=== PATIENT | male | born 1940 | race Caucasian/White ===

== ENCOUNTER 2024-07-27 12:52 | Outpatient (CLI) | payer OTHER, SELFPAY ==
[2024-07-27 13:46] LABS: Anion Gap 9 mmol/L (4-12); Blood Urea Nitrogen 25 mg/dL (9-20); Calcium 9.6 mg/dL (8.4-10.2); Carbon Dioxide 31 mmol/L (22-30); Chloride 99 mmol/L (98-107); Estimated Glomerular Filt Rate > 60; Glucose 120 mg/dL (65-110); Potassium 4.3 mmol/L (3.4-5.0); Sodium 139 mmol/L (137-145)
[2024-07-27 14:50] LABS: Folic Acid 18.5 ng/mL (2.76->20); Vitamin B12 > 1000.0 pg/mL (239-931)
== END 2024-07-27 12:53 | disposition home or self-care (01) ==
LOC: ANHLAB 12:54
PROVIDERS: PCP Internal Medicine; Visit Provider Internal Medicine
DX: E53.8 Deficiency of other specified B group vitamins (principal); R79.9 Abnormal finding of blood chemistry, unspecified; R79.89 Other specified abnormal findings of blood chemistry
CPT/HCPCS: 36415; 80048; 82607; 82746

== ENCOUNTER 2024-12-16 15:22 | Outpatient (CLI) | payer OTHER, SELFPAY ==
[2024-12-16 16:19] LABS: Alanine Aminotransferase 16 U/L (6-50); Albumin Level 4.4 g/dL (3.5-5.1); Alkaline Phosphatase 61 U/L (38-126); Anion Gap 8 mmol/L (4-12); Aspartate Amino Transferase 21 U/L (17-59); Bilirubin,Total 0.6 mg/dL (0.2-1.3); Blood Urea Nitrogen 27 mg/dL (9-20); Calcium 9.4 mg/dL (8.4-10.2); Carbon Dioxide 28 mmol/L (22-30); Chloride 102 mmol/L (98-107); Cholesterol 120 mg/dL (0-200); Estimated Glomerular Filt Rate > 60; Glucose 92 mg/dL (65-110); HDL Direct 42 mg/dL; Potassium 4.5 mmol/L (3.4-5.0); Sodium 138 mmol/L (137-145); Triglycerides 91 mg/dL (<150)
[2024-12-16 16:32] LABS: LDL Cholesterol Direct 54 mg/dL
--- OUTSIDE RECORDS SUMMARY | 2024-12-16 16:55 | XMS_ITS | Encounter Summary ---
Author Organization [facility] Address [address] [place] [address] Care Team Providers Care Used Car Lot Porter Name Role Phone Herman Muñoz MD Primary Care Provider Encounter Details Date Type Department Care Team (Late st Contact Info) Description 02/07/2016 Abstract [facility] [address] [place] [address] Chris Morejon MD Social History Tobacco Use Types Packs/Day Years Used Date Smoking Tobacco: Unknown Alcohol Use Standard Drinks/Week Comments Yes 23.3 (1 standard drink = 0.6 oz pure alcohol) Wine, 2 glasses per day. 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
--- OUTSIDE RECORDS SUMMARY | 2024-12-16 16:55 | XMS_ITS | Clinical Summary ---
Author Organization [facility] Address [address] [place] [address] Care Team Providers Care Entrepreneur Name Role Phone Herman Muñoz MD Primary Care Provider [phone] Allergies Active Allergy Reactions Criticality Noted Date Comments Iodine Unknown 03/09/2016 Lisinopril Unknown 03/09/2016 Medications SIMVASTATIN 5 MG tablet TAKE 1 TABLET BY MOUTH EVERY EVENING 30 tablet 5 08/13/2016 Active aspirin 325 MG tablet Take 1 tablet by mouth daily. 07/21/2015 Active [place] 3 1000 MG Cap Take 1 tablet by mouth daily. 02/07/2016 Active Vit-Fe Sulfate-FA ( VITAMIN OR) Take 1 tablet by mouth daily. 02/07/2016 Active probiotic capsule Take 1 tablet by mouth daily. 07/21/2015 Active spironolactone 25 MG tablet Take 1 tablet by mouth daily. 07/21/2015 Active CYANOCOBALAMIN IJ Inject 1 mL into the muscle weekly. 02/07/2016 Active donepezil 10 MG Tab TAKE 1/2 TABLET DAILY FOR 4 WEEKS, THEN INCREASE TO 1 TABLET DAILY. 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 on file Not on file Not on fi le Last Filed Vital Signs Vital Sign Reading Time Taken Comments Blood Pressure 158/68 01/29/2017 9:46 AM CDT Pulse 87 01/29/2017 9:46 AM CDT Temperature - - Respiratory Rate 14 02/07/2016 12:03 PM CDT Regular Oxygen Saturation 97% 01/29/2017 9:46 AM CDT on room air Inhaled Oxygen Concentration - - Weight 72.6 kg (160 lb) 01/29/2017 9:46 AM CDT Height 167.6 cm (5' 6 ) 01/29/2017 9:46 AM CDT Body Mass Index 25.82 01/29/2017 9:46 AM CDT Plan of Treatment Health Maintenance Due Date Last Done Comments ASCVD Statin 1940 Pneumococcal Vaccine: 65+ Years (1 of 2 - PCV) 1946 DTaP, Tdap and Td Vaccines ( 1 - Tdap) 1959 Zoster Vaccines (1 of 2) 1990 RSV Immunization or 60+ Years (1 - 1-dose 75+ series) 2015 ASCVD LDL 02/06/2018 02/06/2017, 01/12/2015 COVID-19 Vaccine (2023-2 5 season) 2024 Influenza Adult (#1) 2024 Meningococcal B Vaccine Aged Out No l onger eligible based on patient's age to complete this topic Meningococcal Vaccine Aged Out No floresita sincere eligible based on patient's age to complete this topic RSV Immunizations Under 20 Months Aged Out No longer eligible b ased on patient's age to complete this topic Procedures Procedure Name Priority Date/Time Associated Diagnosis Comments LIPID PANEL Routine 02/06/2017 from Last 3 Months or Most Recently Relevant to Health Maintenance Results * LIPID PANEL (02/06/2017) CHOLESTEROL 149 HDL 61 TRIGLYCERIDES 88 LDL (CALCULATED) 70 VLDL CALCULATION 18 02/06/2017 us Doc [facility] Final Result from Last 3 Months or Most Recently Relevant to Health Maintenance Insurance [employer] [facility] Care Teams Entrepreneur Relationship Specialty Start Date End Date Herman Muñoz MD [address] [place] [address] PCP - General INTERNAL MEDICINE 01/29/17
[2024-12-16 19:40] LABS: Hemoglobin A1C 6.4 % (<5.7)
[2024-12-18 16:58] LABS: PSA, Free 3.1 ng/mL; PSA, Total 10.1 ng/mL (< OR = 4.0); Percent Free Prostate Spec Ag NOT CALCULATED % (calc) (>25)
== END 2024-12-16 15:23 | disposition home or self-care (01) ==
PROVIDERS: PCP Internal Medicine; Visit Provider Internal Medicine
DX: Z00.01 Encounter for general adult medical examination with abnormal findings (principal); Z68.22 Body mass index [BMI] 22.0-22.9, adult; I10 Essential (primary) hypertension; I25.10 Atherosclerotic heart disease of native coronary artery without angina pectoris; R97.20 Elevated prostate specific antigen [PSA]; E78.5 Hyperlipidemia, unspecified; Z79.899 Other long term (current) drug therapy
CPT/HCPCS: 36415; 80053; 80061; 83036; 84153; 84154

== ENCOUNTER 2025-01-22 18:28 | Emergency (ER) | payer OTHER, SELFPAY ==
--- NOTE | ~2025-01-22 | XR_ITS ---
XR chest 2V Ordering provider: Nikhil Cantor MD History: 84 years Male with . weakness . Comparison: None. FINDINGS: MEDIASTINUM: The cardiac silhouette is not enlarged. LUNGS: No infiltrates, effusions or pneumothorax. OTHER: No free air under the diaphragm. Degenerative spine. Bilateral shoulder osteoarthritic changes. IMPRESSION: No acute cardiopulmonary pathology. Reviewed, dictated and finalized at location A.
--- NOTE | ~2025-01-22 | CT_ITS ---
CT brain wo con Ordering provider: Nikhil Cantor MD History: 84 years Male with . weakness , dementia . Comparison: None. Technique: CT of the head without contrast. Radiation reduction technique utilized.The dose-length pr oduct was 681 mGy-cm. FINDINGS: BRAIN PARENCHYMA AND CSF SPACES: Mild leukoaraiosis and diffuse cortical atrophy. Mild atheromatous d isease. 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 Old lacunar infarct in the left internal cap moshe. No midline shift, mass effect or hemorrhage. The brain parenchyma and CSF spaces are otherwise normal. VISUALIZED PARANASAL SINUSES: Left maxillary and bilateral ethmoid sinus disease. Otherwise, Well aer ated. MASTOIDS: Well aerated. BONES: The bones appear intact. SOFT TISSUES: Visualized nasopharynx is normal. Superficial soft tissues are normal. IMPRESSION: No definite acute intracranial findings. Reviewed, dictated and finalized at location A.
[2025-01-22 18:30] VITALS: BP 109/71; PULSE 100; RESP 18; TEMP 37.1; O2SAT 100
--- OUTSIDE RECORDS SUMMARY | 2025-01-22 18:31 | XMS_ITS | Encounter Summary ---
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 Not on file Not on file Not on fi le documented as of this encounter Plan of Treatment Not on file documented as of this encounter Visit Diagnoses Not on filedocumented in this encounter Care Teams Provider Relations Rep Relationship Specialty Start Date End Date Herman Muñoz MD [address] [place] [address] PCP - General INTERNAL MEDICINE 01/29/17 documented as of this encounter
--- OUTSIDE RECORDS SUMMARY | 2025-01-22 18:31 | XMS_ITS | Clinical Summary ---
Author Organization [facility] Address [address] [place] [address] Care Team Providers Care Physician Assistant Psychiatry Name Role Phone Herman Muñoz MD Primary Care Provider [phone] Allergies Active Allergy Reactions Criticality Noted Date Comments Iodine Unknown 03/09/2016 Lisinopril Unknown 03/09/2016 Medications SIMVASTATIN 5 MG tablet TAKE 1 TABLET BY MOUTH EVERY EVENING 30 tablet 5 08/13/2016 Active aspirin 325 MG tablet Take 1 tablet by mouth daily. 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 Not on file [...] Date Last Done Comments ASCVD Statin 1940 DTaP, Tdap and Td Vaccines ( 1 - Tdap) 1959 Pneumococcal Vaccine: 50+ Years (1 of 2 - PCV) 1959 Zoster Vaccines (1 of 2) 1990 RSV Immunization or 60+ Years (1 - 1-dose 75+ series) 2015 ASCVD LDL 02/06/2018 02/06/2017, 01/12/2015 COVID-19 Vaccine ( - 2023-2 5 season) 2024 Meningococcal B Vaccine Aged Out No [...] Most Recently Relevant to Health Maintenance Insurance [employer] [facility] Care Teams Physician Assistant Psychiatry Relationship Specialty Start Date End Date Herman Muñoz MD [address] [place] [address] PCP - General INTERNAL MEDICINE 01/29/17
--- NOTE | 2025-01-22 18:49 | ECG_ITS ---
Test Date: 2025-01-22 19:30:14 Measurements Intervals [place] Rate: 94 P: 58 IN: 173 QRS: 4 QRSD: 104 T: 22 QT: 328 QTc: 412 Interpretive Statements SINUS RHYTHM POSSIBLE LEFT ATRIAL ENLARGEMENT DELAYED PRECORDIAL R/S TRANSITION INFERIOR INFARCT, AGE INDETERMINATE BASELINE ARTIFACT- I, II, III, AVR, AVL, AVF, V1-V3 ABNORMAL ECG No previous ECG available for comparison Electronically Signed On 01-23-2025 07:12:08 CDT by Perez Canela D.O.
[2025-01-22 18:54] LABS: Glucose Point of Care 171 mg/dl (65-105)
--- NOTE | 2025-01-22 19:04 | PC.NURSE ---
Pt to CT at this 1900
[2025-01-22 19:06] LABS: Basophils Percent Auto 0.3 % (0.2-1.2); Eosinophils Absolute Auto 0.1 K/mm3 (0-0.3); Eosinophils Percent Auto 1.1 % (0-4.4); Hematocrit 37.7 % (42.0-52.0); Hemoglobin 12.3 g/dL (14.0-18.0); Immature Granulocyte Absolute 0.04 K/mm3 (0.00-0.031); Immature Granulocyte Percent A 0.4 % (0-0.5); Lymphocytes Absolute Auto 0.92 K/mm3 (0.9-3.2); Lymphocytes Percent Auto 8.8 % (18.3-44.2); Mean Corpuscular HGB Conc 32.6 g/dl (32-36); Mean Corpuscular Hemoglobin 30.4 pg (26-34); Mean Corpuscular Volume 93.1 fl (80-100); Mean Platelet Volume 9.3 fl (7.4-10.4); Monocytes Absolute Auto 0.7 K/mm3 (0.1-0.6); Monocytes Percent Auto 6.8 % (2.6-8.5); Neutrophils Absolute Auto 8.7 K/mm3 (1.3-6.7); Neutrophils Percent Auto 82.6 % (45.5-73.1); Platelet Count Result 196 k/mm3 (150-375); Red Blood Count 4.05 M/mm3 (4.6-6.20); White Blood Count 10.5 K/mm3 (4.5-10.0)
--- OUTSIDE RECORDS SUMMARY | 2025-01-22 19:15 | XMS_ITS | Encounter Summary ---
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
--- OUTSIDE RECORDS SUMMARY | 2025-01-22 19:15 | XMS_ITS | Clinical Summary ---
Author Organization [facility] Address [address] [place] [address] Care Team Providers Care Coil Strapper Name Role Phone Herman Muñoz MD Primary Care Provider [phone] Allergies Active Allergy Reactions Criticality Noted Date Comments Iodine Unknown 03/09/2016 Lisinopril Unknown 03/09/2016 Medications SIMVASTATIN 5 MG tablet TAKE 1 TABLET BY MOUTH EVERY EVENING 30 tablet 5 08/13/2016 Active aspirin 325 MG tablet Take 1 tablet by mouth daily. 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
[2025-01-22 19:18] LABS: Alanine Aminotransferase 19 U/L (6-50); Albumin Level 4.2 g/dL (3.5-5.1); Alkaline Phosphatase 77 U/L (38-126); Anion Gap 12 mmol/L (4-12); Aspartate Amino Transferase 19 U/L (17-59); Bilirubin,Total 0.5 mg/dL (0.2-1.3); Blood Urea Nitrogen 28 mg/dL (9-20); Calcium 8.9 mg/dL (8.4-10.2); Carbon Dioxide 25 mmol/L (22-30); Chloride 100 mmol/L (98-107); Estimated Glomerular Filt Rate 59; Glucose 183 mg/dL (65-110); Potassium 4.3 mmol/L (3.4-5.0); Sodium 137 mmol/L (137-145)
[2025-01-22 19:42] LABS: Influenza A QL RT-PCR Negative (Negative); Influenza B QL RT-PCR Negative (Negative); RSV RNA, RT-PCR Negative (Negative); SARS-CoV-2 RNA PCR Positive (Negative)
--- NOTE | 2025-01-22 19:42 | ED_ITS ---
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 He also has a history of peritoneal carcinomatosis that was treated surgically over 20 years ago. He is currently in remission. Patient presents to the emergency department with a chief complaint of shakiness. He is as baseline mentation x2. Not any acute distress, answering all my questions appropriately. Family states that they witnessed him having some shaking of his bilateral extremities without any loss of consciousness. This was while he was trying knee dinner. Patient is still having some shaking his bilateral upper extremities presently with raising his arms in the air but no asterixis. No weakness in the arms or legs. He lives at an assisted living facility with his . Patient denies any headache, nausea, vomiting, abdominal pain, back pain, fever, chills. Apparently he was otherwise in his normal state of health. The family contacted the PCP who referred him to the emergency department for further evaluation. No falls or injuries. Patient does not take any blood thinner medications. Related Data Home Medications ?Medication ?Instructions ?Recorded ?Confirmed ?Last Taken ?Type cholecalciferol (vitamin D3) 50 50 mcg PO DAILY 06/29/24 12/16/24 Unknown History mcg (2,000 unit) capsule mecobalamin (vitamin B12) 1,000 1,000 mcg sublingual DAILY 06/29/24 12/16/24 Unknown History mcg disintegrating tablet,sublingual vitamin BYMOUTH 06/29/24 12/16/24 Unknown History Adamson Fiber Gummies BYWIUTH 12/16/24 12/16/24 Unknown History Allergies Allergy/AdvReac Type Severity Reaction Status Date / Time nkda AdvReac Mild Unknown Uncoded 01/08/25 13:51 Review of Systems 2 Review of Systems: As reviewed above in HPI [facility] Past Medical History Medical History Hearing difficulty Bilateral impacted cerumen Diarrhea Encounter for routine adult health examination with abnormal findings BMI 22.0-22.9, adult Follow up CINTIA (obstructive sleep apnea) Thickened nails ASHD (arteriosclerotic heart disease) [place] (hard of hearing) Hyperlipidemia Pre-diabetes Elevated PSA Encounter to establish care with new doctor On buttermaker drug therapy BMI 24.0-24.9, adult Benign essential hypertension Dementia Surgical History Surgical History Hx of cholecystectomy Social History Social History Smoking status: Former smoker Tobacco type: cigarettes Second hand tobacco smoke exposure: Yes Do You Feel Safe in your Home?: Yes Lack of Transportation: No Lack of Food: Never True Current Housing: I Have Housing Concerned About Future Housing: No Difficulty Paying Gas/Electric Bills: No Difficulty Paying for Meds: No Difficulty w/ Childcare or Family Care: No Living arrangements: [facility] Occupation/Education: retired Gender identity (if verbalized by the patient): Male Exam 2 Narrative: GENERAL: [Well-appearing, well-nourished, and in no acute distress.] HEAD: [Normocephalic, atraumatic.] EYES: [PERRLA and EOMI.] ENT: Nares clear, no rhinorrhea or epistaxis. Mucous membranes dry. NECK: Supple. CHEST: [Clear to auscultation. No respiratory distress.] HEART: [Regular rate and rhythm]. No murmur heard. [Normal peripheral pulses.] ABDOMEN: [Soft, nondistended], [nontender], [No rigidity or guarding] EXTREMITIES: Normal range of motion. [No edema.] SKIN: Warm, dry, no rash. NEURO: [No focal deficits]. Alert and oriented x2, at baseline mentation. Seems to be an intention tremor in bilateral upper extremities, no ataxia in the arms or legs. PSYCH: [Normal mood and affect.] Course Vital Signs Vital signs: Vital Signs Temperature 37.1 C 01/22/25 18:30 Pulse Rate 100 01/22/25 18:30 Respiratory Rate 18 01/22/25 18:30 Blood Pressure 109/71 01/22/25 18:30 Pulse Oximetry 100 01/22/25 18:30 Oxygen Delivery Room Air 01/22/25 18:30 Temperature 37.1 C 01/22/25 18:30 Pulse Rate 99 01/22/25 20:54 Respiratory Rate 18 01/22/25 20:54 Blood Pressure 140/71 04/25/25 20:54 Pulse Oximetry 98 01/22/25 20:54 Oxygen Delivery Room Air 01/22/25 18:30 MDM - Weakness MDM Narrative Medical decision making narrative: 84-year-old male with a past medical history including central pontine myelinolysis leaving him with cognitive decline and dementia, history of peritoneal carcinomatosis status post surgery and remission. Presents the emergency department today with shaking in his extremities. No loss consciousness or trauma. Patient does have some intention tremor examination which family states is new. He is not in any distress, does appear slightly dehydrated. Normal vital signs otherwise. Broad workup was ordered including CBC, CMP, urinalysis, CT of the head, chest x-ray, EKG, VBG. Patient is at his baseline mentation and has an unremarkable neurological examination otherwise. Primary care provider sent the patient in after discussing with the family over the phone. Laboratory studies showed no significant derangements. No significant anemia, leukocytosis or platelet concerns. Blood gas largely unremarkable. Normal pCO2 and bicarb. Electrolyte panel normal limits, normal creatinine, mildly elevated glucose. Normal LFTs. Urinalysis without signs of infection. No bacteria or white blood cells. Patient did test positive for COVID which likely explains his symptomatology. Chest x-ray was normal. CT of the head was unremarkable. EKG shows sinus rhythm. Patient was re-evaluated had no acute complaints. He is safe and stable for discharge home given his unremarkable vitals and will be diagnosed with COVID. Medical Records Attestation: I reviewed the patient's medical records. Lab Data Attestation: I reviewed the patient's lab results. 01/22/25 18:59 01/22/25 18:59 Labs: Lab Results 01/22/25 01/22/25 01/22/25 Range/Units 18:52 18:59 19:42 WBC 10.5 H (4.5-10.0) K/mm3 RBC 4.05 L (4.6-6.20) M/mm3 Hgb 12.3 L (14.0-18.0) g/dL Hct 37.7 L (42.0-52.0) % MCV 93.1 (80-100) fl MCH 30.4 (26-34) pg MCHC 32.6 (32-36) g/dl RDW 13.0 (11.5-14.5) % Plt Count 196 (150-375) k/mm3 MPV 9.3 (7.4-10.4) fl Immature Gran % (Auto) 0.4 (0-0.5) % Neut % (Auto) 82.6 H (45.5-73.1) % Lymph % (Auto) 8.8 L (18.3-44.2) % [place] % (Auto) 6.8 (2.6-8.5) % Eos % (Auto) 1.1 (0-4.4) % Baso % (Auto) 0.3 (0.2-1.2) % Lymph # (Auto) 0.92 (0.9-3.2) K/mm3 [place] # (Auto) 0.7 H (0.1-0.6) K/mm3 Eos # (Auto) 0.1 (0-0.3) K/mm3 Baso # (Auto) 0.0 (0.0-0.1) K/mm3 Abs Immat Gran (auto) 0.04 H (0.00-0.031) K/mm3 Absolute Neuts (auto) 8.7 H (1.3-6.7) K/mm3 Absolute Nucleated RBC 0.000 (0.0-0.012) K/mm3 Nucleated RBC % 0.0 (0.0-0.2) % Sodium 137 (137-145) mmol/L Potassium 4.3 (3.4-5.0) mmol/L Chloride 100 (98-107) mmol/L Carbon Dioxide 25 (22-30) mmol/L Anion Gap 12 (4-12) mmol/L BUN 28 H (9-20) mg/dL Creatinine 1.18 (0.7-1.3) mg/dL Estim Creat Clear Calc Not Reportable Estimated GFR 59 (59 - ) Glucose 183 H (65-110) mg/dL POC Capillary Glucose 171 H (65-105) mg/dl Calcium 8.9 (8.4-10.2) mg/dL Total Bilirubin 0.5 (0.2-1.3) mg/dL AST 19 (17-59) U/L ALT 19 (6-50) U/L Alkaline Phosphatase 77 (38-126) U/L Total Protein 7.0 (6.3-8.2) g/dL Albumin 4.2 (3.5-5.1) g/dL Urine Color Yellow (Yellow) Urine Appearance Clear (Clear) Urine pH 7.5 (5.0-9.0) Ur Specific [place] 1.018 (1.001-1.035) Urine Protein 1+ H (Negative) mg/dL Urine Glucose (UA) Negative (Negative) mg/dL Urine Ketones Trace H (Negative) mg/dL Ur Blood (Man) 2+ H (Negative) Urine Nitrate Negative (Negative) Urine Bilirubin Negative (Negative) Urine Urobilinogen 1.0 (<2.0) mg/dL Leukocyte Esterase Rfl Negative (Negative) BJ/UL Urine RBC 51-100 H (0-2) /hpf Urine WBC 0-5 (0-3) /hpf Ur Squamous Epith Cells None seen (Few) /hpf Urine Bacteria None seen /hpf Urine Casts 0-2 Influenza A (RT-PCR) Negative (Negative) Influenza B (RT-PCR) Negative (Negative) RSV (RT-PCR) Negative (Negative) SARS-CoV-2 RNA (RT-PCR) Positive A (Negative) ABG Data ABG results: 01/22/25 19:50 VBG pH 7.433 H* VBG pCO2 39.5 L VBG pO2 < 27.0 L VBG HCO3 25.8 FiO2 21 Attestation: I personally reviewed and interpreted this ABG as follows: Interpretation: Unremarkable pCO2 and bicarb Imaging Data Attestation: I personally reviewed and interpreted this imaging study as follows: My impression: Impressions Chest X-Ray 01/22/25 19:06 IMPRESSION: No acute cardiopulmonary pathology. Head CT 01/22/25 19:20 IMPRESSION: No definite acute intracranial findings. ECG Data EKG #1: Attestation: I personally reviewed and interpreted this ECG as follows: ECG completion date: 01/22/25 ECG completion time: 19:30 Prior ECG tracings: not available for review Interpretation: No ST segment elevations, depressions or acute inversions. QTC 414, QRS 104, NH 173. Normal sinus rhythm without any previous EKG for comparison. Discharge Plan Discharge Clinical Impression: COVID, Episode of generalized weakness Dementia Qualifiers: Dementia type: unspecified type Dementia severity: unspecified severity D ementia behavioral or psychological symptom: unspecified whether behavioral, psychotic, or mood disturbance or anxiety Qualified Code(s): F03.90 - Unspecified dementia, unspecified severity, without behavioral disturbance, psychotic disturbance, mood disturbance, and anxiety Patient Disposition: Home Condition: Stable Instructions: Antibiotic Form, Droplet Precautions (ED), COVID-19 (Coronavirus Disease 2019) (ED) Additional Instructions: Patient tested positive for COVID here today. No other concerns on laboratory studies or imaging at this time. Symptoms of COVID could last up to 7-10 days. If you are symptomatic, febrile, and coughing you should wear a mask to prevent spread otherwise no guidelines for isolation. Take Tylenol and ibuprofen for any aches or pains. Remain well hydrated. Return if you have any emergent concerns. Follow-up with your regular primary care provider. Patient Language: Mosotho Prescriptions: No Action cholecalciferol (vitamin D3) 50 mcg (2,000 unit) capsule 50 mcg PO DAILY vitamin BYMOUTH mecobalamin (vitamin B12) 1,000 mcg tablet,disintegrating 1,000 mcg sublingual DAILY Rx Instructions: place tablet under tongue and allow to dissolve for at least30 secs before swallowing Adamson Fiber Gummies BYMOUTH amlodipine [Norvasc] 5 mg tablet 5 mg PO DAILY Qty: 90 0RF memantine 10 mg tablet 10 mg PO BID Qty: 180 0RF metformin 500 mg tablet 500 mg PO BID Qty: 180 0RF pravastatin 40 mg tablet 40 mg PO DAILY Qty: 90 1RF Follow-up/Referrals: Clark Rodriguez MD [Primary Care Provider] - Time of Disposition: 20:53
[2025-01-22] MEDS: LACTATED RINGERS 1,000 ML 999 ML IV CONT (19:51)
[2025-01-22 19:52] VITALS: BP 145/62; PULSE 95; RESP 18; O2SAT 100
[2025-01-22 19:54] VITALS: PULSE 95
[2025-01-22 19:54] LABS: Add Urine Microscopic? YES; Appearance Urine Clear (Clear); Bacteria Urine None Seen /hpf; Bilirubin Urine Negative (Negative); Blood Urine 2+ (Negative); Color Urine Yellow (Yellow); Glucose Urine UA Negative (Negative); Ketones Urine Trace mg/dL (Negative); Leukocyte Esterase Ur Negative LEU/UL (Negative); Nitrate Urine Negative (Negative); Non Pathogenic Casts 0-2; Protein Urine 1+ mg/dL (Negative); RBC Urine 51-100 /hpf (0-2); Specific Grav Ur 1.018 (1.001-1.035); Squamous Epithelial Cell Urine None Seen /hpf (Few); WBC Urine 0-5 /hpf (0-3); pH Urine 7.5 (5.0-9.0)
[2025-01-22 20:08] LABS: Fractional Inspired Oxygen 21 %; HCO3 VBG 25.8 mEq/l (24.0-30.0); PCO2 VBG 39.5 mmHg (42.0-48.0)
[2025-01-22 20:10] LABS: PO2 VBG < 27.0 mmHg (35.0-45.0); pH VBG 7.433 (7.300-7.400)
[2025-01-22 20:54] VITALS: BP 140/71; PULSE 99; RESP 18; O2SAT 98
[2025-01-25 08:39] LABS: Device ROOM AIR
== END 2025-01-22 21:05 | disposition home or self-care (01) ==
PROVIDERS: Emergency Provider Student in an Organized Health Care Education/Training Program; PCP Internal Medicine
DX: U07.1 COVID-19 (principal); R53.1 Weakness; F03.90 Unspecified dementia, unspecified severity, without behavioral disturbance, psychotic disturbance, mood disturbance, and anxiety; G37.2 Central pontine myelinolysis; Z85.89 Personal history of malignant neoplasm of other organs and systems; G47.33 Obstructive sleep apnea (adult) (pediatric); E78.5 Hyperlipidemia, unspecified; I10 Essential (primary) hypertension; Z87.891 Personal history of nicotine dependence
CPT/HCPCS: 36415; 70450; 71046; 80053; 81001; 82803; 82948; 85025; 87637; 93005; 96360; 99284; J7120

== ENCOUNTER 2025-01-25 09:42 | Inpatient (IN) | payer OTHER, SELFPAY ==
[2025-01-25] VITALS (15 sets, daily range): BP systolic 88–126; BP diastolic 56–77; PULSE 91–139; RESP 20–32; TEMP 36.9–38.3; O2SAT 87–96; BMI 21.7
--- NOTE | ~2025-01-25 | XR_ITS ---
EXAMINATION: XR fl Dobhoff insert/rad w img DATE: 02/05/2025 16:56 INDICATION: Dobbhoff tube placement TECHNIQUE: A Dobbhoff type feeding tube was advanced to the gastric pylorus utilizing intermittent fluoroscopy. Final image demonstrates the feeding tube in position with the weighted tip at the gastric pylorus wi th sufficient redundancy in the stomach to allow for further passive advancement with peristalsis int o the duodenum. The tube was flushed with 10 mL sterile saline and fixed to the nares with adhesive t ape. 2 fluoroscopic images were recorded. The amount of fluoroscopy time used during this procedure w as 5.7 minutes. Total DAP was 14.506 Gycm^2. There were no immediate complications. FINDINGS/IMPRESSION: Successful fluoroscopy-guided Dobbhoff feeding tube placement with distal tip at the gastric pylorus. Reviewed, dictated and finalized at location A.
--- NOTE | ~2025-01-25 | XR_ITS ---
EXAMINATION: XR chest 1V portable DATE: 01/30/2025 05:35 INDICATION: Pneumonia. ARDS. TECHNIQUE: frontal view of the chest was obtained. COMPARISON: Chest radiograph dated 01/29/2025 FINDINGS: Endotracheal tube tip 6.2 cm above the zarina. Nasogastric tube extends below the left hemidiaphragm with distal tip collimated off the study. Right upper extremity peripherally inserted central venous catheter (PICC) tip at the caudal superior vena cava. No significant interval change in patchy airspace opacities in the right mid to lower lung zones and more dense retrocardiac consolidation in the left lower lung zone. Small left pleural effusion. No pn eumothorax. Small calcified pleural plaque along the left hemidiaphragm. The cardiomediastinal silhou ette is normal. Possible coronary artery stenting. IMPRESSION: 1. Small left pleural effusion with bilateral lung disease which could represent pneumonia, atelectas is, ARDS or some combination thereof. Reviewed, dictated and finalized at location A. IMPRESSION: 1. Small left pleural effusion with bilateral lung disease which could represen t pneumonia, atelectasis, ARDS or some combination thereof.
--- NOTE | ~2025-01-25 | XR_ITS ---
EXAMINATION: XR chest ET placement Exam Date/Time: 01/26/2025 20:33 CDT HISTORY: intubation Comparison: Same date at 5:29 AM. RESULT: Lines, tubes, and devices: New endotracheal tube terminating 3.8 cm above the zarina. New right uppe r extremity PICC terminating at the cavoatrial junction. Subdiaphragmatic NG tube. Lungs and pleura: Worsening diffuse asymmetric airspace disease. Stable mild left costophrenic angle . Right apical fluid and new right costophrenic angle blunting. Cardiomediastinal silhouette: Stable. Other: No acute osseous or upper abdominal finding. IMPRESSION: Endotracheal tube and right upper extremity PICC, both in good position. Worsening edema. Infection not excluded. Small bilateral pleural effusions. Reviewed, dictated and finalized at location K.
--- NOTE | ~2025-01-25 | XR_ITS ---
Portable chest x-ray Comparison: 02/01/2025 Clinical History: ARDS, pneumonia Findings: Endotracheal tube, NG tube, and right-sided PICC line are in place. There is mild haziness at the right lung base and right upper lobe. Possible minimal haziness in the retrocardiac region. Cardiomediastinal silhouette is stable. Bones and soft tissues are unremarkable. Impression: Hazy bibasilar airspace disease, right worse than left, is overall improved from prior exam. Findings are compatible with improving pulmonary edema versus pneumonia. Support tubes, as above. Reviewed, dictated and finalized at location M. Impression: Hazy bibasilar airspace disease, right worse than left, is overall improved fro m prior exam. Findings are compatible with improving pulmonary edema versus pne umonia. Support tubes, as above.
--- NOTE | ~2025-01-25 | XR_ITS ---
Portable chest x-ray Comparison: 02/02/2025 Clinical History: Respiratory failure Findings: Endotracheal tube, NG tube, and right-sided PICC line are in place. There is small left pl eural effusion with probable left basilar atelectasis. Right lung clear. Cardiomediastinal silhouett e is stable. Bones and soft tissues are unremarkable. Impression: Small left pleural effusion with probable left basilar atelectasis. Correlate clinically for pneumoni a. Support tubes, as above. Reviewed, dictated and finalized at location . Impression: Small left pleural effusion with probable left basilar atelectasis. Correlate c linically for pneumonia. Support tubes, as above.
--- NOTE | ~2025-01-25 | XR_ITS ---
Portable chest x-ray Comparison: 01/26/2025 Clinical History: Pneumonia Findings: Endotracheal tube, NG tube, and right-sided PICC line are in place. Extensive bilateral pu lmonary consolidation and present, right worse than left. Suspected left lower lobe atelectasis. Smal l bilateral pleural effusions are present. Cardiomediastinal silhouette is stable. Bones and soft ti ssues are unremarkable. Impression: Extensive bilateral pulmonary consolidation is similar to prior exam, right lung worse than left. Cor relate for pulmonary edema versus pneumonia. Suspected element of left lower lobe atelectasis. Small bilateral pleural effusions. Support tubes, as above. Reviewed, dictated and finalized at location M. Impression: Extensive bilateral pulmonary consolidation is similar to prior exam, right maverick g worse than left. Correlate for pulmonary edema versus pneumonia. Suspected element of left lower lobe atelectasis. Small bilateral pleural effusions. Support tubes, as above.
--- NOTE | ~2025-01-25 | XR_ITS ---
Portable chest x-ray Comparison: 01/25/2025 Clinical History: Increased oxygen demand Findings: There is no extensive consolidation at the right lung, including upper and lower lobes. Po ssible focal retrocardiac airspace disease. Possible minimal left pleural effusion. Cardiomediastina l silhouette is stable. Bones and soft tissues are unremarkable. Impression: New/worsened airspace disease, especially right lung. Correlate for asymmetric edema versus multifoca l pneumonia. Possible minimal left pleural effusion. Reviewed, dictated and finalized at location . Impression: New/worsened airspace disease, especially right lung. Correlate for asymmetric edema versus multifocal pneumonia. Possible minimal left pleural effusion.
--- NOTE | ~2025-01-25 | XR_ITS ---
EXAM: XR abdomen gastric tube insert DATE: 01/26/2025 20:44 HISTORY: NG placement . COMPARISON: None available. FINDINGS: Bibasilar airspace disease. Small bilateral pleural effusions, likely subpulmonic on the r ight. NG tube, tip over the gastric body, side port over the gastric fundus. Normal-appearing partial ly visualized bowel gas pattern. Cholecystomy clips. IMPRESSION: Bibasilar airspace disease. Small bilateral pleural effusions, likely with a subpulmonic component on the right. NG tube in good position. Reviewed, dictated and finalized at location K. IMPRESSION: Bibasilar airspace disease. Small bilateral pleural effusions, like ly with a subpulmonic component on the right. NG tube in good position.
--- NOTE | ~2025-01-25 | XR_ITS ---
XR chest 1V portable Ordering provider: Eloy Emmanuel History: 84 years Male with . ARDS, pneumonia . Comparison: February 04, 2025 FINDINGS: MEDIASTINUM: The cardiac silhouette is slightly enlarged. Congestive quentin. LUNGS: No pneumothorax. Increased opacification in the right lung is seen suggestive of pneumonia angelica russell edema. Left perihilar opacification is also increased. Bilateral interstitial thickening is seen. Minimal left effusion is not excluded. OTHER: No free air under the diaphragm. IMPRESSION: Bilateral pneumonia which is increased more on the right side. Underlying pulmonary edema is not excl uded. Reviewed, dictated and finalized at location A. IMPRESSION: Bilateral pneumonia which is increased more on the right side. Underlying pulmo nary edema is not excluded.
--- NOTE | ~2025-01-25 | XR_ITS ---
MODIFIED ESOPHAGRAM HISTORY: Recent intubation TECHNIQUE: Modified barium esophagram was performed on 02/05/2025. I administered fluoroscopy and perfo rmed the exam with speech pathologist. Patient was seated for lateral fluoroscopic imaging for inges tion of thin liquids, pudding, solids and quantified amounts, followed by thin liquids in uncontrolle d amounts. This was recorded on tape. A single fluoroscopic spot image was also recorded. The DAP for this procedure was 1.902 Gycm2. The amount of fluoroscopy time used during this procedure was 3.4 mi nutes. FINDINGS: Oral stage: Adequate function. Pharyngeal stage: Reduced laryngeal elevation and adduction. Reduced tongue base retraction and phary ngeal squeeze. There is vallecular, piriform sinus and pharyngeal wall residue. Laryngeal penetration and aspiration. Cervical/esophageal stage: Adequate function. IMPRESSION: Pharyngeal dysphagia with laryngeal penetration and aspiration. Please correlate with sp eech pathologist findings and specific feeding recommendations. Reviewed, dictated and finalized at location A. IMPRESSION: Pharyngeal dysphagia with laryngeal penetration and aspiration. Pl ease correlate with speech pathologist findings and specific feeding recommenda tions.
--- NOTE | ~2025-01-25 | US_ITS ---
Renal-Bladder ultrasound Clinical History: Acute kidney injury Technique: Real-time sonographic imaging of the kidneys and urinary bladder was performed. Findings: The right kidney measures 8.8 cm in length and the left kidney measures 10.0 cm. There is n o hydronephrosis or renal calculus identified. Renal cortical echogenicity is within normal limits. N o renal mass lesion is identified. Trace right perinephric fluid noted. The urinary bladder is collapsed around a Scales catheter. Impression: No hydronephrosis. Trace right perinephric fluid. Reviewed, dictated and finalized at location M. Impression: No hydronephrosis. Trace right perinephric fluid.
--- NOTE | ~2025-01-25 | XR_ITS ---
Portable chest x-ray Comparison: 02/04/2025 Clinical History: Respiratory failure Findings: Right-sided PICC line in place. There is extensive bilateral pulmonary consolidation, spar ing the lung apices. There is probable left lower lobe atelectasis. There are small pleural effusions . Cardiomediastinal silhouette is stable. Bones and soft tissues are unremarkable. Impression: Advanced pulmonary edema pattern with small pleural effusions and left lower lobe atelectasis. Correl ate clinically for pneumonia. Right-sided PICC line in place. Reviewed, dictated and finalized at location . Impression: Advanced pulmonary edema pattern with small pleural effusions and left lower lo be atelectasis. Correlate clinically for pneumonia. Right-sided PICC line in place.
--- NOTE | ~2025-01-25 | XR_ITS ---
Portable chest x-ray Comparison: 01/27/2025 Clinical History: Intubated Findings: Endotracheal tube, NG tube, and right PICC line are in place. Extensive bilateral airspace disease present, right worse than left. Probable small pleural effusions. Cardiomediastinal silhoue tte is stable. Bones and soft tissues are unremarkable. Impression: Extensive bilateral airspace consolidation, right worse than left. Correlate for asymmetric pulmonary edema versus multifocal pneumonia. Small pleural effusions. Support tubes, as above. Reviewed, dictated and finalized at location . Impression: Extensive bilateral airspace consolidation, right worse than left. Correlate fo r asymmetric pulmonary edema versus multifocal pneumonia. Small pleural effusions. Support tubes, as above.
--- NOTE | ~2025-01-25 | XR_ITS ---
Portable chest x-ray Comparison: 02/03/2025 Clinical History: Respiratory failure Findings: Right-sided PICC line in place. Extensive hazy right lung airspace disease with left lower lobe consolidation is present. Possible minimal pleural effusions. Cardiomediastinal silhouette is stable. Bones and soft tissues are unremarkable. Impression: Moderate pulmonary edema pattern with minimal pleural effusions. Correlate for pneumonia. Probable associated left lower lobe atelectasis. Right-sided PICC line. Reviewed, dictated and finalized at location . Impression: Moderate pulmonary edema pattern with minimal pleural effusions. Correlate for pneumonia. Probable associated left lower lobe atelectasis. Right-sided PICC line.
--- NOTE | ~2025-01-25 | XR_ITS ---
XR chest 2V Ordering provider: Darion Coyne MD History: 84 years Male with . covid + . Comparison: January 22, 2025 FINDINGS: MEDIASTINUM: The cardiac silhouette is not enlarged. Congestive quentin. LUNGS: No effusions or pneumothorax. Bibasilar opacification suggestive of atelectasis versus pneumon ia. Prominent bronchovascular markings in the upper lobes. OTHER: No free air under the diaphragm. Degenerative changes of the spine. IMPRESSION: Bilateral basal and upper lobes pneumonia. Reviewed, dictated and finalized at location A.
--- NOTE | ~2025-01-25 | XR_ITS ---
Portable chest x-ray Comparison: 01/28/2025 Clinical History: ARDS, pneumonia Findings: Endotracheal tube, NG tube, and right-sided PICC line are in place. Extensive right lung c onsolidation present. Focal left lower lobe consolidation present. Cardiomediastinal silhouette is s table. Bones and soft tissues are unremarkable. Impression: Extensive right lung consolidation with additional left basilar consolidation. Correlate for asymmetr ic pulmonary edema, bilateral pneumonia, or ARDS. Support tubes, as above. Reviewed, dictated and finalized at location . Impression: Extensive right lung consolidation with additional left basilar consolidation. Correlate for asymmetric pulmonary edema, bilateral pneumonia, or ARDS. Support tubes, as above.
--- NOTE | ~2025-01-25 | XR_ITS ---
EXAMINATION: XR chest 1V portable DATE: 02/06/2025 05:47 INDICATION: Respiratory failure TECHNIQUE: frontal view of the chest was obtained. COMPARISON: Chest radiograph dated 02/05/2025 FINDINGS: There is been some interval decrease in density of airspace opacities in the right bilateral mid and lower lung zones, right greater than left. Small left pleural effusion with blunting at the left cost ophrenic angle. No pneumothorax. Dobbhoff type nasoenteric feeding tube with distal tip in the region of the gastric pylorus. Cholecystectomy clips in right upper quadrant. Old left-sided rib fractures. IMPRESSION: 1. Decreasing opacities in the bilateral mid and lower lung zones which could represent pulmonary charles ma or pneumonia. 2. Small left pleural effusion. Reviewed, dictated and finalized at location A. IMPRESSION: 1. Decreasing opacities in the bilateral mid and lower lung zones which could r epresent pulmonary edema or pneumonia. 2. Small left pleural effusion.
--- NOTE | ~2025-01-25 | XR_ITS ---
Portable chest x-ray Comparison: 01/31/2025 Clinical History: ARDS, pneumonia Findings: Endotracheal tube, NG tube, and right-sided PICC line are in place. Small bilateral pleura l effusions are present. There is extensive hazy pulmonary disease, right worse than left, with relat uche sparing of the apices. Cardiomediastinal silhouette is stable. Bones and soft tissues are unrema rkable. Impression: Moderate pulmonary edema pattern with small pleural effusions. Correlate for pneumonia or ARDS. Support tubes, as above. Reviewed, dictated and finalized at location . Impression: Moderate pulmonary edema pattern with small pleural effusions. Correlate for pn eumonia or ARDS. Support tubes, as above.
--- NOTE | 2025-01-25 09:54 | ECG_ITS ---
Test Date: 2025-01-25 09:58:51 Measurements Intervals [place] Rate: 133 P: 67 MO: 149 QRS: 1 QRSD: 104 T: 70 QT: 307 QTc: 458 Interpretive Statements SINUS TACHYCARDIA ANTEROSEPTAL INFARCT, AGE INDETERMINATE CONSIDER INFERIOR INFARCT, AGE INDETERMINATE ST-T WAVE ABNORMALITY IN ANTEROLAT/HIGH LAT LEADS- CONSIDER ISCHEMIA ABNORMAL ECG Compared to ECG 01/22/2025 19:30:14 HEART RATE HAS INCREASED ST (T wave) deviation now present POSSIBLE ISCHEMIA NOW PRESENT Electronically Signed On 01-25-2025 11:02:04 CDT by Perez Canela D.O.
[2025-01-25 10:20] LABS: Basophils Percent Auto 0.2 % (0.2-1.2); Hematocrit 38.8 % (42.0-52.0); Hemoglobin 12.4 g/dL (14.0-18.0); Immature Granulocyte Absolute 0.05 K/mm3 (0.00-0.031); Immature Granulocyte Percent A 0.5 % (0-0.5); Lymphocytes Absolute Auto 0.48 K/mm3 (0.9-3.2); Lymphocytes Percent Auto 4.4 % (18.3-44.2); Mean Corpuscular Hemoglobin 30.2 pg (26-34); Mean Corpuscular Volume 94.6 fl (80-100); Mean Platelet Volume 10.2 fl (7.4-10.4); Monocytes Absolute Auto 0.8 K/mm3 (0.1-0.6); Monocytes Percent Auto 7.6 % (2.6-8.5); Neutrophils Absolute Auto 9.5 K/mm3 (1.3-6.7); Neutrophils Percent Auto 87.3 % (45.5-73.1); Platelet Count Result 207 k/mm3 (150-375); Red Cell Distribution Width 13.4 % (11.5-14.5); White Blood Count 10.9 K/mm3 (4.5-10.0)
[2025-01-25 10:47] LABS: Alanine Aminotransferase 95 U/L (6-50); Albumin Level 4.1 g/dL (3.5-5.1); Alkaline Phosphatase 56 U/L (38-126); Anion Gap 19 mmol/L (4-12); Aspartate Amino Transferase 231 U/L (17-59); Bilirubin,Total 1.1 mg/dL (0.2-1.3); Blood Urea Nitrogen 58 mg/dL (9-20); Calcium 9.1 mg/dL (8.4-10.2); Carbon Dioxide 19 mmol/L (22-30); Chloride 100 mmol/L (98-107); Estimated CRCL calculation 21 ml/min; Estimated Glomerular Filt Rate 32; Glucose 238 mg/dL (65-110); Potassium 4.7 mmol/L (3.4-5.0); Sodium 138 mmol/L (137-145)
--- NOTE | 2025-01-25 11:09 | ED.SOB ---
HPI - SOB/Dyspnea General Chief Complaint: Shortness of Breath/Dyspnea Stated Complaint: COVID +, SOB Time Seen by Provider: 01/25/25 10:56 History of Present Illness HPI Narrative: Patient is an 84-year-old male who presents ER with shortness of breath. Patient was diagnosed with COVID 2 days ago. He was discharged home. He has had increased weakness. Hypoxic on arrival here with elevated heart rate. Patient has dementia. He poor oral intake. Cannot provide any history so history is provided by and daughter. Related Data Home Medications ?Medication ?Instructions ?Recorded ?Confirmed ?Last Taken ?Type cholecalciferol (vitamin D3) 50 50 mcg PO DAILY 06/29/24 01/25/25 01/24/25 History mcg (2,000 unit) capsule mecobalamin (vitamin B12) 1,000 1,000 mcg sublingual DAILY 06/29/24 01/25/25 01/24/25 History mcg disintegrating tablet,sublingual vitamin 200 mg BYMOUTH DAILY 06/29/24 01/25/25 Unknown History [place] Fiber Gummies 1 gummy BYMOUTH BID 12/16/24 01/25/25 01/24/25 History Allergies Allergy/AdvReac Type Severity Reaction Status Date / Time shellfish derived Allergy Anaphylaxis Verified 01/25/25 15:36 iohexol (From contrast - CT, AdvReac Intermediate Rash Verified 01/25/25 15:36 X-RAY) Review of Systems Review of Systems: ROS unobtainable: Yes unobtainable due to mental status PMFSH Past Medical History Medical History (Updated 01/25/25 @ 17:52 by Darion Coyne MD) Pre-diabetes Hearing difficulty Bilateral impacted cerumen Diarrhea Encounter for routine adult health examination with abnormal findings BMI 22.0-22.9, adult Follow up CINTIA (obstructive sleep apnea) Thickened nails ASHD (arteriosclerotic heart disease) [place] (hard of hearing) Hyperlipidemia Elevated PSA Encounter to establish care with new doctor 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 BMI 24.0-24.9, adult Benign essential hypertension Dementia Surgical History Surgical History Hx of cholecystectomy Family History Family History Sibling Cerebrovascular accident Father Acute myocardial infarction Mother Breast cancer Ovarian cancer Social History Social History Smoking status: Former smoker Tobacco type: cigarettes Alcohol intake: never Substance use: never Do You Feel Safe in your Home?: Yes Lack of Transportation: No Lack of Food: Never True Current Housing: I Have Housing Concerned About Future Housing: No Difficulty Paying Gas/Electric Bills: No Difficulty Paying for Meds: No Currently Unemployed: No Education: Master's Degree or Higher Difficulty w/ Childcare or Family Care: No Living arrangements: [facility] Occupation/Education: retired Gender identity (if verbalized by the patient): Male Spiritual care concerns: No Exam Narrative: GENERAL: Ill-appearing, well-nourished, and in no acute distress. HEAD: Normocephalic, atraumatic. EYES: PERRL and EOMI. ENT: Mucous membranes moist. NECK: Supple. CHEST: Clear to auscultation. No respiratory distress. HEART: Tachycardic and regular. Normal peripheral pulses. ABDOMEN: Soft, nontender, nondistended. EXTREMITIES: Normal range of motion. No edema. SKIN: Warm, dry, no rash. NEURO: Alert and oriented x1. Course Course Emergency Course: Patient given 30 milliliter/kilogram bolus. Blood cultured and broad spectrum antibiotic started. Patient with pneumonia in setting COVID, likely COVID pneumonia but will cover for bacterial source. Patient with MICHAEL and elevated lactate. Accepted by hospitalist service. Vital Signs Vital signs: Vital Signs Temperature 99.1 F 01/25/25 09:44 Pulse Rate 139 H 01/25/25 09:44 Respiratory Rate 32 H 01/25/25 09:44 Blood Pressure 126/66 01/25/25 09:44 Pulse Oximetry 88 L 01/25/25 09:44 Oxygen Delivery Room Air 01/25/25 09:44 Temperature 98.4 F 01/25/25 14:00 Pulse Rate 111 H 01/25/25 16:00 Respiratory Rate 20 01/25/25 14:00 Blood Pressure 88/57 L 01/25/25 14:00 Pulse Oximetry 95 01/25/25 16:00 Oxygen Delivery Non-Rebreather Mask 01/25/25 16:00 Oxygen Flow Rate 10 01/25/25 16:00 MDM - SOB/Dyspnea Lab Data 01/25/25 10:02 01/25/25 10:02 Labs: Lab Results 01/25/25 01/25/25 01/25/25 Range/Units 10:02 11:35 14:10 WBC 10.9 H (4.5-10.0) K/mm3 RBC 4.10 L (4.6-6.20) M/mm3 Hgb 12.4 L (14.0-18.0) g/dL Hct 38.8 L (42.0-52.0) % MCV 94.6 (80-100) fl MCH 30.2 (26-34) pg MCHC 32.0 (32-36) g/dl RDW 13.4 (11.5-14.5) % Plt Count 207 (150-375) k/mm3 MPV 10.2 (7.4-10.4) fl Immature Gran % (Auto) 0.5 (0-0.5) % Neut % (Auto) 87.3 H (45.5-73.1) % Lymph % (Auto) 4.4 L (18.3-44.2) % [place] % (Auto) 7.6 (2.6-8.5) % Eos % (Auto) 0.0 (0-4.4) % Baso % (Auto) 0.2 (0.2-1.2) % Lymph # (Auto) 0.48 L (0.9-3.2) K/mm3 [place] # (Auto) 0.8 H (0.1-0.6) K/mm3 Eos # (Auto) 0.0 (0-0.3) K/mm3 Baso # (Auto) 0.0 (0.0-0.1) K/mm3 Abs Immat Gran (auto) 0.05 H (0.00-0.031) K/mm3 Absolute Neuts (auto) 9.5 H (1.3-6.7) K/mm3 Absolute Nucleated RBC 0.000 (0.0-0.012) K/mm3 Nucleated RBC % 0.0 (0.0-0.2) % Sodium 138 (137-145) mmol/L Potassium 4.7 (3.4-5.0) mmol/L Chloride 100 (98-107) mmol/L Carbon Dioxide 19 L (22-30) mmol/L Anion Gap 19 H (4-12) mmol/L BUN 58 H D (9-20) mg/dL Creatinine 2.01 H (0.7-1.3) mg/dL Estim Creat Clear Calc 21 ml/min Estimated GFR 32 L (59 - ) Glucose 238 H (65-110) mg/dL Lactic Acid 4.3 H* 4.7 H* (0.7-2.0) mmol/L Calcium 9.1 (8.4-10.2) mg/dL Total Bilirubin 1.1 (0.2-1.3) mg/dL AST 231 H (17-59) U/L ALT 95 H (6-50) U/L Alkaline Phosphatase 56 (38-126) U/L NT-Pro-B Natriuret Pep 72163 H (19.9-100) pg/mL Total Protein 7.0 (6.3-8.2) g/dL Albumin 4.1 (3.5-5.1) g/dL Procalcitonin 0.5 ng/mL ABG Data ABG results: 01/25/25 16:06 Puncture Site Left radial ABG pH 7.449 ABG pCO2 24.1 L ABG pO2 83.7 ABG PO2/FiO2 Ratio 0.84 ABG HCO3 16.3 L ABG O2 Saturation 96.9 ABG O2 Content 15.6 L ABG Base Excess -6.1 A-a Gradient 605.2 Oxyhemoglobin 95.1 Total Hemoglobin 11.6 L O2 Delivery Device Non-rebreather mask O2 Liters/Min 15.0 FiO2 100 Critical Care Time Critical Care Time Critical Care Time: Yes Total Critical Care Time: 35 Discharge Plan Discharge Clinical Impression: COVID, Pneumonia, Acute kidney injury Patient Disposition: Still a Patient Condition: Stable
[2025-01-25] MEDS: SODIUM CHLORIDE 0.9% IV 1,000 ML 999 ML IV CONT (11:35)
[2025-01-25 11:57] LABS: Lactic Acid Reflex 4.3 mmol/L (0.7-2.0)
--- NOTE | 2025-01-25 12:21 | ADMGEN ---
This patient, Estrada Stewart, was admitted to Medical Room 342-01. Patient/family oriented to hospital policies and general routines including ID bracelet, bed and alarms, visiting hours, pain management, procedures, bathroom and other care routines, personal items, smoking policy, room service/diet, and visiting hours. Information on how to activate the Rapid Response Team has been discussed. Patient/Family are encouraged to report perceived risks to care and to ask questions if they do not understand what they are told or what they should do.
[2025-01-25] MEDS: AZITHROMYCIN 500 MG/NS 250 ML 500 MG/250 ML BAG 250 MG IVPB (12:34)
[2025-01-25] MEDS: SODIUM CHLORIDE 0.9% IV 900 ML 999 ML IV CONT (12:37)
[2025-01-25] MEDS: SODIUM CHLORIDE 0.9% IV 1,000 ML 125 ML IV CONT (12:38)
--- OUTSIDE RECORDS SUMMARY | 2025-01-25 13:06 | XMS_ITS | Clinical Summary ---
Author Organization [facility] Address [address] [place] [address] Care Team Providers Care Machine Sweeper Brush Maker Name Role Phone Herman Muñoz MD Primary Care Provider [phone] Allergies Active Allergy Reactions Criticality Noted Date Comments Iodine Unknown 03/09/2016 Lisinopril Unknown 03/09/2016 Medications SIMVASTATIN 5 MG tablet TAKE 1 TABLET BY MOUTH EVERY EVENING 30 tablet 5 08/13/2016 Active aspirin 325 MG tablet Take 1 tablet by mouth daily. 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 Not on file Not on file Not [...] Most Recently Relevant to Health Maintenance Insurance [employer] [facility] Care Teams Machine Sweeper Brush Maker Relationship Specialty Start Date End Date Herman Muñoz MD [address] [place] [address] PCP - General INTERNAL MEDICINE 01/29/17
--- OUTSIDE RECORDS SUMMARY | 2025-01-25 13:06 | XMS_ITS | Encounter Summary ---
Author Organization 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 Not on file Not on file Not on fi le documented as of this encounter Plan of Treatment Not on file documented as of this encounter Visit Diagnoses Not on filedocumented in this encounter Care Teams Kennel Manager Dog Track Relationship Specialty Start Date End Date Herman Muñoz MD [address] [place] [address] PCP - General INTERNAL MEDICINE 01/29/17 documented as of this encounter
[2025-01-25 13:41] LABS: Reflex Lactic Acid Yes or No Add Lactic
[2025-01-25 14:34] LABS: Lactic Acid 4.7 mmol/L (0.7-2.0)
--- NOTE | 2025-01-25 15:28 | PM.IMHP ---
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 Patient presents to the emergency department from home for evaluation shortness of breath and lethargy/generalized weakness. He is accompanied daughter who provided much of the past medical history and HPI information. Patient was recently seen in the emergency department on 01/22/2025 for shaking in his extremities and was diagnosed with COVID and discharged home. Over the weekend he became progressively lethargic and not eating as much as mealtimes. No shortness of breath but a non-productive cough. This worsened until Saturday night when he developed a fever and had a restless night of sleep and on the a.m. of 01/25, called an ambulance due to further increase in the lethargy. Continues to endorse generalized weakness. He denies any chest pain or shortness breath, however upon arrival to the Emergency Department, respiratory rate of 32/min. Patient has an altered baseline mentation status of A&Ox2 due to dementia. No abdominal pain, vomiting, LOC, urinary/bowel changes, sputum production, Denies any known sick contacts, recent travel. Coming from assisted living facility. Allergy to contrast dye. Transferred to ICU due to increased O2 demand, increased lethargy and tachypnea. In ED Vitals at Presentation: 99.1F, 139 HR, 32 RR, 88% RA, 126/66 ED Workup showed: WBC 10.9, RBC 4.1, Hgb 12.4,Na 138, K 4.7, CO2 19, Anion Gap 19, BUN 58, Cr 2.01, eGFR 32, Glucose 238, Lactic Acid 4.3, Ca 9.1, BNP 25,700, COVID + Chest x-ray in ED showed bilateral basal and upper lobes pneumonia. Blood cultures were obtained. Blood cultures pending. 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 BMI 24.0-24.9, adult Benign essential hypertension Dementia Surgical History Surgical History Hx of cholecystectomy Family History Family History Sibling Cerebrovascular accident Father Acute myocardial infarction Mother Breast cancer Ovarian cancer Social History Social History Smoking status: Former smoker Tobacco type: cigarettes Alcohol intake: never Substance use: never Do You Feel Safe in your Home?: Yes Lack of Transportation: No Lack of Food: Never True Current Housing: I Have Housing Concerned About Future Housing: No Difficulty Paying Gas/Electric Bills: No Difficulty Paying for Meds: No Currently Unemployed: No Education: Master's Degree or Higher Difficulty w/ Childcare or Family Care: No [facility] Occupation/Education: retired Gender identity (if verbalized by the patient): Male Spiritual care concerns: No Meds Home Medications and Allergies Home Medications ?Medication ?Instructions ?Recorded ?Confirmed ?Type cholecalciferol (vitamin D3) 50 50 mcg PO DAILY 06/29/24 01/25/25 History mcg (2,000 unit) capsule mecobalamin (vitamin B12) 1,000 1,000 mcg sublingual DAILY 06/29/24 01/25/25 History mcg disintegrating tablet,sublingual vitamin 200 mg BYMOUTH DAILY 06/29/24 01/25/25 History amlodipine 5 mg tablet (Norvasc) 5 mg PO DAILY #90 tabs 12/09/24 01/25/25 Rx memantine 10 mg tablet 10 mg PO BID #180 tabs 12/09/24 01/25/25 Rx metformin 500 mg tablet 500 mg PO BID #180 tabs 12/09/24 01/25/25 Rx pravastatin 40 mg tablet 40 mg PO DAILY #90 tabs 12/09/24 01/25/25 Rx [place] Fiber Gummies 1 gummy BYMOUTH BID 12/16/24 01/25/25 History Allergies Allergy/AdvReac Type Severity Reaction Status Date / Time shellfish derived Allergy Anaphylaxis Verified 01/25/25 15:36 iohexol (From contrast - CT, AdvReac Intermediate Rash Verified 01/25/25 15:36 X-RAY) Vital Signs Vital Signs - 24 hr 01/25/25 09:44 01/25/25 09:51 01/25/25 09:51 Temperature 99.1 F Pulse Rate 139 H 134 H Respiratory Rate 32 H Blood Pressure 126/66 Pulse Oximetry 88 L 96 Oxygen Delivery Room Air Nasal Cannula Oxygen Flow Rate 2 01/25/25 10:52 01/25/25 11:37 01/25/25 14:00 Temperature 98.4 F Pulse Rate 131 H 117 H 114 H Respiratory Rate 32 H 32 H 20 Blood Pressure 117/64 100/60 88/57 L Pulse Oximetry 96 93 90 Oxygen Delivery Oxygen Flow Rate Exam Narrative: Gen - ill appearing male appearing in acute respiratory distress who is toxic-appearing lying semi recumbent in bed HEENT - normocephalic. Atraumatic. Pupils equal round and reactive. Extraocular motions intact. Sclera clear and anicteric. Nares patent. Oropharynx was clear. Dry mucous membranes. Tongue was midline. No facial asymmetry. Neck - neck was supple. No dominant adenopathy, thyromegaly or masses. Chest - Crackles at base of bilateral lung [place] CV - Tachycardic. S1-S2. No murmurs gallops or rubs. Abd - abdomen was soft. Nontender. Nondistended. Positive bowel sounds. No organomegaly or masses. Ext - no clubbing, cyanosis or edema. 2+ DP pulses bilaterally. Neuro - patient is alert and oriented x2. Speech is clear. Psych -Lethargic Patient is pleasant and cooperative. Skin - warm and dry. No rashes noted. H&P: Results Labs Labs: Short CBC 01/25/25 Range/Units 10:02 WBC 10.9 H (4.5-10.0) K/mm3 Hgb 12.4 L (14.0-18.0) g/dL Hct 38.8 L (42.0-52.0) % Plt Count 207 (150-375) k/mm3 [facility] 01/25/25 10:02 Sodium 138 Potassium 4.7 Chloride 100 Carbon Dioxide 19 L BUN 58 H D Creatinine 2.01 H Glucose 238 H Calcium 9.1 Liver Function 01/25/25 Range/Units 10:02 Total Bilirubin 1.1 (0.2-1.3) mg/dL AST 231 H (17-59) U/L ALT 95 H (6-50) U/L Alkaline Phosphatase 56 (38-126) U/L Albumin 4.1 (3.5-5.1) g/dL Assessment and Plan Assessment and plan (1) Sepsis: Code(s): A41.9 - Sepsis, unspecified organism Status: Acute Assessment and Plan: Meets SIRS criteria: HR 117, RR 32, WBC 10.9 - lactic acid: 4.3 ->4.7 - suspected source: Pneumonia - blood cultures drawn on 01/25 - UA: pending - CXR: Bilateral basal and upper lobes pneumonia. - Ceftriaxone 1gm q24hr, Azithromycin 500mg q24hr - Transferred to ICU d/t increased O2 demand, lethargy and tachypnea - Spoke with [facility] regarding transfer to ICU - Echo pending - Lactated Ringers 100ml/hr (2) Pneumonia: Code(s): J18.9 - Pneumonia, unspecified organism Status: Acute Assessment and Plan: CXR: Bilateral basal and upper lobes pneumonia. - started on CAP tx: azithromycin ceftriaxone on 01/25 - COVID + - Consider ordering legionella, mycoplasma and pneumococcal - Non-rebreather 15L - supportive treatment Monitor vital signs, I&Os, neuro status and patient is a fall risk Follow WBC, serum electrolytes, temperature curves and cultures Send sputum cultures Oxygen via NC; wean as tolerated. Keep SpO2 greater than 88% Gentle IV fluid resuscitation Ceftriaxone 2 gram IV q24H and Azithromycin 500mg IV q24H (3) MICHAEL (acute kidney injury): Code(s): N17.9 - Acute kidney failure, unspecified Status: Acute Assessment and Plan: -Creatinine: 2.01, GFR:32 , BUN: 58 -IV Fluids: LR 100ml/hr -Trend renal function -trend electrolytes, correct as needed (4) Hypoxia: Code(s): R09.02 - Hypoxemia Status: Acute Assessment and Plan: - Symptoms: Shortness of breath, tachycardia - SpO2: 98% - Oxygen supplementation: Initially placed on 5L NC, increased to non-rebreather - Suspected cause: Pneumonia/COVID - ABG: pH 7.449, pCO2 24.1, pO2 83.7, PO2/FiO2 ratio 0.84, HCO3 16.3 - EKG: Sinus Tach, MT 149, - Chest XR: Bilateral basal and upper lobes pneumonia. (5) COVID: Code(s): U07.1 - COVID-19 Status: Acute Assessment and Plan: Place in [facility]19 isolation precautions, cardiac monitoring, and continuous pulse ox Monitor serum electrolytes, CRP, Lactic acid, troponin, CBC, WBC, temperature curve and follow cultures Oxygen via NC; wean as tolerated. Keep spO2 greater than 91% Consider Consulting Pulmonary if the patient has an increased oxygen demand. Patient does not wear oxygen at baseline. When appropriate start CPAP or Vapotherm to maintain oxygen saturation (6) Generalized weakness: Code(s): R53.1 - Weakness Status: Acute Assessment and Plan: Likely secondary to underlying Pneumonia/COVID infections and MICHAEL (7) Hyperlipidemia: Qualifiers: Hyperlipidemia type: unspecified Qualified Code(s): E78.5 - Hyperlipidemia, unspecified Code(s): E78.5 - Hyperlipidemia, unspecified Status: Acute Assessment and Plan: Continue Pravastatin 40mg (8) Pre-diabetes: Code(s): R73.03 - Prediabetes Status: Acute Assessment and Plan: - POC blood glucose ACHS - home medication - Metformin, hold d/t eGFR < 45 - A1C on 12/16 (9) Benign essential hypertension: Code(s): I10 - Essential (primary) hypertension Status: Acute Assessment and Plan: BP 117/64 on admission Repeat 88/57, will hold Amlodipine Plan Diet: NPO except ice chips GI Prophylaxis: Not currently indicated DVT Prophylaxis: Lovenox Lines: Peripheral Code Status: Modified code, Yes Intubation/Ventilation, but no CPR Quality VTE Prophylaxis VTE prophylaxis: pharmacologic ordered
[2025-01-25 15:58] LABS: NT Pro B Type Natriuretic Pept 25700 pg/mL (19.9-100)
[2025-01-25 16:06] LABS: Procalcitonin 0.5 ng/mL
[2025-01-25 16:13] LABS: Alveolar/Arterial O2 Gradient 605.2 mmHg; Base Excess ABG -6.1 mEq/l (+/-2.0); Fractional Inspired Oxygen 100 %; HCO3 ABG 16.3 mEq/l (22.0-26.0); Oxygen Content ABG 15.6 %vol (16.0-22.0); Oxygen Saturation ABG 96.9 % (95.0-100.0); Oxyhemoglobin 95.1 % THb (90.0-100.0); PCO2 ABG 24.1 mmHg (35.0-45.0); PO2 ABG 83.7 mmHg (80.0-100.0); PO2 FiO2 Ratio Arterial Blood 0.84 %; Total Hemoglobin 11.6 g/dL (12.0-18.0); pH ABG 7.449 (7.350-7.450)
[2025-01-25 16:14] LABS: Device NON-REBREATHER MASK; Modified Allen's Test Pass; Site Drawn LEFT RADIAL
[2025-01-25] MEDS: LACTATED RINGERS 1,000 ML 125 ML IV CONT (17:28)
[2025-01-25] MEDS: ALBUMIN HUMAN 5% 25 GM/500 ML BTL IV CONT (17:28)
[2025-01-25 18:06] LABS: Add Urine Microscopic? YES; Appearance Urine Cloudy (Clear); Bacteria Urine None Seen /hpf; Bilirubin Urine 1+ (Negative); Blood Urine 2+ (Negative); Color Urine Dark Yellow (Yellow); Glucose Urine UA Negative (Negative); Hyaline Casts Urine Present /lpf; Ketones Urine Trace mg/dL (Negative); Leukocyte Esterase Ur Negative LEU/UL (Negative); Nitrate Urine Negative (Negative); Non Pathogenic Casts >20; Protein Urine 3+ mg/dL (Negative); Specific Grav Ur 1.022 (1.001-1.035); Squamous Epithelial Cell Urine Few /hpf (Few); Urobilinogen Urine 0.2 mg/dL (<2.0); WBC Urine 0-5 /hpf (0-3)
[2025-01-25] MEDS: dexAMETHasone 2 MG TABLET 6 MG PO (18:52)
[2025-01-25] MEDS: ACETAMINOPHEN 325 MG TABLET 650 MG PO (18:58)
[2025-01-25 19:27] LABS: MRSA (PCR) NOT DETECTED (NOT DETECTE)
[2025-01-25] MEDS: REMDESIVIR 200 MG/NS 250 ML 200 MG/250 ML BAG 250 MG IVPB (21:18)
[2025-01-25 22:34] LABS: Basophils Percent Auto 0.1 % (0.2-1.2); Hematocrit 34.9 % (42.0-52.0); Immature Granulocyte Absolute 0.05 K/mm3 (0.00-0.031); Immature Granulocyte Percent A 0.5 % (0-0.5); Lymphocytes Absolute Auto 0.91 K/mm3 (0.9-3.2); Lymphocytes Percent Auto 9.4 % (18.3-44.2); Mean Corpuscular HGB Conc 31.5 g/dl (32-36); Mean Corpuscular Hemoglobin 30.5 pg (26-34); Mean Corpuscular Volume 96.7 fl (80-100); Monocytes Absolute Auto 0.6 K/mm3 (0.1-0.6); Monocytes Percent Auto 5.7 % (2.6-8.5); Neutrophils Absolute Auto 8.2 K/mm3 (1.3-6.7); Neutrophils Percent Auto 84.3 % (45.5-73.1); Platelet Count Result 148 k/mm3 (150-375); Red Blood Count 3.61 M/mm3 (4.6-6.20); Red Cell Distribution Width 13.7 % (11.5-14.5); White Blood Count 9.7 K/mm3 (4.5-10.0)
[2025-01-25 22:45] LABS: Alanine Aminotransferase 91 U/L (6-50); Albumin Level 3.9 g/dL (3.5-5.1); Alkaline Phosphatase 46 U/L (38-126); Anion Gap 13 mmol/L (4-12); Aspartate Amino Transferase 161 U/L (17-59); Bilirubin,Total 0.8 mg/dL (0.2-1.3); Blood Urea Nitrogen 62 mg/dL (9-20); Calcium 8.1 mg/dL (8.4-10.2); Carbon Dioxide 20 mmol/L (22-30); Chloride 106 mmol/L (98-107); Estimated CRCL calculation 24 ml/min; Estimated Glomerular Filt Rate 35; Glucose 176 mg/dL (65-110); Potassium 4.6 mmol/L (3.4-5.0); Sodium 139 mmol/L (137-145)
[2025-01-25 22:48] LABS: INR 1.4; Prothrombin Time 17.3 Seconds (11.1-14.7)
[2025-01-25 23:01] LABS: CRP 14.1 mg/dL (<1.0)
[2025-01-26] VITALS (29 sets, daily range): BP systolic 94–127; BP diastolic 63–77; PULSE 85–128; RESP 15–36; TEMP 36.4–37.3; O2SAT 81–100; BMI 22.8
--- NOTE | 2025-01-26 | ECHO_ITS ---
Patient Info Name: Estrada Stewart Age: 84 years : 1940 Gender: Male Ht: 66 in Wt: 134 lbs BSA: 1.68 m2 HR: 111 bpm BP: 118 / 77 mmHg Technical Quality: Good Exam Date: 01/26/2025 1:54 PM Exam Location: Echo Lab Patient Status: Inpatient Admit Date: 01/25/2025 Staff Ordering Physician: Chase Vences MD [employer] Supervisor: Sabina Eason RDCS Attending Provider: Amita Sanford MD Exam Type: CA echo dop color flow w con Study Info Indications - Respiratory failure Complete two-dimensional, color flow and Doppler transthoracic echocardiogram is performed with contrast to opacify the left ventricle and to improve the deliniation of the left ventricle endocardial borders. Contrast/Agitated Saline Contrast/Ag. Saline: Definity Amount: 2.00 ml Existing IV Access: Yes IV Access Condition: patent with no signs of infiltration Summary 1. Definity contrast administered improved wall motion interpretation. 2. Left ventricular chamber dimension is moderately enlarged. 3. Left ventricular systolic function is moderately globally reduced, estimated at 35-40%. 4. The left ventricular diastolic function is abnormal. 5. E/e' 13 is mildly elevated. 6. Left atrial chamber dimension is moderately enlarged. 7. Right atrial chamber dimension is mildly enlarged. 8. There is mild aortic valve sclerosis. 9. There is mild aortic valve regurgitation. 10. There is moderate to severe mitral valve regurgitation. 11. There is moderate tricuspid valve regurgitation. 12. Mild pulmonary hypertension, estimated pulmonary arterial systolic pressure is 40 mmHg. Left Ventricle E/e' 13 is mildly elevated. Left ventricular systolic function is moderately globally reduced, estimated at 35-40%. Definity contrast administered improved wall motion interpretation. Left ventricular chamber dimension is moderately enlarged. The left ventricular diastolic function is abnormal. Right Ventricle Right ventricular chamber dimension is normal. Right ventricular systolic function is normal. Left Atria Left atrial chamber dimension is moderately enlarged. Right Atria Right atrial chamber dimension is mildly enlarged. Aortic Valve The aortic valve is trileaflet. There is mild aortic valve sclerosis. There is no aortic valve stenosis. There is mild aortic valve regurgitation. Pulmonic Valve There is no pulmonic regurgitation. Mitral Valve There is no mitral valve stenosis. There is moderate to severe mitral valve regurgitation. Tricuspid Valve There is moderate tricuspid valve regurgitation. Mild pulmonary hypertension, estimated pulmonary arterial systolic pressure is 40 mmHg. Pericardium/Pleural There is no pericardial effusion. Inferior Vena Cava Normal inferior vena cava with >50% collapse upon inspiration consistent with normal right atrial pressure, 5 mmHg. Aorta The aortic root size at the sinus of Valsalva is normal. Left Ventricular Outflow Tract Name Value Normal LVOT 2D LVOT Diameter 1.77 cm LVOT Doppler LVOT Peak Gradient 2 mmHg LVOT Mean Gradient 1 mmHg LVOT VTI 10.81 cm LVOT VTI/AV VTI Ratio 0.75 LVOT Stroke Volume 26.58 ml LVOT CO 7.16 l/min LVOT CI 4.26 L/min/m2 Pulmonic Valve Name Value Normal PV Doppler PV Peak Gradient 2 mmHg Mitral Valve Name Value Normal MV Doppler MV Decel [place] 584.54 cm/s2 MV PHT 0 s MV Area (PHT) 4.49 cm2 4.00-5.00 MV Diastolic Function MV E Peak Velocity 98.86 cm/s MV A Peak Velocity 28.25 cm/s MV E/A 3.50 MV Decel Time 0 s MV Annular TDI MV E/e' (Septal) 14.06 <=8.00 MV E/e' (Lateral) 12.77 <=8.00 MV E/e' (Average) 13.41 Tricuspid Valve Name Value Normal TV Regurgitation Doppler TR Peak Velocity 295.20 cm/s TR Peak Gradient 28 mmHg Estimated PAP/RSVP RA Pressure 5 mmHg <=5 PA Systolic Pressure 40 mmHg <36 RV Systolic Pressure 40 mmHg <36 Aorta Name Value Normal Ascending Aorta Ao Root Diameter (MM) 3.25 cm Ao Root Diam Index (MM) 1.93 cm/m2 Aortic Valve Name Value Normal AV Doppler AV Peak Velocity 92.54 cm/s AV Peak Gradient 3 mmHg AV Mean Gradient 2 mmHg AV VTI 14.48 cm AV Area (Cont Eq VTI) 1.84 cm2 >=3.00 AV Area (Cont Eq James) 1.73 cm2 AV Regurgitation 2D LVOT Area 2.46 cm2 AV Regurgitation Doppler AR Decel Time 1 s AR Decel [place] 235.17 cm/s2 AR PHT 0 s Ventricles Name Value Normal LV Dimensions 2D/MM IVS Diastolic Thickness (2D) 1.15 cm 0.60-1.00 LVID Diastole (2D) 3.98 cm 4.20-5.80 LVIW Diastolic Thickness (2D) 1.02 cm 0.60-1.00 LVID Systole (2D) 3.47 cm 2.50-4.00 LVOT Diameter 1.77 cm LV Mass (2D Cubed) 141.32 g 88.00-224.00 LV Mass Index (2D Cubed) 0.01 g/cm2 0.00-0.01 Relative Wall Thickness (2D) 0.51 LV Fractional Shortening/Ejection Fraction 2D/MM LV Fractional Shortening (2D) 13 % 25-43 LV EF (2D Teicholz) 28 % 52-72 LV Diastolic Volume (4C MOD) 102.10 ml LV EF (4C MOD) 42 % LV Diastolic Volume (2C MOD) 104.13 ml LV EF (2C MOD) 37 % LV Diastolic Volume (BP MOD) 102.97 ml 62.00-150.00 LV Diastolic Volume Index (BP MOD) 0.06 l/m2 0.03-0.07 LV Systolic Volume (BP MOD) 63.71 ml 21.00-61.00 LV Systolic Volume Index (BP MOD) 0.04 l/m2 0.01-0.03 LV EF (BP MOD) 38 % 52-72 LV Diastolic Length (4C) 8.31 cm LV Systolic Length (4C) 7.78 cm LV Stroke Volume (4C MOD) 43.29 ml RV Dimensions 2D/MM RVID Diastole (2D) 4.03 cm 2.50-3.50 Atria Name Value Normal LA Dimensions LA Dimension (MM) 3.00 cm 3.00-4.10 LA Volume (4C A-L) 49.24 ml LA Volume (BP A-L) 38.81 ml RA Dimensions RA Area (4C) 11.83 cm2 <=18.00 Report Signatures
[2025-01-26 00:20] LABS: Glucose Point of Care 202 mg/dl (65-105)
[2025-01-26] MEDS: IPRATROPIUM 0.5 MG/ALBUTEROL SULFATE 2.5 MG AMPUL.NEB 3 ML INHALATION ×3 (01:31→13:34)
[2025-01-26 04:33] LABS: Basophils Percent Auto 0.1 % (0.2-1.2); Hematocrit 36.8 % (42.0-52.0); Hemoglobin 11.4 g/dL (14.0-18.0); Immature Granulocyte Absolute 0.06 K/mm3 (0.00-0.031); Immature Granulocyte Percent A 0.7 % (0-0.5); Lymphocytes Absolute Auto 0.76 K/mm3 (0.9-3.2); Lymphocytes Percent Auto 8.5 % (18.3-44.2); Mean Corpuscular Hemoglobin 30.3 pg (26-34); Mean Corpuscular Volume 97.9 fl (80-100); Mean Platelet Volume 10.3 fl (7.4-10.4); Monocytes Absolute Auto 0.4 K/mm3 (0.1-0.6); Monocytes Percent Auto 4.8 % (2.6-8.5); Neutrophils Absolute Auto 7.7 K/mm3 (1.3-6.7); Neutrophils Percent Auto 85.9 % (45.5-73.1); Platelet Count Result 154 k/mm3 (150-375); Red Blood Count 3.76 M/mm3 (4.6-6.20); Red Cell Distribution Width 13.8 % (11.5-14.5); White Blood Count 8.9 K/mm3 (4.5-10.0)
[2025-01-26 04:50] LABS: Lactic Acid Reflex 2.1 mmol/L (0.7-2.0)
[2025-01-26 04:51] LABS: Alanine Aminotransferase 88 U/L (6-50); Albumin Level 3.8 g/dL (3.5-5.1); Alkaline Phosphatase 36 U/L (38-126); Anion Gap 14 mmol/L (4-12); Aspartate Amino Transferase 129 U/L (17-59); Bilirubin,Total 0.6 mg/dL (0.2-1.3); Blood Urea Nitrogen 62 mg/dL (9-20); Carbon Dioxide 18 mmol/L (22-30); Chloride 108 mmol/L (98-107); Estimated CRCL calculation 27 ml/min; Estimated Glomerular Filt Rate 41; Glucose 188 mg/dL (65-110); Magnesium 2.2 mg/dL (1.6-2.3); Phosphorus 4.2 mg/dL (2.5-4.5); Potassium 4.8 mmol/L (3.4-5.0); Sodium 140 mmol/L (137-145)
[2025-01-26 04:53] LABS: Alveolar/Arterial O2 Gradient 558.5 mmHg; Base Excess ABG -5.3 mEq/l (+/-2.0); Fractional Inspired Oxygen 90 %; HCO3 ABG 17.6 mEq/l (22.0-26.0); Oxygen Content ABG 15.1 %vol (16.0-22.0); Oxygen Saturation ABG 90.3 % (95.0-100.0); PCO2 ABG 27.1 mmHg (35.0-45.0); PO2 ABG 55.4 mmHg (80.0-100.0); PO2 FiO2 Ratio Arterial Blood 0.62 %; Total Hemoglobin 12.3 g/dL (12.0-18.0)
[2025-01-26 05:02] LABS: Device BIPAP; Modified Allen's Test Pass; Site Drawn RIGHT RADIAL
[2025-01-26 05:17] LABS: Expiratory Pressure 7 cmH2O; Inspiratory Pressure 17 cmH2O
[2025-01-26 06:29] LABS: Reflex Lactic Acid Yes or No Add Lactic
[2025-01-26 07:41] LABS: Lactic Acid 2.3 mmol/L (0.7-2.0)
[2025-01-26] MEDS: ALBUMIN HUMAN 25% 25 GM/100 ML 100 ML IVPB ×4 (08:45→23:41)
[2025-01-26] MEDS: ENOXAPARIN 30 MG/0.3 ML SYRINGE SUB-Q (08:45)
[2025-01-26 08:52] LABS: Oxyhemoglobin 87.4 % THb (90.0-100.0)
--- NOTE | 2025-01-26 08:52 | P.CONIN_ITS ---
Assessment and Plan Assessment and plan (1) Acute respiratory failure: Code(s): J96.00 - Acute respiratory failure, unspecified whether with hypoxia or hypercapnia Status: Acute Assessment and Plan: Acute respiratory failure likely related to pneumonia, COVID-19 -chest x-ray this morning shows worsening right-sided infiltrate -chief ABGs reviewed -currently on BiPAP 14/8, 90% FiO2 with adequate O2 sats, maintain O2 sats > 92% -repeat ABGs later this morning -continue bronchodilators -patient is okay for intubation but no CPR -continue ceftriaxone, azithromycin (01/25). Given worsening of chest x-ray and pneumonia, will add vancomycin (01/26) (2) Pneumonia: Code(s): J18.9 - Pneumonia, unspecified organism Status: Acute Assessment and Plan: Continue as above (3) COVID: Code(s): U07.1 - COVID-19 Status: Acute Assessment and Plan: Patient has been positive for COVID 19. Chest x-ray shows worsening infiltrates -patient started on remdesivir, dexamethasone (01/25) -according to guidelines will add baricitinib -continue droplet and contact isolation/precautions (4) Sepsis: Code(s): A41.9 - Sepsis, unspecified organism Status: Acute Assessment and Plan: Patient presented with tachycardia, tachypnea, hypoxia, acute kidney injury, -elevated lactic acid -adequately fluid-resuscitated, will continue albumin for intravascular volume expansion -urine output has been adequate, will continue to follow (5) MICHAEL (acute kidney injury): Code(s): N17.9 - Acute kidney failure, unspecified Status: Acute Assessment and Plan: Acute kidney injury likely related to sepsis, -patient does have a history of hypertension and prediabetes, obstructive sleep apnea -adequately fluid-resuscitated -urine output has been adequate -creatinine trending down -continue to monitor urine output, renal function electrolytes (6) Dementia: Qualifiers: Dementia type: unspecified type Dementia severity: unspecified severity Dementia behavioral or psychological symptom: unspecified whether behavioral, psychotic, or mood disturbance or anxiety Qualified Code(s): F03.90 - Unspecified dementia, unspecified severity, without behavioral disturbance, psychotic disturbance, mood disturbance, and anxiety Code(s): F03.90 - Unspecified dementia, unspecified severity, without behavioral disturbance, psychotic disturbance, mood disturbance, and anxiety Status: Acute Assessment and Plan: Baseline cognitive impairment, on Namenda at home, will continue to hold for now (7) Generalized weakness: Code(s): R53.1 - Weakness Status: Acute Assessment and Plan: Generalized weakness could be related to hypoxia, tachypnea, COVID-19, pneumonia -continue to manage underlying issues (8) Hyperlipidemia: Qualifiers: Hyperlipidemia type: unspecified Qualified Code(s): E78.5 - Hyperlipidemia, unspecified Code(s): E78.5 - Hyperlipidemia, unspecified Status: Acute Assessment and Plan: Continue pravastatin (9) Pre-diabetes: Code(s): R73.03 - Prediabetes Status: Acute Assessment and Plan: Accu-Cheks and sliding scale insulin Plan DVT prophylaxis: Enoxaparin Stress ulcer prophylaxis: Proton Nutrition: NPO Code Status: Okay to intubation but no CPR Critical Care Time Spent: 51 minutes Due to a high probability of clinically significant, life threatening deterioration, the patient required my highest level of preparedness to intervene emergently and I personally spent this critical care time directly and personally managing the patient. This critical care time included obtaining a history; examining the patient; pulse oximetry; ordering and review of studies; arranging urgent treatment with development of a management plan; evaluation of patient's response to treatment; frequent reassessment; and discussions with other providers. It was exclusive of separately billable procedures and treating other patients and teaching time. Please see Assessment and Plan section and the rest of the note for further information on patient assessment and treatment This dictation may have been done utilizing a voice recognition system. Attempts have been made to correct errors. However, there may be uncorrected grammatical, spelling, and recognitions errors present. Manager Administration Consult Note Consult date: 01/26/25 Reason for consult: Acute respiratory failure, COVID-19 positive, pneumonia, requiring NIPPV HPI: Estrada Stewart is a 84 year old male with past medical history of prediabetes, 6 obstructive sleep apnea, of her sclerotic heart disease, hyperlipidemia, essential hypertension, dementia, presents to the ED on 01/25 on 01/25/2025 with complains of shortness of breath, COVID positive, generalized weakness. Off note he was seen in the ER on 01/22/2025 with complains of generalized weakness, was found to be positive for COVID-19, a lab studies on that day not show any significant derangements, ABGs with normal pCO2 and bicarb, electrolyte panel was within normal limits. Kidney function was within normal limits. LFTs were normal. Urinalysis without any infection. Patient did test positive for COVID- 19. Chest x-ray was normal, CT scan of the brain was unremarkable, EKG showed sinus rhythm. Patient was discharged home only to return on 01/25/2025 with complaint of increasing shortness of breath. Patient was also tachycardic, tachypneic, hypoxic. WBC count of 10.9, creatinine of 2.01, lactic acid 4.3. BNP was [address]77. COVID was positive, chest x-ray in the ED showed bilateral basal and upper lobe pneumonia. Blood cultures were obtained, patient was started on azithromycin, ceftriaxone. Patient was admitted to the medical floor, overnight O2 requirements increased, patient was placed from high-flow nasal cannula to high-flow therapy with Airvo, thereafter he was placed on BiPAP and transferred to the ICU for further management. Patient seen and examined this morning in the ICU, is awake, alert, able to answer questions appropriately, currently on BiPAP 12/04 with 90% FiO2 with adequate O2 sats. Patient moves all extremities to commands. States he feels better this morning. Hemodynamically stable, adequate urine output. This morning the chest x-ray shows worsening right-sided infiltrates. Patient on 90% FiO2. Lactic acid trending up 2.3 this morning. LFTs trending down, creatinine is improved. Review of Systems 2 Review of Systems: All systems reviewed & are unremarkable except as noted in HPI and below PMFSH Past Medical History Medical History (Updated 01/26/25 @ 09:07 by Eloy Emmanuel MD) Pre-diabetes Hearing difficulty Bilateral impacted cerumen Diarrhea Encounter for routine adult health examination with abnormal findings BMI 22.0-22.9, adult Follow up [facility] (obstructive sleep apnea) Thickened nails ASHD (arteriosclerotic heart disease) [place] (hard of hearing) Hyperlipidemia Elevated PSA Encounter to establish care with new doctor [facility] BMI 24.0-24.9, adult Benign essential hypertension Dementia Surgical History Surgical History Hx of cholecystectomy Family History Family History Sibling Cerebrovascular accident Father Acute myocardial infarction Mother Breast cancer Ovarian cancer Social History Social History Smoking status: Former smoker Tobacco type: cigarettes Alcohol intake: never Substance use: never Do You Feel Safe in your Home?: Yes Lack of Transportation: No Lack of Food: Never True Current Housing: I Have Housing Concerned About Future Housing: No Difficulty Paying Gas/Electric Bills: No Difficulty Paying for Meds: No Currently Unemployed: No Education: Master's Degree or Higher Difficulty w/ Childcare or Family Care: No Living arrangements: [place]term [place] Occupation/Education: retired Gender identity (if verbalized by the patient): Male Spiritual care concerns: No Meds Home Medications and Allergies Home Medications ?Medication ?Instructions ?Recorded ?Confirmed ?Type cholecalciferol (vitamin D3) 50 50 mcg PO DAILY 06/29/24 01/25/25 History mcg (2,000 unit) capsule mecobalamin (vitamin B12) 1,000 1,000 mcg sublingual DAILY 06/29/24 01/25/25 History mcg disintegrating tablet,sublingual vitamin 200 mg BYMOUTH DAILY 06/29/24 01/25/25 History amlodipine 5 mg tablet (Norvasc) 5 mg PO DAILY #90 tabs 12/09/24 01/25/25 Rx memantine 10 mg tablet 10 mg PO BID #180 tabs 12/09/24 01/25/25 Rx metformin 500 mg tablet 500 mg PO BID #180 tabs 12/09/24 01/25/25 Rx pravastatin 40 mg tablet 40 mg PO DAILY #90 tabs 12/09/24 01/25/25 Rx [place] Fiber Gummies 1 gummy BYMOUTH BID 12/16/24 01/25/25 History Allergies Allergy/AdvReac Type Severity Reaction Status Date / Time shellfish derived Allergy Anaphylaxis Verified 01/25/25 15:36 iohexol (From contrast - CT, AdvReac Intermediate Rash Verified 01/25/25 15:36 X-RAY) Vital Signs Vital Signs - 24 hr 01/25/25 09:44 01/25/25 09:51 01/25/25 09:51 Temperature 99.1 F Pulse Rate 139 H 134 H Respiratory Rate 32 H Blood Pressure 126/66 Pulse Oximetry 88 L 96 Oxygen Delivery Room Air Nasal Cannula Oxygen Flow Rate 2 Fraction of Inspired Oxygen 01/25/25 10:52 01/25/25 11:37 01/25/25 14:00 Temperature 98.4 F Pulse Rate 131 H 117 H 114 H Respiratory Rate 32 H 32 H 20 Blood Pressure 117/64 100/60 88/57 L Pulse Oximetry 96 93 90 Oxygen Delivery Oxygen Flow Rate Fraction of Inspired Oxygen 01/25/25 16:00 01/25/25 16:00 01/25/25 18:00 Temperature Pulse Rate 111 H 103 H Respiratory Rate Blood Pressure Pulse Oximetry 95 Oxygen Delivery Non-Rebreather Mask Oxygen Flow Rate 10 Fraction of Inspired Oxygen 01/25/25 18:00 01/25/25 18:58 01/25/25 19:56 Temperature 100.9 F H 100.7 F H Pulse Rate 103 H Respiratory Rate 26 H Blood Pressure 121/77 Pulse Oximetry 94 Oxygen Delivery Oxygen Flow Rate Fraction of Inspired Oxygen 01/25/25 20:00 01/25/25 20:00 01/25/25 20:00 Temperature 100.6 F H Pulse Rate 101 H 101 H Respiratory Rate 21 H Blood Pressure 99/56 L Pulse Oximetry 91 91 Oxygen Delivery High Flow Nasal Cannula Oxygen Flow Rate 13 Fraction of Inspired Oxygen 01/25/25 20:30 01/25/25 20:43 01/25/25 21:03 Temperature Pulse Rate 96 Respiratory Rate 20 Blood Pressure Pulse Oximetry 87 L 93 92 Oxygen Delivery High Flow Nasal Cannula High Flow Nasal Cannula High Flow Nasal Cannula Oxygen Flow Rate 13 15 15 Fraction of Inspired Oxygen 01/25/25 22:00 01/25/25 22:00 01/25/25 22:50 Temperature 99.8 F H Pulse Rate 92 92 91 Respiratory Rate 23 H 20 Blood Pressure 108/57 L Pulse Oximetry 91 92 Oxygen Delivery High Flow Therapy with Na Oxygen Flow Rate 60 Fraction of Inspired Oxygen 90 01/26/25 00:00 01/26/25 00:00 01/26/25 00:00 Temperature 99.1 F Pulse Rate 89 89 Respiratory Rate 22 H Blood Pressure 115/73 Pulse Oximetry 93 93 Oxygen Delivery High Flow Therapy with Na Oxygen Flow Rate 60 Fraction of Inspired Oxygen 95 01/26/25 00:36 01/26/25 01:30 01/26/25 01:32 Temperature Pulse Rate 96 93 Respiratory Rate 20 20 Blood Pressure Pulse Oximetry 92 87 L Oxygen Delivery High Flow Therapy with Na High Flow Therapy with Na Oxygen Flow Rate 60 60 Fraction of Inspired Oxygen 90 95 01/26/25 02:00 01/26/25 02:00 01/26/25 02:11 Temperature 98.8 F Pulse Rate 88 88 91 Respiratory Rate 20 15 Blood Pressure 118/76 Pulse Oximetry 92 92 Oxygen Delivery BiPAP Oxygen Flow Rate Fraction of Inspired Oxygen 01/26/25 04:00 01/26/25 04:00 01/26/25 04:00 Temperature 98.2 F Pulse Rate 87 87 Respiratory Rate 19 Blood Pressure 122/74 Pulse Oximetry 95 94 Oxygen Delivery BiPAP Oxygen Flow Rate Fraction of Inspired Oxygen 100 01/26/25 05:30 01/26/25 06:00 01/26/25 06:00 Temperature 98.0 F Pulse Rate 86 89 89 Respiratory Rate 22 H 16 Blood Pressure 118/77 Pulse Oximetry 90 97 Oxygen Delivery BiPAP Oxygen Flow Rate Fraction of Inspired Oxygen 01/26/25 07:54 01/26/25 07:58 Temperature Pulse Rate 95 85 Respiratory Rate 23 H Blood Pressure Pulse Oximetry 97 Oxygen Delivery BiPAP Oxygen Flow Rate Fraction of Inspired Oxygen Exam 2 Narrative: General: Elderly gentleman in no acute distress HEENT:? Pupils equal and reactive, sclera is clear, BiPAP in place Neck:? Supple Respiratory:? Coarse breath sounds bilaterally, right greater than left, adequate air entry, no wheezing Cardiac:? S1-S2 normal, regular rate and rhythm Abdomen:? Soft, nontender, nondistended, hypoactive bowel sound Extremities:? No edema, palpable pedal pulses Neuro:? Patient is awake, alert, able to answer questions appropriately and follows simple commands Skin:? No skin lesions noted Psych:? Normal mentation and affect Results Labs 01/26/25 03:55 01/26/25 03:55 Labs: Short CBC 01/25/25 01/25/25 01/26/25 Range/Units 10:02 22:29 03:55 WBC 10.9 H 9.7 8.9 (4.5-10.0) K/mm3 Hgb 12.4 L 11.0 L 11.4 L (14.0-18.0) g/dL Hct 38.8 L 34.9 L 36.8 L (42.0-52.0) % Plt Count 207 148 L 154 (150-375) k/mm3 BMP 01/25/25 01/25/25 01/26/25 10:02 22:29 03:55 Sodium 138 139 140 Potassium 4.7 4.6 4.8 Chloride 100 106 108 H Carbon Dioxide 19 L 20 L 18 L BUN 58 H D 62 H 62 H Creatinine 2.01 H 1.83 H 1.61 H Glucose 238 H 176 H 188 H Calcium 9.1 8.1 L 8.0 L Liver Function 01/25/25 01/25/25 01/26/25 Range/Units 10:02 22:29 03:55 Total Bilirubin 1.1 0.8 0.6 (0.2-1.3) mg/dL AST 231 H 161 H 129 H (17-59) U/L ALT 95 H 91 H 88 H (6-50) U/L Alkaline Phosphatase 56 46 36 L (38-126) U/L Albumin 4.1 3.9 3.8 (3.5-5.1) g/dL Urine 01/25/25 Range/Units 17:43 Urine Color Dark yellow (Yellow) Urine Appearance Cloudy H (Clear) Urine pH 5.0 (5.0-9.0) Ur Specific [place] 1.022 (1.001-1.035) Urine Protein 3+ H (Negative) mg/dL Urine Glucose (UA) Negative (Negative) mg/dL Quality VTE Prophylaxis VTE prophylaxis: pharmacologic ordered Hospitalist MIPS Advance Care Plan I have confirmed that the patient's Advanced Care Plan is present, code status is documented, or surrogate decision maker is listed in patient medical record.: Yes Medication Reconciliation I have utilized all available resources to obtain, update and review the patients current medications (includes all prescriptions, OTC, herbals, cannabis, and nutritional supplements).: Yes
[2025-01-26] MEDS: PANTOPRAZOLE SODIUM IV 40 MG VIAL IV PUSH (10:24)
[2025-01-26] MEDS: PRAVASTATIN SODIUM 20 MG TABLET 40 MG PO (10:25)
[2025-01-26] MEDS: dexAMETHasone SOD PHOS INJ 10 MG/ML 1 ML VIAL 6 MG IV PUSH (10:25)
[2025-01-26] MEDS: BARICITINIB 2 MG TABLET PO (10:26)
[2025-01-26] MEDS: VANCOMYCIN 1,500 MG/NS 500 ML 1,500 MG/500 ML BAG 250 MG IVPB (10:26)
[2025-01-26] MEDS: LIDOCAINE 1% PF INJ 5 ML VIAL INFILTRATE (12:00)
[2025-01-26] MEDS: AZITHROMYCIN 500 MG/NS 250 ML 500 MG/250 ML BAG 250 MG IVPB (13:06)
[2025-01-26 13:07] LABS: Base Excess ABG -6.9 mEq/l (+/-2.0); Fractional Inspired Oxygen 90 %; HCO3 ABG 16.4 mEq/l (22.0-26.0); Oxygen Content ABG 15.1 %vol (16.0-22.0); Oxygen Saturation ABG 93.8 % (95.0-100.0); Oxyhemoglobin 91.4 % THb (90.0-100.0); PCO2 ABG 26.4 mmHg (35.0-45.0); PO2 ABG 66.6 mmHg (80.0-100.0); PO2 FiO2 Ratio Arterial Blood 0.74 %; Total Hemoglobin 11.7 g/dL (12.0-18.0)
[2025-01-26 13:09] LABS: Device BIPAP; Modified Allen's Test Pass; Site Drawn LEFT RADIAL
[2025-01-26 13:11] LABS: Expiratory Pressure 8 cmH2O; Inspiratory Pressure 14 cmH2O
[2025-01-26] MEDS: PERFLUTREN LIPID MICROSPHERES 1.5 ML VIAL DILUTED TO 10 ML TOTAL VOLUME IV PUSH (14:00)
[2025-01-26 14:05] LABS: Glucose Point of Care 186 mg/dl (65-105)
--- NOTE | 2025-01-26 14:25 | IVDEFINITY ---
Prior to administration of IV Definity the patient was educated on the risks and benefits of the imaging enhancing agent including potential adverse side effects. The patient verbalized understanding. Allergies were verified. No exclusion criteria were identified and at least one of the following inclusion criteria were met: 1) physician request, 2) patient technically difficult to image (per the [place] [employer] guidelines of two or more segments not discernable within the apical view), or 3) questionable left ventricular function. ?
--- NOTE | 2025-01-26 15:23 | PC.NURSE ---
Notified Dr Emmanuel of patient HR of 120-[address]. [address] orders.
[2025-01-26] MEDS: METOPROLOL TARTRATE INJ 5 MG/5 ML VIAL IV PUSH ×2 (15:30→21:15)
[2025-01-26 16:40] LABS: Glucose Point of Care 218 mg/dl (65-105)
--- NOTE | 2025-01-26 16:48 | PC.NURSE ---
Notified Dr Emmanuel of increasing bipap to 100% RR 27. If ok with family Dr Emmanuel gave order for intubation. Confirmed with /poa Randi who wants patient intubated. Will place orders and notify ER.
[2025-01-26] MEDS: INSULIN ASPART (*BKC) 100 UNITS/ML SUB-Q ×2 (16:58→23:39)
--- NOTE | 2025-01-26 17:45 | PC.NURSE ---
Notified MD that the patient O2 sat has been above 90% since speaking to the family. RR 22. Asked Divya ARGUELLO to come and assess the patient, who doesn't believe the patient needs to be intubated right at this moment. PT on continuous monitoring.
--- NOTE | 2025-01-26 18:19 | P.PNIM_ITS ---
Progress Note: A&P Assessment and Plan (1) Acute respiratory failure: Code(s): J96.00 - Acute respiratory failure, unspecified whether with hypoxia or hypercapnia Status: Acute Assessment and Plan: Acute respiratory failure likely related to pneumonia, COVID-19 -chest x-ray this morning shows worsening right-sided infiltrate -chief ABGs reviewed Continue Rocephin, Azithromycin and Vancomycin Continue Dexamethasone monitor cultures (2) Pneumonia: Code(s): J18.9 - Pneumonia, unspecified organism Status: Acute Assessment and Plan: Continue as above (3) COVID: Code(s): U07.1 - COVID-19 Status: Acute Assessment and Plan: Patient has been positive for COVID 19. Chest x-ray shows worsening infiltrates -patient started on remdesivir, dexamethasone (01/25) -according to guidelines will add baricitinib -continue droplet and contact isolation/precautions (4) Sepsis: Code(s): A41.9 - Sepsis, unspecified organism Status: Acute Assessment and Plan: Patient presented with tachycardia, tachypnea, hypoxia, acute kidney injury, -elevated lactic acid -adequately fluid-resuscitated, will continue albumin for intravascular volume expansion -urine output has been adequate, will continue to follow (5) MICHAEL (acute kidney injury): Code(s): N17.9 - Acute kidney failure, unspecified Status: Acute Assessment and Plan: Acute kidney injury likely related to sepsis, Cr 1.61 from 2.01, kushal is .14 continue above care and monitor (6) Dementia: Qualifiers: Dementia type: unspecified type Dementia severity: unspecified severity Dementia behavioral or psychological symptom: unspecified whether behavioral, psychotic, or mood disturbance or anxiety Qualified Code(s): F03.90 - Unspecified dementia, unspecified severity, without behavioral disturbance, psychotic disturbance, mood disturbance, and anxiety Code(s): F03.90 - Unspecified dementia, unspecified severity, without behavioral disturbance, psychotic disturbance, mood disturbance, and anxiety Status: Acute Assessment and Plan: Baseline cognitive impairment, on Namenda at home, will continue to hold for now (7) Generalized weakness: Code(s): R53.1 - Weakness Status: Acute Assessment and Plan: Generalized weakness could be related to hypoxia, tachypnea, COVID-19, pneumonia -continue to manage underlying issues (8) Hyperlipidemia: Qualifiers: Hyperlipidemia type: unspecified Qualified Code(s): E78.5 - Hyperlipidemia, unspecified Code(s): E78.5 - Hyperlipidemia, unspecified Status: Acute Assessment and Plan: Continue pravastatin (9) Pre-diabetes: Code(s): R73.03 - Prediabetes Status: Acute Assessment and Plan: Accu-Cheks and sliding scale insulin Plan DVT prophylaxis: Enoxaparin Stress ulcer prophylaxis: Proton Nutrition: NPO Code Status: Okay to intubation but no CPR Subjective Date/time seen: 01/26/25 18:19 Interval history: Comfortable at bedside on BiPAP Review of Systems Review of Systems: All systems reviewed & are unremarkable except as noted in HPI and below Exam Narrative: General: On BiPAP HEENT:? Pupils equal and reactive, sclera is clear, BiPAP in place Neck:? Supple Respiratory:? Coarse breath sounds bilaterally, right greater than left, adequate air entry, no wheezing Cardiac:? S1-S2 normal, regular rate and rhythm Abdomen:? Soft, nontender, nondistended, hypoactive bowel sound Extremities:? No edema, palpable pedal pulses Neuro:? Patient is awake, alert, able to answer questions appropriately and follows simple commands Skin:? No skin lesions noted Psych:? Normal mentation and affect Objective Data Vital Signs Vital Signs: Vital Signs - 24 hr 01/25/25 18:58 01/25/25 19:56 01/25/25 20:00 Temperature 100.9 F H 100.7 F H 100.6 F H Pulse Rate 101 H Respiratory Rate 21 H Blood Pressure 99/56 L Pulse Oximetry 91 Oxygen Delivery Oxygen Flow Rate Fraction of Inspired Oxygen 01/25/25 20:00 01/25/25 20:00 01/25/25 20:30 Temperature Pulse Rate 101 H Respiratory Rate Blood Pressure Pulse Oximetry 91 87 L Oxygen Delivery High Flow Nasal Cannula High Flow Nasal Cannula Oxygen Flow Rate 13 13 Fraction of Inspired Oxygen 01/25/25 20:43 01/25/25 21:03 01/25/25 22:00 Temperature Pulse Rate 96 92 Respiratory Rate 20 Blood Pressure Pulse Oximetry 93 92 Oxygen Delivery High Flow Nasal Cannula High Flow Nasal Cannula Oxygen Flow Rate 15 15 Fraction of Inspired Oxygen 01/25/25 22:00 01/25/25 22:50 01/26/25 00:00 Temperature 99.8 F H Pulse Rate 92 91 Respiratory Rate 23 H 20 Blood Pressure 108/57 L Pulse Oximetry 91 92 93 Oxygen Delivery High Flow Therapy with Na High Flow Therapy with Na Oxygen Flow Rate 60 60 Fraction of Inspired Oxygen 90 95 01/26/25 00:00 01/26/25 00:00 01/26/25 00:36 Temperature 99.1 F Pulse Rate 89 89 96 Respiratory Rate 22 H 20 Blood Pressure 115/73 Pulse Oximetry 93 92 Oxygen Delivery High Flow Therapy with Na Oxygen Flow Rate 60 Fraction of Inspired Oxygen 90 01/26/25 01:30 01/26/25 01:32 01/26/25 02:00 Temperature Pulse Rate 93 88 Respiratory Rate 20 Blood Pressure Pulse Oximetry 87 L Oxygen Delivery High Flow Therapy with Na Oxygen Flow Rate 60 Fraction of Inspired Oxygen 95 01/26/25 02:00 01/26/25 02:11 01/26/25 04:00 Temperature 98.8 F Pulse Rate 88 91 Respiratory Rate 20 15 Blood Pressure 118/76 Pulse Oximetry 92 92 95 Oxygen Delivery BiPAP BiPAP Oxygen Flow Rate Fraction of Inspired Oxygen 100 01/26/25 04:00 01/26/25 04:00 01/26/25 05:30 Temperature 98.2 F Pulse Rate 87 87 86 Respiratory Rate 19 22 H Blood Pressure 122/74 Pulse Oximetry 94 90 Oxygen Delivery BiPAP Oxygen Flow Rate Fraction of Inspired Oxygen 01/26/25 06:00 01/26/25 06:00 01/26/25 07:54 Temperature 98.0 F Pulse Rate 89 89 95 Respiratory Rate 16 Blood Pressure 118/77 Pulse Oximetry 97 Oxygen Delivery Oxygen Flow Rate Fraction of Inspired Oxygen 01/26/25 07:58 01/26/25 08:00 01/26/25 08:00 Temperature 98.4 F Pulse Rate 85 92 90 Respiratory Rate 23 H 16 Blood Pressure 127/77 Pulse Oximetry 97 95 Oxygen Delivery BiPAP Oxygen Flow Rate Fraction of Inspired Oxygen 01/26/25 08:00 01/26/25 08:45 01/26/25 10:00 Temperature Pulse Rate 93 96 Respiratory Rate 24 H Blood Pressure Pulse Oximetry 98 97 Oxygen Delivery BiPAP BiPAP Oxygen Flow Rate Fraction of Inspired Oxygen 90 01/26/25 10:00 01/26/25 10:20 01/26/25 12:00 Temperature 98.7 F Pulse Rate 97 94 Respiratory Rate 21 H 28 H Blood Pressure 125/77 Pulse Oximetry 95 95 97 Oxygen Delivery BiPAP BiPAP Oxygen Flow Rate Fraction of Inspired Oxygen 01/26/25 12:00 01/26/25 12:00 01/26/25 13:35 Temperature Pulse Rate 100 97 102 H Respiratory Rate 24 H Blood Pressure Pulse Oximetry Oxygen Delivery Oxygen Flow Rate Fraction of Inspired Oxygen 01/26/25 13:37 01/26/25 14:00 01/26/25 14:00 Temperature 98.4 F Pulse Rate 107 H 122 H 114 H Respiratory Rate 26 H 18 Blood Pressure 111/73 Pulse Oximetry 95 92 Oxygen Delivery BiPAP Oxygen Flow Rate Fraction of Inspired Oxygen 01/26/25 15:30 01/26/25 16:00 01/26/25 16:00 Temperature 98.4 F Pulse Rate 122 H 93 Respiratory Rate 27 H Blood Pressure 94/63 L Pulse Oximetry 100 90 Oxygen Delivery BiPAP Oxygen Flow Rate Fraction of Inspired Oxygen 01/26/25 16:00 01/26/25 17:26 Temperature Pulse Rate 92 96 Respiratory Rate 26 H Blood Pressure Pulse Oximetry 97 Oxygen Delivery BiPAP Oxygen Flow Rate Fraction of Inspired Oxygen Intake/Output Intake/Output: Intake & Output 01/23/25 01/24/25 01/25/25 01/26/25 23:59 23:59 23:59 23:59 Intake Total 2285.4 650 Output Total 100 250 Balance 2185.4 400 Meds/Results Medications: Active Medications Generic Name Dose Route Start Last Admin Trade Name Freq PRN Reason Stop Dose Admin Acetaminophen 650 mg 01/25/25 11:14 01/25/25 18:58 Acetaminophen 325 Mg Tablet PO 650 mg Q4H PRN Administration Mild Pain (1-3) or Fever Baricitinib 2 mg 01/26/25 11:00 01/26/25 10:26 Baricitinib 2 Mg Tablet PO 02/08/25 11:01 2 mg DAILY@1100 NELLIE Administration Dexamethasone Sodium Phosphate 6 mg 01/26/25 09:00 01/26/25 10:25 Dexamethasone Sod Phos Inj 10 Mg/Ml 1 Ml Vial IV PUSH 02/04/25 09:01 6 mg DAILY NELLIE Administration Dextrose 12.5 gm 01/26/25 07:40 Dextrose 50% 25 Gm/50 Ml Syringe IV PUSH PRN PRN Hypoglycemia Protocol Enoxaparin Sodium 30 mg 01/26/25 09:00 01/26/25 08:45 Enoxaparin 30 Mg/0.3 Ml Syringe SUB-Q 30 mg DAILY NELLIE Administration Glucagon 1 mg 01/26/25 07:40 Glucagon For Inj 1 Mg Vial IM PRN PRN Hypoglycemia Protocol Glucose 15 gm 01/26/25 07:40 Glucose Oral Gel 15 Gm Of Glucse In 37.5 Gm Tube PO PRN PRN Hypoglycemia Protocol Ceftriaxone Sodium 1 gm in 50 mls @ 100 mls/hr 01/26/25 11:00 01/26/25 13:50 Rocephin 1 Gm/Ns 50 Ml IVPB Infused Q24H NELLIE Infusion Azithromycin 500 mg in 250 mls @ 250 mls/hr 01/26/25 12:00 01/26/25 13:06 Zithromax IVPB 250 mls/hr Q24H NELLIE Administration Remdesivir 100 mg in 250 mls @ 250 mls/hr 01/26/25 22:00 IVPB 01/29/25 22:59 Q24H NELLIE Dextrose 1,000 mls @ 100 mls/hr 01/26/25 07:40 Dextrose 5% 1,000 Ml IVPB PRN PRN Hypoglycemia Protocol Albumin Human 100 mls @ 60 mls/hr 01/26/25 07:41 01/26/25 16:58 Albutein IVPB 01/27/25 01:39 60 mls/hr Q6HR NELLIE Administration Vancomycin HCl 1,000 mg in 250 mls @ 250 mls/hr 01/27/25 22:00 Vancomycin 1,000 Mg/Ns 250 Ml IVPB Q36H NELLIE Insulin Aspart 3 - 6 units 01/26/25 12:00 01/26/25 16:58 Insulin Aspart (*Bkc) 100 Units/Ml SUB-Q 3 units Q6HR NELLIE Administration Protocol Ipratropium [place] 0.5 mg 01/26/25 20:00 Ipratropium Br 0.02% Inh Soln 0.5 Mg/2.5 Ml Vial INHALATION Q6HRT NELLIE Levalbuterol HCl 1.25 mg 01/26/25 20:00 Levalbuterol Neb 1.25 Mg/3 Ml INHALATION Q6HRT NELLIE Memantine 10 mg 01/25/25 17:00 01/25/25 17:29 Memantine 10 Mg Tablet PO Not Given BID [facility] Metoprolol Tartrate 5 mg 01/26/25 15:20 01/26/25 15:30 Metoprolol Tartrate Inj 5 Mg/5 Ml Vial IV PUSH 5 mg Q6H PRN Administration Tachycardia Pantoprazole Sodium 40 mg 01/27/25 09:00 Pantoprazole Sodium Iv 40 Mg Vial IV PUSH QAM NELLIE Pravastatin Sodium 40 mg 01/26/25 09:00 01/26/25 10:25 Pravastatin Sodium 20 Mg Tablet PO 40 mg DAILY NELLIE Administration Radiology Results: ITS Impressions Chest X-Ray 01/26/25 06:31 Impression: New/worsened airspace disease, especially right lung. Correlate for asymmetric edema versus multifocal pneumonia. Possible minimal left pleural effusion. Labs Labs: Laboratory Results - last 24 hr 01/25/25 01/25/25 01/25/25 18:11 22:28 22:29 WBC 9.7 RBC 3.61 L Hgb 11.0 L Hct 34.9 L MCV 96.7 MCH 30.5 MCHC 31.5 L RDW 13.7 Plt Count 148 L MPV 10.0 Immature Gran % (Auto) 0.5 Neut % (Auto) 84.3 H Lymph % (Auto) 9.4 L [place] % (Auto) 5.7 Eos % (Auto) 0.0 Baso % (Auto) 0.1 L Lymph # (Auto) 0.91 [place] # (Auto) 0.6 Eos # (Auto) 0.0 Baso # (Auto) 0.0 Abs Immat Gran (auto) 0.05 H Absolute Neuts (auto) 8.2 H Absolute Nucleated RBC 0.000 Nucleated RBC % 0.0 PT 17.3 H INR 1.4 Puncture Site ABG pH ABG pCO2 ABG pO2 ABG PO2/FiO2 Ratio ABG HCO3 ABG O2 Saturation ABG O2 Content ABG Base Excess A-a Gradient Oxyhemoglobin Total Hemoglobin O2 Delivery Device O2 Liters/Min FiO2 Expiratory Pressure Inspiratory Pressure Sodium 139 Potassium 4.6 Chloride 106 Carbon Dioxide 20 L Anion Gap 13 H BUN 62 H Creatinine 1.83 H Estim Creat Clear Calc 24 Estimated GFR 35 L Glucose 176 H POC Capillary Glucose Lactic Acid Calcium 8.1 L Phosphorus Magnesium Ferritin 1110.00 H Total Bilirubin 0.8 AST 161 H ALT 91 H Alkaline Phosphatase 46 C-Reactive Protein 14.1 H Total Protein 7.0 Albumin 3.9 Nasal MRSA (PCR) Not detected 01/25/25 01/26/25 01/26/25 23:57 00:13 03:55 WBC 8.9 RBC 3.76 L Hgb 11.4 L Hct 36.8 L MCV 97.9 MCH 30.3 MCHC 31.0 L RDW 13.8 Plt Count 154 MPV 10.3 Immature Gran % (Auto) 0.7 H Neut % (Auto) 85.9 H Lymph % (Auto) 8.5 L [place] % (Auto) 4.8 Eos % (Auto) 0.0 Baso % (Auto) 0.1 L Lymph # (Auto) 0.76 L [place] # (Auto) 0.4 Eos # (Auto) 0.0 Baso # (Auto) 0.0 Abs Immat Gran (auto) 0.06 H Absolute Neuts (auto) 7.7 H Absolute Nucleated RBC 0.000 Nucleated RBC % 0.0 PT INR Puncture Site ABG pH ABG pCO2 ABG pO2 ABG PO2/FiO2 Ratio ABG HCO3 ABG O2 Saturation ABG O2 Content ABG Base Excess A-a Gradient Oxyhemoglobin Total Hemoglobin O2 Delivery Device O2 Liters/Min FiO2 Expiratory Pressure Inspiratory Pressure Sodium 140 Potassium 4.8 Chloride 108 H Carbon Dioxide 18 L Anion Gap 14 H BUN 62 H Creatinine 1.61 H Estim Creat Clear Calc 27 Estimated GFR 41 L Glucose 188 H POC Capillary Glucose 202 H Lactic Acid 2.0 2.1 H Calcium 8.0 L Phosphorus 4.2 Magnesium 2.2 Ferritin Total Bilirubin 0.6 AST 129 H ALT 88 H Alkaline Phosphatase 36 L C-Reactive Protein Total Protein 7.0 Albumin 3.8 Nasal MRSA (PCR) 01/26/25 01/26/25 01/26/25 04:38 07:19 13:04 WBC RBC Hgb Hct MCV MCH MCHC RDW Plt Count MPV Immature Gran % (Auto) Neut % (Auto) Lymph % (Auto) [place] % (Auto) Eos % (Auto) Baso % (Auto) Lymph # (Auto) [place] # (Auto) Eos # (Auto) Baso # (Auto) Abs Immat Gran (auto) Absolute Neuts (auto) Absolute Nucleated RBC Nucleated RBC % PT INR Puncture Site Right radial Left radial ABG pH 7.430 7.410 ABG pCO2 27.1 L 26.4 L ABG pO2 55.4 L 66.6 L ABG PO2/FiO2 Ratio 0.62 0.74 ABG HCO3 17.6 L 16.4 L ABG O2 Saturation 90.3 L 93.8 L ABG O2 Content 15.1 L 15.1 L ABG Base Excess -5.3 -6.9 A-a Gradient 558.5 548.0 Oxyhemoglobin 87.4 L* 91.4 Total Hemoglobin 12.3 11.7 L O2 Delivery Device Bipap Bipap O2 Liters/Min Not Reportable Not Reportable FiO2 90 90 Expiratory Pressure 7 8 Inspiratory Pressure 17 14 Sodium Potassium Chloride Carbon Dioxide Anion Gap BUN Creatinine Estim Creat Clear Calc Estimated GFR Glucose POC Capillary Glucose 186 H Lactic Acid 2.3 H Calcium Phosphorus Magnesium Ferritin Total Bilirubin AST ALT Alkaline Phosphatase C-Reactive Protein Total Protein Albumin Nasal MRSA (PCR) 01/26/25 16:37 WBC RBC Hgb Hct MCV MCH MCHC RDW Plt Count MPV Immature Gran % (Auto) Neut % (Auto) Lymph % (Auto) [place] % (Auto) Eos % (Auto) Baso % (Auto) Lymph # (Auto) [place] # (Auto) Eos # (Auto) Baso # (Auto) Abs Immat Gran (auto) Absolute Neuts (auto) Absolute Nucleated RBC Nucleated RBC % PT INR Puncture Site ABG pH ABG pCO2 ABG pO2 ABG PO2/FiO2 Ratio ABG HCO3 ABG O2 Saturation ABG O2 Content ABG Base Excess A-a Gradient Oxyhemoglobin Total Hemoglobin O2 Delivery Device O2 Liters/Min FiO2 Expiratory Pressure Inspiratory Pressure Sodium Potassium Chloride Carbon Dioxide Anion Gap BUN Creatinine Estim Creat Clear Calc Estimated GFR Glucose POC Capillary Glucose 218 H Lactic Acid Calcium Phosphorus Magnesium Ferritin Total Bilirubin AST ALT Alkaline Phosphatase C-Reactive Protein Total Protein Albumin Nasal MRSA (PCR) Quality VTE Prophylaxis VTE prophylaxis: pharmacologic ordered
[2025-01-26 19:50] LABS: Alveolar/Arterial O2 Gradient 635.9 mmHg; Base Excess ABG -9.5 mEq/l (+/-2.0); Fractional Inspired Oxygen 100 %; HCO3 ABG 14.8 mEq/l (22.0-26.0); Oxygen Content ABG 13.2 %vol (16.0-22.0); PCO2 ABG 27.8 mmHg (35.0-45.0); PO2 FiO2 Ratio Arterial Blood 0.49 %; Total Hemoglobin 11.8 g/dL (12.0-18.0); pH ABG 7.343 (7.350-7.450)
[2025-01-26 19:55] LABS: PO2 ABG 49.3 mmHg (80.0-100.0)
[2025-01-26 19:56] LABS: Oxygen Saturation ABG 83.5 % (95.0-100.0)
[2025-01-26 19:57] LABS: Device BIPAP; Modified Allen's Test Pass; Oxyhemoglobin 79.4 % THb (90.0-100.0); Site Drawn RIGHT RADIAL
[2025-01-26 19:58] LABS: Expiratory Pressure 8 cmH2O; Inspiratory Pressure 14 cmH2O
[2025-01-26] MEDS: ETOMIDATE 20 MG/10 ML AMPUL IV PUSH (20:12)
[2025-01-26] MEDS: ROCURONIUM BROMIDE 50 MG/5 ML VIAL IV PUSH (20:13)
[2025-01-26] MEDS: FENTANYL 2,500MCG/NS250ML(*CRX 2,500 MCG/250 ML BAG IV CONT (20:15)
[2025-01-26] MEDS: MIDAZOLAM 100MG/NS 100ML(*CRX) 100 MG/100 ML BAG IV CONT (20:15)
--- NOTE | 2025-01-26 20:44 | WPDPROCEDUR ---
Procedures Intubation Intubation Date: 01/26/25 Intubation Time: 20:25 Consent: Consent obtained over the phone with RAQUEL, bedside nurse and Dr. Avery. Patient is also agreeable to intubation. Sedative: etomidate Mg given: 20 Paralytic: rocuronium Mg given: 50 Laryngoscope: fiber optic video scope Assist device used: fiber optic device ET tube size: 8 Tube secured depth (cm): 25 Tube secured location: teeth Tube placement confirmation: visualized tube passing through cords, equal breath sounds bilaterally, no breath sounds over epigastrium and confirmation by capnometry Patient tolerated procedure: well Intubation complications: none Additional comments: A time-out was performed. Patient was already on cardiac nurse practitioner and continuous pulse ox here in the intensive care unit. Patient was taken off BiPAP and then oxygenated with bag-mask ventilation with added peep valve prior to RSI. Suction was set up at bedside however oral airway was clear of debris. I was able to visualize the vocal cords with use of GlideScope assist and patient was intubated successfully without difficulty. Chest x-ray was reviewed by me personally and shown tip of the ETT approximately 3.5 cm above zarina.
[2025-01-26] MEDS: LEVALBUTEROL NEB 1.25 MG/3 ML INHALATION (21:15)
[2025-01-26] MEDS: IPRATROPIUM BR 0.02% INH SOLN 0.5 MG/2.5 ML VIAL INHALATION (21:15)
[2025-01-26] MEDS: REMDESIVIR 100 MG/NS 250 ML 100 MG/250 ML BAG 250 MG IVPB (21:16)
[2025-01-26] MEDS: MINERAL OIL/WHITE PETROLATUM OINTMENT 1 APPLIC EACH EYE (21:28)
[2025-01-26 21:40] LABS: Alveolar/Arterial O2 Gradient 571.6 mmHg; Base Excess ABG -16.1 mEq/l (+/-2.0); Fractional Inspired Oxygen 100 %; HCO3 ABG 14.7 mEq/l (22.0-26.0); Oxygen Saturation ABG 91.7 % (95.0-100.0); PCO2 ABG 54.5 mmHg (35.0-45.0); PO2 ABG 86.9 mmHg (80.0-100.0); PO2 FiO2 Ratio Arterial Blood 0.87 %
[2025-01-26 21:45] LABS: pH ABG 7.048 (7.350-7.450)
[2025-01-26 21:46] LABS: Arterial Blood Gas Vent Mode CMV; Arterial Blood Gas Ventilator rate 20 /MIN; Device VENTILATOR; Modified Allen's Test Pass; Site Drawn RIGHT RADIAL
[2025-01-26 21:47] LABS: Arterial Blood Gas PEEP 8 cmH2O; Arterial Blood Gas Tidal Volume 360 ml
--- NOTE | 2025-01-26 21:59 | PM.CCN ---
Critical Care Event Note Summary Code activated: No Narrative: I was called to supervising in intubating the patient. Patient was on BiPAP of 14/8. He was markedly tachypneic and pulling tidal volumes of 850. Accessory muscle use is was quite labored. Being treated for COVID and has moderately reduced systolic function and diastolic dysfunction as well as mild pulmonary hypertension and moderate mitral and tricuspid regurgitation. Patient is on antibiotic therapy with Rocephin and azithromycin and vancomycin. The patient was desatting despite BiPAP changes in satting between 75 and 83% at the time of my arrival at bedside. I made BiPAP changes increasing the patient's PEEP up to 12 and inspiratory pressure up to 16 to pre oxygen a prior to intubation. With improvement in patient's oxygen saturations up to 92%. We then proceeded with RSI as discussed in procedure note. Patient did desat down to the 79%. Patient did recover with improved oxygen saturations with a PEEP valve increased from 15 up to 20. After 10 minutes of ventilation with the [id number] oxygen saturations were up to the mid 90s. Subsequently the patient was transitioned to the ventilator. Initially a place the patient on AC/CMV tidal volume 360 peep of 8 rate of 20 with 100% FiO2. Repeat ABG 1 hour after intubation demonstrated pH of 7.04 pCO2 of 50 poor PO2 86. Patient's rate was changed to 26. Patient's blood pressures remained stable after intubation. Oxygenation on the ventilator was initially ranging between 92 and 95%. Shortly after that the 2nd ABG was obtained the patient that in saturations did drop to between 88 and 92%. But this is acceptable given the patient's COVID. Will aim for goal low tidal volume strategy to reduce lung injury. I suspect the patient is also developing component of ARDS. Patient has been started on sedation with fentanyl and Versed. Repeat chest x-ray was reviewed and demonstrated worsening infiltrate bilaterally right greater than left. I contacted the hazardous substances engineer and updated him as to the patient's change in condition. I have ordered a repeat ABG for midnight. 40 minute spent in critical care activities. Due to a high probability of clinically significant, life threatening deterioration, the patient required my highest level of preparedness to intervene emergently and I personally spent this critical care time directly and personally managing the patient. This critical care time included obtaining a history; examining the patient; pulse oximetry; ordering and review of studies; arranging urgent treatment with development of a management plan; evaluation of patient's response to treatment; frequent reassessment; and discussions with other providers. It was exclusive of separately billable procedures and treating other patients and teaching time. Please see Assessment and Plan section and the rest of the note for further information on patient assessment and treatment. Critical care time: 30 - 74 mins
[2025-01-27] VITALS (53 sets, daily range): BP systolic 85–115; BP diastolic 56–74; PULSE 86–104; RESP 16–52; TEMP 35.9–37; O2SAT 91–100
[2025-01-27 00:05] LABS: Glucose Point of Care 220 mg/dl (65-105)
[2025-01-27 00:10] LABS: Alveolar/Arterial O2 Gradient 589.2 mmHg; Base Excess ABG -14.3 mEq/l (+/-2.0); Fractional Inspired Oxygen 100 %; HCO3 ABG 15.1 mEq/l (22.0-26.0); Oxygen Content ABG 15.2 %vol (16.0-22.0); Oxygen Saturation ABG 89.1 % (95.0-100.0); PCO2 ABG 49.5 mmHg (35.0-45.0); PO2 ABG 74.3 mmHg (80.0-100.0); PO2 FiO2 Ratio Arterial Blood 0.74 %; Total Hemoglobin 12.3 g/dL (12.0-18.0)
[2025-01-27 00:15] LABS: Device VENTILATOR; Modified Allen's Test Pass; Oxyhemoglobin 87.5 % THb (90.0-100.0); Site Drawn RIGHT RADIAL; pH ABG 7.101 (7.350-7.450)
[2025-01-27 00:16] LABS: Arterial Blood Gas PEEP 8 cmH2O; Arterial Blood Gas Tidal Volume 360 ml; Arterial Blood Gas Vent Mode CMV; Arterial Blood Gas Ventilator rate 26 /MIN
[2025-01-27] MEDS: SODIUM BICARBONATE 8.4% 50 MEQ/50 ML SYRINGE 100 MEQ IV PUSH (00:45)
[2025-01-27] MEDS: IPRATROPIUM BR 0.02% INH SOLN 0.5 MG/2.5 ML VIAL INHALATION ×4 (01:37→20:57)
[2025-01-27] MEDS: LEVALBUTEROL NEB 1.25 MG/3 ML INHALATION ×4 (01:37→20:57)
[2025-01-27] MEDS: NOREPINEPHRINE 8 MG/D5W 250 ML 8 MG/250 ML BAG 9.38 MG IV CONT (02:37)
[2025-01-27 05:11] LABS: Basophils Percent Auto 0.1 % (0.2-1.2); Immature Granulocyte Absolute 0.06 K/mm3 (0.00-0.031); Immature Granulocyte Percent A 0.5 % (0-0.5); Lymphocytes Percent Auto 7.1 % (18.3-44.2); Mean Corpuscular HGB Conc 32.3 g/dl (32-36); Mean Corpuscular Hemoglobin 30.8 pg (26-34); Mean Corpuscular Volume 95.4 fl (80-100); Mean Platelet Volume 10.1 fl (7.4-10.4); Monocytes Absolute Auto 0.7 K/mm3 (0.1-0.6); Monocytes Percent Auto 5.4 % (2.6-8.5); Neutrophils Percent Auto 86.9 % (45.5-73.1); Platelet Count Result 145 k/mm3 (150-375); Red Blood Count 3.25 M/mm3 (4.6-6.20); White Blood Count 12.7 K/mm3 (4.5-10.0)
[2025-01-27 05:21] LABS: Lactic Acid Reflex 2.8 mmol/L (0.7-2.0)
[2025-01-27 05:27] LABS: Alanine Aminotransferase 365 U/L (6-50); Albumin Level 4.2 g/dL (3.5-5.1); Alkaline Phosphatase 33 U/L (38-126); Anion Gap 15 mmol/L (4-12); Aspartate Amino Transferase 393 U/L (17-59); Bilirubin,Total 0.6 mg/dL (0.2-1.3); Blood Urea Nitrogen 81 mg/dL (9-20); Calcium 7.8 mg/dL (8.4-10.2); Carbon Dioxide 24 mmol/L (22-30); Chloride 107 mmol/L (98-107); Estimated CRCL calculation 21 ml/min; Estimated Glomerular Filt Rate 30; Glucose 199 mg/dL (65-110); Magnesium 2.4 mg/dL (1.6-2.3); Phosphorus 6.6 mg/dL (2.5-4.5); Potassium 4.3 mmol/L (3.4-5.0); Sodium 146 mmol/L (137-145)
[2025-01-27 05:34] LABS: INR 1.9; Prothrombin Time 21.8 Seconds (11.1-14.7)
[2025-01-27 05:37] LABS: CRP 12.9 mg/dL (<1.0)
[2025-01-27 05:51] LABS: Alveolar/Arterial O2 Gradient 527.5 mmHg; Base Excess ABG -4.3 mEq/l (+/-2.0); Carboxyhemoglobin 0.3 % THb (0-2.0); Fractional Inspired Oxygen 90 %; HCO3 ABG 20.9 mEq/l (22.0-26.0); Methemoglobin ABG 0.3 %THb (0-1.5); Oxygen Content ABG 14.5 %vol (16.0-22.0); Oxygen Saturation ABG 94.4 % (95.0-100.0); Oxyhemoglobin 92.5 % THb (90.0-100.0); PCO2 ABG 38.6 mmHg (35.0-45.0); PO2 ABG 74.6 mmHg (80.0-100.0); PO2 FiO2 Ratio Arterial Blood 0.83 %; Reduced Hemoglobin 6.9 %THb (0-5.0); Total Hemoglobin 11.1 g/dL (12.0-18.0); pH ABG 7.351 (7.350-7.450)
[2025-01-27 06:13] LABS: Device VENTILATOR; Modified Allen's Test Pass; Site Drawn RIGHT RADIAL
[2025-01-27 06:14] LABS: Arterial Blood Gas PEEP 8 cmH2O; Arterial Blood Gas Tidal Volume 360 ml; Arterial Blood Gas Vent Mode CMV; Arterial Blood Gas Ventilator rate 26 /MIN
[2025-01-27 07:09] LABS: Reflex Lactic Acid Yes or No Add Lactic
[2025-01-27] MEDS: MINERAL OIL/WHITE PETROLATUM OINTMENT 1 APPLIC EACH EYE ×2 (08:14→20:19)
[2025-01-27] MEDS: LACTATED RINGERS 1,000 ML 100 ML IV CONT (08:14)
[2025-01-27] MEDS: PRAVASTATIN SODIUM 20 MG TABLET 40 MG PO (08:14)
[2025-01-27] MEDS: dexAMETHasone SOD PHOS INJ 10 MG/ML 1 ML VIAL 6 MG IV PUSH (08:14)
[2025-01-27] MEDS: ENOXAPARIN 30 MG/0.3 ML SYRINGE SUB-Q (08:14)
[2025-01-27] MEDS: PANTOPRAZOLE SODIUM IV 40 MG VIAL IV PUSH (08:14)
--- NOTE | 2025-01-27 08:18 | P.PNINT_ITS ---
Progress Note: A&P Assessment and Plan (1) Acute respiratory failure: Code(s): J96.00 - Acute respiratory failure, unspecified whether with hypoxia or hypercapnia <Lisa Ahumada Student - Last Filed: 01/27/25 09:05> Status: Acute <Lisa Ahumada Student - Last Filed: 01/27/25 09:05> Assessment and Plan: Acute respiratory failure likely related to pneumonia, COVID-19 -chest x-ray this morning is similar to prior -chief ABGs reviewed Continue Rocephin, Azithromycin and Vancomycin Continue Dexamethasone monitor cultures, 01/27-preliminary cultures shows no growth x2 <Lisa Ahumada, Student - Last Filed: 01/27/25 09:05> Acute respiratory failure likely related to pneumonia, COVID-19 -chest x-ray this morning is similar to prior -chief ABGs reviewed Continue Azithromycin and Vancomycin -DC ceftriaxone, will start cefepime (01/27) Continue Dexamethasone monitor cultures, 01/27-preliminary cultures shows no growth x2 <Eloy Emmanuel MD - Last Filed: 01/27/25 10:59> (2) Pneumonia: Code(s): J18.9 - Pneumonia, unspecified organism <Lisa Ahumada, Student - Last Filed: 01/27/25 09:05> Status: Acute <Lisa Ahumada, Student - Last Filed: 01/27/25 09:05> Assessment and Plan: Continue as above <Lisa Ahumada Student - Last Filed: 01/27/25 09:05> (3) COVID: Code(s): U07.1 - COVID-19 <Lisa Ahumada, Student - Last Filed: 01/27/25 09:05> Status: Acute <Lisa Ahumada Student - Last Filed: 01/27/25 09:05> Assessment and Plan: Patient has been positive for COVID 19. Chest x-ray shows worsening infiltrates -patient started on remdesivir, dexamethasone (01/25) -according to guidelines will add baricitinib -continue droplet and contact isolation/precautions 01/27- rising LFT's likely transient related to rapid response, will continue to monitor. No change to Remdesivir at this time. <Lisa Ahumada Student - Last Filed: 01/27/25 09:05> Patient has been positive for COVID 19. Chest x-ray shows worsening infiltrates -continue remdesivir, dexamethasone (01/25) -continue baricitinib (01/26) -continue droplet and contact isolation/precautions 01/27- rising LFT's likely transient related to rapid response, will continue to monitor. No change to Remdesivir or baricitinib at this time. Discussed with pharmacist <Eloy Emmanuel MD - Last Filed: 01/27/25 10:59> (4) Sepsis: Code(s): A41.9 - Sepsis, unspecified organism <Simi Wolfe - Last Filed: 01/27/25 09:05> Status: Acute <Lisa Ahumada Student - Last Filed: 01/27/25 09:05> Assessment and Plan: Patient presented with tachycardia, tachypnea, hypoxia, acute kidney injury, -elevated lactic acid -adequately fluid-resuscitated, will continue albumin for intravascular volume expansion -urine output has been adequate, will continue to follow <Simi Wolfe - Last Filed: 01/27/25 09:05> Patient presented with tachycardia, tachypnea, hypoxia, acute kidney injur y, -elevated lactic acid -adequately fluid-resuscitated, s/p albumin for intravascular volume expansion -patient was briefly on Levophed which is currently time now. Will continue to maintain MAP > 65 mmHg at all times for adequate end organ perfusion -01/27will start LR at 100 mL/hour for 1000 mL <Eloy Emmanuel MD - Last Filed: 01/27/25 10:59> (5) MICHAEL (acute kidney injury): Code(s): N17.9 - Acute kidney failure, unspecified <Simi Wolfe - Last Filed: 01/27/25 09:05> Status: Acute <Simi Wolfe - Last Filed: 01/27/25 09:05> Assessment and Plan: Acute kidney injury likely related to sepsis, Cr 1.61 from 2.01, basleine is .14 continue above care and monitor <Simi Wolfe - Last Filed: 01/27/25 09:05> Acute kidney injury likely related to sepsis, -urine output low, Creatinine increased to 2.01 this morning, baseline is 1.10 -could be related to hypoxia, hypotension -will give additional IV fluids as above -continue to monitor urine output, renal function and electrolytes <Eloy Emmanuel MD - Last Filed: 01/27/25 10:59> (6) Dementia: Qualifiers: Dementia behavioral or psychological symptom: unspecified whether behavioral, psychotic, or mood disturbance or anxiety Dementia severity: unspecified severity Dementia type: unspecified type Qualified Code(s): F03.90 - Unspecified dementia, unspecified severity, without behavioral disturbance, psychotic disturbance, mood disturbance, and anxiety <Lisa Blevins Zita, Student - Last Filed: 01/27/25 09:05> Code(s): F03.90 - Unspecified dementia, unspecified severity, without behavioral disturbance, psychotic disturbance, mood disturbance, and anxiety <Lisa McdonaldJesus Ahumada, Student - Last Filed: 01/27/25 09:05> Status: Acute <Lisa McdonaldJesus Ahumada, - Last Filed: 01/27/25 09:05> Assessment and Plan: Baseline cognitive impairment, on Namenda at home, will continue to hold for now <Lisaraphael Ahumada, Student - Last Filed: 01/27/25 09:05> (7) Generalized weakness: Code(s): R53.1 - Weakness <Lisa McdonaldJesus Ahumada, Student - Last Filed: 01/27/25 09:05> Status: Acute <Lisa TamaraJesus Ahumada Student - Last Filed: 01/27/25 09:05> Assessment and Plan: Generalized weakness could be related to hypoxia, tachypnea, COVID-19, pneumonia -continue to manage underlying issues <Lisaraphael Ahumada Student - Last Filed: 01/27/25 09:05> (8) Hyperlipidemia: Qualifiers: Hyperlipidemia type: unspecified Qualified Code(s): E78.5 - Hyperlipidemia, unspecified <Lisa TamaraJesus Ahumada Student - Last Filed: 01/27/25 09:05> Code(s): E78.5 - Hyperlipidemia, unspecified <Lisa TamaraJesus Ahumada Student - Last Filed: 01/27/25 09:05> Status: Acute <Lisa Ahumada, Student - Last Filed: 01/27/25 09:05> Assessment and Plan: Continue pravastatin <Lisa Ahumada, Student - Last Filed: 01/27/25 09:05> (9) Pre-diabetes: Code(s): R73.03 - Prediabetes <Lisa Ahumada, Student - Last Filed: 01/27/25 09:05> Status: Acute <Lisa Ahumada, Student - Last Filed: 01/27/25 09:05> Assessment and Plan: Accu-Cheks and sliding scale insulin <Lisa Ahumada, Student - Last Filed: 01/27/25 09:05> (10) Elevated LFTs: Code(s): R79.89 - Other specified abnormal findings of blood chemistry <Lisa Ahumada, Student - Last Filed: 01/27/25 09:05> Status: Acute <Lisa Ahumada, - Last Filed: 01/27/25 09:05> Assessment and Plan: And elevated LFTs likely related to hypoxia and/or hypotension/septic shock -continue to monitor -will hold statin for now due to elevated LFT <Eloy Emmanuel MD - Last Filed: 01/27/25 10:59> Assessment and Plan: DVT prophylaxis: Enoxaparin Stress ulcer prophylaxis: Proton Nutrition: NPO Code Status: Okay to intubation but no CPR Critical Care Time Spent: 45 minutes Due to a high probability of clinically significant, life threatening deterioration, the patient required my highest level of preparedness to intervene emergently and I personally spent this critical care time directly and personally managing the patient. This critical care time included obtaining a history; examining the patient; pulse oximetry; ordering and review of studies; arranging urgent treatment with development of a management plan; evaluation of patient's response to treatment; frequent reassessment; and discussions with other providers. It was exclusive of separately billable procedures and treating other patients and teaching time. Please see Assessment and Plan section and the rest of the note for further information on patient assessment and treatment This dictation may have been done utilizing a voice recognition system. Attempts have been made to correct errors. However, there may be uncorrected grammatical, spelling, and recognitions errors present. <Lisa Ahumada Student - Last Filed: 01/27/25 09:05> DVT prophylaxis: Enoxaparin Stress ulcer prophylaxis: Protonix Nutrition: Will start trickle tube feeds Code Status: Okay to intubation but no CPR Critical Care Time Spent: 36 minutes Discuss with patient's daughters in rounds, updated them with patient's condition and plan of care. I answered all questions Due to a high probability of clinically significant, life threatening deterioration, the patient required my highest level of preparedness to intervene emergently and I personally spent this critical care time directly and personally managing the patient. This critical care time included obtaining a history; examining the patient; pulse oximetry; ordering and review of studies; arranging urgent treatment with development of a management plan; evaluation of patient's response to treatment; frequent reassessment; and discussions with other providers. It was exclusive of separately billable procedures and treating other patients and teaching time. Please see Assessment and Plan section and the rest of the note for further information on patient assessment and treatment This dictation may have been done utilizing a voice recognition system. Attempts have been made to correct errors. However, there may be uncorrected grammatical, spelling, and recognitions errors present. <Eloy Emmanuel MD - Last Filed: 01/27/25 10:59> Subjective Date/time seen: 01/27/25 08:18 <Lisa Ahumada Student - Last Filed: 01/27/25 09:05> Interval history: 01/27- Pt was seen and evaluated this morning in the ICU. Pt is currently intubated and sedated on Fentanyl. FiO2 is 90%. Patient does not open his eyes or follow simple commands. Does not withdraw to pain. Chest X-ray this morning shows extensive bilateral pulmonary consolidation, similar to prior, right > left. LFT's are increasing with AST of 393 and ALT of 365. <Simi Wolfe - Last Filed: 01/27/25 09:05> Reason for consult: Acute respiratory failure, COVID-19 positive, pneumonia, 01/26/2025: Intubated 01/27/2025- Pt was seen and evaluated this morning in the ICU. Pt is currently intubated and sedated on Fentanyl. FiO2 is 90%. Patient does not open his eyes or follow simple commands. Does not withdraw to pain. Chest X-ray this morning shows extensive bilateral pulmonary consolidation, similar to prior, right > left. LFT's are increasing with AST of 393 and ALT of 365. Low urine output, creatinine increased this morning <Eloy Emmanuel MD - Last Filed: 01/27/25 10:59> Review of Systems Review of Systems: All systems reviewed & are unremarkable except as noted in HPI and below <Lisa Ahumada Student - Last Filed: 01/27/25 09:05> ROS unobtainable: Yes unobtainable due to endotracheal tube, unobtainable due to medical condition and unobtainable due to mental status <Eloy Emmanuel MD - Last Filed: 01/27/25 10:59> Exam Narrative: General: Elderly gentleman in no acute distress HEENT:? Pupils equal and reactive, pin point pupils bilaterally, sclera is clear, ETT in place Neck:? Supple Respiratory:? Coarse breath sounds bilaterally, right greater than left, decreased on the left, no wheezing, adequate air entry Cardiac:? S1-S2 normal, regular rate and rhythm Abdomen:? Soft, nontender, hypoactive bowel sounds Extremities:? No edema, palpable pedal pulses Neuro:? Patient remains intubated and sedated, does not open his eyes or follow simple commands Skin:? No skin lesions noted Psych:? Unable to assess at this time <Lisa Ahumada Student - Last Filed: 01/27/25 09:05> General: Intubated and sedated, in no acute distress HEENT:? Pupils equal and reactive, pin point pupils bilaterally, sclera is clear, ETT in place Neck:? Supple Respiratory:? Coarse breath sounds bilaterally, right greater than left, decreased on the left, no wheezing, adequate air entry Cardiac:? S1-S2 normal, regular rate and rhythm Abdomen:? Soft, nontender, hypoactive bowel sounds Extremities:? No edema, palpable pedal pulses Neuro:? Patient remains intubated and sedated, does not open his eyes or follow simple commands Skin:? No skin lesions noted Psych:? Unable to assess at this time <Eloy Emmanuel MD - Last Filed: 01/27/25 10:59> Objective Data Vital Signs Vital Signs: Vital Signs - 24 hr 01/26/25 08:45 01/26/25 10:00 01/26/25 10:00 Temperature 98.7 F Pulse Rate 93 96 97 Respiratory Rate 24 H 21 H Blood Pressure 125/77 Pulse Oximetry 97 95 Oxygen Delivery BiPAP Fraction of Inspired Oxygen 01/26/25 10:20 01/26/25 12:00 01/26/25 12:00 Temperature Pulse Rate 94 100 Respiratory Rate 28 H Blood Pressure Pulse Oximetry 95 97 Oxygen Delivery BiPAP BiPAP Fraction of Inspired Oxygen 01/26/25 12:00 01/26/25 13:35 01/26/25 13:37 Temperature Pulse Rate 97 102 H 107 H Respiratory Rate 24 H 26 H Blood Pressure Pulse Oximetry 95 Oxygen Delivery BiPAP Fraction of Inspired Oxygen 01/26/25 14:00 01/26/25 14:00 01/26/25 15:30 Temperature 98.4 F Pulse Rate 122 H 114 H 122 H Respiratory Rate 18 Blood Pressure 111/73 Pulse Oximetry 92 Oxygen Delivery Fraction of Inspired Oxygen 01/26/25 16:00 01/26/25 16:00 01/26/25 16:00 Temperature 98.4 F Pulse Rate 93 92 Respiratory Rate 27 H Blood Pressure 94/63 L Pulse Oximetry 100 90 Oxygen Delivery BiPAP Fraction of Inspired Oxygen 01/26/25 17:26 01/26/25 18:00 01/26/25 18:00 Temperature Pulse Rate 96 104 H 103 H Respiratory Rate 26 H 25 H Blood Pressure 99/71 L Pulse Oximetry 97 93 Oxygen Delivery BiPAP Fraction of Inspired Oxygen 01/26/25 19:40 01/26/25 20:00 01/26/25 20:00 Temperature 98.2 F Pulse Rate 114 H 113 H 113 H Respiratory Rate 33 H 36 H Blood Pressure 123/77 Pulse Oximetry 82 L 81 L Oxygen Delivery BiPAP Fraction of Inspired Oxygen 01/26/25 20:15 01/26/25 20:15 01/26/25 20:15 Temperature Pulse Rate 115 H 115 H Respiratory Rate 29 H 29 H Blood Pressure Pulse Oximetry Oxygen Delivery Fraction of Inspired Oxygen 100 01/26/25 20:15 01/26/25 20:20 01/26/25 21:15 Temperature Pulse Rate 117 H 128 H Respiratory Rate Blood Pressure Pulse Oximetry 97 Oxygen Delivery Mechanical Ventilation Mechanical Ventilation Fraction of Inspired Oxygen 100 100 01/26/25 21:15 01/26/25 21:45 01/26/25 21:46 Temperature Pulse Rate 117 H Respiratory Rate 20 Blood Pressure Pulse Oximetry Oxygen Delivery Mechanical Ventilation Fraction of Inspired Oxygen 100 100 01/26/25 22:00 01/26/25 22:00 01/26/25 22:00 Temperature 97.5 F L Pulse Rate 102 H 102 H 102 H Respiratory Rate 26 H 26 H 26 H Blood Pressure 109/71 Pulse Oximetry 90 Oxygen Delivery Fraction of Inspired Oxygen 01/26/25 22:00 01/26/25 23:40 01/27/25 00:00 Temperature Pulse Rate 102 H 92 104 H Respiratory Rate 26 H Blood Pressure Pulse Oximetry 90 Oxygen Delivery Mechanical Ventilation Fraction of Inspired Oxygen 100 01/27/25 00:00 01/27/25 00:00 01/27/25 00:00 Temperature 96.7 F L Pulse Rate 104 H 104 H Respiratory Rate 26 H 26 H Blood Pressure 108/69 Pulse Oximetry 91 Oxygen Delivery Fraction of Inspired Oxygen 100 01/27/25 00:00 01/27/25 00:00 01/27/25 01:30 Temperature Pulse Rate 102 H 91 Respiratory Rate 26 H Blood Pressure Pulse Oximetry 91 Oxygen Delivery Mechanical Ventilation Fraction of Inspired Oxygen 100 01/27/25 01:30 01/27/25 01:37 01/27/25 01:37 Temperature Pulse Rate 91 90 91 Respiratory Rate 26 H 31 H Blood Pressure Pulse Oximetry 93 Oxygen Delivery Mechanical Ventilation Fraction of Inspired Oxygen 100 01/27/25 02:00 01/27/25 02:00 01/27/25 02:00 Temperature 97.2 F L Pulse Rate 90 90 90 Respiratory Rate 26 H 26 H Blood Pressure 85/60 L Pulse Oximetry 94 Oxygen Delivery Fraction of Inspired Oxygen 01/27/25 02:00 01/27/25 02:37 01/27/25 02:45 Temperature Pulse Rate 90 92 92 Respiratory Rate 26 H Blood Pressure 86/58 L 86/60 L Pulse Oximetry Oxygen Delivery Fraction of Inspired Oxygen 01/27/25 02:54 01/27/25 03:01 01/27/25 04:00 Temperature Pulse Rate 94 92 92 Respiratory Rate Blood Pressure 93/68 L 94/64 L 97/66 L Pulse Oximetry Oxygen Delivery Fraction of Inspired Oxygen 01/27/25 04:00 01/27/25 04:00 01/27/25 04:00 Temperature Pulse Rate 92 92 Respiratory Rate 26 H 26 H Blood Pressure Pulse Oximetry Oxygen Delivery Fraction of Inspired Oxygen 95 01/27/25 04:00 01/27/25 04:00 01/27/25 04:00 Temperature 97.7 F Pulse Rate 92 93 Respiratory Rate 26 H Blood Pressure 97/66 L Pulse Oximetry 95 95 Oxygen Delivery Mechanical Ventilation Fraction of Inspired Oxygen 95 01/27/25 04:22 01/27/25 05:00 01/27/25 05:30 Temperature Pulse Rate 91 91 Respiratory Rate Blood Pressure 99/67 L Pulse Oximetry 94 Oxygen Delivery Mechanical Ventilation Fraction of Inspired Oxygen 90 90 01/27/25 06:00 01/27/25 06:00 01/27/25 06:00 Temperature 98.1 F Pulse Rate 93 93 93 Respiratory Rate 26 H Blood Pressure 104/69 104/69 Pulse Oximetry 96 Oxygen Delivery Fraction of Inspired Oxygen 01/27/25 06:00 01/27/25 06:00 01/27/25 07:29 Temperature Pulse Rate 93 93 92 Respiratory Rate 26 H 26 H Blood Pressure Pulse Oximetry 96 Oxygen Delivery Mechanical Ventilation Fraction of Inspired Oxygen 90 01/27/25 07:43 01/27/25 07:56 01/27/25 08:00 Temperature 98.5 F Pulse Rate 93 93 93 Respiratory Rate 33 H 24 H Blood Pressure 104/69 Pulse Oximetry 99 99 Oxygen Delivery Mechanical Ventilation Fraction of Inspired Oxygen 90 <Lisa Ahumada, Student - Last Filed: 01/27/25 09:05> Intake/Output Intake/Output: Intake & Output 01/24/25 01/25/25 01/26/25 01/27/25 23:59 23:59 23:59 23:59 Intake Total 2285.4 1006.2 53.4 Output Total 100 475 100 Balance 2185.4 531.2 -46.6 <Lisa Ahumada, Student - Last Filed: 01/27/25 09:05> Meds/Results Medications: Active Medications Generic Name Dose Route Start Last Admin Trade Name Freq PRN Reason Stop Dose Admin Acetaminophen 650 mg 01/25/25 11:14 01/25/25 18:58 Acetaminophen 325 Mg Tablet PO 650 mg Q4H PRN Administration Mild Pain (1-3) or Fever Baricitinib 2 mg 01/26/25 11:00 01/26/25 10:26 Baricitinib 2 Mg Tablet PO 02/08/25 11:01 2 mg DAILY@1100 NELLIE Administration Dexamethasone Sodium Phosphate 6 mg 01/26/25 09:00 01/27/25 08:14 Dexamethasone Sod Phos Inj 10 Mg/Ml 1 Ml Vial IV PUSH 02/04/25 09:01 6 mg DAILY ENLLIE Administration Dextrose 12.5 gm 01/26/25 07:40 Dextrose 50% 25 Gm/50 Ml Syringe IV PUSH PRN PRN Hypoglycemia Protocol Enoxaparin Sodium 30 mg 01/26/25 09:00 01/27/25 08:14 Enoxaparin 30 Mg/0.3 Ml Syringe SUB-Q 30 mg DAILY NELLIE Administration Glucagon 1 mg 01/26/25 07:40 Glucagon For Inj 1 Mg Vial IM PRN PRN Hypoglycemia Protocol Glucose 15 gm 01/26/25 07:40 Glucose Oral Gel 15 Gm Of Glucse In 37.5 Gm Tube PO PRN PRN Hypoglycemia Protocol Ceftriaxone Sodium 1 gm in 50 mls @ 100 mls/hr 01/26/25 11:00 01/26/25 13:50 Rocephin 1 Gm/Ns 50 Ml IVPB Infused Q24H NELLIE Infusion Azithromycin 500 mg in 250 mls @ 250 mls/hr 01/26/25 12:00 01/26/25 13:06 Zithromax IVPB 250 mls/hr Q24H NELLIE Administration Remdesivir 100 mg in 250 mls @ 250 mls/hr 01/26/25 22:00 01/26/25 22:16 IVPB 01/29/25 22:59 Infused Q24H NELLIE Infusion Dextrose 1,000 mls @ 100 mls/hr 01/26/25 07:40 Dextrose 5% 1,000 Ml IVPB PRN PRN Hypoglycemia Protocol Vancomycin HCl 1,000 mg in 250 mls @ 250 mls/hr 01/27/25 22:00 Vancomycin 1,000 Mg/Ns 250 Ml IVPB Q36H NELLIE Fentanyl Citrate 2,500 mcg in 250 mls @ 2.5 mls/hr 01/26/25 20:50 01/27/25 06:00 Fentanyl 2,500 Mcg/Ns 250 Ml IV CONT 25 mcg/hr .Q72H NELLIE 2.5 mls/hr Titration Protocol 25 MCG/HR Midazolam HCl 100 mg in 100 mls @ 1 mls/hr 01/26/25 20:50 01/27/25 06:00 Versed 100 Mg/Ns 100 Ml IV CONT 1 mg/hr .Q72H NELLIE 1 mls/hr Titration Protocol 1 MG/HR Norepinephrine Bitartrate 8 mg in 250 mls @ 5.625 mls/hr 01/27/25 02:35 01/27/25 06:00 Levophed 8 Mg/D5w 250 Ml IV CONT 3 mcg/min .Q24H NELLIE 5.63 mls/hr Titration Protocol 3 MCG/MIN Lactated Ringer's 1,000 mls @ 100 mls/hr 01/27/25 07:15 01/27/25 08:14 Lr - Lactated Ringers Iv IV CONT 01/27/25 17:14 100 mls/hr .Q10H NELLIE Administration Insulin Aspart 3 - 6 units 01/26/25 12:00 01/27/25 06:06 Insulin Aspart (*Bkc) 100 Units/Ml SUB-Q Not Given Q6HR [facility] Protocol Ipratropium [place] 0.5 mg 01/26/25 20:00 01/27/25 07:29 Ipratropium Br 0.02% Inh Soln 0.5 Mg/2.5 Ml Vial INHALATION 0.5 mg Q6HRT NELLIE Administration Levalbuterol HCl 1.25 mg 01/26/25 20:00 01/27/25 07:29 Levalbuterol Neb 1.25 Mg/3 Ml INHALATION 1.25 mg Q6HRT NELLIE Administration Memantine 10 mg 01/25/25 17:00 01/25/25 17:29 Memantine 10 Mg Tablet PO Not Given BID [facility] Metoprolol Tartrate 5 mg 01/26/25 15:20 01/26/25 21:15 Metoprolol Tartrate Inj 5 Mg/5 Ml Vial IV PUSH 5 mg Q6H PRN Administration Tachycardia Multi-Ingred Cream/Lotion/Oil/Oint 1 applic 01/26/25 21:00 01/27/25 08:14 Mineral Oil/White Petrolatum Ointment EACH EYE 1 applic Q12HR NELLIE Administration Pantoprazole Sodium 40 mg 01/27/25 09:00 01/27/25 08:14 Pantoprazole Sodium Iv 40 Mg Vial IV PUSH 40 mg QAM NELLIE Administration Pravastatin Sodium 40 mg 01/26/25 09:00 01/27/25 08:14 Pravastatin Sodium 20 Mg Tablet PO 40 mg DAILY NELLIE Administration <Lisa Ahumada, Student - Last Filed: 01/27/25 09:05> Radiology Results: ITS Impressions Abdomen X-Ray 01/26/25 20:53 IMPRESSION: Bibasilar airspace disease. Small bilateral pleural effusions, likely with a subpulmonic component on the right. NG tube in good position. Chest X-Ray 01/27/25 06:13 Impression: Extensive bilateral pulmonary consolidation is similar to prior exam, right lung worse than left. Correlate for pulmonary edema versus pneumonia. Suspected element of left lower lobe atelectasis. Small bilateral pleural effusions. Support tubes, as above. <Lisa Ahumada, Student - Last Filed: 01/27/25 09:05> Labs Labs: Laboratory Results - last 24 hr 01/26/25 01/26/25 01/26/25 04:38 13:04 16:37 WBC RBC Hgb Hct MCV MCH MCHC RDW Plt Count MPV Immature Gran % (Auto) Neut % (Auto) Lymph % (Auto) [place] % (Auto) Eos % (Auto) Baso % (Auto) Lymph # (Auto) [place] # (Auto) Eos # (Auto) Baso # (Auto) Abs Immat Gran (auto) Absolute Neuts (auto) Absolute Nucleated RBC Nucleated RBC % PT INR Puncture Site Left radial ABG pH 7.410 ABG pCO2 26.4 L ABG pO2 66.6 L ABG PO2/FiO2 Ratio 0.74 ABG HCO3 16.4 L ABG O2 Saturation 93.8 L ABG O2 Content 15.1 L ABG Base Excess -6.9 A-a Gradient 548.0 Oxyhemoglobin 87.4 L* 91.4 Carboxyhemoglobin Methemoglobin Reduced Hemoglobin Total Hemoglobin 11.7 L O2 Delivery Device Bipap O2 Liters/Min Not Reportable Minute Volume Vent Rate Vent Mode FiO2 90 Expiratory Pressure 8 Tidal Volume PEEP Inspiratory Pressure 14 Peak Inspir Pressure Pressure Support Sodium Potassium Chloride Carbon Dioxide Anion Gap BUN Creatinine Estim Creat Clear Calc Estimated GFR Glucose POC Capillary Glucose 186 H 218 H Lactic Acid Calcium Phosphorus Magnesium Total Bilirubin AST ALT Alkaline Phosphatase C-Reactive Protein Total Protein Albumin 01/26/25 01/26/25 01/26/25 19:41 21:30 23:38 WBC RBC Hgb Hct MCV MCH MCHC RDW Plt Count MPV Immature Gran % (Auto) Neut % (Auto) Lymph % (Auto) [place] % (Auto) Eos % (Auto) Baso % (Auto) Lymph # (Auto) [place] # (Auto) Eos # (Auto) Baso # (Auto) Abs Immat Gran (auto) Absolute Neuts (auto) Absolute Nucleated RBC Nucleated RBC % PT INR Puncture Site Right radial Right radial ABG pH 7.343 L 7.048 L* ABG pCO2 27.8 L 54.5 H ABG pO2 49.3 L* 86.9 ABG PO2/FiO2 Ratio 0.49 0.87 ABG HCO3 14.8 L 14.7 L ABG O2 Saturation 83.5 L* 91.7 L ABG O2 Content 13.2 L ABG Base Excess -9.5 -16.1 A-a Gradient 635.9 571.6 Oxyhemoglobin 79.4 L* Carboxyhemoglobin Methemoglobin Reduced Hemoglobin Total Hemoglobin 11.8 L O2 Delivery Device Bipap Ventilator O2 Liters/Min Minute Volume Not Reportable Vent Rate 20 Vent Mode Cmv FiO2 100 100 Expiratory Pressure Tidal Volume 360 PEEP 8 Inspiratory Pressure Peak Inspir Pressure Pressure Support Not Reportable Sodium Potassium Chloride Carbon Dioxide Anion Gap BUN Creatinine Estim Creat Clear Calc Estimated GFR Glucose POC Capillary Glucose 220 H Lactic Acid Calcium Phosphorus Magnesium Total Bilirubin AST ALT Alkaline Phosphatase C-Reactive Protein Total Protein Albumin 01/27/25 01/27/25 01/27/25 00:00 05:04 05:45 WBC 12.7 H RBC 3.25 L Hgb 10.0 L Hct 31.0 L MCV 95.4 MCH 30.8 MCHC 32.3 RDW 14.0 Plt Count 145 L MPV 10.1 Immature Gran % (Auto) 0.5 Neut % (Auto) 86.9 H Lymph % (Auto) 7.1 L [place] % (Auto) 5.4 Eos % (Auto) 0.0 Baso % (Auto) 0.1 L Lymph # (Auto) 0.90 [place] # (Auto) 0.7 H Eos # (Auto) 0.0 Baso # (Auto) 0.0 Abs Immat Gran (auto) 0.06 H Absolute Neuts (auto) 11.0 H Absolute Nucleated RBC 0.000 Nucleated RBC % 0.0 PT 21.8 H D INR 1.9 Puncture Site Right radial Right radial ABG pH 7.101 L* 7.351 ABG pCO2 49.5 H 38.6 ABG pO2 74.3 L 74.6 L ABG PO2/FiO2 Ratio 0.74 0.83 ABG HCO3 15.1 L 20.9 L ABG O2 Saturation 89.1 L 94.4 L ABG O2 Content 15.2 L 14.5 L ABG Base Excess -14.3 -4.3 A-a Gradient 589.2 527.5 Oxyhemoglobin 87.5 L* 92.5 Carboxyhemoglobin 0.3 Methemoglobin 0.3 Reduced Hemoglobin 6.9 H Total Hemoglobin 12.3 11.1 L O2 Delivery Device Ventilator Ventilator O2 Liters/Min Not Reportable Not Reportable Minute Volume Not Reportable Not Reportable Vent Rate 26 26 Vent Mode Cmv Cmv FiO2 100 90 Expiratory Pressure Tidal Volume 360 360 PEEP 8 8 Inspiratory Pressure Peak Inspir Pressure Not Reportable Not Reportable Pressure Support Not Reportable Not Reportable Sodium 146 H Potassium 4.3 Chloride 107 Carbon Dioxide 24 Anion Gap 15 H BUN 81 H D Creatinine 2.09 H Estim Creat Clear Calc 21 Estimated GFR 30 L Glucose 199 H POC Capillary Glucose Lactic Acid 2.8 H Calcium 7.8 L Phosphorus 6.6 H Magnesium 2.4 H Total Bilirubin 0.6 AST 393 H ALT 365 H Alkaline Phosphatase 33 L C-Reactive Protein 12.9 H Total Protein 6.0 L Albumin 4.2 <Lisa Ahumada, Student - Last Filed: 01/27/25 09:05> Quality VTE Prophylaxis VTE prophylaxis: pharmacologic ordered <Lisa Ahumada Student - Last Filed: 01/27/25 09:05> Attestation Student Attestation H&P performed by Lisa Ahumada OMS-IV <Lisa Ahumada Student - Last Filed: 01/27/25 09:05>
[2025-01-27 08:39] LABS: Lactic Acid 2.1 mmol/L (0.7-2.0)
[2025-01-27] MEDS: BARICITINIB 2 MG TABLET PO (11:04)
[2025-01-27] MEDS: AZITHROMYCIN 500 MG/NS 250 ML 500 MG/250 ML BAG 250 MG IVPB (11:05)
[2025-01-27] MEDS: CEFEPIME 1 GM/NS 50 ML 1 GM/50 ML BAG IVPB ×2 (11:05→20:18)
--- NOTE | 2025-01-27 11:11 | PCFNICU ---
ICU Rounding Note: Pt current nutrition is Nepro at 20 ml/hr. Last recorded weight is 62.1 kg. up from 61 kg on admit. Bowel Motility: no BM Labs Reviewed:PO4 6.6, BUN 81, Cr 2.09, Glu 199, Na 146 Meds Noted:Fentanyl, Versed, Protonix, Lovenox, Vancomycin Skin: WNL Additional Notes: Patient intubated. Wool Sorter would like to start trickle feedings today. Recommending Nepro at 20 ml/hr 2/2 to elevated renal labs. Following daily in ICU rounds. Will monitor weight, labs, skin, diet orders, meds every Saturday and Saturday.
[2025-01-27 11:32] LABS: Alveolar/Arterial O2 Gradient 261.7 mmHg; HCO3 ABG 22.4 mEq/l (22.0-26.0); Oxygen Content ABG 14.7 %vol (16.0-22.0); Oxygen Saturation ABG 97.8 % (95.0-100.0); PCO2 ABG 46.5 mmHg (35.0-45.0); PO2 FiO2 Ratio Arterial Blood 1.92 %; Total Hemoglobin 10.6 g/dL (12.0-18.0); pH ABG 7.301 (7.350-7.450)
[2025-01-27] MEDS: INSULIN ASPART (*BKC) 100 UNITS/ML SUB-Q ×2 (11:44→17:49)
[2025-01-27 11:48] LABS: Device VENTILATOR; Fractional Inspired Oxygen 90 %; Modified Allen's Test Pass; Site Drawn LEFT RADIAL
[2025-01-27 11:49] LABS: Glucose Point of Care 208 mg/dl (65-105)
[2025-01-27 11:49] LABS: Arterial Blood Gas PEEP 12 cmH2O; Arterial Blood Gas Tidal Volume 360 ml; Arterial Blood Gas Vent Mode CMV; Arterial Blood Gas Ventilator rate 26 /MIN
[2025-01-27] MEDS: CENTRAL LINE FLUSH 10 ML IV PUSH ×2 (13:59→20:19)
--- NOTE | 2025-01-27 16:25 | PC.NURSE ---
Spoke with Dr. Emmanuel for clarification on FiO2 titration. New order to decrease FiO2 to 60%. If pt remains stable at 60%, may decrease FiO2 to 50%. Don't go lower than 50% tonight.
[2025-01-27 17:33] LABS: Glucose Point of Care 207 mg/dl (65-105)
[2025-01-27] MEDS: VANCOMYCIN 1,000 MG/NS 250 ML 1,000 MG/250 ML BAG 250 MG IVPB (20:53)
[2025-01-27] MEDS: REMDESIVIR 100 MG/NS 250 ML 100 MG/250 ML BAG 250 MG IVPB (22:24)
--- NOTE | 2025-01-27 22:42 | PC.NURSE ---
Bath given, linens changed. Mepelex removed, upon removal possible DTI to sacrum, redenned but blanchable, Picture taken for wound care, new mepelex dressing applied. Patient turn to Left side. Heels floated on pillows and elevated off bed.
[2025-01-27 23:30] LABS: Glucose Point of Care 193 mg/dl (65-105)
[2025-01-28] VITALS (50 sets, daily range): BP systolic 87–127; BP diastolic 60–78; PULSE 75–140; RESP 17–28; TEMP 35.7–36.9; O2SAT 99–100
[2025-01-28] MEDS: IPRATROPIUM BR 0.02% INH SOLN 0.5 MG/2.5 ML VIAL INHALATION ×4 (02:06→19:41)
[2025-01-28] MEDS: LEVALBUTEROL NEB 1.25 MG/3 ML INHALATION ×4 (02:06→19:41)
[2025-01-28 05:25] LABS: Basophils Percent Auto 0.1 % (0.2-1.2); Hematocrit 31.2 % (42.0-52.0); Hemoglobin 9.8 g/dL (14.0-18.0); Immature Granulocyte Absolute 0.06 K/mm3 (0.00-0.031); Immature Granulocyte Percent A 0.5 % (0-0.5); Lymphocytes Absolute Auto 0.69 K/mm3 (0.9-3.2); Lymphocytes Percent Auto 5.4 % (18.3-44.2); Mean Corpuscular HGB Conc 31.4 g/dl (32-36); Mean Corpuscular Hemoglobin 30.7 pg (26-34); Mean Corpuscular Volume 97.8 fl (80-100); Mean Platelet Volume 10.6 fl (7.4-10.4); Monocytes Absolute Auto 0.5 K/mm3 (0.1-0.6); Monocytes Percent Auto 3.5 % (2.6-8.5); Neutrophils Absolute Auto 11.6 K/mm3 (1.3-6.7); Neutrophils Percent Auto 90.5 % (45.5-73.1); Platelet Count Result 161 k/mm3 (150-375); Red Blood Count 3.19 M/mm3 (4.6-6.20); White Blood Count 12.8 K/mm3 (4.5-10.0)
--- NOTE | 2025-01-28 05:27 | ECG_ITS ---
Test Date: 2025-01-28 05:22:45 Measurements Intervals [place] Rate: 129 P: 0 ID: 0 QRS: 55 QRSD: 106 T: 0 QT: 269 QTc: 394 Interpretive Statements ATRIAL FIBRILLATION WITH RAPID VENTRICULAR RESPONSE SEPTAL MYOCARDIAL INFARCTION [40+ ms Q WAVE IN V1/V2], OF INDETERMINATE AGE MARKED ST DEPRESSION, CONSIDER SUBENDOCARDIAL INJURY [0.2+ mV ST DEPRESSION] WARNING: DATA QUALITY MAY AFFECT INTERPRETATION Compared to ECG 01/25/2025 09:58:51 ST (T wave) deviation now present Sinus tachycardia no longer present T-wave abnormality no longer present Possible ischemia no longer present Myocardial infarct finding still present Electronically Signed On 01-29-2025 18:56:05 CDT by Gilbert Sharp
[2025-01-28 05:41] LABS: Alanine Aminotransferase 313 U/L (6-50); Albumin Level 3.7 g/dL (3.5-5.1); Alkaline Phosphatase 49 U/L (38-126); Anion Gap 12 mmol/L (4-12); Aspartate Amino Transferase 211 U/L (17-59); Bilirubin,Total 0.5 mg/dL (0.2-1.3); Blood Urea Nitrogen 101 mg/dL (9-20); Calcium 7.8 mg/dL (8.4-10.2); Carbon Dioxide 23 mmol/L (22-30); Chloride 108 mmol/L (98-107); Estimated CRCL calculation 19 ml/min; Estimated Glomerular Filt Rate 26; Glucose 272 mg/dL (65-110); Magnesium 2.6 mg/dL (1.6-2.3); Potassium 4.3 mmol/L (3.4-5.0); Sodium 143 mmol/L (137-145)
[2025-01-28 06:36] LABS: Alveolar/Arterial O2 Gradient 137.3 mmHg; Base Excess ABG -6.1 mEq/l (+/-2.0); Carboxyhemoglobin 0.3 % THb (0-2.0); Fractional Inspired Oxygen 50 %; HCO3 ABG 21.1 mEq/l (22.0-26.0); Oxygen Content ABG 15.6 %vol (16.0-22.0); Oxygen Saturation ABG 98.8 % (95.0-100.0); Oxyhemoglobin 98.7 % THb (90.0-100.0); PCO2 ABG 48.8 mmHg (35.0-45.0); PO2 ABG 164.3 mmHg (80.0-100.0); PO2 FiO2 Ratio Arterial Blood 3.29 %
[2025-01-28] MEDS: AMIODARONE 150 MG/D5W 100 ML 150 MG/100 ML BAG 600 MG IV CONT (06:36)
[2025-01-28] MEDS: INSULIN ASPART (*BKC) 100 UNITS/ML SUB-Q ×3 (06:36→17:18)
[2025-01-28] MEDS: CENTRAL LINE FLUSH 10 ML IV PUSH ×3 (06:36→22:44)
[2025-01-28] MEDS: AMIODARONE 360 MG/D5W 200 ML 360 MG/200 ML BAG 33.33 MG IV CONT (06:37)
[2025-01-28 06:41] LABS: Device VENTILATOR; Modified Allen's Test Pass; Site Drawn RIGHT RADIAL; pH ABG 7.253 (7.350-7.450)
[2025-01-28 06:43] LABS: Arterial Blood Gas PEEP 12 cmH2O; Arterial Blood Gas Vent Mode CMV; Arterial Blood Gas Ventilator rate 26 /MIN
[2025-01-28 06:44] LABS: Arterial Blood Gas Tidal Volume 360 ml
[2025-01-28] MEDS: dexAMETHasone SOD PHOS INJ 10 MG/ML 1 ML VIAL 6 MG IV PUSH (09:00)
[2025-01-28] MEDS: PANTOPRAZOLE SODIUM IV 40 MG VIAL IV PUSH (09:01)
[2025-01-28] MEDS: MINERAL OIL/WHITE PETROLATUM OINTMENT 1 APPLIC EACH EYE ×2 (09:01→21:01)
[2025-01-28] MEDS: ENOXAPARIN 30 MG/0.3 ML SYRINGE SUB-Q (09:01)
[2025-01-28] MEDS: AZITHROMYCIN 500 MG/NS 250 ML 500 MG/250 ML BAG 250 MG IVPB (09:02)
[2025-01-28] MEDS: CEFEPIME 1 GM/NS 50 ML 1 GM/50 ML BAG IVPB ×2 (09:02→21:01)
--- NOTE | 2025-01-28 09:05 | P.CONNP_ITS ---
Assessment and Plan Assessment and plan (1) Acute kidney injury: Code(s): N17.9 - Acute kidney failure, unspecified Status: Acute Assessment and Plan: * as noted on admission * transient improvement to 1.61mg/d on 01/26 * worsening creatinine since 01/27 * baseline creatinine runs around 1.1 - 1.3mg/dl * suspect ATN with multifactorial etiology: * hemodynamic instability/shock * infection/sepsis (pneumonia + COVID) * hypoxia * possible prerenal factors * other(?) * follow-up on urine studies, CPK, and renal ultrasound * continue supportive therapy * remains at risk for GROOMING ASSISTANT/dialysis * follow trend of repeat labs and UOP (2) Septic shock: Code(s): A41.9 - Sepsis, unspecified organism; R65.21 - Severe sepsis with septic shock Status: Acute Assessment and Plan: * as noted by presentation of tachycardia, tachypnea, hypoxia, lactic acidosis, MICHAEL, and hypotension * s/p volume resuscitation along with IV albumin for intravascular volume expansion * lactic acidosis resolved * started on vasopressor therapy (levophed) to maintain MAP/blood pressure * follow culture data * on antibiotics * follow trend of hemodynamics (3) Acute respiratory failure: Code(s): J96.00 - Acute respiratory failure, unspecified whether with hypoxia or hypercapnia Status: Acute Assessment and Plan: * felt to be secondary to pneumonia and COVID-19 * on ventilator support * weaning as tolerated (4) Pneumonia: Code(s): J18.9 - Pneumonia, unspecified organism Status: Acute Assessment and Plan: * as suggested by admission imaging * follow culture data * on antibiotic therapy * continue supportive therapy (5) COVID: Code(s): U07.1 - COVID-19 Status: Acute Assessment and Plan: * positive testing noted on 01/22 * imaging with worsening infiltrates as well * initated on remdesivir and dexamethasone (on 01/25) * started on baricitinib as well (on 01/26) * remains on droplet and contact isolation/precautions (6) Anemia: Code(s): D64.9 - Anemia, unspecified Status: Acute Assessment and Plan: * presumably due to MICHAEL and acute illness * follow trend of H/H (7) Elevated LFTs: Code(s): R79.89 - Other specified abnormal findings of blood chemistry Status: Acute Assessment and Plan: * presumably due to septic shock and hypoxia * statin on hold * appear to be improving * follow trend (8) Pre-diabetes: Code(s): R73.03 - Prediabetes Status: Acute Assessment and Plan: * follow accu-cheks * possibly exacerbated by steroid use and acute illness * glycemic control per professional caster/hospitalist Case discussed with Dr. Emmanuel. I will continue to follow the patient with you while he remains hospitalized and make further recommendations as deemed necessary. Thank you for allowing me to participate in the care of this patient. L History of Present Illness Reason for Consult Consult date: 01/28/25 Reason for consult: acute renal failure Chief Complaint Chief complaint: covid, hypoxia, pneumonia, michael History of Present Illness Narrative: All the information that I have obtained is from review of the electronic medical record as well as discussion with the physicians and nurses involved in the patient's care as the patient is currently unable to provide any history as he is intubated and on mechanical ventilation. The patient is an 84-year-old male with a past medical history as outlined below who presented to [facility] Emergency Room on 01/25/25 with complaints of shortness of breath and generalized weakness. The patient was actually seen a few days prior to this visit with complaints of generalized weakness and at that time he was discovered to be COVID 19 positive. Blood work done that time demonstrated no significant abnormalities and subsequent imaging studies included chest x-ray and CT scan of brain as well as EKG were all within normal limits. He was subsequently discharged with instructions for ongoing supportive therapy. However, he returned back to the emergency room 01/25 with complaints of shortness of breath in association with his previous weakness. Workup and evaluation emergency room demonstrated the patient to be hemodynamically stable but was noted be tachycardic, tachypneic, and hypoxic. Routine blood test demonstrated white blood cell count 10.9, creatinine of 2.01, lactic acid of 4.3, [place] [id number] with repeat positivity of his COVID testing and a chest x-ray with bilateral basal and upper lobe pneumonia. While in the emergency room, his blood pressure did decline and he was initiated on IV fluid boluses to compensate. It was felt his presentation was possible early sepsis secondary to COVID pneumonia and after appropriate cultures were obtained, he was initiated on antibiotic therapy. He was subsequently admitted to the hospital for further evaluation therapy. Since his admission, his overall clinical status has deteriorated. While on the medical floor following admission, his oxygen saturations decline requiring increasing supplemental oxygen from high-flow nasal cannula to high flow therapy with Airvo. Nevertheless, his oxygen saturations continued decline in till ventral he was initiated on BiPAP therapy and transferred to the ICU for closer monitoring given his overall declining respiratory status. With ongoing BiPAP therapy, his respiratory status seemed to improve but repeat imaging demonstrated worsening right-sided infiltrates and fluctuating lactic acid as well as a rise in LFTs. His kidney function/creatinine did transiently improved. Unfortunately, his respiratory status declined even further on the evening of 01/26 and he subsequently required intubation and placement on mechanical ventilation for impending respiratory failure. Since that time, his creatinine has started to worsen as well in conjunction with a decline in urine output. Renal consultation was requested due to his acute kidney injury/acute renal failure. From review of his records here at [facility], his baseline creatinine runs around 1.1-1.3 mg/dL. As already mentioned above, on presentation to the hospital, his creatinine was up to 2.01 mg/dL which then transiently improved to 1.61 mg/dL before it deteriorated again on 01/27 with his most recent creatinine being 2.37 mg per dose better. This is further complicated by the fact that his urine output has declined as well. He remains intubated and on mechanical ventilation and has required initiation on vasopressor therapy as well. He has no critical electrolyte abnormalities at this time but his BUN is quite elevated presumably due to his catabolic state as well as the use of steroids and was recently initiated on amiodarone infusion due to development of atrial fibrillation with RVR overnight. Currently, at the time my evaluation, he does not appear to be in any acute distress but remains on vasopressor and ventilator support. Review of Systems 2 Review of Systems: As per HPI. [facility] Past Medical History Medical History (Updated 01/28/25 @ 16:18 by Arthur Bernard MD) Hearing difficulty Bilateral impacted cerumen Diarrhea Encounter for routine adult health examination with abnormal findings BMI 22.0-22.9, adult Follow up CINTIA (obstructive sleep apnea) Thickened nails ASHD (arteriosclerotic heart disease) [place] (hard of hearing) Hyperlipidemia Pre-diabetes Elevated PSA Encounter to establish care with new doctor On alf drug therapy BMI 24.0-24.9, adult Benign essential hypertension Dementia Surgical History Surgical History Hx of cholecystectomy Family History Family History Sibling Cerebrovascular accident Father Acute myocardial infarction Mother Breast cancer Ovarian cancer Social History Social History Smoking status: Former smoker Tobacco type: cigarettes Alcohol intake: never Substance use: never Do You Feel Safe in your Home?: Yes Lack of Transportation: No Lack of Food: Never True Current Housing: I Have Housing Concerned About Future Housing: No Difficulty Paying Gas/Electric Bills: No Difficulty Paying for Meds: No Currently Unemployed: No Education: Master's Degree or Higher Difficulty w/ Childcare or Family Care: No [place] arrangements[place] Occupation/Education: retired Gender identity (if verbalized by the patient): Male Spiritual care concerns: No Meds Home Medications and Allergies Home Medications ?Medication ?Instructions ?Recorded ?Confirmed ?Type cholecalciferol (vitamin D3) 50 50 mcg PO DAILY 06/29/24 01/25/25 History mcg (2,000 unit) capsule mecobalamin (vitamin B12) 1,000 1,000 mcg sublingual DAILY 06/29/24 01/25/25 History mcg disintegrating tablet,sublingual vitamin 200 mg BYMOUTH DAILY 06/29/24 01/25/25 History amlodipine 5 mg tablet (Norvasc) 5 mg PO DAILY #90 tabs 12/09/24 01/25/25 Rx memantine 10 mg tablet 10 mg PO BID #180 tabs 12/09/24 01/25/25 Rx metformin 500 mg tablet 500 mg PO BID #180 tabs 12/09/24 01/25/25 Rx pravastatin 40 mg tablet 40 mg PO DAILY #90 tabs 12/09/24 01/25/25 Rx [place] Fiber Gummies 1 gummy BYMOUTH BID 12/16/24 01/25/25 History Allergies Allergy/AdvReac Type Severity Reaction Status Date / Time shellfish derived Allergy Anaphylaxis Verified 01/25/25 15:36 iohexol (From contrast - CT, AdvReac Intermediate Rash Verified 01/25/25 15:36 X-RAY) Vital Signs Vital Signs Temp Pulse Resp BP Pulse Ox O2 Del Method FiO2 01/28/25 06:37 140 H 115/78 01/28/25 06:36 140 H 115/78 01/28/25 06:00 96.6 F L 140 H 26 H 107/72 100 01/28/25 06:00 140 H 01/28/25 06:00 140 H 26 H 01/28/25 06:00 140 H 26 H 01/28/25 06:00 140 H 107/72 01/28/25 04:00 91 26 H 01/28/25 04:00 91 26 H 01/28/25 04:00 92 105/62 01/28/25 04:00 92 100 Mechanical Ventilation 50 01/28/25 04:00 90 01/28/25 04:00 96.5 F L 89 26 H 105/62 100 01/28/25 03:10 50 01/28/25 03:07 94 26 H 100 Mechanical Ventilation 50 01/28/25 02:11 86 100 Mechanical Ventilation 50 01/28/25 02:07 94 26 H 01/28/25 02:00 91 26 H 01/28/25 02:00 91 26 H 01/28/25 02:00 91 108/64 01/28/25 02:00 96.6 F L 91 26 H 108/64 100 01/28/25 02:00 91 01/28/25 01:00 96 28 H 01/28/25 00:01 91 26 H 01/28/25 00:01 91 26 H 01/28/25 00:01 91 102/60 01/28/25 00:00 91 01/28/25 00:00 96.3 F L 91 26 H 102/60 100 01/27/25 23:30 86 100 Mechanical Ventilation 50 01/27/25 23:30 86 93/56 L 01/27/25 23:11 50 01/27/25 23:02 86 26 H 99 Mechanical Ventilation 50 01/27/25 23:00 86 92/56 L 01/27/25 22:00 88 26 H 01/27/25 22:00 88 26 H 01/27/25 22:00 88 94/64 L 01/27/25 22:00 97.0 F L 89 26 H 94/64 L 99 01/27/25 22:00 86 01/27/25 21:03 95 98 Mechanical Ventilation 70 01/27/25 20:58 98 52 H 01/27/25 20:00 99 01/27/25 20:00 98.2 F 99 26 H 105/65 97 01/27/25 20:00 99 26 H 98 Mechanical Ventilation 50 01/27/25 20:00 50 01/27/25 20:00 99 26 H 01/27/25 20:00 99 26 H 01/27/25 20:00 99 105/65 01/27/25 18:02 96 27 H 01/27/25 18:01 96 27 H 01/27/25 18:01 96 104/64 01/27/25 18:00 98.1 F 96 25 H 104/64 98 01/27/25 18:00 96 01/27/25 17:45 96 108/71 01/27/25 17:30 96 110/69 01/27/25 17:15 96 109/67 01/27/25 17:00 96 109/67 01/27/25 16:45 96 110/70 01/27/25 16:35 60 01/27/25 16:31 96 115/74 01/27/25 16:30 99 60 01/27/25 16:15 97 113/69 01/27/25 16:08 96 99 Mechanical Ventilation 01/27/25 16:00 96 01/27/25 16:00 96 29 H 99 Mechanical Ventilation 01/27/25 16:00 70 01/27/25 16:00 96 29 H 01/27/25 16:00 96 29 H 01/27/25 16:00 96 113/71 01/27/25 16:00 98.0 F 96 21 H 113/71 99 01/27/25 14:02 95 29 H 01/27/25 14:02 95 29 H 01/27/25 14:02 95 108/71 01/27/25 14:00 98.3 F 95 20 108/71 99 01/27/25 14:00 95 01/27/25 13:40 94 29 H 01/27/25 13:30 95 27 H 01/27/25 13:30 95 100 Mechanical Ventilation 70 01/27/25 13:01 95 108/70 01/27/25 12:45 96 106/69 01/27/25 12:33 95 93/67 L 01/27/25 12:15 96 90/64 L 01/27/25 12:03 97 24 H 01/27/25 12:03 97 24 H 01/27/25 12:03 97 90/64 L 01/27/25 12:00 98.6 F 94 28 H 90/64 L 94 01/27/25 12:00 96 01/27/25 12:00 97 24 H 96 Mechanical Ventilation 70 01/27/25 11:59 70 01/27/25 11:50 98 96 Mechanical Ventilation 70 01/27/25 11:45 70 01/27/25 10:00 95 01/27/25 10:00 95 26 H 01/27/25 10:00 95 26 H 01/27/25 10:00 95 101/69 01/27/25 10:00 98.6 F 95 16 101/69 98 Exam 2 Narrative: GENERAL APPEARANCE: elderly male intubated/sedated and on mechanical ventilation but in no acute distress HEENT: normocephalic, atraumatic, normal conjunctiva and sclera, nares patient NECK: no lymphadenopathy, thyromegaly, or JVD MOUTH: normal lips, teeth, and gums; ETT in placed CARDIOVASCULAR: RRR, normal S1 and S2, no rub detected RESPIRATORY: clear to auscultation bilaterally ABDOMEN: soft, nontender, nondistended, hypoactive bowel sounds present EXTREMITIES: no evidence of cyanosis, clubbing, or edema NEUROLOGICAL: unable to assess Results Lab Results 01/28/25 05:12 01/28/25 05:12 Lab results: Most recent lab results ABG pH 7.253 (7.350-7.450) L* 01/28/25 06:28 ABG pCO2 48.8 mmHg (35.0-45.0) H 01/28/25 06:28 ABG pO2 164.3 mmHg (80.0-100.0) H 01/28/25 06:28 ABG HCO3 21.1 mEq/l (22.0-26.0) L 01/28/25 06:28 ABG O2 Saturation 98.8 % (95.0-100.0) 01/28/25 06:28 Calcium 7.8 mg/dL (8.4-10.2) L 01/28/25 05:12 Phosphorus 6.6 mg/dL (2.5-4.5) H 01/27/25 05:04 Magnesium 2.6 mg/dL (1.6-2.3) H 01/28/25 05:12
[2025-01-28 09:21] LABS: Creatine Kinase 317 U/L (55-170); Lactic Acid Reflex 1.4 mmol/L (0.7-2.0)
[2025-01-28 10:38] LABS: Eosinophil Urine None Seen % (None Seen); Urine Eos QC 2nd Tech Confirmed
--- NOTE | 2025-01-28 11:05 | PCFNICU ---
ICU Rounding Note: Pt current nutrition is Nepro at 20 ml/hr. Nutrition recommendation:40 ml/hr. Last recorded weight is 68.6 kg, up from 61 kg on admit. Bowel Motility: No BM reported. Labs Reviewed:PO4 6.6, Glu 272, Cr 2.37, BUN 101, Hct 31.2, Hgb 9.8 Meds Noted: Protonix, Lovenox, Lantus, Remdesivir, Vancomycin, Fentanyl, Versed. Skin: Friction Additional Notes: Patient remains on mechanical vent. Tube feedings are being tolerated of Nepro at 20 ml/hr. Hospitality Associate would like us to increase the rate today. Plans to increase to 40 ml/hr today, providing 1584 kcal/72 gm protein/640 ml water. Flush 30 ml q 4 hours. Agree with diet orders. Following daily in ICU rounds. Will monitor weight, labs, skin, diet orders, meds every Saturday and Saturday.
[2025-01-28 11:23] LABS: Creatinine Urine 105.5 mg/dL; Total Protein Urine Random 90 mg/dL; Ur Ttl Prot Creatinine Ratio 0.85 mg/mg (0-0.20)
[2025-01-28] MEDS: NOREPINEPHRINE 8 MG/D5W 250 ML 8 MG/250 ML BAG 11.25 MG IV CONT (12:00)
[2025-01-28 12:06] LABS: Creatinine Urine 105.2 mg/dL
[2025-01-28 12:07] LABS: Total Protein Urine Random 91 mg/dL; Urea Random Urine 1118 MG/DL
[2025-01-28] MEDS: BARICITINIB 1 MG TABLET PO (12:07)
[2025-01-28] MEDS: AMIODARONE 360 MG/D5W 200 ML 360 MG/200 ML BAG 16.67 MG IV CONT (12:07)
[2025-01-28 12:10] LABS: Sodium Urine Random 26 meq/L
[2025-01-28 12:22] LABS: Glucose Point of Care 330 mg/dl (65-105)
--- NOTE | 2025-01-28 12:42 | P.PNINT_ITS ---
Progress Note: A&P Assessment and Plan (1) Acute respiratory failure: Code(s): J96.00 - Acute respiratory failure, unspecified whether with hypoxia or hypercapnia Status: Acute Assessment and Plan: Acute respiratory failure likely related to pneumonia, COVID-19 -reviewed chest x-ray this more -ABGs reviewed, ventilator adjusted, peep dropped to 10, increase tidal volume -Continue Azithromycin and Vancomycin -continue cefepime (01/27) -Continue Dexamethasone -monitor cultures, -01/28: added sputum culture 01/27-preliminary cultures shows no growth x2 (2) Pneumonia: Code(s): J18.9 - Pneumonia, unspecified organism Status: Acute Assessment and Plan: Continue as above (3) COVID: Code(s): U07.1 - COVID-19 Status: Acute Assessment and Plan: Patient has been positive for COVID 19. Chest x-ray shows worsening infiltrates -continue remdesivir, dexamethasone (01/25) -continue baricitinib (01/26) -continue droplet and contact isolation/precautions 01/27- rising LFT's likely transient related to rapid response, will continue to monitor. No change to Remdesivir or baricitinib at this time. Discussed with pharmacist (4) Sepsis: Code(s): A41.9 - Sepsis, unspecified organism Status: Acute Assessment and Plan: Patient presented with tachycardia, tachypnea, hypoxia, acute kidney injury, -adequately fluid-resuscitated, s/p albumin for intravascular volume expansion -had to be restarted on Levophed. Will continue to maintain MAP > 65 mmHg at all times for adequate end organ perfusion -01/27: status post LR at 100 mL/hour for 1000 mL -01/28: Lactic acid has resolved (5) MICHAEL (acute kidney injury): Code(s): N17.9 - Acute kidney failure, unspecified Status: Acute Assessment and Plan: Acute kidney injury likely related to sepsis, -urine output low, Creatinine increased to 2.01 this morning, baseline is 1.10 -could be related to hypoxia, hypotension -adequately fluid-resuscitated -continue to monitor urine output, renal function and electrolytes -nephrology has been consulted -urine lytes do not reflect pre renal, CK level 317, negative urine eosinophils -01/28: Renal ultrasound has been ordered (6) Dementia: Qualifiers: Dementia type: unspecified type Dementia severity: unspecified severity Dementia behavioral or psychological symptom: unspecified whether behavioral, psychotic, or mood disturbance or anxiety Qualified Code(s): F03.90 - Unspecified dementia, unspecified severity, without behavioral disturbance, psychotic disturbance, mood disturbance, and anxiety Code(s): F03.90 - Unspecified dementia, unspecified severity, without behavioral disturb ance, psychotic disturbance, mood disturbance, and anxiety Status: Acute Assessment and Plan: Baseline cognitive impairment, on Namenda at home, will continue to hold for now (7) Generalized weakness: Code(s): R53.1 - Weakness Status: Acute Assessment and Plan: Generalized weakness could be related to hypoxia, tachypnea, COVID-19, pneumonia -continue to manage underlying issues (8) Hyperlipidemia: Qualifiers: Hyperlipidemia type: unspecified Qualified Code(s): E78.5 - Hyperlipidemia, unspecified Code(s): E78.5 - Hyperlipidemia, unspecified Status: Acute Assessment and Plan: Continue pravastatin (9) Pre-diabetes: Code(s): R73.03 - Prediabetes Status: Acute Assessment and Plan: Accu-Cheks and sliding scale insulin -hyperglycemia likely related to steroids and pre diabetes Will add Lantus (10) Elevated LFTs: Code(s): R79.89 - Other specified abnormal findings of blood chemistry Status: Acute Assessment and Plan: And elevated LFTs likely related to hypoxia and/or hypotension/septic shock -continue to monitor -will hold statin for now due to elevated LFT -LFTs trending down Plan DVT prophylaxis: Enoxaparin Stress ulcer prophylaxis: Protonix Nutrition: Increased tube feed to goal Code Status: Okay to intubation but no CPR Critical Care Time Spent: 34 minutes Discuss with patient's daughter in rounds, updated them with patient's condition and plan of care. I answered all questions Due to a high probability of clinically significant, life threatening deterioration, the patient required my highest level of preparedness to intervene emergently and I personally spent this critical care time directly and personally managing the patient. This critical care time included obtaining a history; examining the patient; pulse oximetry; ordering and review of studies; arranging urgent treatment with development of a management plan; evaluation of patient's response to treatment; frequent reassessment; and discussions with other providers. It was exclusive of separately billable procedures and treating other patients and teaching time. Please see Assessment and Plan section and the rest of the note for further information on patient assessment and treatment This dictation may have been done utilizing a voice recognition system. Attempts have been made to correct errors. However, there may be uncorrected grammatical, spelling, and recognitions errors present. Subjective Date/time seen: 01/28/25 12:42 Interval history: Reason for consult: Acute respiratory failure, COVID-19 positive, pneumonia, 01/26/2025: Intubated 01/28/2025: Patient seen and examined the ICU, remains intubated on CMV mode of ventilation, peep of 12, 50% FiO2. Sedated on fentanyl and Versed infusion. Low urine output, creatinine trending up. LFTs trending down. Afebrile. Remains on norepinephrine. Patient went into AFib RVR overnight requiring amiodarone bolus and infusion Review of Systems Review of Systems: ROS unobtainable: Yes unobtainable due to endotracheal tube, unobtainable due to medical condition and unobtainable due to mental status Exam Narrative: General: Intubated and sedated, in no acute distress HEENT:? Pupils equal and reactive, pin point pupils bilaterally, sclera is matthew r, ETT in place Neck:? Supple Respiratory:? Coarse breath sounds bilaterally, right greater than left, decreased on the left, no wheezing, adequate air entry Cardiac:? S1-S2 normal, regular rate and rhythm Abdomen:? Soft, nontender, hypoactive bowel sounds Extremities:? No edema, palpable pedal pulses Neuro:? Patient remains intubated and sedated, does not open his eyes or follow simple commands Skin:? No skin lesions noted Psych:? Unable to assess at this time Objective Data Vital Signs Vital Signs: Vital Signs - 24 hr 01/27/25 12:45 01/27/25 13:01 01/27/25 13:30 Temperature Pulse Rate 96 95 95 Respiratory Rate Blood Pressure 106/69 108/70 Pulse Oximetry 100 Oxygen Delivery Mechanical Ventilation Fraction of Inspired Oxygen 70 01/27/25 13:30 01/27/25 13:40 01/27/25 14:00 Temperature Pulse Rate 95 94 95 Respiratory Rate 27 H 29 H Blood Pressure Pulse Oximetry Oxygen Delivery Fraction of Inspired Oxygen 01/27/25 14:00 01/27/25 14:02 01/27/25 14:02 Temperature 98.3 F Pulse Rate 95 95 95 Respiratory Rate 20 29 H Blood Pressure 108/71 108/71 Pulse Oximetry 99 Oxygen Delivery Fraction of Inspired Oxygen 01/27/25 14:02 01/27/25 16:00 01/27/25 16:00 Temperature 98.0 F Pulse Rate 95 96 96 Respiratory Rate 29 H 21 H Blood Pressure 113/71 113/71 Pulse Oximetry 99 Oxygen Delivery Fraction of Inspired Oxygen 01/27/25 16:00 01/27/25 16:00 01/27/25 16:00 Temperature Pulse Rate 96 96 Respiratory Rate 29 H 29 H Blood Pressure Pulse Oximetry Oxygen Delivery Fraction of Inspired Oxygen 70 01/27/25 16:00 01/27/25 16:00 01/27/25 16:08 Temperature Pulse Rate 96 96 96 Respiratory Rate 29 H Blood Pressure Pulse Oximetry 99 99 Oxygen Delivery Mechanical Ventilation Mechanical Ventilation Fraction of Inspired Oxygen 70 70 01/27/25 16:15 01/27/25 16:30 01/27/25 16:31 Temperature Pulse Rate 97 96 Respiratory Rate Blood Pressure 113/69 115/74 Pulse Oximetry 99 Oxygen Delivery Fraction of Inspired Oxygen 60 01/27/25 16:35 01/27/25 16:45 01/27/25 17:00 Temperature Pulse Rate 96 96 Respiratory Rate Blood Pressure 110/70 109/67 Pulse Oximetry Oxygen Delivery Fraction of Inspired Oxygen 60 01/27/25 17:15 01/27/25 17:30 01/27/25 17:45 Temperature Pulse Rate 96 96 96 Respiratory Rate Blood Pressure 109/67 110/69 108/71 Pulse Oximetry Oxygen Delivery Fraction of Inspired Oxygen 01/27/25 18:00 01/27/25 18:00 01/27/25 18:01 Temperature 98.1 F Pulse Rate 96 96 96 Respiratory Rate 25 H Blood Pressure 104/64 104/64 Pulse Oximetry 98 Oxygen Delivery Fraction of Inspired Oxygen 01/27/25 18:01 01/27/25 18:02 01/27/25 20:00 Temperature Pulse Rate 96 96 99 Respiratory Rate 27 H 27 H Blood Pressure 105/65 Pulse Oximetry Oxygen Delivery Fraction of Inspired Oxygen 01/27/25 20:00 01/27/25 20:00 01/27/25 20:00 Temperature Pulse Rate 99 99 Respiratory Rate 26 H 26 H Blood Pressure Pulse Oximetry Oxygen Delivery Fraction of Inspired Oxygen 50 01/27/25 20:00 01/27/25 20:00 01/27/25 20:00 Temperature 98.2 F Pulse Rate 99 99 99 Respiratory Rate 26 H 26 H Blood Pressure 105/65 Pulse Oximetry 98 97 Oxygen Delivery Mechanical Ventilation Fraction of Inspired Oxygen 50 01/27/25 20:58 01/27/25 21:03 01/27/25 22:00 Temperature Pulse Rate 98 95 86 Respiratory Rate 52 H Blood Pressure Pulse Oximetry 98 Oxygen Delivery Mechanical Ventilation Fraction of Inspired Oxygen 70 01/27/25 22:00 01/27/25 22:00 01/27/25 22:00 Temperature 97.0 F L Pulse Rate 89 88 88 Respiratory Rate 26 H 26 H Blood Pressure 94/64 L 94/64 L Pulse Oximetry 99 Oxygen Delivery Fraction of Inspired Oxygen 01/27/25 22:00 01/27/25 23:00 01/27/25 23:02 Temperature Pulse Rate 88 86 86 Respiratory Rate 26 H 26 H Blood Pressure 92/56 L Pulse Oximetry 99 Oxygen Delivery Mechanical Ventilation Fraction of Inspired Oxygen 50 01/27/25 23:11 01/27/25 23:30 01/27/25 23:30 Temperature Pulse Rate 86 86 Respiratory Rate Blood Pressure 93/56 L Pulse Oximetry 100 Oxygen Delivery Mechanical Ventilation Fraction of Inspired Oxygen 50 50 01/28/25 00:00 01/28/25 00:00 01/28/25 00:01 Temperature 96.3 F L Pulse Rate 91 91 91 Respiratory Rate 26 H Blood Pressure 102/60 102/60 Pulse Oximetry 100 Oxygen Delivery Fraction of Inspired Oxygen 01/28/25 00:01 01/28/25 00:01 01/28/25 01:00 Temperature Pulse Rate 91 91 96 Respiratory Rate 26 H 26 H 28 H Blood Pressure Pulse Oximetry Oxygen Delivery Fraction of Inspired Oxygen 01/28/25 02:00 01/28/25 02:00 01/28/25 02:00 Temperature 96.6 F L Pulse Rate 91 91 91 Respiratory Rate 26 H Blood Pressure 108/64 108/64 Pulse Oximetry 100 Oxygen Delivery Fraction of Inspired Oxygen 01/28/25 02:00 01/28/25 02:00 01/28/25 02:07 Temperature Pulse Rate 91 91 94 Respiratory Rate 26 H 26 H 26 H Blood Pressure Pulse Oximetry Oxygen Delivery Fraction of Inspired Oxygen 01/28/25 02:11 01/28/25 03:07 01/28/25 03:10 Temperature Pulse Rate 86 94 Respiratory Rate 26 H Blood Pressure Pulse Oximetry 100 100 Oxygen Delivery Mechanical Ventilation Mechanical Ventilation Fraction of Inspired Oxygen 50 50 50 01/28/25 04:00 01/28/25 04:00 01/28/25 04:00 Temperature 96.5 F L Pulse Rate 89 90 92 Respiratory Rate 26 H Blood Pressure 105/62 Pulse Oximetry 100 100 Oxygen Delivery Mechanical Ventilation Fraction of Inspired Oxygen 50 01/28/25 04:00 01/28/25 04:00 01/28/25 04:00 Temperature Pulse Rate 92 91 91 Respiratory Rate 26 H 26 H Blood Pressure 105/62 Pulse Oximetry Oxygen Delivery Fraction of Inspired Oxygen 01/28/25 06:00 01/28/25 06:00 01/28/25 06:00 Temperature Pulse Rate 140 H 140 H 140 H Respiratory Rate 26 H 26 H Blood Pressure 107/72 Pulse Oximetry Oxygen Delivery Fraction of Inspired Oxygen 01/28/25 06:00 01/28/25 06:00 01/28/25 06:36 Temperature 96.6 F L Pulse Rate 140 H 140 H 140 H Respiratory Rate 26 H Blood Pressure 107/72 115/78 Pulse Oximetry 100 Oxygen Delivery Fraction of Inspired Oxygen 01/28/25 06:37 01/28/25 08:00 01/28/25 08:00 Temperature Pulse Rate 140 H 96 96 Respiratory Rate 26 H Blood Pressure 115/78 104/68 Pulse Oximetry Oxygen Delivery Fraction of Inspired Oxygen 01/28/25 08:00 01/28/25 08:00 01/28/25 08:00 Temperature 97.5 F L Pulse Rate 96 96 96 Respiratory Rate 26 H 26 H 26 H Blood Pressure 104/68 Pulse Oximetry 100 100 Oxygen Delivery Mechanical Ventilation Fraction of Inspired Oxygen 50 01/28/25 08:00 01/28/25 08:00 01/28/25 09:20 Temperature Pulse Rate 95 90 Respiratory Rate 26 H Blood Pressure Pulse Oximetry Oxygen Delivery Fraction of Inspired Oxygen 50 01/28/25 09:25 01/28/25 09:27 01/28/25 09:30 Temperature Pulse Rate 91 89 89 Respiratory Rate 26 H Blood Pressure 91/61 L Pulse Oximetry 100 Oxygen Delivery Mechanical Ventilation Fraction of Inspired Oxygen 50 01/28/25 09:45 01/28/25 10:00 01/28/25 10:00 Temperature 97.7 F Pulse Rate 89 88 88 Respiratory Rate 26 H Blood Pressure 87/60 L 93/63 L 93/63 L Pulse Oximetry 100 Oxygen Delivery Fraction of Inspired Oxygen 01/28/25 10:00 01/28/25 10:00 01/28/25 10:00 Temperature Pulse Rate 88 88 88 Respiratory Rate 26 H 26 H Blood Pressure Pulse Oximetry Oxygen Delivery Fraction of Inspired Oxygen 01/28/25 10:16 01/28/25 10:31 01/28/25 10:45 Temperature Pulse Rate 85 85 82 Respiratory Rate Blood Pressure 109/70 116/71 116/70 Pulse Oximetry Oxygen Delivery Fraction of Inspired Oxygen 01/28/25 11:00 01/28/25 11:15 01/28/25 11:31 Temperature Pulse Rate 81 81 81 Respiratory Rate Blood Pressure 122/74 126/73 125/72 Pulse Oximetry Oxygen Delivery Fraction of Inspired Oxygen 01/28/25 12:00 01/28/25 12:00 01/28/25 12:00 Temperature Pulse Rate 78 78 76 Respiratory Rate 26 H Blood Pressure 127/74 127/74 Pulse Oximetry Oxygen Delivery Fraction of Inspired Oxygen 01/28/25 12:00 01/28/25 12:00 01/28/25 12:00 Temperature 97.0 F L Pulse Rate 76 80 80 Respiratory Rate 26 H 26 H 26 H Blood Pressure 127/74 Pulse Oximetry 100 100 Oxygen Delivery Mechanical Ventilation Fraction of Inspired Oxygen 45 01/28/25 12:00 01/28/25 12:07 01/28/25 12:08 Temperature Pulse Rate 78 78 Respiratory Rate Blood Pressure 127/74 127/74 Pulse Oximetry Oxygen Delivery Fraction of Inspired Oxygen 45 01/28/25 12:12 Temperature Pulse Rate 80 Respiratory Rate Blood Pressure Pulse Oximetry 100 Oxygen Delivery Mechanical Ventilation Fraction of Inspired Oxygen 45 Intake/Output Intake/Output: Intake & Output 01/25/25 01/26/25 01/27/25 01/28/25 23:59 23:59 23:59 23:59 Intake Total 2285.4 1006.2 1259.0 962.3 Output Total 100 475 165 250 Balance 2185.4 531.2 1094.0 712.3 Meds/Results Medications: Active Medications Generic Name Dose Route Start Last Admin Trade Name Freq PRN Reason Stop Dose Admin Acetaminophen 650 mg 01/25/25 11:14 01/25/25 18:58 Acetaminophen 325 Mg Tablet PO 650 mg Q4H PRN Administration Mild Pain (1-3) or Fever Baricitinib 1 mg 01/28/25 11:00 01/28/25 12:07 Baricitinib 1 Mg Tablet PO 02/08/25 11:01 1 mg DAILY@1100 NELLIE Administration Dexamethasone Sodium Phosphate 6 mg 01/26/25 09:00 01/28/25 09:00 Dexamethasone Sod Phos Inj 10 Mg/Ml 1 Ml Vial IV PUSH 02/04/25 09:01 6 mg DAILY NELLIE Administration Dextrose 12.5 gm 01/26/25 07:40 Dextrose 50% 25 Gm/50 Ml Syringe IV PUSH PRN PRN Hypoglycemia Protocol Enoxaparin Sodium 30 mg 01/26/25 09:00 01/28/25 09:01 Enoxaparin 30 Mg/0.3 Ml Syringe SUB-Q 30 mg DAILY NELLIE Administration Glucagon 1 mg 01/26/25 07:40 Glucagon For Inj 1 Mg Vial IM PRN PRN Hypoglycemia Protocol Glucose 15 gm 01/26/25 07:40 Glucose Oral Gel 15 Gm Of Glucse In 37.5 Gm Tube PO PRN PRN Hypoglycemia Protocol Remdesivir 100 mg in 250 mls @ 250 mls/hr 01/26/25 22:00 01/27/25 23:24 IVPB 01/29/25 22:59 Infused Q24H NELLIE Infusion Dextrose 1,000 mls @ 100 mls/hr 01/26/25 07:40 Dextrose 5% 1,000 Ml IVPB PRN PRN Hypoglycemia Protocol Vancomycin HCl 1,000 mg in 250 mls @ 250 mls/hr 01/27/25 22:00 01/27/25 21:53 Vancomycin 1,000 Mg/Ns 250 Ml IVPB Infused Q36H NELLIE Infusion Fentanyl Citrate 2,500 mcg in 250 mls @ 2.5 mls/hr 01/26/25 20:50 01/28/25 12:00 Fentanyl 2,500 Mcg/Ns 250 Ml IV CONT 25 mcg/hr .Q72H NELLIE 2.5 mls/hr Titration Protocol 25 MCG/HR Midazolam HCl 100 mg in 100 mls @ 1 mls/hr 01/26/25 20:50 01/28/25 12:00 Versed 100 Mg/Ns 100 Ml IV CONT 1 mg/hr .Q72H NELLIE 1 mls/hr Titration Protocol 1 MG/HR Norepinephrine Bitartrate 8 mg in 250 mls @ 11.25 mls/hr 01/27/25 02:35 01/28/25 12:00 Levophed 8 Mg/D5w 250 Ml IV CONT 6 mcg/min .[id number] NELLIE 11.25 mls/hr Administration Protocol 6 MCG/MIN Cefepime HCl 1 gm in 50 mls @ 100 mls/hr 01/27/25 10:15 01/28/25 10:16 Maxipime 1 Gm/Ns 50 Ml IVPB Infused Q12HR NELLIE Infusion Azithromycin 500 mg in 250 mls @ 250 mls/hr 01/27/25 12:00 01/28/25 10:17 Zithromax IVPB 02/03/25 11:59 Infused DAILY NELLIE Infusion Amiodarone HCl/Dextrose 360 mg in 200 mls @ 16.667 mls/hr 01/28/25 12:30 01/28/25 12:07 Nexterone 360 Mg/D5w 200 Ml IV CONT 01/29/25 12:29 0.5 mg/min .Q12H NELLIE 16.67 mls/hr Administration Protocol 0.5 MG/MIN Insulin Aspart 3 - 6 units 01/26/25 12:00 01/28/25 12:06 Insulin Aspart (*Bkc) 100 Units/Ml SUB-Q 5 units Q6HR NELLIE Administration Protocol Ipratropium [place] 0.5 mg 01/26/25 20:00 01/28/25 09:19 Ipratropium Br 0.02% Inh Soln 0.5 Mg/2.5 Ml Vial INHALATION 0.5 mg Q6HRT NELLIE Administration Levalbuterol HCl 1.25 mg 01/26/25 20:00 01/28/25 09:18 Levalbuterol Neb 1.25 Mg/3 Ml INHALATION 1.25 mg Q6HRT NELLIE Administration Memantine 10 mg 01/25/25 17:00 01/25/25 17:29 Memantine 10 Mg Tablet PO Not Given BID NELLIE Metoprolol Tartrate 5 mg 01/26/25 15:20 01/26/25 21:15 Metoprolol Tartrate Inj 5 Mg/5 Ml Vial IV PUSH 5 mg Q6H PRN Administration Tachycardia Multi-Ingred Cream/Lotion/Oil/Oint 1 applic 01/26/25 21:00 01/28/25 09:01 Mineral Oil/White Petrolatum Ointment EACH EYE 1 applic Q12HR NELLIE Administration Pantoprazole Sodium 40 mg 01/27/25 09:00 01/28/25 09:01 Pantoprazole Sodium Iv 40 Mg Vial IV PUSH 40 mg QAM NELLIE Administration Sodium Chloride 10 ml 01/27/25 14:00 01/28/25 06:36 Central Line Flush IV PUSH 10 ml Q8HR NELLIE Administration Sodium Chloride 10 ml 01/27/25 11:45 Central Line Flush IV PUSH PRN PRN with TPN bag changes Sodium Chloride 20 ml 01/27/25 11:45 Central Line Flush IV PUSH PRN PRN after blood draws Radiology Results: ITS Impressions Abdomen X-Ray 01/26/25 20:53 IMPRESSION: Bibasilar airspace disease. Small bilateral pleural effusions, likely with a subpulmonic component on the right. NG tube in good position. Chest X-Ray 01/28/25 06:19 Impression: Extensive bilateral airspace consolidation, right worse than left. Correlate for asymmetric pulmonary edema versus multifocal pneumonia. Small pleural effusions. Support tubes, as above. Labs Labs: Laboratory Results - last 24 hr 01/26/25 01/26/25 01/27/25 19:41 21:30 17:28 WBC RBC Hgb Hct MCV MCH MCHC RDW Plt Count MPV Immature Gran % (Auto) Neut % (Auto) Lymph % (Auto) [place] % (Auto) Eos % (Auto) Baso % (Auto) Lymph # (Auto) [place] # (Auto) Eos # (Auto) Baso # (Auto) Abs Immat Gran (auto) Absolute Neuts (auto) Absolute Nucleated RBC Nucleated RBC % Puncture Site ABG pH ABG pCO2 ABG pO2 ABG PO2/FiO2 Ratio ABG HCO3 ABG O2 Saturation ABG O2 Content Not Reportable ABG Base Excess A-a Gradient Oxyhemoglobin Not Reportable Carboxyhemoglobin Methemoglobin Reduced Hemoglobin Total Hemoglobin Not Reportable O2 Delivery Device O2 Liters/Min Not Reportable Not Reportable Minute Volume Vent Rate Vent Mode FiO2 Expiratory Pressure 8 Tidal Volume PEEP Inspiratory Pressure 14 Peak Inspir Pressure Not Reportable Pressure Support Sodium Potassium Chloride Carbon Dioxide Anion Gap BUN Creatinine Estim Creat Clear Calc Estimated GFR Glucose POC Capillary Glucose 207 H Lactic Acid Calcium Magnesium Total Bilirubin AST ALT Alkaline Phosphatase Total Creatine Kinase Total Protein Albumin Urine Eosinophils U Random Total Protein Ur Random Sodium Ur Random Urea Urine Creatinine Protein/Creat Ratio 2 01/27/25 01/28/25 01/28/25 23:26 05:12 06:28 WBC 12.8 H RBC 3.19 L Hgb 9.8 L Hct 31.2 L MCV 97.8 MCH 30.7 MCHC 31.4 L RDW 14.0 Plt Count 161 MPV 10.6 H Immature Gran % (Auto) 0.5 Neut % (Auto) 90.5 H Lymph % (Auto) 5.4 L [place] % (Auto) 3.5 Eos % (Auto) 0.0 Baso % (Auto) 0.1 L Lymph # (Auto) 0.69 L [place] # (Auto) 0.5 Eos # (Auto) 0.0 Baso # (Auto) 0.0 Abs Immat Gran (auto) 0.06 H Absolute Neuts (auto) 11.6 H Absolute Nucleated RBC 0.000 Nucleated RBC % 0.0 Puncture Site Right radial ABG pH 7.253 L* ABG pCO2 48.8 H ABG pO2 164.3 H ABG PO2/FiO2 Ratio 3.29 ABG HCO3 21.1 L ABG O2 Saturation 98.8 ABG O2 Content 15.6 L ABG Base Excess -6.1 A-a Gradient 137.3 Oxyhemoglobin 98.7 Carboxyhemoglobin 0.3 Methemoglobin 0.0 Reduced Hemoglobin 1.0 Total Hemoglobin 11.0 L O2 Delivery Device Ventilator O2 Liters/Min Not Reportable Minute Volume Not Reportable Vent Rate 26 Vent Mode Cmv FiO2 50 Expiratory Pressure Tidal Volume 360 PEEP 12 Inspiratory Pressure Peak Inspir Pressure Not Reportable Pressure Support Not Reportable Sodium 143 Potassium 4.3 Chloride 108 H Carbon Dioxide 23 Anion Gap 12 BUN 101 H D Creatinine 2.37 H Estim Creat Clear Calc 19 Estimated GFR 26 L Glucose 272 H POC Capillary Glucose 193 H Lactic Acid Calcium 7.8 L Magnesium 2.6 H Total Bilirubin 0.5 AST 211 H ALT 313 H Alkaline Phosphatase 49 Total Creatine Kinase Total Protein 6.0 L Albumin 3.7 Urine Eosinophils U Random Total Protein Ur Random Sodium Ur Random Urea Urine Creatinine Protein/Creat Ratio 2 01/28/25 01/28/25 01/28/25 08:58 09:45 09:45 WBC RBC Hgb Hct MCV MCH MCHC RDW Plt Count MPV Immature Gran % (Auto) Neut % (Auto) Lymph % (Auto) [place] % (Auto) Eos % (Auto) Baso % (Auto) Lymph # (Auto) [place] # (Auto) Eos # (Auto) Baso # (Auto) Abs Immat Gran (auto) Absolute Neuts (auto) Absolute Nucleated RBC Nucleated RBC % Puncture Site ABG pH ABG pCO2 ABG pO2 ABG PO2/FiO2 Ratio ABG HCO3 ABG O2 Saturation ABG O2 Content ABG Base Excess A-a Gradient Oxyhemoglobin Carboxyhemoglobin Methemoglobin Reduced Hemoglobin Total Hemoglobin O2 Delivery Device O2 Liters/Min Minute Volume Vent Rate Vent Mode FiO2 Expiratory Pressure Tidal Volume PEEP Inspiratory Pressure Peak Inspir Pressure Pressure Support Sodium Potassium Chloride Carbon Dioxide Anion Gap BUN Creatinine Estim Creat Clear Calc Estimated GFR Glucose POC Capillary Glucose Lactic Acid 1.4 Calcium Magnesium Total Bilirubin AST ALT Alkaline Phosphatase Total Creatine Kinase 317 H Total Protein Albumin Urine Eosinophils None seen U Random Total Protein 90 91 Ur Random Sodium 26 Ur Random Urea 1118 Urine Creatinine 105.2 Protein/Creat Ratio 2 01/28/25 01/28/25 09:45 12:06 WBC RBC Hgb Hct MCV MCH MCHC RDW Plt Count MPV Immature Gran % (Auto) Neut % (Auto) Lymph % (Auto) [place] % (Auto) Eos % (Auto) Baso % (Auto) Lymph # (Auto) [place] # (Auto) Eos # (Auto) Baso # (Auto) Abs Immat Gran (auto) Absolute Neuts (auto) Absolute Nucleated RBC Nucleated RBC % Puncture Site ABG pH ABG pCO2 ABG pO2 ABG PO2/FiO2 Ratio ABG HCO3 ABG O2 Saturation ABG O2 Content ABG Base Excess A-a Gradient Oxyhemoglobin Carboxyhemoglobin Methemoglobin Reduced Hemoglobin Total Hemoglobin O2 Delivery Device O2 Liters/Min Minute Volume Vent Rate Vent Mode FiO2 Expiratory Pressure Tidal Volume PEEP Inspiratory Pressure Peak Inspir Pressure Pressure Support Sodium Potassium Chloride Carbon Dioxide Anion Gap BUN Creatinine Estim Creat Clear Calc Estimated GFR Glucose POC Capillary Glucose 330 H Lactic Acid Calcium Magnesium Total Bilirubin AST ALT Alkaline Phosphatase Total Creatine Kinase Total Protein Albumin Urine Eosinophils U Random Total Protein Ur Random Sodium Ur Random Urea Urine Creatinine 105.5 Protein/Creat Ratio 2 0.85 H Quality VTE Prophylaxis VTE prophylaxis: pharmacologic ordered
[2025-01-28] MEDS: INSULIN GLARGINE (*BKC) 100 UNITS/ML 10 UNITS SUB-Q (13:32)
[2025-01-28 17:31] LABS: Glucose Point of Care 271 mg/dl (65-105)
[2025-01-28] MEDS: REMDESIVIR 100 MG/NS 250 ML 100 MG/250 ML BAG 250 MG IVPB (22:45)
[2025-01-28 23:54] LABS: Glucose Point of Care 282 mg/dl (65-105)
[2025-01-29] VITALS (33 sets, daily range): BP systolic 98–116; BP diastolic 48–66; PULSE 65–87; RESP 20–26; TEMP 36.8–37.1; O2SAT 98–100
[2025-01-29] LABS: Anion Gap 13 mmol/L (4-12); Blood Urea Nitrogen 114 mg/dL (9-20); Carbon Dioxide 24 mmol/L (22-30); Chloride 107 mmol/L (98-107); Estimated CRCL calculation 19 ml/min; Estimated Glomerular Filt Rate 27; Glucose 272 mg/dL (65-110); Potassium 3.9 mmol/L (3.4-5.0); Sodium 144 mmol/L (137-145)
[2025-01-29] MEDS: INSULIN ASPART (*BKC) 100 UNITS/ML SUB-Q ×4 (00:15→18:13)
[2025-01-29] MEDS: AMIODARONE 360 MG/D5W 200 ML 360 MG/200 ML BAG 16.67 MG IV CONT ×2 (00:43→14:00)
[2025-01-29 00:47] LABS: Magnesium 2.7 mg/dL (1.6-2.3); Phosphorus 4.6 mg/dL (2.5-4.5)
[2025-01-29] MEDS: LEVALBUTEROL NEB 1.25 MG/3 ML INHALATION ×4 (01:50→20:08)
[2025-01-29] MEDS: IPRATROPIUM BR 0.02% INH SOLN 0.5 MG/2.5 ML VIAL INHALATION ×4 (01:50→20:08)
--- NOTE | 2025-01-29 03:00 | PC.NURSE ---
Updated spouse via telephone with patient condition and plan of care.
[2025-01-29 04:39] LABS: Basophils Percent Auto 0.1 % (0.2-1.2); Hematocrit 28.2 % (42.0-52.0); Hemoglobin 8.8 g/dL (14.0-18.0); Immature Granulocyte Absolute 0.04 K/mm3 (0.00-0.031); Immature Granulocyte Percent A 0.6 % (0-0.5); Lymphocytes Absolute Auto 0.38 K/mm3 (0.9-3.2); Lymphocytes Percent Auto 5.3 % (18.3-44.2); Mean Corpuscular HGB Conc 31.2 g/dl (32-36); Mean Corpuscular Hemoglobin 30.4 pg (26-34); Mean Corpuscular Volume 97.6 fl (80-100); Mean Platelet Volume 10.5 fl (7.4-10.4); Monocytes Absolute Auto 0.4 K/mm3 (0.1-0.6); Monocytes Percent Auto 5.8 % (2.6-8.5); Neutrophils Absolute Auto 6.3 K/mm3 (1.3-6.7); Neutrophils Percent Auto 88.2 % (45.5-73.1); Platelet Count Result 130 k/mm3 (150-375); Red Blood Count 2.89 M/mm3 (4.6-6.20); White Blood Count 7.2 K/mm3 (4.5-10.0)
[2025-01-29 04:45] LABS: Alveolar/Arterial O2 Gradient 112.3 mmHg; Arterial Blood Gas PEEP 10 cmH2O; Arterial Blood Gas Tidal Volume 400 ml; Arterial Blood Gas Vent Mode CMV; Arterial Blood Gas Ventilator rate 26 /MIN; Base Excess ABG -3.9 mEq/l (+/-2.0); Carboxyhemoglobin 0.3 % THb (0-2.0); Device VENTILATOR; Fractional Inspired Oxygen 40 %; HCO3 ABG 19.5 mEq/l (22.0-26.0); Methemoglobin ABG 0.3 %THb (0-1.5); Modified Allen's Test Unable to perform; Oxygen Content ABG 13.6 %vol (16.0-22.0); Oxygen Saturation ABG 98.9 % (95.0-100.0); Oxyhemoglobin 98.4 % THb (90.0-100.0); PCO2 ABG 29.6 mmHg (35.0-45.0); PO2 ABG 138.9 mmHg (80.0-100.0); PO2 FiO2 Ratio Arterial Blood 3.47 %; Site Drawn RIGHT RADIAL; Total Hemoglobin 9.6 g/dL (12.0-18.0); pH ABG 7.437 (7.350-7.450)
[2025-01-29 05:02] LABS: INR 1.8; Prothrombin Time 21.5 Seconds (11.1-14.7)
[2025-01-29 05:32] LABS: Lactic Acid Reflex 2.3 mmol/L (0.7-2.0)
[2025-01-29 05:35] LABS: Alanine Aminotransferase 219 U/L (6-50); Albumin Level 3.2 g/dL (3.5-5.1); Alkaline Phosphatase 63 U/L (38-126); Anion Gap 13 mmol/L (4-12); Aspartate Amino Transferase 78 U/L (17-59); Bilirubin,Total 0.3 mg/dL (0.2-1.3); Blood Urea Nitrogen 117 mg/dL (9-20); Calcium 8.2 mg/dL (8.4-10.2); Carbon Dioxide 23 mmol/L (22-30); Chloride 107 mmol/L (98-107); Estimated CRCL calculation 18 ml/min; Estimated Glomerular Filt Rate 24; Glucose 283 mg/dL (65-110); Magnesium 2.8 mg/dL (1.6-2.3); Phosphorus 3.8 mg/dL (2.5-4.5); Sodium 143 mmol/L (137-145)
[2025-01-29 05:39] LABS: Hepatitis B Surface Anti Res Negative
[2025-01-29 06:36] LABS: Reflex Lactic Acid Yes or No Add Lactic
[2025-01-29 06:41] LABS: Hepatitis B Surface Antigen Negative (Negative)
[2025-01-29] MEDS: CENTRAL LINE FLUSH 10 ML IV PUSH ×3 (07:55→21:58)
--- NOTE | 2025-01-29 08:36 | P.PNINT_ITS ---
Progress Note: A&P Assessment and Plan (1) Acute respiratory failure: Code(s): J96.00 - Acute respiratory failure, unspecified whether with hypoxia or hypercapnia <Lisa Ahumada, Student - Last Filed: 01/29/25 09:20> Status: Acute <Lisa Ahumada Student - Last Filed: 01/29/25 09:20> Assessment and Plan: Acute respiratory failure likely related to pneumonia, COVID-19 -chest x-ray this morning is similar to prior -chief ABGs reviewed -Continue Azithromycin and Vancomycin -Continue Cefepime (01/27) -Continue Dexamethasone -monitor cultures 01/27-preliminary cultures shows no growth x2 01/28- Sputum culture added 01/29- Sputum culture results pending <Lisa Ahumada Student - Last Filed: 01/29/25 09:20> Acute respiratory failure likely related to pneumonia, COVID-19 -chest x-ray this morning, reviewed -chief ABGs reviewed, ventilator adjusted -Continue Azithromycin and Vancomycin -Continue Cefepime (01/27) -Continue Dexamethasone 01/27-preliminary cultures shows no growth x2 01/28- Sputum culture : No organism seen <Eloy Emmanuel MD - Last Filed: 01/29/25 11:37> (2) Pneumonia: Code(s): J18.9 - Pneumonia, unspecified organism <Lisa Ahumada, Student - Last Filed: 01/29/25 09:20> Status: Acute <Lisa Ahumada, Student - Last Filed: 01/29/25 09:20> Assessment and Plan: Continue as above <Lisa Ahumada, Student - Last Filed: 01/29/25 09:20> (3) COVID: Code(s): U07.1 - COVID-19 <Lisa Ahumada, Student - Last Filed: 01/29/25 09:20> Status: Acute <Lisa Ahumada, Student - Last Filed: 01/29/25 09:20> Assessment and Plan: Patient has been positive for COVID 19. Chest x-ray shows worsening infiltrates -continue remdesivir, dexamethasone (01/25) -continue baricitinib (01/26) -continue droplet and contact isolation/precautions 01/27- rising LFT's likely transient related to rapid response, will continue to monitor. No change to Remdesivir at this time. <Simi Wolfe - Last Filed: 01/29/25 09:20> Patient has been positive for COVID 19. Chest x-ray shows worsening infiltrates -continue remdesivir, dexamethasone (01/25) -continue baricitinib (01/26), renally dosed by pharmacy -continue droplet and contact isolation/precautions 01/27- rising LFT's likely transient related to rapid response, will continue to monitor. No change to Remdesivir at this time. <Eloy Emmanuel MD - Last Filed: 01/29/25 11:37> (4) Sepsis: Code(s): A41.9 - Sepsis, unspecified organism <Lisa Ahumada Student - Last Filed: 01/29/25 09:20> Status: Acute <Simi Wolfe - Last Filed: 01/29/25 09:20> Assessment and Plan: Patient presented with tachycardia, tachypnea, hypoxia, and acute kidney injury -adequately fluid-resuscitated, s/p albumin for intravascular volume expansion -urine output has been adequate, will continue to follow -01/27: status post LR at 100 mL/hour for 1000 mL -01/28: Lactic acid resolved -01/29: increase in lactic acid to 2.3 <Simi Wolfe - Last F iled: 01/29/25 09:20> Patient presented with tachycardia, tachypnea, hypoxia, and acute kidney injury -adequately fluid-resuscitated, s/p albumin for intravascular volume expansion -urine output has been adequate, will continue to follow -01/27: status post LR at 100 mL/hour for 1000 mL -01/28: Lactic acid resolved -01/29: increase in lactic acid to 2.3, patient receive maintenance IV fluids at 75 mL for 1000 ml <Eloy Emmanuel MD - Last Filed: 01/29/25 11:37> (5) MICHAEL (acute kidney injury): Code(s): N17.9 - Acute kidney failure, unspecified <Simi Wolfe - Last Filed: 01/29/25 09:20> Status: Acute <Lisa Ahumada, Student - Last Filed: 01/29/25 09:20> Assessment and Plan: Acute kidney injury likely related to sepsis, -urine output low, Creatinine increased to 2.53 this morning, baseline is 1.10 -could be related to hypoxia, hypotension -adequately fluid-resuscitated -continue to monitor urine output, renal function and electrolytes -nephrology has been consulted -urine lytes do not reflect pre renal, CK level 317, negative urine eosinophils -01/28: Renal ultrasound ordered and demonstrated no hydronephrosis, but trace right perinephric fluid present -01/29: Will order 1L IVF due to increase in creatinine <Lisa Ahumada, Student - Last Filed: 01/29/25 09:20> Acute kidney injury likely related to sepsis, -urine output low, Creatinine increased to 2.53 this morning, baseline is 1.10 -could be related to hypoxia, hypotension -adequately fluid-resuscitated -continue to monitor urine output, renal function and electrolytes -nephrology has been consulted -urine lytes do not reflect pre renal, CK level 317, negative urine eosinophils -01/28: Renal ultrasound ordered and demonstrated no hydronephrosis, but trace right perinephric fluid present -01/29: Discuss with Nephrology, will give LR at 75 mL for a total of 1000 mL <Eloy Emmanuel MD - Last Filed: 01/29/25 11:37> (6) Dementia: Qualifiers: Dementia behavioral or psychological symptom: unspecified whether behavioral, psychotic, or mood disturbance or anxiety Dementia severity: unspecified severity Dementia type: unspecified type Qualified Code(s): F03.90 - Unspecified dementia, unspecified severity, without behavioral disturbance, psychotic disturbance, mood disturbance, and anxiety <Lisa Ahumada, Student - Last Filed: 01/29/25 09:20> Code(s): F03.90 - Unspecified dementia, unspecified severity, without behavioral disturbance, psychotic disturbance, mood disturbance, and anxiety <Lisa Ahumada, Student - Last Filed: 01/29/25 09:20> Status: Acute <Lisa Ahumada, Student - Last Filed: 01/29/25 09:20> Assessment and Plan: Baseline cognitive impairment, on Namenda at home, will continue to hold for now <Lisa Ahumada, Student - Last Filed: 01/29/25 09:20> (7) Generalized weakness: Code(s): R53.1 - Weakness <Lisa Ahumada, Student - Last Filed: 01/29/25 09:20> Status: Acute <Lisa Ahumada, Student - Last Filed: 01/29/25 09:20> Assessment and Plan: Generalized weakness could be related to hypoxia, tachypnea, COVID-19, pneumonia -continue to manage underlying issues <Lisa Ahumada, Student - Last Filed: 01/29/25 09:20> (8) Hyperlipidemia: Qualifiers: Hyperlipidemia type: unspecified Qualified Code(s): E78.5 - Hyperlipidemia, unspecified <Lisa Ahumada, Student - Last Filed: 01/29/25 09:20> Code(s): E78.5 - Hyperlipidemia, unspecified <Lisa Ahumada, Student - Last Filed: 01/29/25 09:20> Status: Acute <Lisa Ahumada, Student - Last Filed: 01/29/25 09:20> Assessment and Plan: Continue pravastatin <Lisa Ahumada, Student - Last Filed: 01/29/25 0 9:20> (9) Pre-diabetes: Code(s): R73.03 - Prediabetes <Lisa Ahumada, Student - Last Filed: 01/29/25 09:20> Status: Acute <Lisa Ahumada, Student - Last Filed: 01/29/25 09:20> Assessment and Plan: Accu-Cheks and sliding scale insulin 01/29: Glucose of 283, will start pt on Lantus <Lisa Ahumada, Student - Last Filed: 01/29/25 09:20> Accu-Cheks and sliding scale insulin 01/29: Glucose of 283, will increase Lantus <Eloy Emmanuel MD - Last Filed: 01/29/25 11:37> Assessment and Plan: DVT prophylaxis: Enoxaparin Stress ulcer prophylaxis: Proton Nutrition: Increased tube feed to goal Code Status: Okay to intubation but no CPR Critical Care Time Spent: 30 minutes Due to a high probability of clinically significant, life threatening deterioration, the patient required my highest level of preparedness to intervene emergently and I personally spent this critical care time directly and personally managing the patient. This critical care time included obtaining a history; examining the patient; pulse oximetry; ordering and review of studies; arranging urgent treatment with development of a management plan; evaluation of patient's response to treatment; frequent reassessment; and discussions with other providers. It was exclusive of separately billable procedures and treating other patients and teaching time. Please see Assessment and Plan section and the rest of the note for further information on patient assessment and treatment This dictation may have been done utilizing a voice recognition system. Attempts have been made to correct errors. However, there may be uncorrected grammatical, spelling, and recognitions errors present. <Lisa Ahumada, Student - Last Filed: 01/29/25 09:20> DVT prophylaxis: Enoxaparin Stress ulcer prophylaxis: Protonix Nutrition: Increased tube feed to goal Code Status: Okay to intubation but no CPR Critical Care Time Spent: 32 minutes Discuss with family in rounds and updated them with patient's condition and plan of care. I answered all questions Due to a high probability of clinically significant, life threatening deterioration, the patient required my highest level of preparedness to intervene emergently and I personally spent this critical care time directly and personally managing the patient. This critical care time included obtaining a history; examining the patient; pulse oximetry; ordering and review of studies; arranging urgent treatment with development of a management plan; evaluation of patient's response to treatment; frequent reassessment; and discussions with other providers. It was exclusive of separately billable procedures and treating other patients and teaching time. Please see Assessment and Plan section and the rest of the note for further information on patient assessment and treatment This dictation may have been done utilizing a voice recognition system. Attempts have been made to correct errors. However, there may be uncorrected grammatical, spelling, and recognitions errors present. <Eloy Emmanuel MD - Last Filed: 01/29/25 11:37> Subjective Date/time seen: 01/29/25 08:36 <Lisa Ahumada Student - Last Filed: 01/29/25 09:20> Interval history: 01/26/25- Intubated 01/29/25- Pt seen and examined in the ICU, remains intubated on CMV mode of ventilation, peep of 10, 40% FiO2. Sedated on fentanyl and Versed infusion. Low urine output, creatinine trending up. LFTs trending down. Afebrile. Norepinephrine has been turned off, pt still on Amiodarone due to episode of afib RVR <Simi Wolfe - Last Filed: 01/29/25 09:20> Review of Systems Review of Systems: All systems reviewed & are unremarkable except as noted in HPI and below <Lisa Ahumada Student - Last Filed: 01/29/25 09:20> ROS unobtainable: Yes unobtainable due to endotracheal tube, unobtainable due to medical condition and unobtainable due to mental status <Eloy Emmanuel MD - Last Filed: 01/29/25 11:37> Exam Narrative: General: Intubated and sedated, in no acute distress HEENT:? Pupils equal and reactive, sclera is clear, ETT in place Neck:? Supple Respiratory:? Coarse breath sounds bilaterally, right greater than left, no wheezing, adequate air entry Cardiac:? S1-S2 normal, regular rate and rhythm Abdomen:? Soft, nontender, hypoactive bowel sounds Extremities:? No edema, palpable pedal pulses Neuro:? Patient remains intubated and sedated, does not open his eyes or follow simple commands Skin:? No skin lesions noted Psych:? Unable to assess at this time <Lisa Ahumada Student - Last Filed: 01/29/25 09:20> Objective Data Vital Signs Vital Signs: Vital Signs - 24 hr 01/28/25 09:20 01/28/25 09:25 01/28/25 09:27 Temperature Pulse Rate 90 91 89 Respiratory Rate 26 H 26 H Blood Pressure Pulse Oximetry 100 Oxygen Delivery Mechanical Ventilation Fraction of Inspired Oxygen 50 01/28/25 09:30 01/28/25 09:45 01/28/25 10:00 Temperature 97.7 F Pulse Rate 89 89 88 Respiratory Rate 26 H Blood Pressure 91/61 L 87/60 L 93/63 L Pulse Oximetry 100 Oxygen Delivery Fraction of Inspired Oxygen 01/28/25 10:00 01/28/25 10:00 01/28/25 10:00 Temperature Pulse Rate 88 88 88 Respiratory Rate 26 H 26 H Blood Pressure 93/63 L Pulse Oximetry Oxygen Delivery Fraction of Inspired Oxygen 01/28/25 10:00 01/28/25 10:16 01/28/25 10:31 Temperature Pulse Rate 88 85 85 Respiratory Rate Blood Pressure 109/70 116/71 Pulse Oximetry Oxygen Delivery Fraction of Inspired Oxygen 01/28/25 10:45 01/28/25 11:00 01/28/25 11:15 Temperature Pulse Rate 82 81 81 Respiratory Rate Blood Pressure 116/70 122/74 126/73 Pulse Oximetry Oxygen Delivery Fraction of Inspired Oxygen 01/28/25 11:31 01/28/25 12:00 01/28/25 12:00 Temperature Pulse Rate 81 78 78 Respiratory Rate Blood Pressure 125/72 127/74 127/74 Pulse Oximetry Oxygen Delivery Fraction of Inspired Oxygen 01/28/25 12:00 01/28/25 12:00 01/28/25 12:00 Temperature Pulse Rate 76 76 80 Respiratory Rate 26 H 26 H 26 H Blood Pressure Pulse Oximetry 100 Oxygen Delivery Mechanical Ventilation Fraction of Inspired Oxygen 45 01/28/25 12:00 01/28/25 12:00 01/28/25 12:00 Temperature 97.0 F L Pulse Rate 80 77 Respiratory Rate 26 H Blood Pressure 127/74 Pulse Oximetry 100 Oxygen Delivery Fraction of Inspired Oxygen 45 01/28/25 12:07 01/28/25 12:08 01/28/25 12:12 Temperature Pulse Rate 78 78 80 Respiratory Rate Blood Pressure 127/74 127/74 Pulse Oximetry 100 Oxygen Delivery Mechanical Ventilation Fraction of Inspired Oxygen 45 01/28/25 13:00 01/28/25 13:15 01/28/25 13:30 Temperature Pulse Rate 79 78 78 Respiratory Rate Blood Pressure 115/65 117/68 117/68 Pulse Oximetry Oxygen Delivery Fraction of Inspired Oxygen 01/28/25 13:45 01/28/25 14:00 01/28/25 14:00 Temperature Pulse Rate 76 75 75 Respiratory Rate 26 H Blood Pressure 109/66 109/67 Pulse Oximetry Oxygen Delivery Fraction of Inspired Oxygen 01/28/25 14:00 01/28/25 14:00 01/28/25 14:00 Temperature 96.9 F L Pulse Rate 75 75 77 Respiratory Rate 26 H 26 H Blood Pressure 109/67 109/67 Pulse Oximetry 100 Oxygen Delivery Fraction of Inspired Oxygen 01/28/25 14:00 01/28/25 14:04 01/28/25 14:09 Temperature Pulse Rate 77 77 76 Respiratory Rate 26 H Blood Pressure Pulse Oximetry 100 Oxygen Delivery Mechanical Ventilation Fraction of Inspired Oxygen 40 01/28/25 14:10 01/28/25 15:00 01/28/25 15:15 Temperature Pulse Rate 76 75 76 Respiratory Rate 26 H Blood Pressure 110/66 111/65 Pulse Oximetry Oxygen Delivery Fraction of Inspired Oxygen 01/28/25 16:00 01/28/25 16:00 01/28/25 16:00 Temperature 97.5 F L Pulse Rate 75 75 Respiratory Rate 26 H Blood Pressure 110/66 110/66 Pulse Oximetry 100 Oxygen Delivery Fraction of Inspired Oxygen 40 01/28/25 16:00 01/28/25 16:00 01/28/25 16:00 Temperature Pulse Rate 75 75 75 Respiratory Rate 26 H 26 H Blood Pressure 110/66 Pulse Oximetry Oxygen Delivery Fraction of Inspired Oxygen 01/28/25 16:00 01/28/25 16:00 01/28/25 16:15 Temperature Pulse Rate 75 76 75 Respiratory Rate 26 H Blood Pressure 110/65 Pulse Oximetry 100 Oxygen Delivery Mechanical Ventilation Fraction of Inspired Oxygen 40 01/28/25 17:00 01/28/25 17:15 01/28/25 17:19 Temperature Pulse Rate 77 78 78 Respiratory Rate Blood Pressure 112/67 113/64 Pulse Oximetry 100 Oxygen Delivery Mechanical Ventilation Fraction of Inspired Oxygen 40 01/28/25 18:00 01/28/25 18:00 01/28/25 18:00 Temperature 97.9 F Pulse Rate 81 81 81 Respiratory Rate 26 H Blood Pressure 108/62 108/62 Pulse Oximetry 100 Oxygen Delivery Fraction of Inspired Oxygen 01/28/25 18:00 01/28/25 18:00 01/28/25 18:00 Temperature Pulse Rate 81 81 81 Respiratory Rate 26 H 26 H Blood Pressure 108/62 Pulse Oximetry Oxygen Delivery Fraction of Inspired Oxygen 01/28/25 18:15 01/28/25 19:43 01/28/25 19:59 Temperature Pulse Rate 81 86 86 Respiratory Rate 26 H Blood Pressure 108/65 Pulse Oximetry 99 99 Oxygen Delivery Mechanical Ventilation Mechanical Ventilation Fraction of Inspired Oxygen 40 40 01/28/25 20:00 01/28/25 20:00 01/28/25 20:00 Temperature 98.3 F Pulse Rate 84 84 84 Respiratory Rate 24 H 17 Blood Pressure 109/64 109/64 Pulse Oximetry 99 Oxygen Delivery Fraction of Inspired Oxygen 01/28/25 20:00 01/28/25 20:00 01/28/25 20:00 Temperature Pulse Rate 84 83 84 Respiratory Rate 17 Blood Pressure 109/64 Pulse Oximetry Oxygen Delivery Fraction of Inspired Oxygen 01/28/25 20:00 01/28/25 20:00 01/28/25 22:00 Temperature 98.4 F Pulse Rate 84 85 Respiratory Rate 26 H 26 H Blood Pressure 107/64 Pulse Oximetry 99 99 Oxygen Delivery Mechanical Ventilation Fraction of Inspired Oxygen 40 40 01/28/25 22:00 01/28/25 22:00 01/28/25 22:00 Temperature Pulse Rate 84 84 84 Respiratory Rate 20 20 Blood Pressure Pulse Oximetry Oxygen Delivery Fraction of Inspired Oxygen 01/28/25 22:00 01/28/25 22:00 01/28/25 23:14 Temperature Pulse Rate 84 84 83 Respiratory Rate Blood Pressure 107/64 107/64 Pulse Oximetry 99 Oxygen Delivery Mechanical Ventilation Fraction of Inspired Oxygen 40 01/29/25 00:00 01/29/25 00:00 01/29/25 00:00 Temperature 98.6 F Pulse Rate 84 84 84 Respiratory Rate 26 H 26 H Blood Pressure 106/55 L 106/55 L Pulse Oximetry 99 Oxygen Delivery Fraction of Inspired Oxygen 01/29/25 00:00 01/29/25 00:00 01/29/25 00:00 Temperature Pulse Rate 84 83 Respiratory Rate 26 H 26 H Blood Pressure Pulse Oximetry 99 Oxygen Delivery Mechanical Ventilation Fraction of Inspired Oxygen 40 40 01/29/25 00:00 01/29/25 00:43 01/29/25 00:43 Temperature Pulse Rate 83 84 84 Respiratory Rate Blood Pressure 111/57 L 111/57 L Pulse Oximetry Oxygen Delivery Fraction of Inspired Oxygen 01/29/25 01:50 01/29/25 01:52 01/29/25 01:59 Temperature 98.8 F Pulse Rate 86 86 82 Respiratory Rate 24 H 24 H Blood Pressure 104/55 L Pulse Oximetry 99 100 Oxygen Delivery Mechanical Ventilation Fraction of Inspired Oxygen 40 01/29/25 02:00 01/29/25 02:00 01/29/25 02:00 Temperature Pulse Rate 83 83 83 Respiratory Rate 26 H 26 H Blood Pressure Pulse Oximetry Oxygen Delivery Fraction of Inspired Oxygen 01/29/25 02:00 01/29/25 02:06 01/29/25 02:20 Temperature Pulse Rate 83 81 83 Respiratory Rate 26 H Blood Pressure 104/55 L 104/54 L Pulse Oximetry Oxygen Delivery Fraction of Inspired Oxygen 01/29/25 04:00 01/29/25 04:00 01/29/25 04:00 Temperature 98.6 F Pulse Rate 72 73 Respiratory Rate 24 H Blood Pressure 98/60 L Pulse Oximetry 100 Oxygen Delivery Fraction of Inspired Oxygen 30 01/29/25 04:00 01/29/25 04:00 01/29/25 04:00 Temperature Pulse Rate 73 73 72 Respiratory Rate 26 H 26 H 26 H Blood Pressure Pulse Oximetry 99 Oxygen Delivery Mechanical Ventilation Fraction of Inspired Oxygen 40 01/29/25 04:00 01/29/25 04:00 01/29/25 05:02 Temperature Pulse Rate 73 72 72 Respiratory Rate Blood Pressure 98/60 L 98/60 L Pulse Oximetry 100 Oxygen Delivery Mechanical Ventilation Fraction of Inspired Oxygen 40 01/29/25 06:00 01/29/25 06:00 01/29/25 06:00 Temperature 98.7 F Pulse Rate 73 72 72 Respiratory Rate 26 H 26 H Blood Pressure 109/62 Pulse Oximetry 100 Oxygen Delivery Fraction of Inspired Oxygen 01/29/25 06:00 01/29/25 06:00 01/29/25 06:00 Temperature Pulse Rate 72 72 72 Respiratory Rate 26 H Blood Pressure 109/62 109/62 Pulse Oximetry Oxygen Delivery Fraction of Inspired Oxygen 01/29/25 07:30 01/29/25 07:56 01/29/25 07:58 Temperature Pulse Rate 72 71 71 Respiratory Rate Blood Pressure 116/66 Pulse Oximetry 100 Oxygen Delivery Mechanical Ventilation Fraction of Inspired Oxygen 30 01/29/25 08:00 01/29/25 08:00 01/29/25 08:00 Temperature 98.8 F Pulse Rate 76 71 71 Respiratory Rate 21 H 24 H Blood Pressure 114/65 114/65 Pulse Oximetry 100 Oxygen Delivery Fraction of Inspired Oxygen 01/29/25 08:00 Temperature Pulse Rate 72 Respiratory Rate 24 H Blood Pressure Pulse Oximetry Oxygen Delivery Fraction of Inspired Oxygen <Lisa Ahumada, Student - Last Filed: 01/29/25 09:20> Intake/Output Intake/Output: Intake & Output 01/26/25 01/27/25 01/28/25 01/29/25 23:59 23:59 23:59 23:59 Intake Total 1006.2 1259.0 1892.8 746.0 Output Total 475 165 600 250 Balance 531.2 1094.0 1292.8 496.0 <Lisa McdonaldJesus Ahumada, Student - Last Filed: 01/29/25 09:20> Meds/Results Medications: Active Medications Generic Name Dose Route Start Last Admin Trade Name Freq PRN Reason Stop Dose Admin Acetaminophen 650 mg 01/25/25 11:14 01/25/25 18:58 Acetaminophen 325 Mg Tablet PO 650 mg Q4H PRN Administration Mild Pain (1-3) or Fever Baricitinib 1 mg 01/28/25 11:00 01/28/25 12:07 Baricitinib 1 Mg Tablet PO 02/08/25 11:01 1 mg DAILY@1100 NELLIE Administration Dexamethasone Sodium Phosphate 6 mg 01/26/25 09:00 01/28/25 09:00 Dexamethasone Sod Phos Inj 10 Mg/Ml 1 Ml Vial IV PUSH 02/04/25 09:01 6 mg DAILY NELLIE Administration Dextrose 12.5 gm 01/26/25 07:40 Dextrose 50% 25 Gm/50 Ml Syringe IV PUSH PRN PRN Hypoglycemia Protocol Enoxaparin Sodium 30 mg 01/26/25 09:00 01/28/25 09:01 Enoxaparin 30 Mg/0.3 Ml Syringe SUB-Q 30 mg DAILY NELLIE Administration Glucagon 1 mg 01/26/25 07:40 Glucagon For Inj 1 Mg Vial IM PRN PRN Hypoglycemia Protocol Glucose 15 gm 01/26/25 07:40 Glucose Oral Gel 15 Gm Of Glucse In 37.5 Gm Tube PO PRN PRN Hypoglycemia Protocol Remdesivir 100 mg in 250 mls @ 250 mls/hr 01/26/25 22:00 01/28/25 23:45 IVPB 01/29/25 22:59 Infused Q24H NELLIE Infusion Dextrose 1,000 mls @ 100 mls/hr 01/26/25 07:40 Dextrose 5% 1,000 Ml IVPB PRN PRN Hypoglycemia Protocol Vancomycin HCl 1,000 mg in 250 mls @ 250 mls/hr 01/27/25 22:00 01/27/25 21:53 Vancomycin 1,000 Mg/Ns 250 Ml IVPB Infused Q36H NELLIE Infusion Fentanyl Citrate 2,500 mcg in 250 mls @ 2.5 mls/hr 01/26/25 20:50 01/29/25 08:00 Fentanyl 2,500 Mcg/Ns 250 Ml IV CONT 25 mcg/hr .Q72H NELLIE 2.5 mls/hr Titration Protocol 25 MCG/HR Midazolam HCl 100 mg in 100 mls @ 10 mls/hr 01/26/25 20:50 01/29/25 08:00 Versed 100 Mg/Ns 100 Ml IV CONT 1 mg/hr .Q10H NELLIE 1 mls/hr Titration Protocol 10 MG/HR Norepinephrine Bitartrate 8 mg in 250 mls @ 0 mls/hr 01/27/25 02:35 01/29/25 08:20 Levophed 8 Mg/D5w 250 Ml IV CONT Not Given .Q0M NELLIE Protocol Cefepime HCl 1 gm in 50 mls @ 100 mls/hr 01/27/25 10:15 01/28/25 21:30 Maxipime 1 Gm/Ns 50 Ml IVPB Infused Q12HR NELLIE Infusion Azithromycin 500 mg in 250 mls @ 250 mls/hr 01/27/25 12:00 01/28/25 10:17 Zithromax IVPB 02/03/25 11:59 Infused DAILY NELLIE Infusion Amiodarone HCl/Dextrose 360 mg in 200 mls @ 16.667 mls/hr 01/28/25 12:30 01/29/25 06:00 Nexterone 360 Mg/D5w 200 Ml IV CONT 01/29/25 12:29 0.01 mg/min .Q12H NELLIE 0.5 mls/hr Infusion Protocol 0.5 MG/MIN Insulin Aspart 3 - 6 units 01/26/25 12:00 01/29/25 00:15 Insulin Aspart (*Bkc) 100 Units/Ml SUB-Q 4 units Q6HR NELLIE Administration Protocol Insulin Glargine 20 units 01/29/25 09:00 Insulin Glargine (*Bkc) 100 Units/Ml SUB-Q DAILY NELLIE Ipratropium [place] 0.5 mg 01/26/25 20:00 01/29/25 07:56 Ipratropium Br 0.02% Inh Soln 0.5 Mg/2.5 Ml Vial INHALATION 0.5 mg Q6HRT NELLIE Administration Levalbuterol HCl 1.25 mg 01/26/25 20:00 01/29/25 07:56 Levalbuterol Neb 1.25 Mg/3 Ml INHALATION 1.25 mg Q6HRT NELLIE Administration Memantine 10 mg 01/25/25 17:00 01/25/25 17:29 Memantine 10 Mg Tablet PO Not Given BID NELLIE Metoprolol Tartrate 5 mg 01/26/25 15:20 01/26/25 21:15 Metoprolol Tartrate Inj 5 Mg/5 Ml Vial IV PUSH 5 mg Q6H PRN Administration Tachycardia Multi-Ingred Cream/Lotion/Oil/Oint 1 applic 01/26/25 21:00 01/28/25 21:01 Mineral Oil/White Petrolatum Ointment EACH EYE 1 applic Q12HR NELLIE Administration Pantoprazole Sodium 40 mg 01/27/25 09:00 01/28/25 09:01 Pantoprazole Sodium Iv 40 Mg Vial IV PUSH 40 mg QAM NELLIE Administration Sodium Chloride 10 ml 01/27/25 14:00 01/29/25 07:55 Central Line Flush IV PUSH 10 ml Q8HR NELLIE Administration Sodium Chloride 10 ml 01/27/25 11:45 Central Line Flush IV PUSH PRN PRN with TPN bag changes Sodium Chloride 20 ml 01/27/25 11:45 Central Line Flush IV PUSH PRN PRN after blood draws <Lisa Ahumada, Student - Last Filed: 01/29/25 09:20> Radiology Results: ITS Impressions Abdomen X-Ray 01/26/25 20:53 IMPRESSION: Bibasilar airspace disease. Small bilateral pleural effusions, likely with a subpulmonic component on the right. NG tube in good position. Renal Ultrasound 01/28/25 12:53 Impression: No hydronephrosis. Trace right perinephric fluid. Chest X-Ray 01/29/25 06:20 Impression: Extensive right lung consolidation with additional left basilar consolidation. Correlate for asymmetric pulmonary edema, bilateral pneumonia, or ARDS. Support tubes, as above. <Lisa Ahumada, Student - Last Filed: 01/29/25 09:20> Labs Labs: Laboratory Results - last 24 hr 01/28/25 01/28/25 01/28/25 08:58 09:45 09:45 WBC RBC Hgb Hct MCV MCH MCHC RDW Plt Count MPV Immature Gran % (Auto) Neut % (Auto) Lymph % (Auto) Sullivan % (Auto) Eos % (Auto) Baso % (Auto) Lymph # (Auto) Sullivan # (Auto) Eos # (Auto) Baso # (Auto) Abs Immat Gran (auto) Absolute Neuts (auto) Absolute Nucleated RBC Nucleated RBC % PT INR APTT Puncture Site ABG pH ABG pCO2 ABG pO2 ABG PO2/FiO2 Ratio ABG HCO3 ABG O2 Saturation ABG O2 Content ABG Base Excess A-a Gradient Oxyhemoglobin Carboxyhemoglobin Methemoglobin Reduced Hemoglobin Total Hemoglobin O2 Delivery Device O2 Liters/Min Minute Volume Vent Rate Vent Mode FiO2 Tidal Volume PEEP Peak Inspir Pressure Pressure Support Sodium Potassium Chloride Carbon Dioxide Anion Gap BUN Creatinine Estim Creat Clear Calc Estimated GFR Glucose POC Capillary Glucose Lactic Acid 1.4 Calcium Phosphorus Magnesium Total Bilirubin AST ALT Alkaline Phosphatase Total Creatine Kinase 317 H Total Protein Albumin Urine Eosinophils None seen U Random Total Protein 90 91 Ur Random Sodium 26 Ur Random Urea 1118 Urine Creatinine 105.2 Protein/Creat Ratio 2 Hep Bs Antigen Hep Bs Antibody 01/28/25 01/28/25 01/28/25 09:45 12:06 17:16 WBC RBC Hgb Hct MCV MCH MCHC RDW Plt Count MPV Immature Gran % (Auto) Neut % (Auto) Lymph % (Auto) Sullivan % (Auto) Eos % (Auto) Baso % (Auto) Lymph # (Auto) Sullivan # (Auto) Eos # (Auto) Baso # (Auto) Abs Immat Gran (auto) Absolute Neuts (auto) Absolute Nucleated RBC Nucleated RBC % PT INR APTT Puncture Site ABG pH ABG pCO2 ABG pO2 ABG PO2/FiO2 Ratio ABG HCO3 ABG O2 Saturation ABG O2 Content ABG Base Excess A-a Gradient Oxyhemoglobin Carboxyhemoglobin Methemoglobin Reduced Hemoglobin Total Hemoglobin O2 Delivery Device O2 Liters/Min Minute Volume Vent Rate Vent Mode FiO2 Tidal Volume PEEP Peak Inspir Pressure Pressure Support Sodium Potassium Chloride Carbon Dioxide Anion Gap BUN Creatinine Estim Creat Clear Calc Estimated GFR Glucose POC Capillary Glucose 330 H 271 H Lactic Acid Calcium Phosphorus Magnesium Total Bilirubin AST ALT Alkaline Phosphatase Total Creatine Kinase Total Protein Albumin Urine Eosinophils U Random Total Protein Ur Random Sodium Ur Random Urea Urine Creatinine 105.5 Protein/Creat Ratio 2 0.85 H Hep Bs Antigen Hep Bs Antibody 01/28/25 01/28/25 01/29/25 23:39 23:51 04:28 WBC 7.2 RBC 2.89 L Hgb 8.8 L Hct 28.2 L MCV 97.6 MCH 30.4 MCHC 31.2 L RDW 14.0 Plt Count 130 L MPV 10.5 H Immature Gran % (Auto) 0.6 H Neut % (Auto) 88.2 H Lymph % (Auto) 5.3 L Sullivan % (Auto) 5.8 Eos % (Auto) 0.0 Baso % (Auto) 0.1 L Lymph # (Auto) 0.38 L Sullivan # (Auto) 0.4 Eos # (Auto) 0.0 Baso # (Auto) 0.0 Abs Immat Gran (auto) 0.04 H Absolute Neuts (auto) 6.3 Absolute Nucleated RBC 0.000 Nucleated RBC % 0.0 PT 21.5 H INR 1.8 APTT 45.0 H Puncture Site ABG pH ABG pCO2 ABG pO2 ABG PO2/FiO2 Ratio ABG HCO3 ABG O2 Saturation ABG O2 Content ABG Base Excess A-a Gradient Oxyhemoglobin Carboxyhemoglobin Methemoglobin Reduced Hemoglobin Total Hemoglobin O2 Delivery Device O2 Liters/Min Minute Volume Vent Rate Vent Mode FiO2 Tidal Volume PEEP Peak Inspir Pressure Pressure Support Sodium 144 143 Potassium 3.9 4.0 Chloride 107 107 Carbon Dioxide 24 23 Anion Gap 13 H 13 H BUN 114 H D 117 H Creatinine 2.35 H 2.53 H Estim Creat Clear Calc 19 18 Estimated GFR 27 L 24 L Glucose 272 H 283 H POC Capillary Glucose 282 H Lactic Acid 2.3 H Calcium 8.0 L 8.2 L Phosphorus 4.6 H 3.8 Magnesium 2.7 H 2.8 H Total Bilirubin 0.3 AST 78 H ALT 219 H Alkaline Phosphatase 63 Total Creatine Kinase Total Protein 5.0 L Albumin 3.2 L Urine Eosinophils U Random Total Protein Ur Random Sodium Ur Random Urea Urine Creatinine Protein/Creat Ratio 2 Hep Bs Antigen Negative Hep Bs Antibody Negative 01/29/25 04:31 WBC RBC Hgb Hct MCV MCH MCHC RDW Plt Count MPV Immature Gran % (Auto) Neut % (Auto) Lymph % (Auto) Sullivan % (Auto) Eos % (Auto) Baso % (Auto) Lymph # (Auto) Sullivan # (Auto) Eos # (Auto) Baso # (Auto) Abs Immat Gran (auto) Absolute Neuts (auto) Absolute Nucleated RBC Nucleated RBC % PT INR APTT Puncture Site Right radial ABG pH 7.437 ABG pCO2 29.6 L ABG pO2 138.9 H ABG PO2/FiO2 Ratio 3.47 ABG HCO3 19.5 L ABG O2 Saturation 98.9 ABG O2 Content 13.6 L ABG Base Excess -3.9 A-a Gradient 112.3 Oxyhemoglobin 98.4 Carboxyhemoglobin 0.3 Methemoglobin 0.3 Reduced Hemoglobin 1.0 Total Hemoglobin 9.6 L O2 Delivery Device Ventilator O2 Liters/Min Not Reportable Minute Volume Not Reportable Vent Rate 26 Vent Mode Cmv FiO2 40 Tidal Volume 400 PEEP 10 Peak Inspir Pressure Not Reportable Pressure Support Not Reportable Sodium Potassium Chloride Carbon Dioxide Anion Gap BUN Creatinine Estim Creat Clear Calc Estimated GFR Glucose POC Capillary Glucose Lactic Acid Calcium Phosphorus Magnesium Total Bilirubin AST ALT Alkaline Phosphatase Total Creatine Kinase Total Protein Albumin Urine Eosinophils U Random Total Protein Ur Random Sodium Ur Random Urea Urine Creatinine Protein/Creat Ratio 2 Hep Bs Antigen Hep Bs Antibody <Lisa Ahumada, Student - Last Filed: 01/29/25 09:20> Quality VTE Prophylaxis VTE prophylaxis: pharmacologic ordered <Lisa Ahumada Student - Last Filed: 01/29/25 09:20> Attestation Student Attestation H&P performed by SARITA Kimble-LITZY <Lisa Ahumada Student - Last Filed: 01/29/25 09:20>
[2025-01-29] MEDS: INSULIN GLARGINE (*BKC) 100 UNITS/ML 20 UNITS SUB-Q (08:38)
[2025-01-29] MEDS: CEFEPIME 1 GM/NS 50 ML 1 GM/50 ML BAG IVPB ×2 (08:51→21:10)
[2025-01-29] MEDS: ENOXAPARIN 30 MG/0.3 ML SYRINGE SUB-Q (08:51)
[2025-01-29] MEDS: dexAMETHasone SOD PHOS INJ 10 MG/ML 1 ML VIAL 6 MG IV PUSH (08:51)
[2025-01-29] MEDS: MINERAL OIL/WHITE PETROLATUM OINTMENT 1 APPLIC EACH EYE ×2 (08:51→21:28)
[2025-01-29] MEDS: PANTOPRAZOLE SODIUM IV 40 MG VIAL IV PUSH (08:51)
[2025-01-29] MEDS: AZITHROMYCIN 500 MG/NS 250 ML 500 MG/250 ML BAG 250 MG IVPB (08:52)
[2025-01-29 09:02] LABS: Lactic Acid 2.5 mmol/L (0.7-2.0)
[2025-01-29 09:09] LABS: Vancomycin Trough 12.7 ug/mL (10.0-20.0)
--- NOTE | 2025-01-29 09:35 | P.PNNP_ITS ---
Progress Note: A&P Assessment and Plan (1) Acute kidney injury: Code(s): N17.9 - Acute kidney failure, unspecified Status: Acute Assessment and Plan: * as noted on admission * transient improvement to 1.61mg/d on 01/26 * worsening creatinine since 01/27 * baseline creatinine runs around 1.1 - 1.3mg/dl * suspect ATN with multifactorial etiology: * hemodynamic instability/shock * infection/sepsis (pneumonia + COVID) * hypoxia * possible prerenal factors * other(?) * evalutation to date noted: * renal ultrasound without hydronephrosis * urine electrolytes prerenal * urine eosinophils negative * CPK mildly elevated (but enough to affect kidney function) * moderate proteinuria * remains at risk for 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 APPRAISER/dialysis * IVF challenge today * follow trend of repeat labs and UOP (2) Septic shock: Code(s): A41.9 - Sepsis, unspecified organism; R65.21 - Severe sepsis with septic shock Status: Acute Assessment and Plan: * as noted by presentation of tachycardia, tachypnea, hypoxia, lactic acidosis, MICHAEL, and hypotension * s/p volume resuscitation along with IV albumin for intravascular volume expansion * lactic acidosis resolved * was on vasopressor therapy (levophed) to maintain MAP/blood pressure * weaned off * follow culture data * on antibiotics * follow trend of hemodynamics (3) Acute respiratory failure: Code(s): J96.00 - Acute respiratory failure, unspecified whether with hypoxia or hypercapnia Status: Acute Assessment and Plan: * felt to be secondary to pneumonia and COVID-19 * on ventilator support * weaning as tolerated (4) Pneumonia: Code(s): J18.9 - Pneumonia, unspecified organism Status: Acute Assessment and Plan: * as suggested by admission imaging * follow culture data * on antibiotic therapy * continue supportive therapy (5) COVID: Code(s): U07.1 - COVID-19 Status: Acute Assessment and Plan: * positive testing noted on 01/22 * imaging with worsening infiltrates as well * initated on remdesivir and dexamethasone (on 01/25) * started on baricitinib as well (on 01/26) * remains on droplet and contact isolation/precautions (6) Anemia: Code(s): D64.9 - Anemia, unspecified Status: Acute Assessment and Plan: * presumably due to MICHAEL and acute illness * follow trend of H/H (7) Elevated LFTs: Code(s): R79.89 - Other specified abnormal findings of blood chemistry Status: Acute Assessment and Plan: * presumably due to septic shock and hypoxia * statin on hold * appear to be improving * follow trend (8) Pre-diabetes: Code(s): R73.03 - Prediabetes Status: Acute Assessment and Plan: * follow accu-cheks * possibly exacerbated by steroid use and acute illness * glycemic control per hospice consultant/hospitalist Case discussed with Dr. Emmanuel. Will continue to follow. L Subjective Date/time seen: 01/29/25 09:35 Interval history: Follow-up for acute kidney injury/acute renal failure. Remains intubated/sedated and on mechanical ventilation; renal function/creatinine slightly worse but some improvement in urine output in the last 24 hours; liver function testing are trending down and weaned off vasopressor (levophed) support with relative stability in hemodynamics; no other acute issues/events overnight or earlier this morning. Exam 2 Narrative: General: elderly male intubated/sedated and on mechanical ventilation Heart: normal S1 and S2; no rub Lungs: coarse breath sounds, right > left Abdomen: soft, nontender, nondistended, diminished bowel sounds Extremities: no cyanosis or clubbing; no edema Skin: warm and dry Objective Data Vital Signs Vital Signs: Vital Signs Temp Pulse Resp BP Pulse Ox O2 Del Method FiO2 01/29/25 08:00 71 109/63 30 01/29/25 08:00 72 24 H 01/29/25 08:00 71 24 H 01/29/25 08:00 71 114/65 01/29/25 08:00 98.8 F 76 21 H 114/65 100 01/29/25 07:58 71 100 Mechanical Ventilation 30 01/29/25 07:56 71 01/29/25 07:30 72 116/66 01/29/25 06:00 72 109/62 01/29/25 06:00 72 109/62 01/29/25 06:00 72 26 H 01/29/25 06:00 72 26 H 01/29/25 06:00 72 01/29/25 06:00 98.7 F 73 26 H 109/62 100 01/29/25 05:02 72 100 Mechanical Ventilation 40 01/29/25 04:00 72 98/60 L 05/02/25 04:00 73 98/60 L 01/29/25 04:00 72 26 H 01/29/25 04:00 73 26 H 01/29/25 04:00 73 26 H 99 Mechanical Ventilation 40 01/29/25 04:00 30 01/29/25 04:00 73 01/29/25 04:00 98.6 F 72 24 H 98/60 L 100 01/29/25 02:20 83 104/54 L 01/29/25 02:06 81 26 H 01/29/25 02:00 83 104/55 L 01/29/25 02:00 83 26 H 01/29/25 02:00 83 26 H 01/29/25 02:00 83 01/29/25 01:59 98.8 F 82 24 H 104/55 L 100 01/29/25 01:52 86 99 Mechanical Ventilation 40 01/29/25 01:50 86 24 H 01/29/25 00:43 84 111/57 L 01/29/25 00:43 84 111/57 L 01/29/25 00:00 83 01/29/25 00:00 40 01/29/25 00:00 83 26 H 99 Mechanical Ventilation 40 01/29/25 00:00 84 26 H 01/29/25 00:00 84 26 H 01/29/25 00:00 84 106/55 L 01/29/25 00:00 98.6 F 84 26 H 106/55 L 99 01/28/25 23:14 83 99 Mechanical Ventilation 40 01/28/25 22:00 84 107/64 01/28/25 22:00 84 107/64 01/28/25 22:00 84 20 01/28/25 22:00 84 20 01/28/25 22:00 84 01/28/25 22:00 98.4 F 85 26 H 107/64 99 01/28/25 20:00 84 26 H 99 Mechanical Ventilation 40 01/28/25 20:00 40 01/28/25 20:00 84 109/64 01/28/25 20:00 83 01/28/25 20:00 84 17 01/28/25 20:00 84 17 01/28/25 20:00 84 109/64 01/28/25 20:00 98.3 F 84 24 H 109/64 99 01/28/25 19:59 86 26 H 99 Mechanical Ventilation 40 01/28/25 19:43 86 99 Mechanical Ventilation 40 01/28/25 18:15 81 108/65 01/28/25 18:00 81 26 H 01/28/25 18:00 81 26 H 01/28/25 18:00 81 108/62 01/28/25 18:00 81 108/62 01/28/25 18:00 97.9 F 81 26 H 108/62 100 01/28/25 18:00 81 01/28/25 17:19 78 100 Mechanical Ventilation 40 01/28/25 17:15 78 113/64 01/28/25 17:00 77 112/67 01/28/25 16:15 75 110/65 01/28/25 16:00 76 01/28/25 16:00 75 26 H 100 Mechanical Ventilation 40 01/28/25 16:00 75 26 H 01/28/25 16:00 75 26 H 01/28/25 16:00 75 110/66 01/28/25 16:00 75 110/66 01/28/25 16:00 40 01/28/25 16:00 97.5 F L 75 26 H 110/66 100 01/28/25 15:15 76 111/65 01/28/25 15:00 75 110/66 01/28/25 14:10 76 26 H 01/28/25 14:09 76 100 Mechanical Ventilation 40 01/28/25 14:04 77 26 H 01/28/25 14:00 77 01/28/25 14:00 96.9 F L 77 26 H 109/67 100 01/28/25 14:00 75 109/67 01/28/25 14:00 75 26 H 01/28/25 14:00 75 26 H 01/28/25 14:00 75 109/67 01/28/25 13:45 76 109/66 01/28/25 13:30 78 117/68 01/28/25 13:15 78 117/68 01/28/25 13:00 79 115/65 01/28/25 12:12 80 100 Mechanical Ventilation 45 01/28/25 12:08 78 127/74 01/28/25 12:07 78 127/74 01/28/25 12:00 77 01/28/25 12:00 45 01/28/25 12:00 97.0 F L 80 26 H 127/74 100 01/28/25 12:00 80 26 H 100 Mechanical Ventilation 45 01/28/25 12:00 76 26 H 01/28/25 12:00 76 26 H 01/28/25 12:00 78 127/74 01/28/25 12:00 78 127/74 01/28/25 11:31 81 125/72 Intake/Output Intake/Output: Intake & Output 01/26/25 01/27/25 01/28/25 01/29/25 23:59 23:59 23:59 23:59 Intake Total 1006.2 1259.0 1892.8 1087.3 Output Total 475 165 600 250 Balance 531.2 1094.0 1292.8 837.3 Meds/Results Medications: Active Medications Generic Name Dose Route Start Last Admin Trade Name Freq PRN Reason Stop Dose Admin Acetaminophen 650 mg 01/25/25 11:14 01/25/25 18:58 Acetaminophen 325 Mg Tablet PO 650 mg Q4H PRN Administration Mild Pain (1-3) or Fever Baricitinib 1 mg 01/28/25 11:00 01/29/25 11:07 Baricitinib 1 Mg Tablet PO 02/08/25 11:01 1 mg DAILY@1100 NELLIE Administration Dexamethasone Sodium Phosphate 6 mg 01/26/25 09:00 01/29/25 08:51 Dexamethasone Sod Phos Inj 10 Mg/Ml 1 Ml Vial IV PUSH 02/04/25 09:01 6 mg DAILY NELLIE Administration Dextrose 12.5 gm 01/26/25 07:40 Dextrose 50% 25 Gm/50 Ml Syringe IV PUSH PRN PRN Hypoglycemia Protocol Enoxaparin Sodium 30 mg 01/26/25 09:00 01/29/25 08:51 Enoxaparin 30 Mg/0.3 Ml Syringe SUB-Q 30 mg DAILY NELLIE Administration Glucagon 1 mg 01/26/25 07:40 Glucagon For Inj 1 Mg Vial IM PRN PRN Hypoglycemia Protocol Glucose 15 gm 01/26/25 07:40 Glucose Oral Gel 15 Gm Of Glucse In 37.5 Gm Tube PO PRN PRN Hypoglycemia Protocol Remdesivir 100 mg in 250 mls @ 250 mls/hr 01/26/25 22:00 01/28/25 23:45 IVPB 01/29/25 22:59 Infused Q24H NELLIE Infusion Dextrose 1,000 mls @ 100 mls/hr 01/26/25 07:40 Dextrose 5% 1,000 Ml IVPB PRN PRN Hypoglycemia Protocol Fentanyl Citrate 2,500 mcg in 250 mls @ 2.5 mls/hr 01/26/25 20:50 01/29/25 10:00 Fentanyl 2,500 Mcg/Ns 250 Ml IV CONT 25 mcg/hr .Q72H NELLIE 2.5 mls/hr Titration Protocol 25 MCG/HR Midazolam HCl 100 mg in 100 mls @ 10 mls/hr 01/26/25 20:50 01/29/25 10:00 Versed 100 Mg/Ns 100 Ml IV CONT 1 mg/hr .Q10H NELLIE 1 mls/hr Titration Protocol 10 MG/HR Norepinephrine Bitartrate 8 mg in 250 mls @ 0 mls/hr 01/27/25 02:35 01/29/25 08:20 Levophed 8 Mg/D5w 250 Ml IV CONT Not Given .Q0M NELLIE Protocol Cefepime HCl 1 gm in 50 mls @ 100 mls/hr 01/27/25 10:15 01/29/25 09:36 Maxipime 1 Gm/Ns 50 Ml IVPB Infused Q12HR NELLIE Infusion Azithromycin 500 mg in 250 mls @ 250 mls/hr 01/27/25 12:00 01/29/25 10:00 Zithromax IVPB 02/03/25 11:59 Infused DAILY NELLIE Infusion Amiodarone HCl/Dextrose 360 mg in 200 mls @ 16.667 mls/hr 01/28/25 12:30 01/29/25 10:00 Nexterone 360 Mg/D5w 200 Ml IV CONT 01/29/25 12:29 0.5 mg/min .Q12H NELLIE 16.67 mls/hr Infusion Protocol 0.5 MG/MIN Lactated Ringer's 1,000 mls @ 75 mls/hr 01/29/25 09:40 01/29/25 09:52 Lr - Lactated Ringers Iv IV CONT 01/29/25 22:59 75 mls/hr .[id number] NELLIE Administration Vancomycin HCl 1,250 mg in 250 mls @ 166.667 mls/hr 01/29/25 11:00 01/29/25 11:02 Vancomycin 1,250 Mg/Ns 250 Ml IVPB 166.67 mls/hr Q36H NELLIE Administration Insulin Aspart 3 - 6 units 01/26/25 12:00 01/29/25 08:38 Insulin Aspart (*Bkc) 100 Units/Ml SUB-Q 5 units Q6HR NELLIE Administration Protocol Insulin Glargine 20 units 01/29/25 09:00 01/29/25 08:38 Insulin Glargine (*Bkc) 100 Units/Ml SUB-Q 20 units DAILY NELLIE Administration Ipratropium Novi 0.5 mg 01/26/25 20:00 01/29/25 07:56 Ipratropium Br 0.02% Inh Soln 0.5 Mg/2.5 Ml Vial INHALATION 0.5 mg Q6HRT NELLIE Administration Levalbuterol HCl 1.25 mg 01/26/25 20:00 01/29/25 07:56 Levalbuterol Neb 1.25 Mg/3 Ml INHALATION 1.25 mg Q6HRT NELLIE Administration Memantine 10 mg 01/25/25 17:00 01/25/25 17:29 Memantine 10 Mg Tablet PO Not Given BID NELLIE Metoprolol Tartrate 5 mg 01/26/25 15:20 01/26/25 21:15 Metoprolol Tartrate Inj 5 Mg/5 Ml Vial IV PUSH 5 mg Q6H PRN Administration Tachycardia Multi-Ingred Cream/Lotion/Oil/Oint 1 applic 01/26/25 21:00 01/29/25 08:51 Mineral Oil/White Petrolatum Ointment EACH EYE 1 applic Q12HR NELLIE Administration Pantoprazole Sodium 40 mg 01/27/25 09:00 01/29/25 08:51 Pantoprazole Sodium Iv 40 Mg Vial IV PUSH 40 mg QAM NELLIE Administration Sodium Chloride 10 ml 01/27/25 14:00 01/29/25 07:55 Central Line Flush IV PUSH 10 ml Q8HR NELLIE Administration Sodium Chloride 10 ml 01/27/25 11:45 Central Line Flush IV PUSH PRN PRN with TPN bag changes Sodium Chloride 20 ml 01/27/25 11:45 Central Line Flush IV PUSH PRN PRN after blood draws Radiology Results: ITS Impressions Abdomen X-Ray 01/26/25 20:53 IMPRESSION: Bibasilar airspace disease. Small bilateral pleural effusions, likely with a subpulmonic component on the right. NG tube in good position. Renal Ultrasound 01/28/25 12:53 Impression: No hydronephrosis. Trace right perinephric fluid. Chest X-Ray 01/29/25 06:20 Impression: Extensive right lung consolidation with additional left basilar consolidation. Correlate for asymmetric pulmonary edema, bilateral pneumonia, or ARDS. Support tubes, as above. Labs Labs: Laboratory Tests 01/29/25 04:28 01/29/25 04:28 Lactic Acid 2.3 H Calcium 8.2 L Phosphorus 3.8 Magnesium 2.8 H Total Bilirubin 0.3 AST 78 H ALT 219 H Alkaline Phosphatase 63 Total Protein 5.0 L Albumin 3.2 L Microbiology 01/28/25 09:45 Sputum Sputum Culture - Preliminary
[2025-01-29] MEDS: LACTATED RINGERS 1,000 ML 75 ML IV CONT (09:52)
[2025-01-29 10:38] LABS: Glucose Point of Care 305 mg/dl (65-105)
--- NOTE | 2025-01-29 10:44 | PCNFU ---
Nutrition Follow-Up Complete: Suboptimal Nutrition as related to Pneumonia/COVID as evidenced by NPO goal: Meet estimated nutritional needs Patient is progressing towards goal. We will continue current goal. Pt current nutrition is Nepro at 40 ml/hr. Last recorded weight is 73.6 kg, up from 61 kg on admit. Bowel Motility: No Bm reported. Labs Reviewed: Glu 283, Alb 3.2, Hgb 8.8, Hct 28.2 Meds Noted: Versed, Fentanyl, Protonix, Lantus, LR Skin: Friction-bottom Additional Notes: Patient remains on a mechanical vent. Tube feedings current at 40 ml/hr of Nepro and being tolerated. Total Nutrition: 1584 kcal/72 gm protein/640 ml water, meeting 100% kcal needs at 25 kcal/kg and 94% protein needs at 1.2-1.4 gm/kg. Flush 30 ml q 4 hours. Agree with diet orders. Will monitor weight, labs, skin, diet orders, meds every Saturday and Saturday.
[2025-01-29] MEDS: VANCOMYCIN 1,250 MG/NS 250 ML 1,250 MG/250 ML BAG 166.67 MG IVPB (11:02)
[2025-01-29] MEDS: BARICITINIB 1 MG TABLET PO (11:07)
[2025-01-29 11:14] LABS: Glucose Point of Care 294 mg/dl (65-105)
[2025-01-29 18:13] LABS: Glucose Point of Care 309 mg/dl (65-105)
[2025-01-29] MEDS: REMDESIVIR 100 MG/NS 250 ML 100 MG/250 ML BAG 250 MG IVPB (21:57)
[2025-01-29 23:52] LABS: Glucose Point of Care 269 mg/dl (65-105)
[2025-01-30] VITALS (28 sets, daily range): BP systolic 105–125; BP diastolic 55–69; PULSE 65–90; RESP 20–24; TEMP 36.6–36.9; O2SAT 93–99
[2025-01-30] MEDS: INSULIN ASPART (*BKC) 100 UNITS/ML SUB-Q ×5 (00:38→23:37)
[2025-01-30] MEDS: AMIODARONE 360 MG/D5W 200 ML 360 MG/200 ML BAG 16.67 MG IV CONT (00:40)
[2025-01-30] MEDS: LEVALBUTEROL NEB 1.25 MG/3 ML INHALATION ×4 (02:21→20:33)
[2025-01-30] MEDS: IPRATROPIUM BR 0.02% INH SOLN 0.5 MG/2.5 ML VIAL INHALATION ×4 (02:21→20:33)
[2025-01-30 03:08] LABS: Hepatitis B Core Ab Total NON-REACTIVE (NON-REACTIVE)
[2025-01-30 05:08] LABS: Alveolar/Arterial O2 Gradient 94.2 mmHg; Base Excess ABG -4.3 mEq/l (+/-2.0); Carboxyhemoglobin 0.3 % THb (0-2.0); Fractional Inspired Oxygen 30 %; HCO3 ABG 18.1 mEq/l (22.0-26.0); Oxygen Content ABG 14.1 %vol (16.0-22.0); Oxygen Saturation ABG 97.5 % (95.0-100.0); Oxyhemoglobin 95.7 % THb (90.0-100.0); PCO2 ABG 25.1 mmHg (35.0-45.0); PO2 ABG 90.2 mmHg (80.0-100.0); PO2 FiO2 Ratio Arterial Blood 3.01 %; Total Hemoglobin 10.4 g/dL (12.0-18.0); pH ABG 7.476 (7.350-7.450)
[2025-01-30 05:25] LABS: Arterial Blood Gas PEEP 10 cmH2O; Arterial Blood Gas Tidal Volume 400 ml; Arterial Blood Gas Vent Mode CMV; Arterial Blood Gas Ventilator rate 24 /MIN; Device VENTILATOR; Modified Allen's Test Pass; Site Drawn LEFT RADIAL
[2025-01-30 05:37] LABS: Lactic Acid Reflex 2.4 mmol/L (0.7-2.0)
[2025-01-30 05:39] LABS: Basophils Percent Auto 0.1 % (0.2-1.2); Hematocrit 28.9 % (42.0-52.0); Hemoglobin 9.3 g/dL (14.0-18.0); Immature Granulocyte Absolute 0.09 K/mm3 (0.00-0.031); Immature Granulocyte Percent A 1.2 % (0-0.5); Lymphocytes Absolute Auto 0.32 K/mm3 (0.9-3.2); Lymphocytes Percent Auto 4.3 % (18.3-44.2); Mean Corpuscular HGB Conc 32.2 g/dl (32-36); Mean Corpuscular Hemoglobin 30.8 pg (26-34); Mean Corpuscular Volume 95.7 fl (80-100); Mean Platelet Volume 10.8 fl (7.4-10.4); Monocytes Absolute Auto 0.4 K/mm3 (0.1-0.6); Monocytes Percent Auto 5.9 % (2.6-8.5); Neutrophils Absolute Auto 6.7 K/mm3 (1.3-6.7); Neutrophils Percent Auto 88.5 % (45.5-73.1); Nucleated Red Blood Cells Perc 0.5 % (0.0-0.2); Platelet Count Result 134 k/mm3 (150-375); Red Blood Count 3.02 M/mm3 (4.6-6.20); White Blood Count 7.5 K/mm3 (4.5-10.0)
[2025-01-30 05:40] LABS: Alanine Aminotransferase 202 U/L (6-50); Albumin Level 3.2 g/dL (3.5-5.1); Alkaline Phosphatase 88 U/L (38-126); Anion Gap 13 mmol/L (4-12); Aspartate Amino Transferase 67 U/L (17-59); Bilirubin,Total 0.3 mg/dL (0.2-1.3); Carbon Dioxide 22 mmol/L (22-30); Chloride 109 mmol/L (98-107); Estimated CRCL calculation 20 ml/min; Estimated Glomerular Filt Rate 28; Glucose 239 mg/dL (65-110); Magnesium 2.8 mg/dL (1.6-2.3); Phosphorus 2.8 mg/dL (2.5-4.5); Potassium 3.6 mmol/L (3.4-5.0); Sodium 144 mmol/L (137-145)
[2025-01-30 05:45] LABS: Blood Urea Nitrogen 122 mg/dL (9-20)
[2025-01-30 05:46] LABS: INR 1.7; Prothrombin Time 20.5 Seconds (11.1-14.7)
[2025-01-30 05:47] LABS: Partial Thromboplastin Time 40.2 Seconds (22.3-36.8)
[2025-01-30] MEDS: CENTRAL LINE FLUSH 10 ML IV PUSH ×3 (07:02→21:19)
[2025-01-30 07:27] LABS: Reflex Lactic Acid Yes or No Add Lactic
--- NOTE | 2025-01-30 07:56 | P.PNINT_ITS ---
Progress Note: A&P Assessment and Plan (1) Acute respiratory failure: Code(s): J96.00 - Acute respiratory failure, unspecified whether with hypoxia or hypercapnia <Lisa Ahumada, Student - Last Filed: 01/30/25 09:47> Status: Acute <Lisa Ahumada - Last Filed: 01/30/25 09:47> Assessment and Plan: Acute respiratory failure likely related to pneumonia, COVID-19 -chest x-ray this morning, reviewed -chief ABGs reviewed, ventilator adjusted -Continue Azithromycin and Vancomycin -Continue Cefepime (01/27) -Continue Dexamethasone 01/27-preliminary cultures shows no growth x2 01/28- Sputum culture preliminary : No organism seen <Lisa Ahumada, - Last Filed: 01/30/25 09:47> (2) Pneumonia: Code(s): J18.9 - Pneumonia, unspecified organism <Lisa Ahumada, Student - Last Filed: 01/30/25 09:47> Status: Acute <Lisa Ahumada Student - Last Filed: 01/30/25 09:47> Assessment and Plan: Continue as above <Lisa Ahumada, - Last Filed: 01/30/25 09:47> (3) COVID: Code(s): U07.1 - COVID-19 <Lisa Ahumada, Student - Last Filed: 01/30/25 09:47> Status: Acute <Lisa Ahumada, - Last Filed: 01/30/25 09:47> Assessment and Plan: Patient has been positive for COVID 19. Chest x-ray shows worsening infiltrates -continue remdesivir, dexamethasone (01/25) -continue baricitinib (01/26), renally dosed by pharmacy -continue droplet and contact isolation/precautions 01/27- rising LFT's likely transient related to rapid response, will continue to monitor. No change to Remdesivir at this time. 01/30- LFT's trending down. Remdesivir course completed <Lisa Ahumada, Student - Last Filed: 01/30/25 09:47> (4) Sepsis: Code(s): A41.9 - Sepsis, unspecified organism <Lisa Ahumada, Student - Last Filed: 01/30/25 09:47> Status: Acute <Lisa Arredondosocorro Student - Last Filed: 01/30/25 09:47> Assessment and Plan: Patient presented with tachycardia, tachypnea, hypoxia, and acute kidney injury -adequately fluid-resuscitated, s/p albumin for intravascular volume expansion -urine output has been adequate, will continue to follow -01/27: status post LR at 100 mL/hour for 1000 mL -01/28: Lactic acid resolved -01/29: increase in lactic acid to 2.3, patient receive maintenance IV fluids at 75 mL for 1000 ml <Lisa Blevins Zita Student - Last Filed: 01/30/25 09:47> Patient presented with tachycardia, tachypnea, hypoxia, and acute kidney injury -adequately fluid-resuscitated, s/p albumin for intravascular volume expansion -urine output has been adequate, will continue to follow -01/27: status post LR at 100 mL/hour for 1000 mL -01/28: Lactic acid resolved -01/29: increase in lactic acid to 2.3, patient received maintenance IV fluids at 75 mL for 1000 ml <Eloy Emmanuel MD - Last Filed: 01/30/25 12:11> (5) MICHAEL (acute kidney injury): Code(s): N17.9 - Acute kidney failure, unspecified <Lisa Blevins Zita Student - Last Filed: 01/30/25 09:47> Status: Acute <Lisa Arredondosocorro Student - Last Filed: 01/30/25 09:47> Assessment and Plan: Acute kidney injury likely related to sepsis, -adequately fluid-resuscitated -continue to monitor urine output, renal function and electrolytes -nephrology has been consulted -urine lytes do not reflect pre renal, CK level 317, negative urine eosinophils -01/28: Renal ultrasound ordered and demonstrated no hydronephrosis, but trace right perinephric fluid present -01/29: Discuss with Nephrology, will give LR at 75 mL for a total of 1000 mL -01/30: Improved urine output, creatinine trending down <Lisa McdonaldJesus hAumada Student - Last Filed: 01/30/25 09:47> (6) Dementia: Qualifiers: Dementia behavioral or psychological symptom: unspecified whether behavioral, psychotic, or mood disturbance or anxiety Dementia severity: unspecified severity Dementia type: unspecified type Qualified Code(s): F03.90 - Unspecified dementia, unspecified severity, without behavioral disturbance, psychotic disturbance, mood disturbance, and anxiety <Lisa Ahumada, Last Filed: 01/30/25 09:47> Code(s): F03.90 - Unspecified dementia, unspecified severity, without behavioral disturbance, psychotic disturbance, mood disturbance, and anxiety <Lisa Ahumada, Last Filed: 01/30/25 09:47> Status: Acute <Lisa Ahumada, Last Filed: 01/30/25 09:47> Assessment and Plan: Baseline cognitive impairment, on Namenda at home, will continue to hold for now <Lisa Ahumada Last Filed: 01/30/25 09:47> (7) Generalized weakness: Code(s): R53.1 - Weakness <Lisa Ahumada, Last Filed: 01/30/25 09:47> Status: Acute <Lisa Ahumada Last Filed: 01/30/25 09:47> Assessment and Plan: Generalized weakness could be related to hypoxia, tachypnea, COVID-19, pneumonia -continue to manage underlying issues <Lisa Ahumada Last Filed: 01/30/25 09:47> (8) Hyperlipidemia: Qualifiers: Hyperlipidemia type: unspecified Qualified Code(s): E78.5 - Hyperlipidemia, unspecified <Lisa Ahumada, Last Filed: 01/30/25 09:47> Code(s): E78.5 - Hyperlipidemia, unspecified <Lisa Ahumada Last Filed: 01/30/25 09:47> Status: Acute <Lisa Ahumada Last Filed: 01/30/25 09:47> Assessment and Plan: Continue pravastatin <Lisa Ahumada Last Filed: 01/30/25 09:47> (9) Pre-diabetes: Code(s): R73.03 - Prediabetes <Lisa Ahumada Last Filed: 01/30/25 09:47> Status: Acute <Lisa Gen Ahumada Student - Last Filed: 01/30/25 09:47> Assessment and Plan: Accu-Cheks and sliding scale insulin 01/29: Glucose of 283, will increase Lantus 01/30: Glucose of 239, lantus increased to 30 units <Lisa Ahumada Student - Last Filed: 01/30/25 09:47> Assessment and Plan: DVT prophylaxis: Enoxaparin Stress ulcer prophylaxis: Protonix Nutrition: Increased tube feed to goal Code Status: Okay to intubation but no CPR Critical Care Time Spent: 32 minutes Discuss with family in rounds and updated them with patient's condition and plan of care. I answered all questions Due to a high probability of clinically significant, life threatening deterioration, the patient required my highest level of preparedness to intervene emergently and I personally spent this critical care time directly and personally managing the patient. This critical care time included obtaining a history; examining the patient; pulse oximetry; ordering and review of studies; arranging urgent treatment with development of a management plan; evaluation of patient's response to treatment; frequent reassessment; and discussions with other providers. It was exclusive of separately billable procedures and treating other patients and teaching time. Please see Assessment and Plan section and the rest of the note for further information on patient assessment and treatment This dictation may have been done utilizing a voice recognition system. Attempts have been made to correct errors. However, there may be uncorrected grammatical, spelling, and recognitions errors present. <Lisa Ahumada Student - Last Filed: 01/30/25 09:47> Subjective Date/time seen: 01/30/25 07:56 <Lisa Ahumada Student - Last Filed: 01/30/25 09:47> Interval history: 01/26/25- Intubated 01/30/25- Pt seen and examined in the ICU, remains intubated on CMV mode of ventilation, peep of 10, 30% FiO2. Sedation and Amiodarone are off. Adequate urine output, creatinine decreasing. LFTs trending down. Afebrile. Opens eyes and follows simple commands. <Lisa Ahumada Student - Last Filed: 01/30/25 09:47> 01/26/25- Intubated 01/30/25- Pt seen and examined in the ICU, remains intubated on CMV mode of ventilation, peep of 10, 30% FiO2. Sedation and Amiodarone are off. Adequate urine output, creatinine improving. LFTs trending down. Afebrile. Opens eyes and follows simple commands. <Eloy Emmanuel MD - Last Filed: 01/30/25 12:11> Review of Systems Review of Systems: ROS unobtainable: Yes unobtainable due to endotracheal tube, unobtainable due to medical condition and unobtainable due to mental status <Lisa Ahumada Student - Last Filed: 01/30/25 09:47> Exam Narrative: General: Intubated, in no acute distress HEENT:? Pupils equal and reactive, sclera is clear, ETT in place Neck:? Supple Respiratory:? Coarse breath sounds bilaterally, right greater than left, no wheezing, adequate air entry Cardiac:? S1-S2 normal, regular rate and rhythm Abdomen:? Soft, nontender, hypoactive bowel sounds Extremities:? No edema, palpable pedal pulses Neuro:? Patient remains intubated, Opens his eyes and follow simple commands in RUE and BLE Skin:? No skin lesions noted Psych:? Unable to assess at this time <Lisa Ahumada, Student - Last Filed: 01/30/25 09:47> General: Intubated, in no acute distress HEENT:? Pupils equal and reactive, sclera is clear, ETT in place Neck:? Supple Respiratory:? Coarse breath sounds bilaterally, right greater than left, no wheezing, adequate air entry Cardiac:? S1-S2 normal, regular rate and rhythm Abdomen:? Soft, nontender, hypoactive bowel sounds Extremities:? No edema, palpable pedal pulses Neuro:? Patient remains intubated off sedation, Opens his eyes and follow simple commands in RUE and BLE Skin:? No skin lesions noted Psych:? Unable to assess at this time <Eloy Emmanuel MD - Last Filed: 01/30/25 12:11> Objective Data Vital Signs Vital Signs: Vital Signs - 24 hr 01/29/25 07:58 01/29/25 08:00 01/29/25 08:00 Temperature 98.8 F Pulse Rate 71 76 71 Respiratory Rate 21 H Blood Pressure 114/65 114/65 Pulse Oximetry 100 100 Oxygen Delivery Mechanical Ventilation Fraction of Inspired Oxygen 30 01/29/25 08:00 01/29/25 08:00 01/29/25 08:00 Temperature Pulse Rate 71 72 71 Respiratory Rate 24 H 24 H Blood Pressure 109/63 Pulse Oximetry Oxygen Delivery Fraction of Inspired Oxygen 01/29/25 08:00 01/29/25 08:00 01/29/25 08:00 Temperature Pulse Rate 72 Respiratory Rate Blood Pressure Pulse Oximetry Oxygen Delivery Mechanical Ventilation Fraction of Inspired Oxygen 30 30 01/29/25 10:00 01/29/25 10:00 01/29/25 10:00 Temperature 98.7 F Pulse Rate 72 72 76 Respiratory Rate 24 H 24 H Blood Pressure 100/55 L Pulse Oximetry 100 Oxygen Delivery Fraction of Inspired Oxygen 01/29/25 10:00 01/29/25 10:00 01/29/25 10:00 Temperature Pulse Rate 74 74 72 Respiratory Rate 24 H Blood Pressure 100/55 L 100/55 L Pulse Oximetry Oxygen Delivery Fraction of Inspired Oxygen 01/29/25 11:26 01/29/25 11:32 01/29/25 12:00 Temperature Pulse Rate 73 71 Respiratory Rate 24 H Blood Pressure Pulse Oximetry 99 99 Oxygen Delivery Mechanical Ventilation Mechanical Ventilation Fraction of Inspired Oxygen 30 30 30 01/29/25 12:00 01/29/25 12:00 01/29/25 12:00 Temperature Pulse Rate 69 69 69 Respiratory Rate 24 H 24 H Blood Pressure 103/59 L Pulse Oximetry Oxygen Delivery Fraction of Inspired Oxygen 01/29/25 12:00 01/29/25 12:00 01/29/25 12:00 Temperature 98.6 F Pulse Rate 68 70 69 Respiratory Rate 24 H Blood Pressure 103/59 L 103/61 Pulse Oximetry 100 Oxygen Delivery Fraction of Inspired Oxygen 01/29/25 14:00 01/29/25 14:00 01/29/25 14:00 Temperature Pulse Rate 67 67 67 Respiratory Rate 24 H 24 H Blood Pressure 107/59 L Pulse Oximetry Oxygen Delivery Fraction of Inspired Oxygen 01/29/25 14:00 01/29/25 14:00 01/29/25 14:00 Temperature 98.4 F Pulse Rate 67 66 68 Respiratory Rate 24 H Blood Pressure 107/59 L 107/59 L Pulse Oximetry 100 Oxygen Delivery Fraction of Inspired Oxygen 01/29/25 14:54 01/29/25 14:56 01/29/25 16:00 Temperature Pulse Rate 67 67 Respiratory Rate 24 H Blood Pressure Pulse Oximetry 100 Oxygen Delivery Mechanical Ventilation Fraction of Inspired Oxygen 30 30 01/29/25 16:00 01/29/25 16:00 01/29/25 16:00 Temperature Pulse Rate 76 75 75 Respiratory Rate 25 H 25 H Blood Pressure 115/53 L Pulse Oximetry Oxygen Delivery Fraction of Inspired Oxygen 01/29/25 16:00 01/29/25 16:00 01/29/25 16:00 Temperature 98.2 F Pulse Rate 76 76 76 Respiratory Rate 23 H Blood Pressure 115/53 L 115/53 L Pulse Oximetry 100 Oxygen Delivery Fraction of Inspired Oxygen 01/29/25 16:04 01/29/25 18:00 01/29/25 18:00 Temperature Pulse Rate 75 65 69 Respiratory Rate 22 H 24 H Blood Pressure 107/61 Pulse Oximetry 100 Oxygen Delivery Mechanical Ventilation Fraction of Inspired Oxygen 30 01/29/25 18:00 01/29/25 18:00 01/29/25 18:00 Temperature Pulse Rate 69 69 69 Respiratory Rate 24 H Blood Pressure 107/61 Pulse Oximetry Oxygen Delivery Fraction of Inspired Oxygen 01/29/25 18:00 01/29/25 18:04 01/29/25 20:00 Temperature 98.3 F 98.3 F Pulse Rate 65 76 67 Respiratory Rate 24 H 24 H Blood Pressure 107/61 109/59 L Pulse Oximetry 100 100 100 Oxygen Delivery Mechanical Ventilation Fraction of Inspired Oxygen 30 01/29/25 20:00 01/29/25 20:00 01/29/25 20:00 Temperature Pulse Rate 67 67 67 Respiratory Rate 24 H Blood Pressure 109/59 L Pulse Oximetry Oxygen Delivery Fraction of Inspired Oxygen 01/29/25 20:00 01/29/25 20:00 01/29/25 20:00 Temperature Pulse Rate 67 75 Respiratory Rate 24 H 24 H Blood Pressure Pulse Oximetry 99 Oxygen Delivery Mechanical Ventilation Fraction of Inspired Oxygen 30 30 01/29/25 20:09 01/29/25 20:15 01/29/25 20:25 Temperature Pulse Rate 67 81 71 Respiratory Rate 24 H 24 H Blood Pressure Pulse Oximetry 100 Oxygen Delivery Mechanical Ventilation Fraction of Inspired Oxygen 30 01/29/25 22:00 01/29/25 22:00 01/29/25 22:00 Temperature Pulse Rate 67 75 75 Respiratory Rate 24 H 24 H Blood Pressure 114/48 L Pulse Oximetry Oxygen Delivery Fraction of Inspired Oxygen 01/29/25 22:00 01/29/25 22:00 01/29/25 22:00 Temperature 98.2 F Pulse Rate 75 75 73 Respiratory Rate 24 H Blood Pressure 114/48 L 114/48 L Pulse Oximetry 99 Oxygen Delivery Fraction of Inspired Oxygen 01/29/25 22:41 01/30/25 00:00 01/30/25 00:00 Temperature 98 F Pulse Rate 71 69 73 Respiratory Rate 24 H Blood Pressure 112/62 112/62 Pulse Oximetry 98 96 Oxygen Delivery Mechanical Ventilation Fraction of Inspired Oxygen 30 01/30/25 00:00 01/30/25 00:00 01/30/25 00:00 Temperature Pulse Rate 69 69 Respiratory Rate 24 H Blood Pressure Pulse Oximetry 99 Oxygen Delivery Mechanical Ventilation Fraction of Inspired Oxygen 30 30 01/30/25 00:00 01/30/25 00:00 01/30/25 00:00 Temperature Pulse Rate 71 71 71 Respiratory Rate 24 H 24 H Blood Pressure 112/62 Pulse Oximetry Oxygen Delivery Fraction of Inspired Oxygen 01/30/25 00:40 01/30/25 00:40 01/30/25 02:00 Temperature 98 F Pulse Rate 68 68 65 Respiratory Rate 24 H Blood Pressure 113/61 113/61 110/55 L Pulse Oximetry 95 Oxygen Delivery Fraction of Inspired Oxygen 01/30/25 02:00 01/30/25 02:00 01/30/25 02:00 Temperature Pulse Rate 65 65 65 Respiratory Rate 24 H Blood Pressure 110/55 L Pulse Oximetry Oxygen Delivery Fraction of Inspired Oxygen 01/30/25 02:00 01/30/25 02:00 01/30/25 02:22 Temperature Pulse Rate 65 65 85 Respiratory Rate 24 H 24 H Blood Pressure 110/55 L Pulse Oximetry Oxygen Delivery Fraction of Inspired Oxygen 01/30/25 02:25 01/30/25 04:00 01/30/25 04:00 Temperature Pulse Rate 79 73 Respiratory Rate 24 H Blood Pressure Pulse Oximetry 96 99 Oxygen Delivery Mechanical Ventilation Mechanical Ventilation Fraction of Inspired Oxygen 30 30 30 01/30/25 04:00 01/30/25 04:00 01/30/25 04:00 Temperature Pulse Rate 74 74 74 Respiratory Rate 24 H 24 H Blood Pressure 122/69 Pulse Oximetry Oxygen Delivery Fraction of Inspired Oxygen 01/30/25 04:00 01/30/25 04:00 01/30/25 04:00 Temperature 98.0 F Pulse Rate 74 76 73 Respiratory Rate 24 H Blood Pressure 122/69 122/69 Pulse Oximetry 95 Oxygen Delivery Fraction of Inspired Oxygen 01/30/25 04:50 01/30/25 06:00 01/30/25 06:00 Temperature 97.9 F Pulse Rate 75 69 68 Respiratory Rate 24 H Blood Pressure 112/65 Pulse Oximetry 95 96 Oxygen Delivery Mechanical Ventilation Fraction of Inspired Oxygen 30 01/30/25 06:00 01/30/25 06:00 01/30/25 06:00 Temperature Pulse Rate 69 69 69 Respiratory Rate 24 H 24 H Blood Pressure 112/65 Pulse Oximetry Oxygen Delivery Fraction of Inspired Oxygen 01/30/25 06:00 01/30/25 07:35 01/30/25 07:35 Temperature Pulse Rate 69 69 69 Respiratory Rate 24 H Blood Pressure 112/65 Pulse Oximetry 95 Oxygen Delivery Mechanical Ventilation Fraction of Inspired Oxygen 30 <Lisa Ahumada, Student - Last Filed: 01/30/25 09:47> Intake/Output Intake/Output: Intake & Output 01/27/25 01/28/25 01/29/25 01/30/25 23:59 23:59 23:59 23:59 Intake Total 1259.0 1892.8 1985.8 1930.2 Output Total 165 600 625 500 Balance 1094.0 1292.8 1360.8 1430.2 <Lisa Ahumada, Student - Last Filed: 01/30/25 09:47> Meds/Results Medications: Active Medications Generic Name Dose Route Start Last Admin Trade Name Freq PRN Reason Stop Dose Admin Acetaminophen 650 mg 01/25/25 11:14 01/25/25 18:58 Acetaminophen 325 Mg Tablet PO 650 mg Q4H PRN Administration Mild Pain (1-3) or Fever Baricitinib 1 mg 01/28/25 11:00 01/29/25 11:07 Baricitinib 1 Mg Tablet PO 02/08/25 11:01 1 mg DAILY@1100 NELLIE Administration Dexamethasone Sodium Phosphate 6 mg 01/26/25 09:00 01/29/25 08:51 Dexamethasone Sod Phos Inj 10 Mg/Ml 1 Ml Vial IV PUSH 02/04/25 09:01 6 mg DAILY NELLIE Administration Dextrose 12.5 gm 01/26/25 07:40 Dextrose 50% 25 Gm/50 Ml Syringe IV PUSH PRN PRN Hypoglycemia Protocol Enoxaparin Sodium 30 mg 01/26/25 09:00 01/29/25 08:51 Enoxaparin 30 Mg/0.3 Ml Syringe SUB-Q 30 mg DAILY NELLIE Administration Glucagon 1 mg 01/26/25 07:40 Glucagon For Inj 1 Mg Vial IM PRN PRN Hypoglycemia Protocol Glucose 15 gm 01/26/25 07:40 Glucose Oral Gel 15 Gm Of Glucse In 37.5 Gm Tube PO PRN PRN Hypoglycemia Protocol Dextrose 1,000 mls @ 100 mls/hr 01/26/25 07:40 Dextrose 5% 1,000 Ml IVPB PRN PRN Hypoglycemia Protocol Fentanyl Citrate 2,500 mcg in 250 mls @ 0 mls/hr 01/26/25 20:50 01/30/25 06:00 Fentanyl 2,500 Mcg/Ns 250 Ml IV CONT 0 mcg/hr .Q0M NELLIE 0 mls/hr Titration Protocol Midazolam HCl 100 mg in 100 mls @ 0 mls/hr 01/26/25 20:50 01/30/25 06:00 Versed 100 Mg/Ns 100 Ml IV CONT 0 mg/hr .Q0M NELLIE 0 mls/hr Titration Protocol Norepinephrine Bitartrate 8 mg in 250 mls @ 0 mls/hr 01/27/25 02:35 01/30/25 06:00 Levophed 8 Mg/D5w 250 Ml IV CONT 0 mcg/min .Q0M NELLIE 0 mls/hr Titration Protocol Cefepime HCl 1 gm in 50 mls @ 100 mls/hr 01/27/25 10:15 01/29/25 22:02 Maxipime 1 Gm/Ns 50 Ml IVPB Infused Q12HR NELLIE Infusion Azithromycin 500 mg in 250 mls @ 250 mls/hr 01/27/25 12:00 01/29/25 10:00 Zithromax IVPB 02/03/25 11:59 Infused DAILY NELLIE Infusion Vancomycin HCl 1,250 mg in 250 mls @ 166.667 mls/hr 01/29/25 11:00 01/29/25 12:39 Vancomycin 1,250 Mg/Ns 250 Ml IVPB Infused Q36H NELLIE Infusion Amiodarone HCl/Dextrose 360 mg in 200 mls @ 16.667 mls/hr 01/29/25 13:45 01/30/25 06:00 Nexterone 360 Mg/D5w 200 Ml IV CONT 01/30/25 07:44 0.5 mg/min .Q12H NELLIE 16.67 mls/hr Infusion Protocol 0.5 MG/MIN Insulin Aspart 3 - 6 units 01/26/25 12:00 01/30/25 05:50 Insulin Aspart (*Bkc) 100 Units/Ml SUB-Q 3 units Q6HR NELLIE Administration Protocol Insulin Glargine 30 units 01/30/25 09:00 Insulin Glargine (*Bkc) 100 Units/Ml SUB-Q DAILY NELLIE Ipratropium [place] 0.5 mg 01/26/25 20:00 01/30/25 07:36 Ipratropium Br 0.02% Inh Soln 0.5 Mg/2.5 Ml Vial INHALATION 0.5 mg Q6HRT NELLIE Administration Levalbuterol HCl 1.25 mg 01/26/25 20:00 01/30/25 07:36 Levalbuterol Neb 1.25 Mg/3 Ml INHALATION 1.25 mg Q6HRT NELLIE Administration Memantine 10 mg 01/25/25 17:00 01/25/25 17:29 Memantine 10 Mg Tablet PO Not Given [facility] Metoprolol Tartrate 5 mg 01/26/25 15:20 01/26/25 21:15 Metoprolol Tartrate Inj 5 Mg/5 Ml Vial IV PUSH 5 mg Q6H PRN Administration Tachycardia Multi-Ingred Cream/Lotion/Oil/Oint 1 applic 01/26/25 21:00 01/29/25 21:28 Mineral Oil/White Petrolatum Ointment EACH EYE 1 applic Q12HR NELLIE Administration Pantoprazole Sodium 40 mg 01/27/25 09:00 01/29/25 08:51 Pantoprazole Sodium Iv 40 Mg Vial IV PUSH 40 mg QAM NELLIE Administration Potassium Chloride 40 meq 01/30/25 07:46 Potassium Chloride 20 Meq Packet (For Liquid) FEED TUBE 01/30/25 07:47 ONCE STA Sodium Chloride 10 ml 01/27/25 14:00 01/30/25 07:02 Central Line Flush IV PUSH 10 ml Q8HR NELLIE Administration Sodium Chloride 10 ml 01/27/25 11:45 Central Line Flush IV PUSH PRN PRN with TPN bag changes Sodium Chloride 20 ml 01/27/25 11:45 Central Line Flush IV PUSH PRN PRN after blood draws <Lisa Ahumada, Student - Last Filed: 01/30/25 09:47> Radiology Results: ITS Impressions Abdomen X-Ray 01/26/25 20:53 IMPRESSION: Bibasilar airspace disease. Small bilateral pleural effusions, likely with a subpulmonic component on the right. NG tube in good position. Renal Ultrasound 01/28/25 12:53 Impression: No hydronephrosis. Trace right perinephric fluid. Chest X-Ray 01/30/25 07:20 IMPRESSION: 1. Small left pleural effusion with bilateral lung disease which could represent pneumonia, atelectasis, ARDS or some combination thereof. <Lisa Ahumada, Student - Last Filed: 01/30/25 09:47> Labs Labs: Laboratory Results - last 24 hr 01/29/25 01/29/25 01/29/25 04:28 08:37 08:46 WBC RBC Hgb Hct MCV MCH MCHC RDW Plt Count MPV Immature Gran % (Auto) Neut % (Auto) Lymph % (Auto) [place] % (Auto) Eos % (Auto) Baso % (Auto) Lymph # (Auto) [place] # (Auto) Eos # (Auto) Baso # (Auto) Abs Immat Gran (auto) Absolute Neuts (auto) Absolute Nucleated RBC Nucleated RBC % PT INR APTT Puncture Site ABG pH ABG pCO2 ABG pO2 ABG PO2/FiO2 Ratio ABG HCO3 ABG O2 Saturation ABG O2 Content ABG Base Excess A-a Gradient Oxyhemoglobin Carboxyhemoglobin Methemoglobin Reduced Hemoglobin Total Hemoglobin O2 Delivery Device O2 Liters/Min Minute Volume Vent Rate Vent Mode FiO2 Tidal Volume PEEP Peak Inspir Pressure Pressure Support Sodium Potassium Chloride Carbon Dioxide Anion Gap BUN Creatinine Estim Creat Clear Calc Estimated GFR Glucose POC Capillary Glucose 305 H Lactic Acid Calcium Phosphorus Magnesium Total Bilirubin AST ALT Alkaline Phosphatase Total Protein Albumin Vancomycin Trough 12.7 Hep B Core Total Ab Non-reactive 01/29/25 01/29/25 01/29/25 08:47 11:07 18:10 WBC RBC Hgb Hct MCV MCH MCHC RDW Plt Count MPV Immature Gran % (Auto) Neut % (Auto) Lymph % (Auto) [place] % (Auto) Eos % (Auto) Baso % (Auto) Lymph # (Auto) [place] # (Auto) Eos # (Auto) Baso # (Auto) Abs Immat Gran (auto) Absolute Neuts (auto) Absolute Nucleated RBC Nucleated RBC % PT INR APTT Puncture Site ABG pH ABG pCO2 ABG pO2 ABG PO2/FiO2 Ratio ABG HCO3 ABG O2 Saturation ABG O2 Content ABG Base Excess A-a Gradient Oxyhemoglobin Carboxyhemoglobin Methemoglobin Reduced Hemoglobin Total Hemoglobin O2 Delivery Device O2 Liters/Min Minute Volume Vent Rate Vent Mode FiO2 Tidal Volume PEEP Peak Inspir Pressure Pressure Support Sodium Potassium Chloride Carbon Dioxide Anion Gap BUN Creatinine Estim Creat Clear Calc Estimated GFR Glucose POC Capillary Glucose 294 H 309 H Lactic Acid 2.5 H Calcium Phosphorus Magnesium Total Bilirubin AST ALT Alkaline Phosphatase Total Protein Albumin Vancomycin Trough Hep B Core Total Ab 01/29/25 01/30/25 01/30/25 23:49 04:49 05:21 WBC 7.5 RBC 3.02 L Hgb 9.3 L Hct 28.9 L MCV 95.7 MCH 30.8 MCHC 32.2 RDW 14.0 Plt Count 134 L MPV 10.8 H Immature Gran % (Auto) 1.2 H Neut % (Auto) 88.5 H Lymph % (Auto) 4.3 L [place] % (Auto) 5.9 Eos % (Auto) 0.0 Baso % (Auto) 0.1 L Lymph # (Auto) 0.32 L [place] # (Auto) 0.4 Eos # (Auto) 0.0 Baso # (Auto) 0.0 Abs Immat Gran (auto) 0.09 H Absolute Neuts (auto) 6.7 Absolute Nucleated RBC 0.040 H Nucleated RBC % 0.5 H PT 20.5 H INR 1.7 APTT 40.2 H Puncture Site Left radial ABG pH 7.476 H ABG pCO2 25.1 L ABG pO2 90.2 ABG PO2/FiO2 Ratio 3.01 ABG HCO3 18.1 L ABG O2 Saturation 97.5 ABG O2 Content 14.1 L ABG Base Excess -4.3 A-a Gradient 94.2 Oxyhemoglobin 95.7 Carboxyhemoglobin 0.3 Methemoglobin 0.0 Reduced Hemoglobin 4.0 Total Hemoglobin 10.4 L O2 Delivery Device Ventilator O2 Liters/Min Not Reportable Minute Volume Not Reportable Vent Rate 24 Vent Mode Cmv FiO2 30 Tidal Volume 400 PEEP 10 Peak Inspir Pressure Not Reportable Pressure Support Not Reportable Sodium 144 Potassium 3.6 Chloride 109 H Carbon Dioxide 22 Anion Gap 13 H BUN 122 H Creatinine 2.23 H Estim Creat Clear Calc 20 Estimated GFR 28 L Glucose 239 H POC Capillary Glucose 269 H Lactic Acid 2.4 H Calcium 9.0 Phosphorus 2.8 Magnesium 2.8 H Total Bilirubin 0.3 AST 67 H ALT 202 H Alkaline Phosphatase 88 Total Protein 5.0 L Albumin 3.2 L Vancomycin Trough Hep B Core Total Ab <Lisa Ahumada, Student - Last Filed: 01/30/25 09:47> Quality VTE Prophylaxis VTE prophylaxis: pharmacologic ordered <Lisa Ahumada Student - Last Filed: 01/30/25 09:47> Attestation Student Attestation H&P performed by SARITA Kimble-IV <Lisa Ahumada Student - Last Filed: 01/30/25 09:47>
[2025-01-30] MEDS: PANTOPRAZOLE SODIUM IV 40 MG VIAL IV PUSH (08:33)
[2025-01-30] MEDS: MINERAL OIL/WHITE PETROLATUM OINTMENT 1 APPLIC EACH EYE ×2 (08:34→21:19)
[2025-01-30] MEDS: AZITHROMYCIN 500 MG/NS 250 ML 500 MG/250 ML BAG 250 MG IVPB (08:35)
[2025-01-30] MEDS: ENOXAPARIN 30 MG/0.3 ML SYRINGE SUB-Q (08:35)
[2025-01-30] MEDS: CEFEPIME 1 GM/NS 50 ML 1 GM/50 ML BAG IVPB ×2 (08:35→21:19)
[2025-01-30] MEDS: dexAMETHasone SOD PHOS INJ 10 MG/ML 1 ML VIAL 6 MG IV PUSH (08:35)
[2025-01-30] MEDS: POTASSIUM CHLORIDE 20 MEQ PACKET (FOR LIQUID) 40 MEQ FEED TUBE (08:36)
[2025-01-30] MEDS: INSULIN GLARGINE (*BKC) 100 UNITS/ML 30 UNITS SUB-Q (08:36)
[2025-01-30 08:45] LABS: Lactic Acid 2.4 mmol/L (0.7-2.0)
--- NOTE | 2025-01-30 09:15 | P.PNNP_ITS ---
Progress Note: A&P Assessment and Plan (1) Acute kidney injury: Code(s): N17.9 - Acute kidney failure, unspecified Status: Acute Assessment and Plan: * improvement noted * as noted on admission * transient improvement to 1.61mg/d on 01/26 * worsening creatinine since 01/27 * baseline creatinine runs around 1.1 - 1.3mg/dl * suspect ATN with multifactorial etiology: * hemodynamic instability/shock * infection/sepsis (pneumonia + COVID) * hypoxia * possible prerenal factors * other(?) * evaluation to date noted: * renal ultrasound without hydronephrosis * urine electrolytes prerenal * urine eosinophils negative * CPK mildly elevated (but enough to affect kidney function) * moderate proteinuria * continue supportive therapy * follow trend of repeat labs and UOP (2) Septic shock: Code(s): A41.9 - Sepsis, unspecified organism; R65.21 - Severe sepsis with septic shock Status: Acute Assessment and Plan: * as noted by presentation of tachycardia, tachypnea, hypoxia, lactic acidosis, MICHAEL, and hypotension * s/p volume resuscitation along with IV albumin for intravascular volume expansion * lactic acidosis resolved * was on vasopressor therapy (levophed) to maintain MAP/blood pressure * weaned off * follow culture data * on antibiotics * follow trend of hemodynamics (3) Acute respiratory failure: Code(s): J96.00 - Acute respiratory failure, unspecified whether with hypoxia or hypercapnia Status: Acute Assessment and Plan: * felt to be secondary to pneumonia and COVID-19 * on ventilator support * weaning as tolerated (4) Pneumonia: Code(s): J18.9 - Pneumonia, unspecified organism Status: Acute Assessment and Plan: * as suggested by admission imaging * follow culture data * on antibiotic therapy * continue supportive therapy (5) COVID: Code(s): U07.1 - COVID-19 Status: Acute Assessment and Plan: * positive testing noted on 01/22 * imaging with worsening infiltrates as well * initated on remdesivir and dexamethasone (on 01/25) * started on baricitinib as well (on 01/26) * remains on droplet and contact isolation/precautions (6) Anemia: Code(s): D64.9 - Anemia, unspecified Status: Acute Assessment and Plan: * presumably due to MICHAEL and acute illness * follow trend of H/H (7) Elevated LFTs: Code(s): R79.89 - Other specified abnormal findings of blood chemistry Status: Acute Assessment and Plan: * presumably due to septic shock and hypoxia * statin on hold * appear to be improving * follow trend (8) Pre-diabetes: Code(s): R73.03 - Prediabetes Status: Acute Assessment and Plan: * follow accu-cheks * possibly exacerbated by steroid use and acute illness * glycemic control 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 Emmanuel. Will continue to follow. L Subjective Date/time seen: 01/30/25 09:15 Interval history: Follow-up for acute kidney injury/acute renal failure. Remains hemodynamically stable off vasopressor therapy; remains intubated and on mechanical ventilation at this time; renal function/creatinine improving with reasonable urine output (although BUN is still elevated); LFTs continue to improve as well; no other issues/events overnight or earlier this morning. Exam 2 Narrative: General: elderly male intubated/sedated and on mechanical ventilation Heart: normal S1 and S2; no rub Lungs: coarse breath sounds, right > left Abdomen: soft, nontender, nondistended, diminished bowel sounds Extremities: no cyanosis or clubbing; no edema Skin: warm and intact Objective Data Vital Signs Vital Signs: Vital Signs Temp Pulse Resp BP Pulse Ox O2 Del Method FiO2 01/30/25 08:31 30 01/30/25 08:01 73 24 H 01/30/25 08:00 73 120/64 01/30/25 08:00 Mechanical Ventilation 30 01/30/25 08:00 73 120/64 01/30/25 08:00 73 24 H 01/30/25 08:00 73 24 H 01/30/25 08:00 120/64 01/30/25 07:57 97.8 F 73 24 H 95 01/30/25 07:35 69 24 H 01/30/25 07:35 69 95 Mechanical Ventilation 30 01/30/25 06:00 69 112/65 01/30/25 06:00 69 24 H 01/30/25 06:00 69 24 H 01/30/25 06:00 69 112/65 01/30/25 06:00 68 01/30/25 06:00 97.9 F 69 24 H 112/65 96 01/30/25 04:50 75 95 Mechanical Ventilation 30 /03/25 04:00 98.0 F 73 24 H 122/69 95 01/30/25 04:00 76 01/30/25 04:00 74 122/69 01/30/25 04:00 74 24 H 01/30/25 04:00 74 24 H 01/30/25 04:00 74 122/69 01/30/25 04:00 30 01/30/25 04:00 73 24 H 99 Mechanical Ventilation 01/30/25 02:25 79 96 Mechanical Ventilation 01/30/25 02:22 85 24 H 01/30/25 02:00 65 110/55 L 01/30/25 02:00 65 24 H 01/30/25 02:00 65 24 H 01/30/25 02:00 65 110/55 L 01/30/25 02:00 65 01/30/25 02:00 98 F 65 24 H 110/55 L 95 01/30/25 00:40 68 113/61 01/30/25 00:40 68 113/61 01/30/25 00:00 71 112/62 01/30/25 00:00 71 24 H 01/30/25 00:00 71 24 H 01/30/25 00:00 30 01/30/25 00:00 69 24 H 99 Mechanical Ventilation 01/30/25 00:00 69 01/30/25 00:00 73 112/62 01/30/25 00:00 98 F 69 24 H 112/62 96 01/29/25 22:41 71 98 Mechanical Ventilation 01/29/25 22:00 98.2 F 73 24 H 114/48 L 99 01/29/25 22:00 75 01/29/25 22:00 75 114/48 L 01/29/25 22:00 75 114/48 L 01/29/25 22:00 75 24 H 01/29/25 22:00 67 24 H 01/29/25 20:25 71 24 H 01/29/25 20:15 81 100 Mechanical Ventilation 01/29/25 20:09 67 24 H 01/29/25 20:00 30 01/29/25 20:00 75 24 H 99 Mechanical Ventilation 01/29/25 20:00 67 24 H 01/29/25 20:00 67 24 H 01/29/25 20:00 67 109/59 L 01/29/25 20:00 67 01/29/25 20:00 98.3 F 67 24 H 109/59 L 100 01/29/25 18:04 76 100 Mechanical Ventilation 01/29/25 18:00 98.3 F 65 24 H 107/61 100 01/29/25 18:00 69 01/29/25 18:00 69 107/61 01/29/25 18:00 69 24 H 01/29/25 18:00 69 24 H 01/29/25 18:00 65 107/61 01/29/25 16:04 75 22 H 100 Mechanical Ventilation 01/29/25 16:00 76 01/29/25 16:00 76 115/53 L 01/29/25 16:00 98.2 F 76 23 H 115/53 L 100 01/29/25 16:00 75 25 H 01/29/25 16:00 75 25 H 01/29/25 16:00 76 115/53 L 01/29/25 16:00 30 01/29/25 14:56 67 100 Mechanical Ventilation 01/29/25 14:54 67 24 H 01/29/25 14:00 98.4 F 68 24 H 107/59 L 100 01/29/25 14:00 66 01/29/25 14:00 67 107/59 L 01/29/25 14:00 67 24 H 01/29/25 14:00 67 24 H 01/29/25 14:00 67 107/59 L 01/29/25 12:00 69 103/61 01/29/25 12:00 70 01/29/25 12:00 98.6 F 68 24 H 103/59 L 100 01/29/25 12:00 69 103/59 L 01/29/25 12:00 69 24 H 01/29/25 12:00 69 24 H 01/29/25 12:00 30 01/29/25 11:32 71 24 H 99 Mechanical Ventilation 30 Intake/Output Intake/Output: Intake & Output 01/27/25 01/28/25 01/29/25 01/30/25 23:59 23:59 23:59 23:59 Intake Total 1259.0 1892.8 1985.8 2325.0 Output Total 165 600 625 500 Balance 1094.0 1292.8 1360.8 1825.0 Meds/Results Medications: Active Medications Generic Name Dose Route Start Last Admin Trade Name Freq PRN Reason Stop Dose Admin Acetaminophen 650 mg 01/25/25 11:14 01/25/25 18:58 Acetaminophen 325 Mg Tablet PO 650 mg Q4H PRN Administration Mild Pain (1-3) or Fever Baricitinib 1 mg 01/28/25 11:00 01/30/25 10:54 Baricitinib 1 Mg Tablet PO 02/08/25 11:01 1 mg DAILY@1100 NELLIE Administration Dexamethasone Sodium Phosphate 6 mg 01/26/25 09:00 01/30/25 08:35 Dexamethasone Sod Phos Inj 10 Mg/Ml 1 Ml Vial IV PUSH 02/04/25 09:01 6 mg DAILY NELLIE Administration Dextrose 12.5 gm 01/26/25 07:40 Dextrose 50% 25 Gm/50 Ml Syringe IV PUSH PRN PRN Hypoglycemia Protocol Enoxaparin Sodium 30 mg 01/26/25 09:00 01/30/25 08:35 Enoxaparin 30 Mg/0.3 Ml Syringe SUB-Q 30 mg DAILY NELLIE Administration Glucagon 1 mg 01/26/25 07:40 Glucagon For Inj 1 Mg Vial IM PRN PRN Hypoglycemia Protocol Glucose 15 gm 01/26/25 07:40 Glucose Oral Gel 15 Gm Of Glucse In 37.5 Gm Tube PO PRN PRN Hypoglycemia Protocol Dextrose 1,000 mls @ 100 mls/hr 01/26/25 07:40 Dextrose 5% 1,000 Ml IVPB PRN PRN Hypoglycemia Protocol Cefepime HCl 1 gm in 50 mls @ 100 mls/hr 01/27/25 10:15 01/30/25 09:10 Maxipime 1 Gm/Ns 50 Ml IVPB Infused Q12HR NELLIE Infusion Azithromycin 500 mg in 250 mls @ 250 mls/hr 01/27/25 12:00 01/30/25 09:40 Zithromax IVPB 02/03/25 11:59 Infused DAILY NELLIE Infusion Vancomycin HCl 1,250 mg in 250 mls @ 166.667 mls/hr 01/29/25 11:00 01/29/25 12:39 Vancomycin 1,250 Mg/Ns 250 Ml IVPB Infused Q36H NELLIE Infusion Insulin Aspart 3 - 6 units 01/26/25 12:00 01/30/25 05:50 Insulin Aspart (*Bkc) 100 Units/Ml SUB-Q 3 units Q6HR NELLIE Administration Protocol Insulin Glargine 30 units 01/30/25 09:00 01/30/25 08:36 Insulin Glargine (*Bkc) 100 Units/Ml SUB-Q 30 units DAILY NELLIE Administration Ipratropium [place] 0.5 mg 01/26/25 20:00 01/30/25 07:36 Ipratropium Br 0.02% Inh Soln 0.5 Mg/2.5 Ml Vial INHALATION 0.5 mg Q6HRT NELLIE Administration Levalbuterol HCl 1.25 mg 01/26/25 20:00 01/30/25 07:36 Levalbuterol Neb 1.25 Mg/3 Ml INHALATION 1.25 mg Q6HRT NELLIE Administration Memantine 10 mg 01/25/25 17:00 01/25/25 17:29 Memantine 10 Mg Tablet PO Not Given BID NELLIE Metoprolol Tartrate 5 mg 01/26/25 15:20 01/26/25 21:15 Metoprolol Tartrate Inj 5 Mg/5 Ml Vial IV PUSH 5 mg Q6H PRN Administration Tachycardia Multi-Ingred Cream/Lotion/Oil/Oint 1 applic 01/26/25 21:00 01/30/25 08:34 Mineral Oil/White Petrolatum Ointment EACH EYE 1 applic Q12HR NELLIE Administration Pantoprazole Sodium 40 mg 01/27/25 09:00 01/30/25 08:33 Pantoprazole Sodium Iv 40 Mg Vial IV PUSH 40 mg QAM NELLIE Administration Sodium Chloride 10 ml 01/27/25 14:00 01/30/25 07:02 Central Line Flush IV PUSH 10 ml Q8HR NELLIE Administration Sodium Chloride 10 ml 01/27/25 11:45 Central Line Flush IV PUSH PRN PRN with TPN bag changes Sodium Chloride 20 ml 01/27/25 11:45 Central Line Flush IV PUSH PRN PRN after blood draws Radiology Results: ITS Impressions Abdomen X-Ray 01/26/25 20:53 IMPRESSION: Bibasilar airspace disease. Small bilateral pleural effusions, likely with a subpulmonic component on the right. NG tube in good position. Renal Ultrasound 01/28/25 12:53 Impression: No hydronephrosis. Trace right perinephric fluid. Chest X-Ray 01/30/25 07:20 IMPRESSION: 1. Small left pleural effusion with bilateral lung disease which could represent pneumonia, atelectasis, ARDS or some combination thereof. Labs Labs: Laboratory Tests 01/30/25 05:21 01/30/25 05:21 PT 20.5 H INR 1.7 APTT 40.2 H Lactic Acid 2.4 H Calcium 9.0 Phosphorus 2.8 Magnesium 2.8 H Total Bilirubin 0.3 AST 67 H ALT 202 H Alkaline Phosphatase 88 Total Protein 5.0 L Albumin 3.2 L Microbiology 01/28/25 09:45 Sputum Sputum Culture - Preliminary
[2025-01-30] MEDS: BARICITINIB 1 MG TABLET PO (10:54)
[2025-01-30 11:23] LABS: Glucose Point of Care 251 mg/dl (65-105)
--- NOTE | 2025-01-30 17:36 | PM.IMPN ---
Progress Note: A&P Assessment and Plan (1) Acute respiratory failure: Code(s): J96.00 - Acute respiratory failure, unspecified whether with hypoxia or hypercapnia Status: Acute Assessment and Plan: Acute respiratory failure likely related to pneumonia, COVID-19 -chest x-ray this morning, reviewed -chief ABGs reviewed, ventilator adjusted -Continue Azithromycin and Vancomycin -Continue Cefepime (01/27) -Continue Dexamethasone 01/27-preliminary cultures shows no growth x2 01/28- Sputum culture preliminary : No organism seen (2) Pneumonia: Code(s): J18.9 - Pneumonia, unspecified organism Status: Acute Assessment and Plan: Continue as above (3) COVID: Code(s): U07.1 - COVID-19 Status: Acute Assessment and Plan: Patient has been positive for COVID 19. Chest x-ray shows worsening infiltrates -continue remdesivir, dexamethasone (01/25) -continue baricitinib (01/26), renally dosed by pharmacy -continue droplet and contact isolation/precautions 01/27- rising LFT's likely transient related to rapid response, will continue to monitor. No change to Remdesivir at this time. 01/30- LFT's trending down. Remdesivir course completed (4) Sepsis: Code(s): A41.9 - Sepsis, unspecified organism Status: Acute Assessment and Plan: Patient presented with tachycardia, tachypnea, hypoxia, and acute kidney injury -adequately fluid-resuscitated, s/p albumin for intravascular volume expansion -urine output has been adequate, will continue to follow -01/27: status post LR at 100 mL/hour for 1000 mL -01/28: Lactic acid resolved -01/29: increase in lactic acid to 2.3, patient received maintenance IV fluids at 75 mL for 1000 ml (5) MICHAEL (acute kidney injury): Code(s): N17.9 - Acute kidney failure, unspecified Status: Acute Assessment and Plan: Acute kidney injury likely related to sepsis, -adequately fluid-resuscitated -continue to monitor urine output, renal function and electrolytes -nephrology has been consulted -urine lytes do not reflect pre renal, CK level 317, negative urine eosinophils -01/28: Renal ultrasound ordered and demonstrated no hydronephrosis, but trace right perinephric fluid present -01/29: Discuss with Nephrology, will give LR at 75 mL for a total of 1000 mL -01/30: Improved urine output, creatinine trending down (6) Dementia: Qualifiers: Dementia type: unspecified type Dementia severity: unspecified severity Dementia behavioral or psychological symptom: unspecified whether behavioral, psychotic, or mood disturbance or anxiety Qualified Code(s): F03.90 - Unspecified dementia, unspecified severity, without behavioral disturbance, psychotic disturbance, mood disturbance, and anxiety Code(s): F03.90 - Unspecified dementia, unspecified severity, without behavioral disturbance, psychotic disturbance, mood disturbance, and anxiety Status: Acute Assessment and Plan: Baseline cognitive impairment, on Namenda at home, will continue to hold for now (7) Generalized weakness: Code(s): R53.1 - Weakness Status: Acute Assessment and Plan: Generalized weakness could be related to hypoxia, tachypnea, COVID-19, pneumonia -continue to manage underlying issues (8) Hyperlipidemia: Qualifiers: Hyperlipidemia type: unspecified Qualified Code(s): E78.5 - Hyperlipidemia, unspecified Code(s): E78.5 - Hyperlipidemia, unspecified Status: Acute Assessment and Plan: Continue pravastatin (9) Pre-diabetes: Code(s): R73.03 - Prediabetes Status: Acute Assessment and Plan: Accu-Cheks and sliding scale insulin 01/29: Glucose of 283, will increase Lantus 01/30: Glucose of 239, lantus increased to 30 units Plan DVT prophylaxis: Enoxaparin Stress ulcer prophylaxis: Protonix Nutrition: Increased tube feed to goal Code Status: Okay to intubation but no CPR Subjective Date/time seen: 01/30/25 17:36 Interval history: Patient still intubated Review of Systems Review of Systems: All systems reviewed & are unremarkable except as noted in HPI and below ROS unobtainable: Yes unobtainable due to endotracheal tube, unobtainable due to medical condition and unobtainable due to mental status Exam Narrative: General: Intubated, in no acute distress HEENT:? Pupils equal and reactive, sclera is clear, ETT in place Neck:? Supple Respiratory:? Coarse breath sounds bilaterally, right greater than left, no wheezing, adequate air entry Cardiac:? S1-S2 normal, regular rate and rhythm Abdomen:? Soft, nontender, hypoactive bowel sounds Extremities:? No edema, palpable pedal pulses Neuro:? Patient remains intubated off sedation, Opens his eyes and follow simple commands in RUE and BLE Skin:? No skin lesions noted Psych:? Unable to assess at this time Objective Data Vital Signs Vital Signs: Vital Signs - 24 hr 01/29/25 18:00 01/29/25 18:00 01/29/25 18:00 Temperature Pulse Rate 65 69 69 Respiratory Rate 24 H 24 H Blood Pressure 107/61 Pulse Oximetry Oxygen Delivery Fraction of Inspired Oxygen 01/29/25 18:00 01/29/25 18:00 01/29/25 18:00 Temperature 98.3 F Pulse Rate 69 69 65 Respiratory Rate 24 H Blood Pressure 107/61 107/61 Pulse Oximetry 100 Oxygen Delivery Fraction of Inspired Oxygen 01/29/25 18:04 01/29/25 20:00 01/29/25 20:00 Temperature 98.3 F Pulse Rate 76 67 67 Respiratory Rate 24 H Blood Pressure 109/59 L Pulse Oximetry 100 100 Oxygen Delivery Mechanical Ventilation Fraction of Inspired Oxygen 30 01/29/25 20:00 01/29/25 20:00 01/29/25 20:00 Temperature Pulse Rate 67 67 67 Respiratory Rate 24 H 24 H Blood Pressure 109/59 L Pulse Oximetry Oxygen Delivery Fraction of Inspired Oxygen 01/29/25 20:00 01/29/25 20:00 01/29/25 20:09 Temperature Pulse Rate 75 67 Respiratory Rate 24 H 24 H Blood Pressure Pulse Oximetry 99 Oxygen Delivery Mechanical Ventilation Fraction of Inspired Oxygen 30 30 01/29/25 20:15 01/29/25 20:25 01/29/25 22:00 Temperature Pulse Rate 81 71 67 Respiratory Rate 24 H 24 H Blood Pressure Pulse Oximetry 100 Oxygen Delivery Mechanical Ventilation Fraction of Inspired Oxygen 30 01/29/25 22:00 01/29/25 22:00 01/29/25 22:00 Temperature Pulse Rate 75 75 75 Respiratory Rate 24 H Blood Pressure 114/48 L 114/48 L Pulse Oximetry Oxygen Delivery Fraction of Inspired Oxygen 01/29/25 22:00 01/29/25 22:00 01/29/25 22:41 Temperature 98.2 F Pulse Rate 75 73 71 Respiratory Rate 24 H Blood Pressure 114/48 L Pulse Oximetry 99 98 Oxygen Delivery Mechanical Ventilation Fraction of Inspired Oxygen 30 01/30/25 00:00 01/30/25 00:00 01/30/25 00:00 Temperature 98 F Pulse Rate 69 73 69 Respiratory Rate 24 H Blood Pressure 112/62 112/62 Pulse Oximetry 96 Oxygen Delivery Fraction of Inspired Oxygen 01/30/25 00:00 01/30/25 00:00 01/30/25 00:00 Temperature Pulse Rate 69 71 Respiratory Rate 24 H 24 H Blood Pressure Pulse Oximetry 99 Oxygen Delivery Mechanical Ventilation Fraction of Inspired Oxygen 30 30 01/30/25 00:00 01/30/25 00:00 01/30/25 00:40 Temperature Pulse Rate 71 71 68 Respiratory Rate 24 H Blood Pressure 112/62 113/61 Pulse Oximetry Oxygen Delivery Fraction of Inspired Oxygen 01/30/25 00:40 01/30/25 02:00 01/30/25 02:00 Temperature 98 F Pulse Rate 68 65 65 Respiratory Rate 24 H Blood Pressure 113/61 110/55 L Pulse Oximetry 95 Oxygen Delivery Fraction of Inspired Oxygen 01/30/25 02:00 01/30/25 02:00 01/30/25 02:00 Temperature Pulse Rate 65 65 65 Respiratory Rate 24 H 24 H Blood Pressure 110/55 L Pulse Oximetry Oxygen Delivery Fraction of Inspired Oxygen 01/30/25 02:00 01/30/25 02:22 01/30/25 02:25 Temperature Pulse Rate 65 85 79 Respiratory Rate 24 H Blood Pressure 110/55 L Pulse Oximetry 96 Oxygen Delivery Mechanical Ventilation Fraction of Inspired Oxygen 30 01/30/25 04:00 01/30/25 04:00 01/30/25 04:00 Temperature Pulse Rate 73 74 Respiratory Rate 24 H Blood Pressure 122/69 Pulse Oximetry 99 Oxygen Delivery Mechanical Ventilation Fraction of Inspired Oxygen 30 30 01/30/25 04:00 01/30/25 04:00 01/30/25 04:00 Temperature Pulse Rate 74 74 74 Respiratory Rate 24 H 24 H Blood Pressure 122/69 Pulse Oximetry Oxygen Delivery Fraction of Inspired Oxygen 01/30/25 04:00 01/30/25 04:00 01/30/25 04:50 Temperature 98.0 F Pulse Rate 76 73 75 Respiratory Rate 24 H Blood Pressure 122/69 Pulse Oximetry 95 95 Oxygen Delivery Mechanical Ventilation Fraction of Inspired Oxygen 30 01/30/25 06:00 01/30/25 06:00 01/30/25 06:00 Temperature 97.9 F Pulse Rate 69 68 69 Respiratory Rate 24 H Blood Pressure 112/65 112/65 Pulse Oximetry 96 Oxygen Delivery Fraction of Inspired Oxygen 01/30/25 06:00 01/30/25 06:00 01/30/25 06:00 Temperature Pulse Rate 69 69 69 Respiratory Rate 24 H 24 H Blood Pressure 112/65 Pulse Oximetry Oxygen Delivery Fraction of Inspired Oxygen 01/30/25 07:35 01/30/25 07:35 01/30/25 07:57 Temperature 97.8 F Pulse Rate 69 69 73 Respiratory Rate 24 H 24 H Blood Pressure Pulse Oximetry 95 95 Oxygen Delivery Mechanical Ventilation Fraction of Inspired Oxygen 30 01/30/25 08:00 01/30/25 08:00 01/30/25 08:00 Temperature Pulse Rate 73 73 Respiratory Rate 24 H 24 H Blood Pressure 120/64 Pulse Oximetry Oxygen Delivery Fraction of Inspired Oxygen 01/30/25 08:00 01/30/25 08:00 01/30/25 08:00 Temperature Pulse Rate 73 73 Respiratory Rate Blood Pressure 120/64 120/64 Pulse Oximetry Oxygen Delivery Mechanical Ventilation Fraction of Inspired Oxygen 30 01/30/25 08:00 01/30/25 08:01 01/30/25 08:31 Temperature Pulse Rate 79 73 Respiratory Rate 24 H Blood Pressure Pulse Oximetry Oxygen Delivery Fraction of Inspired Oxygen 30 01/30/25 10:00 01/30/25 10:00 01/30/25 10:00 Temperature 98.3 F Pulse Rate 77 77 77 Respiratory Rate 20 Blood Pressure 105/62 108/60 Pulse Oximetry 95 Oxygen Delivery Fraction of Inspired Oxygen 01/30/25 10:32 01/30/25 11:07 01/30/25 11:08 Temperature Pulse Rate 72 77 77 Respiratory Rate 20 20 Blood Pressure Pulse Oximetry 96 Oxygen Delivery Mechanical Ventilation Fraction of Inspired Oxygen 30 01/30/25 12:00 01/30/25 12:00 01/30/25 12:00 Temperature 98.3 F Pulse Rate 75 Respiratory Rate 20 Blood Pressure 110/56 L Pulse Oximetry 95 Oxygen Delivery Mechanical Ventilation Fraction of Inspired Oxygen 30 30 01/30/25 12:00 01/30/25 13:36 01/30/25 13:36 Temperature Pulse Rate 72 82 82 Respiratory Rate 20 Blood Pressure Pulse Oximetry 94 Oxygen Delivery Mechanical Ventilation Fraction of Inspired Oxygen 30 01/30/25 14:00 01/30/25 14:00 01/30/25 16:00 Temperature 98.1 F Pulse Rate 82 82 Respiratory Rate 20 Blood Pressure 122/61 Pulse Oximetry 95 Oxygen Delivery Mechanical Ventilation Fraction of Inspired Oxygen 30 01/30/25 16:00 01/30/25 16:00 01/30/25 16:30 Temperature 98.2 F Pulse Rate 78 77 Respiratory Rate 20 Blood Pressure 125/69 Pulse Oximetry 95 95 Oxygen Delivery Mechanical Ventilation Fraction of Inspired Oxygen 30 30 Intake/Output Intake/Output: Intake & Output 01/27/25 01/28/25 01/29/25 01/30/25 23:59 23:59 23:59 23:59 Intake Total 1259.0 1892.8 1985.8 2325.0 Output Total 165 600 625 950 Balance 1094.0 1292.8 1360.8 1375.0 Meds/Results Medications: Active Medications Generic Name Dose Route Start Last Admin Trade Name Freq PRN Reason Stop Dose Admin Acetaminophen 650 mg 01/25/25 11:14 01/25/25 18:58 Acetaminophen 325 Mg Tablet PO 650 mg Q4H PRN Administration Mild Pain (1-3) or Fever Baricitinib 1 mg 01/28/25 11:00 01/30/25 10:54 Baricitinib 1 Mg Tablet PO 02/08/25 11:01 1 mg DAILY@1100 NELLIE Administration Dexamethasone Sodium Phosphate 6 mg 01/26/25 09:00 01/30/25 08:35 Dexamethasone Sod Phos Inj 10 Mg/Ml 1 Ml Vial IV PUSH 02/04/25 09:01 6 mg DAILY NELLIE Administration Dextrose 12.5 gm 01/26/25 07:40 Dextrose 50% 25 Gm/50 Ml Syringe IV PUSH PRN PRN Hypoglycemia Protocol Enoxaparin Sodium 30 mg 01/26/25 09:00 01/30/25 08:35 Enoxaparin 30 Mg/0.3 Ml Syringe SUB-Q 30 mg DAILY NELLIE Administration Glucagon 1 mg 01/26/25 07:40 Glucagon For Inj 1 Mg Vial IM PRN PRN Hypoglycemia Protocol Glucose 15 gm 01/26/25 07:40 Glucose Oral Gel 15 Gm Of Glucse In 37.5 Gm Tube PO PRN PRN Hypoglycemia Protocol Dextrose 1,000 mls @ 100 mls/hr 01/26/25 07:40 Dextrose 5% 1,000 Ml IVPB PRN PRN Hypoglycemia Protocol Cefepime HCl 1 gm in 50 mls @ 100 mls/hr 01/27/25 10:15 01/30/25 09:10 Maxipime 1 Gm/Ns 50 Ml IVPB Infused Q12HR NELLIE Infusion Azithromycin 500 mg in 250 mls @ 250 mls/hr 01/27/25 12:00 01/30/25 09:40 Zithromax IVPB 02/03/25 11:59 Infused DAILY NELLIE Infusion Vancomycin HCl 1,250 mg in 250 mls @ 166.667 mls/hr 01/29/25 11:00 01/29/25 12:39 Vancomycin 1,250 Mg/Ns 250 Ml IVPB Infused Q36H NELLIE Infusion Insulin Aspart 3 - 6 units 01/26/25 12:00 01/30/25 11:50 Insulin Aspart (*Bkc) 100 Units/Ml SUB-Q 4 units Q6HR NELLIE Administration Protocol Insulin Glargine 30 units 01/30/25 09:00 01/30/25 08:36 Insulin Glargine (*Bkc) 100 Units/Ml SUB-Q 30 units DAILY NELLIE Administration Ipratropium [place] 0.5 mg 01/26/25 20:00 01/30/25 13:37 Ipratropium Br 0.02% Inh Soln 0.5 Mg/2.5 Ml Vial INHALATION 0.5 mg Q6HRT NELLIE Administration Levalbuterol HCl 1.25 mg 01/26/25 20:00 01/30/25 13:37 Levalbuterol Neb 1.25 Mg/3 Ml INHALATION 1.25 mg Q6HRT NELLIE Administration Memantine 10 mg 01/25/25 17:00 01/25/25 17:29 Memantine 10 Mg Tablet PO Not Given BID [facility] Metoprolol Tartrate 5 mg 01/26/25 15:20 01/26/25 21:15 Metoprolol Tartrate Inj 5 Mg/5 Ml Vial IV PUSH 5 mg Q6H PRN Administration Tachycardia Multi-Ingred Cream/Lotion/Oil/Oint 1 applic 01/26/25 21:00 01/30/25 08:34 Mineral Oil/White Petrolatum Ointment EACH EYE 1 applic Q12HR NELLIE Administration Pantoprazole Sodium 40 mg 01/27/25 09:00 01/30/25 08:33 Pantoprazole Sodium Iv 40 Mg Vial IV PUSH 40 mg QAM NELLIE Administration Sodium Chloride 10 ml 01/27/25 14:00 01/30/25 14:20 Central Line Flush IV PUSH 10 ml Q8HR NELLIE Administration Sodium Chloride 10 ml 01/27/25 11:45 Central Line Flush IV PUSH PRN PRN with TPN bag changes Sodium Chloride 20 ml 01/27/25 11:45 Central Line Flush IV PUSH PRN PRN after blood draws Radiology Results: ITS Impressions Abdomen X-Ray 01/26/25 20:53 IMPRESSION: Bibasilar airspace disease. Small bilateral pleural effusions, likely with a subpulmonic component on the right. NG tube in good position. Renal Ultrasound 01/28/25 12:53 Impression: No hydronephrosis. Trace right perinephric fluid. Chest X-Ray 01/30/25 07:20 IMPRESSION: 1. Small left pleural effusion with bilateral lung disease which could represent pneumonia, atelectasis, ARDS or some combination thereof. Labs Labs: Laboratory Results - last 24 hr 01/29/25 01/29/25 01/29/25 04:28 18:10 23:49 WBC RBC Hgb Hct MCV MCH MCHC RDW Plt Count MPV Immature Gran % (Auto) Neut % (Auto) Lymph % (Auto) [place] % (Auto) Eos % (Auto) Baso % (Auto) Lymph # (Auto) [place] # (Auto) Eos # (Auto) Baso # (Auto) Abs Immat Gran (auto) Absolute Neuts (auto) Absolute Nucleated RBC Nucleated RBC % PT INR APTT Puncture Site ABG pH ABG pCO2 ABG pO2 ABG PO2/FiO2 Ratio ABG HCO3 ABG O2 Saturation ABG O2 Content ABG Base Excess A-a Gradient Oxyhemoglobin Carboxyhemoglobin Methemoglobin Reduced Hemoglobin Total Hemoglobin O2 Delivery Device O2 Liters/Min Minute Volume Vent Rate Vent Mode FiO2 Tidal Volume PEEP Peak Inspir Pressure Pressure Support Sodium Potassium Chloride Carbon Dioxide Anion Gap BUN Creatinine Estim Creat Clear Calc Estimated GFR Glucose POC Capillary Glucose 309 H 269 H Lactic Acid Calcium Phosphorus Magnesium Total Bilirubin AST ALT Alkaline Phosphatase Total Protein Albumin Hep B Core Total Ab Non-reactive 01/30/25 01/30/25 01/30/25 04:49 05:21 08:30 WBC 7.5 RBC 3.02 L Hgb 9.3 L Hct 28.9 L MCV 95.7 MCH 30.8 MCHC 32.2 RDW 14.0 Plt Count 134 L MPV 10.8 H Immature Gran % (Auto) 1.2 H Neut % (Auto) 88.5 H Lymph % (Auto) 4.3 L [place] % (Auto) 5.9 Eos % (Auto) 0.0 Baso % (Auto) 0.1 L Lymph # (Auto) 0.32 L [place] # (Auto) 0.4 Eos # (Auto) 0.0 Baso # (Auto) 0.0 Abs Immat Gran (auto) 0.09 H Absolute Neuts (auto) 6.7 Absolute Nucleated RBC 0.040 H Nucleated RBC % 0.5 H PT 20.5 H INR 1.7 APTT 40.2 H Puncture Site Left radial ABG pH 7.476 H ABG pCO2 25.1 L ABG pO2 90.2 ABG PO2/FiO2 Ratio 3.01 ABG HCO3 18.1 L ABG O2 Saturation 97.5 ABG O2 Content 14.1 L ABG Base Excess -4.3 A-a Gradient 94.2 Oxyhemoglobin 95.7 Carboxyhemoglobin 0.3 Methemoglobin 0.0 Reduced Hemoglobin 4.0 Total Hemoglobin 10.4 L O2 Delivery Device Ventilator O2 Liters/Min Not Reportable Minute Volume Not Reportable Vent Rate 24 Vent Mode Cmv FiO2 30 Tidal Volume 400 PEEP 10 Peak Inspir Pressure Not Reportable Pressure Support Not Reportable Sodium 144 Potassium 3.6 Chloride 109 H Carbon Dioxide 22 Anion Gap 13 H BUN 122 H Creatinine 2.23 H Estim Creat Clear Calc 20 Estimated GFR 28 L Glucose 239 H POC Capillary Glucose Lactic Acid 2.4 H 2.4 H Calcium 9.0 Phosphorus 2.8 Magnesium 2.8 H Total Bilirubin 0.3 AST 67 H ALT 202 H Alkaline Phosphatase 88 Total Protein 5.0 L Albumin 3.2 L Hep B Core Total Ab 01/30/25 11:18 WBC RBC Hgb Hct MCV MCH MCHC RDW Plt Count MPV Immature Gran % (Auto) Neut % (Auto) Lymph % (Auto) [place] % (Auto) Eos % (Auto) Baso % (Auto) Lymph # (Auto) [place] # (Auto) Eos # (Auto) Baso # (Auto) Abs Immat Gran (auto) Absolute Neuts (auto) Absolute Nucleated RBC Nucleated RBC % PT INR APTT Puncture Site ABG pH ABG pCO2 ABG pO2 ABG PO2/FiO2 Ratio ABG HCO3 ABG O2 Saturation ABG O2 Content ABG Base Excess A-a Gradient Oxyhemoglobin Carboxyhemoglobin Methemoglobin Reduced Hemoglobin Total Hemoglobin O2 Delivery Device O2 Liters/Min Minute Volume Vent Rate Vent Mode FiO2 Tidal Volume PEEP Peak Inspir Pressure Pressure Support Sodium Potassium Chloride Carbon Dioxide Anion Gap BUN Creatinine Estim Creat Clear Calc Estimated GFR Glucose POC Capillary Glucose 251 H Lactic Acid Calcium Phosphorus Magnesium Total Bilirubin AST ALT Alkaline Phosphatase Total Protein Albumin Hep B Core Total Ab Quality VTE Prophylaxis VTE prophylaxis: pharmacologic ordered
[2025-01-30 18:05] LABS: Glucose Point of Care 220 mg/dl (65-105)
[2025-01-30] MEDS: VANCOMYCIN 1,250 MG/NS 250 ML 1,250 MG/250 ML BAG 166.67 MG IVPB (22:04)
[2025-01-30 23:36] LABS: Glucose Point of Care 207 mg/dl (65-105)
[2025-01-31] VITALS (37 sets, daily range): BP systolic 90–144; BP diastolic 55–82; PULSE 71–146; RESP 17–28; TEMP 36.6–36.9; O2SAT 85–100
[2025-01-31] MEDS: LEVALBUTEROL NEB 1.25 MG/3 ML INHALATION ×4 (02:42→20:04)
[2025-01-31] MEDS: IPRATROPIUM BR 0.02% INH SOLN 0.5 MG/2.5 ML VIAL INHALATION ×4 (02:42→20:04)
[2025-01-31 04:59] LABS: Basophils Percent Auto 0.1 % (0.2-1.2); Hematocrit 33.8 % (42.0-52.0); Hemoglobin 10.7 g/dL (14.0-18.0); Immature Granulocyte Percent A 1.9 % (0-0.5); Lymphocytes Absolute Auto 0.33 K/mm3 (0.9-3.2); Lymphocytes Percent Auto 2.1 % (18.3-44.2); Mean Corpuscular HGB Conc 31.7 g/dl (32-36); Mean Corpuscular Hemoglobin 30.4 pg (26-34); Mean Platelet Volume 11.4 fl (7.4-10.4); Monocytes Percent Auto 6.5 % (2.6-8.5); Neutrophils Absolute Auto 13.9 K/mm3 (1.3-6.7); Neutrophils Percent Auto 89.4 % (45.5-73.1); Nucleated Red Blood Cells Perc 0.1 % (0.0-0.2); Platelet Count Result 184 k/mm3 (150-375); Red Blood Count 3.52 M/mm3 (4.6-6.20); Red Cell Distribution Width 14.2 % (11.5-14.5); White Blood Count 15.6 K/mm3 (4.5-10.0)
[2025-01-31 05:15] LABS: Alanine Aminotransferase 201 U/L (6-50); Albumin Level 3.3 g/dL (3.5-5.1); Alkaline Phosphatase 106 U/L (38-126); Anion Gap 11 mmol/L (4-12); Aspartate Amino Transferase 64 U/L (17-59); Bilirubin,Total 0.4 mg/dL (0.2-1.3); Calcium 9.3 mg/dL (8.4-10.2); Carbon Dioxide 23 mmol/L (22-30); Chloride 112 mmol/L (98-107); Estimated CRCL calculation 23 ml/min; Estimated Glomerular Filt Rate 33; Glucose 233 mg/dL (65-110); Magnesium 2.7 mg/dL (1.6-2.3); Phosphorus 3.1 mg/dL (2.5-4.5); Potassium 4.3 mmol/L (3.4-5.0); Sodium 146 mmol/L (137-145)
[2025-01-31 05:18] LABS: Alveolar/Arterial O2 Gradient 154.8 mmHg; Base Excess ABG -1.4 mEq/l (+/-2.0); Carboxyhemoglobin 0.3 % THb (0-2.0); Fractional Inspired Oxygen 35 %; HCO3 ABG 21.6 mEq/l (22.0-26.0); Methemoglobin ABG 0.3 %THb (0-1.5); Oxygen Content ABG 14.6 %vol (16.0-22.0); Oxygen Saturation ABG 92.1 % (95.0-100.0); Oxyhemoglobin 89.6 % THb (90.0-100.0); PCO2 ABG 31.1 mmHg (35.0-45.0); PO2 ABG 58.6 mmHg (80.0-100.0); PO2 FiO2 Ratio Arterial Blood 1.67 %; Reduced Hemoglobin 9.8 %THb (0-5.0); Total Hemoglobin 11.6 g/dL (12.0-18.0)
[2025-01-31 05:23] LABS: Device VENTILATOR; Modified Allen's Test Pass; Site Drawn LEFT RADIAL
[2025-01-31 05:24] LABS: Arterial Blood Gas PEEP 8 cmH2O; Arterial Blood Gas Vent Mode CMV; Arterial Blood Gas Ventilator rate 20 /MIN
[2025-01-31 05:25] LABS: Arterial Blood Gas Tidal Volume 400 ml
[2025-01-31 05:25] LABS: Blood Urea Nitrogen 118 mg/dL (9-20)
[2025-01-31] MEDS: INSULIN ASPART (*BKC) 100 UNITS/ML SUB-Q ×3 (05:36→18:11)
[2025-01-31] MEDS: CENTRAL LINE FLUSH 10 ML IV PUSH ×3 (05:36→21:28)
[2025-01-31] MEDS: CEFEPIME 1 GM/NS 50 ML 1 GM/50 ML BAG IVPB ×2 (08:00→21:28)
[2025-01-31] MEDS: ENOXAPARIN 30 MG/0.3 ML SYRINGE SUB-Q (08:00)
[2025-01-31] MEDS: PANTOPRAZOLE SODIUM IV 40 MG VIAL IV PUSH (08:00)
[2025-01-31] MEDS: AZITHROMYCIN 500 MG/NS 250 ML 500 MG/250 ML BAG 250 MG IVPB (08:00)
[2025-01-31] MEDS: dexAMETHasone SOD PHOS INJ 10 MG/ML 1 ML VIAL 6 MG IV PUSH (08:00)
[2025-01-31] MEDS: MINERAL OIL/WHITE PETROLATUM OINTMENT 1 APPLIC EACH EYE ×2 (08:01→21:29)
[2025-01-31] MEDS: INSULIN GLARGINE (*BKC) 100 UNITS/ML 38 UNITS SUB-Q (08:04)
[2025-01-31] MEDS: dexmedeTOMIDine 400 MCG/100 ML 400 MCG/100 ML BAG IV CONT (08:15)
--- NOTE | 2025-01-31 08:19 | WPDINTPN ---
Progress Note: A&P Assessment and Plan (1) Acute respiratory failure: Code(s): J96.00 - Acute respiratory failure, unspecified whether with hypoxia or hypercapnia <Lisa Ahumada, Student - Last Filed: 01/31/25 08:35> Status: Acute <Lisa Ahumada Student - Last Filed: 01/31/25 08:35> Assessment and Plan: Acute respiratory failure likely related to pneumonia, COVID-19 -chest x-ray this morning, reviewed -chief ABGs reviewed, ventilator adjusted -Continue Azithromycin and Vancomycin -Continue Cefepime (01/27) -Continue Dexamethasone 01/27-preliminary cultures shows no growth x2 01/31- Sputum culture final: No organism seen <Lisa Ahumada, Student - Last Filed: 01/31/25 08:35> Acute respiratory failure likely related to pneumonia, COVID-19 -chest x-ray this morning, reviewed - ABGs reviewed, ventilator adjusted, increase PEEP back to 10, FiO2 was increased maintain O2 sats greater than 92% -Continue Azithromycin and Vancomycin -Continue Cefepime (01/27) -Continue Dexamethasone -patient getting tachycardic, will start Precedex 01/27-preliminary cultures shows no growth x2 01/31- Sputum culture final: No organism seen <Eloy Emmanuel MD - Last Filed: 01/31/25 09:42> (2) Pneumonia: Code(s): J18.9 - Pneumonia, unspecified organism <Lisa Ahumada, Student - Last Filed: 01/31/25 08:35> Status: Acute <Lisa Ahumada, Student - Last Filed: 01/31/25 08:35> Assessment and Plan: Continue as above <Lisa Ahumada Student - Last Filed: 01/31/25 08:35> (3) COVID: Code(s): U07.1 - COVID-19 <Lisa Ahumada, Student - Last Filed: 01/31/25 08:35> Status: Acute <Lisa Ahumada Student - Last Filed: 01/31/25 08:35> Assessment and Plan: Patient has been positive for COVID 19. Chest x-ray shows worsening infiltrates -continue remdesivir, dexamethasone (01/25) -continue baricitinib (01/26), renally dosed by pharmacy -continue droplet and contact isolation/precautions 01/27- rising LFT's likely transient related to rapid response, will continue to monitor. No change to Remdesivir at this time. 01/30- LFT's trending down. Remdesivir course completed <Lisa Ahumada Student - Last Filed: 01/31/25 08:35> Patient has been positive for COVID 19. Chest x-ray shows worsening infiltrates -continue remdesivir, dexamethasone (01/25) -continue baricitinib (01/26), renally dosed by pharmacy -continue droplet and contact isolation/precautions 01/27- rising LFT's likely transient related to rapid response, will continue to monitor. No change to Remdesivir at this time. 01/31- LFT's trending down. Remdesivir course completed <Eloy Emmanuel MD - Last Filed: 01/31/25 09:42> (4) Sepsis: Code(s): A41.9 - Sepsis, unspecified organism <Lisa Ahumada Student - Last Filed: 01/31/25 08:35> Status: Acute <Lisa Ahumada Student - Last Filed: 01/31/25 08:35> Assessment and Plan: Patient presented with tachycardia, tachypnea, hypoxia, and acute kidney injury -adequately fluid-resuscitated, s/p albumin for intravascular volume expansion -urine output has been adequate, will continue to follow -01/27: status post LR at 100 mL/hour for 1000 mL -01/28: Lactic acid resolved -01/29: increase in lactic acid to 2.3, patient received maintenance IV fluids at 75 mL for 1000 ml <Lisa Ahumada Student - Last Filed: 01/31/25 08:35> (5) MICHAEL (acute kidney injury): Code(s): N17.9 - Acute kidney failure, unspecified <Lisa Ahumada Student - Last Filed: 01/31/25 08:35> Status: Acute <Lisa Ahumada Student - Last Filed: 01/31/25 08:35> Assessment and Plan: Acute kidney injury likely related to sepsis, -adequately fluid-resuscitated -continue to monitor urine output, renal function and electrolytes -nephrology has been consulted -urine lytes do not reflect pre renal, CK level 317, negative urine eosinophils -01/28: Renal ultrasound ordered and demonstrated no hydronephrosis, but trace right perinephric fluid present -01/29: Discuss with Nephrology, will give LR at 75 mL for a total of 1000 mL -01/31: Improved urine output, creatinine trending down <Lisa Arredondosocorro, - Last Filed: 01/31/25 08:35> (6) Dementia: Qualifiers: Dementia behavioral or psychological symptom: unspecified whether behavioral, psychotic, or mood disturbance or anxiety Dementia severity: unspecified severity Dementia type: unspecified type Qualified Code(s): F03.90 - Unspecified dementia, unspecified severity, without behavioral disturbance, psychotic disturbance, mood disturbance, and anxiety <Lisa Arredondosocorro, - Last Filed: 01/31/25 08:35> Code(s): F03.90 - Unspecified dementia, unspecified severity, without behavioral disturbance, psychotic disturbance, mood disturbance, and anxiety <Lisa Arredondosocorro, - Last Filed: 01/31/25 08:35> Status: Acute <Lisa Arredondosocorro, - Last Filed: 01/31/25 08:35> Assessment and Plan: Baseline cognitive impairment, on Namenda at home, will continue to hold for now <Lisa Arredondosocorro, - Last Filed: 01/31/25 08:35> (7) Generalized weakness: Code(s): R53.1 - Weakness <Lisa Blevins Zita, - Last Filed: 01/31/25 08:35> Status: Acute <Lisa Arredondosocorro, - Last Filed: 01/31/25 08:35> Assessment and Plan: Generalized weakness could be related to hypoxia, tachypnea, COVID-19, pneumonia -continue to manage underlying issues <Lisa Belvins Zita, - Last Filed: 01/31/25 08:35> (8) Hyperlipidemia: Qualifiers: Hyperlipidemia type: unspecified Qualified Code(s): E78.5 - Hyperlipidemia, unspecified <Lisa McdonaldJesus Ahumada, - Last Filed: 01/31/25 08:35> Code(s): E78.5 - Hyperlipidemia, unspecified <Lisa Ahumada Student - Last Filed: 01/31/25 08:35> Status: Acute <Lisa Ahumada - Last Filed: 01/31/25 08:35> Assessment and Plan: continue pravastatin <Lisa Ahumada, - Last Filed: 01/31/25 08:35> (9) Pre-diabetes: Code(s): R73.03 - Prediabetes <Lisa Ahumada, Student - Last Filed: 01/31/25 08:35> Status: Acute <Lisa Ahumada, - Last Filed: 01/31/25 08:35> Assessment and Plan: Accu-Cheks and sliding scale insulin 05/02: Glucose of 283, will increase Lantus 05/03: Glucose of 239, lantus increased to 30 units 05/04: Glucose of 233, lantus increased to 38 units <Lisa Ahumada, Student - Last Filed: 01/31/25 08:35> Accu-Cheks and sliding scale insulin 05/02: Glucose of 283, will increase Lantus 05/03: Glucose of 239, lantus increased to 30 units 05/04: Hyperglycemia, lantus increased to 38 units, this could be related due to steroids and increasing tube feeds 12/16/2024: Hemoglobin A1c was 6.4 <Eloy Emmanuel MD - Last Filed: 01/31/25 09:42> (10) Tachycardia: Code(s): R00.0 - Tachycardia, unspecified <Lisa Ahumada, Student - Last Filed: 01/31/25 08:35> Status: Acute <Lisa Ahumada, - Last Filed: 01/31/25 08:35> Assessment and Plan: 01/31- Pt tachycardic on exam, HR between 130-137, pt denies chest pain - ordered 1 time dose of Metoprolol - continue to monitor <Lisa Ahumada, - Last Filed: 01/31/25 08:35> Assessment and Plan: DVT prophylaxis: Enoxaparin Stress ulcer prophylaxis: Protonix Nutrition: Increased tube feed to goal Code Status: Okay to intubation but no CPR Critical Care Time Spent: 32 minutes Discuss with family in rounds and updated them with patient's condition and plan of care. I answered all questions Due to a high probability of clinically significant, life threatening deterioration, the patient required my highest level of preparedness to intervene emergently and I personally spent this critical care time directly and personally managing the patient. This critical care time included obtaining a history; examining the patient; pulse oximetry; ordering and review of studies; arranging urgent treatment with development of a management plan; evaluation of patient's response to treatment; frequent reassessment; and discussions with other providers. It was exclusive of separately billable procedures and treating other patients and teaching time. Please see Assessment and Plan section and the rest of the note for further information on patient assessment and treatment This dictation may have been done utilizing a voice recognition system. Attempts have been made to correct errors. However, there may be uncorrected grammatical, spelling, and recognitions errors present. <Lisa Ahumada Student - Last Filed: 01/31/25 08:35> Subjective Date/time seen: 01/31/25 08:19 <Lisa Ahumada, Student - Last Filed: 01/31/25 08:35> Interval history: 01/26/25- Intubated 01/31/25- Pt seen and examined in the ICU, remains intubated on CMV mode of ventilation, peep of 10, 55% FiO2. Sedation and Amiodarone are off. Adequate urine output, creatinine improving. LFTs trending down. Afebrile. Opens eyes and follows simple commands. Pt tachycardic on exam, but denies chest pain. <Lisa Ahumada, Student - Last Filed: 01/31/25 08:35> Review of Systems Review of Systems: ROS unobtainable: Yes unobtainable due to endotracheal tube, unobtainable due to medical condition and unobtainable due to mental status <Lisa Ahumada, Student - Last Filed: 01/31/25 08:35> Exam Narrative: General: Intubated, in no acute distress HEENT:? Pupils equal and reactive, sclera is clear, ETT in place Neck:? Supple Respiratory:? Coarse breath sounds bilaterally, right greater than left, no wheezing, adequate air entry Cardiac:? S1-S2 normal, regular rhythm, Tachycardic Abdomen:? Soft, nontender, hypoactive bowel sounds Extremities:? No edema, palpable pedal pulses Neuro:? Patient remains intubated off sedation, Opens his eyes and follow simple commands Skin:? No skin lesions noted Psych:? Unable to assess at this time <Simi Wolfe - Last Filed: 01/31/25 08:35> General: Intubated, in no acute distress HEENT:? Pupils equal and reactive, sclera is clear, ETT in place Neck:? Supple Respiratory:? Coarse breath sounds bilaterally, right greater than left, no wheezing, adequate air entry Cardiac:? S1-S2 normal, regular rhythm, Tachycardic Abdomen:? Soft, nontender, hypoactive bowel sounds Extremities:? No edema, palpable pedal pulses Neuro:? Patient remains intubated off sedation, Opens his eyes and follow simple commands in all extremities Skin:? No skin lesions noted Psych:? Unable to assess at this time <Eloy Emmanuel MD - Last Filed: 01/31/25 09:42> Objective Data Vital Signs Vital Signs: Vital Signs - 24 hr 01/30/25 08:31 01/30/25 10:00 01/30/25 10:00 Temperature 98.3 F Pulse Rate 77 77 Respiratory Rate 20 Blood Pressure 105/62 108/60 Pulse Oximetry 95 Oxygen Delivery Fraction of Inspired Oxygen 30 01/30/25 10:00 01/30/25 10:32 01/30/25 11:07 Temperature Pulse Rate 77 72 77 Respiratory Rate 20 Blood Pressure Pulse Oximetry 96 Oxygen Delivery Mechanical Ventilation Fraction of Inspired Oxygen 30 01/30/25 11:08 01/30/25 12:00 01/30/25 12:00 Temperature Pulse Rate 77 Respiratory Rate 20 Blood Pressure Pulse Oximetry Oxygen Delivery Mechanical Ventilation Fraction of Inspired Oxygen 30 30 01/30/25 12:00 01/30/25 12:00 01/30/25 13:36 Temperature 98.3 F Pulse Rate 75 72 82 Respiratory Rate 20 20 Blood Pressure 110/56 L Pulse Oximetry 95 Oxygen Delivery Fraction of Inspired Oxygen 01/30/25 13:36 01/30/25 14:00 01/30/25 14:00 Temperature 98.1 F Pulse Rate 82 82 82 Respiratory Rate 20 Blood Pressure 122/61 Pulse Oximetry 94 95 Oxygen Delivery Mechanical Ventilation Fraction of Inspired Oxygen 30 01/30/25 16:00 01/30/25 16:00 01/30/25 16:00 Temperature 98.2 F Pulse Rate 78 Respiratory Rate 20 Blood Pressure 125/69 Pulse Oximetry 95 Oxygen Delivery Mechanical Ventilation Fraction of Inspired Oxygen 30 30 01/30/25 16:00 01/30/25 16:30 01/30/25 18:00 Temperature 98.4 F Pulse Rate 89 77 89 Respiratory Rate 20 Blood Pressure 125/65 Pulse Oximetry 95 96 Oxygen Delivery Mechanical Ventilation Fraction of Inspired Oxygen 30 01/30/25 18:00 01/30/25 20:00 01/30/25 20:00 Temperature 98.4 F Pulse Rate 85 84 85 Respiratory Rate 20 Blood Pressure 122/64 Pulse Oximetry 96 Oxygen Delivery Fraction of Inspired Oxygen 01/30/25 20:00 01/30/25 20:00 01/30/25 20:35 Temperature Pulse Rate 90 85 Respiratory Rate 20 Blood Pressure Pulse Oximetry 96 96 Oxygen Delivery Mechanical Ventilation Mechanical Ventilation Fraction of Inspired Oxygen 30 30 30 01/30/25 20:37 01/30/25 20:53 01/30/25 22:00 Temperature Pulse Rate 85 83 88 Respiratory Rate 20 20 Blood Pressure Pulse Oximetry Oxygen Delivery Fraction of Inspired Oxygen 01/30/25 22:00 01/30/25 23:04 01/31/25 00:00 Temperature 98.5 F Pulse Rate 88 88 87 Respiratory Rate 20 Blood Pressure 120/68 Pulse Oximetry 95 93 Oxygen Delivery Mechanical Ventilation Fraction of Inspired Oxygen 30 01/31/25 00:00 01/31/25 00:00 01/31/25 00:00 Temperature 98.4 F Pulse Rate 89 90 Respiratory Rate 20 20 Blood Pressure 115/61 Pulse Oximetry 92 96 Oxygen Delivery Mechanical Ventilation Fraction of Inspired Oxygen 30 30 01/31/25 02:00 01/31/25 02:00 01/31/25 02:39 Temperature 98.2 F Pulse Rate 82 82 92 Respiratory Rate 20 22 H Blood Pressure 118/63 Pulse Oximetry 93 Oxygen Delivery Fraction of Inspired Oxygen 01/31/25 02:46 01/31/25 02:54 01/31/25 04:00 Temperature Pulse Rate 92 91 Respiratory Rate 22 H Blood Pressure Pulse Oximetry 91 Oxygen Delivery Mechanical Ventilation Fraction of Inspired Oxygen 30 35 01/31/25 04:00 01/31/25 04:00 01/31/25 04:00 Temperature 98.0 F Pulse Rate 89 94 90 Respiratory Rate 20 20 Blood Pressure 129/70 Pulse Oximetry 91 96 Oxygen Delivery Mechanical Ventilation Fraction of Inspired Oxygen 30 01/31/25 05:09 01/31/25 06:00 01/31/25 06:00 Temperature 98.0 F Pulse Rate 84 87 87 Respiratory Rate 20 Blood Pressure 144/82 H Pulse Oximetry 91 91 Oxygen Delivery Mechanical Ventilation Fraction of Inspired Oxygen 35 01/31/25 07:40 01/31/25 07:45 01/31/25 07:45 Temperature 97.8 F Pulse Rate 136 H 137 H Respiratory Rate 20 Blood Pressure 125/69 Pulse Oximetry 89 L 85 L Oxygen Delivery Fraction of Inspired Oxygen 45 01/31/25 07:57 01/31/25 08:00 01/31/25 08:10 Temperature Pulse Rate 99 109 H Respiratory Rate 24 H Blood Pressure Pulse Oximetry 96 Oxygen Delivery Mechanical Ventilation Fraction of Inspired Oxygen 45 45 01/31/25 08:16 Temperature Pulse Rate 141 H Respiratory Rate 28 H Blood Pressure Pulse Oximetry Oxygen Delivery Fraction of Inspired Oxygen <Lisa Ahumada, Student - Last Filed: 01/31/25 08:35> Intake/Output Intake/Output: Intake & Output 01/28/25 01/29/25 01/30/25 01/31/25 23:59 23:59 23:59 23:59 Intake Total 1892.8 1985.8 2375.0 999 Output Total 600 625 950 700 Balance 1292.8 1360.8 1425.0 299 <Lisa Ahumada, Student - Last Filed: 01/31/25 08:35> Meds/Results Medications: Active Medications Generic Name Dose Route Start Last Admin Trade Name Freq PRN Reason Stop Dose Admin Acetaminophen 650 mg 01/25/25 11:14 01/25/25 18:58 Acetaminophen 325 Mg Tablet PO 650 mg Q4H PRN Administration Mild Pain (1-3) or Fever Baricitinib 2 mg 01/31/25 11:00 Baricitinib 2 Mg Tablet PO 02/08/25 11:01 DAILY@1100 NELLIE Dexamethasone Sodium Phosphate 6 mg 01/26/25 09:00 01/31/25 08:00 Dexamethasone Sod Phos Inj 10 Mg/Ml 1 Ml Vial IV PUSH 02/04/25 09:01 6 mg DAILY NELLIE Administration Dextrose 12.5 gm 01/26/25 07:40 Dextrose 50% 25 Gm/50 Ml Syringe IV PUSH PRN PRN Hypoglycemia Protocol Enoxaparin Sodium 30 mg 01/26/25 09:00 01/31/25 08:00 Enoxaparin 30 Mg/0.3 Ml Syringe SUB-Q 30 mg DAILY NELLIE Administration Glucagon 1 mg 01/26/25 07:40 Glucagon For Inj 1 Mg Vial IM PRN PRN Hypoglycemia Protocol Glucose 15 gm 01/26/25 07:40 Glucose Oral Gel 15 Gm Of Glucse In 37.5 Gm Tube PO PRN PRN Hypoglycemia Protocol Dextrose 1,000 mls @ 100 mls/hr 01/26/25 07:40 Dextrose 5% 1,000 Ml IVPB PRN PRN Hypoglycemia Protocol Cefepime HCl 1 gm in 50 mls @ 100 mls/hr 01/27/25 10:15 01/31/25 08:00 Maxipime 1 Gm/Ns 50 Ml IVPB 100 mls/hr Q12HR NELLIE Administration Azithromycin 500 mg in 250 mls @ 250 mls/hr 01/27/25 12:00 01/31/25 08:00 Zithromax IVPB 02/03/25 11:59 250 mls/hr DAILY NELLIE Administration Vancomycin HCl 1,250 mg in 250 mls @ 166.667 mls/hr 01/29/25 11:00 01/30/25 22:04 Vancomycin 1,250 Mg/Ns 250 Ml IVPB 166.67 mls/hr Q36H NELLIE Administration Dexmedetomidine HCl 400 mcg in 100 mls @ 3.695 mls/hr 01/31/25 08:15 Precedex 400 Mcg/100 Ml IV CONT .Q27H4M NELLIE Protocol 0.2 MCG/KG/HR Insulin Aspart 3 - 6 units 01/26/25 12:00 01/31/25 05:36 Insulin Aspart (*Bkc) 100 Units/Ml SUB-Q 3 units Q6HR NELLIE Administration Protocol Insulin Glargine 38 units 01/31/25 09:00 01/31/25 08:04 Insulin Glargine (*Bkc) 100 Units/Ml SUB-Q 38 units DAILY NELLIE Administration Ipratropium [place] 0.5 mg 01/26/25 20:00 01/31/25 07:57 Ipratropium Br 0.02% Inh Soln 0.5 Mg/2.5 Ml Vial INHALATION 0.5 mg Q6HRT NELLIE Administration Levalbuterol HCl 1.25 mg 01/26/25 20:00 01/31/25 07:57 Levalbuterol Neb 1.25 Mg/3 Ml INHALATION 1.25 mg Q6HRT NELLIE Administration Memantine 10 mg 01/25/25 17:00 01/25/25 17:29 Memantine 10 Mg Tablet PO Not Given BID NELLIE Metoprolol Tartrate 5 mg 01/26/25 15:20 01/26/25 21:15 Metoprolol Tartrate Inj 5 Mg/5 Ml Vial IV PUSH 5 mg Q6H PRN Administration Tachycardia Multi-Ingred Cream/Lotion/Oil/Oint 1 applic 01/26/25 21:00 01/31/25 08:01 Mineral Oil/White Petrolatum Ointment EACH EYE 1 applic Q12HR NELLIE Administration Pantoprazole Sodium 40 mg 01/27/25 09:00 01/31/25 08:00 Pantoprazole Sodium Iv 40 Mg Vial IV PUSH 40 mg QAM NELLIE Administration Sodium Chloride 10 ml 01/27/25 14:00 01/31/25 05:36 Central Line Flush IV PUSH 10 ml Q8HR NELLIE Administration Sodium Chloride 10 ml 01/27/25 11:45 Central Line Flush IV PUSH PRN PRN with TPN bag changes Sodium Chloride 20 ml 01/27/25 11:45 Central Line Flush IV PUSH PRN PRN after blood draws <Lisa Ahumada, Student - Last Filed: 01/31/25 08:35> Radiology Results: ITS Impressions Abdomen X-Ray 01/26/25 20:53 IMPRESSION: Bibasilar airspace disease. Small bilateral pleural effusions, likely with a subpulmonic component on the right. NG tube in good position. Renal Ultrasound 01/28/25 12:53 Impression: No hydronephrosis. Trace right perinephric fluid. Chest X-Ray 01/31/25 07:32 IMPRESSION: Bilateral pneumonia which is increased more on the right side. Underlying pulmonary edema is not excluded. <Lisa Ahumada, Student - Last Filed: 01/31/25 08:35> Labs Labs: Laboratory Results - last 24 hr 01/30/25 01/30/25 01/30/25 08:30 11:18 17:59 WBC RBC Hgb Hct MCV MCH MCHC RDW Plt Count MPV Immature Gran % (Auto) Neut % (Auto) Lymph % (Auto) [place] % (Auto) Eos % (Auto) Baso % (Auto) Lymph # (Auto) [place] # (Auto) Eos # (Auto) Baso # (Auto) Abs Immat Gran (auto) Absolute Neuts (auto) Absolute Nucleated RBC Nucleated RBC % Puncture Site ABG pH ABG pCO2 ABG pO2 ABG PO2/FiO2 Ratio ABG HCO3 ABG O2 Saturation ABG O2 Content ABG Base Excess A-a Gradient Oxyhemoglobin Carboxyhemoglobin Methemoglobin Reduced Hemoglobin Total Hemoglobin O2 Delivery Device O2 Liters/Min Minute Volume Vent Rate Vent Mode FiO2 Tidal Volume PEEP Peak Inspir Pressure Pressure Support Sodium Potassium Chloride Carbon Dioxide Anion Gap BUN Creatinine Estim Creat Clear Calc Estimated GFR Glucose POC Capillary Glucose 251 H 220 H Lactic Acid 2.4 H Calcium Phosphorus Magnesium Total Bilirubin AST ALT Alkaline Phosphatase Total Protein Albumin 01/30/25 01/31/25 01/31/25 23:27 04:18 05:08 WBC 15.6 H RBC 3.52 L Hgb 10.7 L Hct 33.8 L MCV 96.0 MCH 30.4 MCHC 31.7 L RDW 14.2 Plt Count 184 MPV 11.4 H Immature Gran % (Auto) 1.9 H Neut % (Auto) 89.4 H Lymph % (Auto) 2.1 L [place] % (Auto) 6.5 Eos % (Auto) 0.0 Baso % (Auto) 0.1 L Lymph # (Auto) 0.33 L [place] # (Auto) 1.0 H Eos # (Auto) 0.0 Baso # (Auto) 0.0 Abs Immat Gran (auto) 0.30 H Absolute Neuts (auto) 13.9 H Absolute Nucleated RBC 0.020 H Nucleated RBC % 0.1 Puncture Site Left radial ABG pH 7.460 H ABG pCO2 31.1 L ABG pO2 58.6 L ABG PO2/FiO2 Ratio 1.67 ABG HCO3 21.6 L ABG O2 Saturation 92.1 L ABG O2 Content 14.6 L ABG Base Excess -1.4 A-a Gradient 154.8 Oxyhemoglobin 89.6 L Carboxyhemoglobin 0.3 Methemoglobin 0.3 Reduced Hemoglobin 9.8 H Total Hemoglobin 11.6 L O2 Delivery Device Ventilator O2 Liters/Min Not Reportable Minute Volume Not Reportable Vent Rate 20 Vent Mode Cmv FiO2 35 Tidal Volume 400 PEEP 8 Peak Inspir Pressure Not Reportable Pressure Support Not Reportable Sodium 146 H Potassium 4.3 Chloride 112 H Carbon Dioxide 23 Anion Gap 11 BUN 118 H Creatinine 1.97 H Estim Creat Clear Calc 23 Estimated GFR 33 L Glucose 233 H POC Capillary Glucose 207 H Lactic Acid Calcium 9.3 Phosphorus 3.1 Magnesium 2.7 H Total Bilirubin 0.4 AST 64 H ALT 201 H Alkaline Phosphatase 106 Total Protein 6.0 L Albumin 3.3 L <Lisa Ahumada Student - Last Filed: 01/31/25 08:35> Quality VTE Prophylaxis VTE prophylaxis: pharmacologic ordered <Lisa Ahumada Student - Last Filed: 01/31/25 08:35> Attestation Student Attestation H&P performed by Lisa Ahumada OMS-IV <Lisa Ahumada Student - Last Filed: 01/31/25 08:35>
[2025-01-31] MEDS: METOPROLOL TARTRATE INJ 5 MG/5 ML VIAL IV PUSH (08:49)
--- NOTE | 2025-01-31 10:01 | P.PNNP_ITS ---
Progress Note: A&P Assessment and Plan (1) Acute kidney injury: Code(s): N17.9 - Acute kidney failure, unspecified Status: Acute Assessment and Plan: * improvement noted * as noted on admission * transient improvement to 1.61mg/d on 01/26 * worsening creatinine starting on 01/27 * baseline creatinine runs around 1.1 - 1.3mg/dl * suspect ATN with multifactorial etiology: * hemodynamic instability/shock * infection/sepsis (pneumonia + COVID) * hypoxia * possible prerenal factors * other(?) * evaluation to date noted: * renal ultrasound without hydronephrosis * urine electrolytes prerenal * urine eosinophils negative * CPK mildly elevated (but enough to affect kidney function) * moderate proteinuria * continue supportive therapy * follow trend of repeat labs and UOP (2) Septic shock: Code(s): A41.9 - Sepsis, unspecified organism; R65.21 - Severe sepsis with septic shock Status: Acute Assessment and Plan: * as noted by presentation of tachycardia, tachypnea, hypoxia, lactic acidosis, MICHAEL, and hypotension * s/p volume resuscitation along with IV albumin for intravascular volume expansion * lactic acidosis resolved * was on vasopressor therapy (levophed) to maintain MAP/blood pressure * weaned off * follow culture data * on antibiotics * follow trend of hemodynamics (3) Acute respiratory failure: Code(s): J96.00 - Acute respiratory failure, unspecified whether with hypoxia or hypercapnia Status: Acute Assessment and Plan: * felt to be secondary to pneumonia and COVID-19 * on ventilator support * weaning as tolerated (4) Pneumonia: Code(s): J18.9 - Pneumonia, unspecified organism Status: Acute Assessment and Plan: * as suggested by admission imaging * follow culture data * on antibiotic therapy * continue supportive therapy (5) COVID: Code(s): U07.1 - COVID-19 Status: Acute Assessment and Plan: * positive testing noted on 01/22 * imaging with worsening infiltrates as well * initated on remdesivir and dexamethasone (on 01/25) * started on baricitinib as well (on 01/26) * remains on droplet and contact isolation/precautions (6) Anemia: Code(s): D64.9 - Anemia, unspecified Status: Acute Assessment and Plan: * presumably due to MICHAEL and acute illness * follow trend of H/H (7) Elevated LFTs: Code(s): R79.89 - Other specified abnormal findings of blood chemistry Status: Acute Assessment and Plan: * presumably due to septic shock and hypoxia * statin on hold * appear to be improving * follow trend (8) Pre-diabetes: Code(s): R73.03 - Prediabetes Status: Acute Assessment and Plan: * follow accu-cheks * possibly exacerbated by steroid use and acute illness * 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 L Subjective Date/time seen: 01/31/25 10:01 Interval history: Follow-up for acute kidney injury/acute renal failure. Remains intubated and on mechanical ventilation but off sedation -- opens eyes and following simple commands per nursing; renal function/creatinine as well as BUN have continued to improve as has his LFTs; remains hemodynamically stable at the time of my visit; no issues/events overnight or earlier this morning. Exam 2 Narrative: General: elderly male intubated/sedated and on mechanical ventilation Heart: normal S1 and S2; no rub Lungs: coarse breath sounds, right > left Abdomen: soft, nontender, nondistended, diminished bowel sounds Extremities: no cyanosis or clubbing; no edema Skin: no rash Objective Data Vital Signs Vital Signs: Vital Signs Temp Pulse Resp BP Pulse Ox O2 Del Method FiO2 01/31/25 10:00 97.9 F 77 24 H 96/61 L 98 01/31/25 09:45 86 22 H 01/31/25 09:44 85 90/55 L 97 01/31/25 08:51 126/72 01/31/25 08:49 114 H 01/31/25 08:27 55 01/31/25 08:25 50 01/31/25 08:25 146 H 88 L 01/31/25 08:16 141 H 28 H 01/31/25 08:15 143 H 26 H 01/31/25 08:10 109 H 96 Mechanical Ventilation 45 01/31/25 08:00 45 01/31/25 07:57 99 24 H 01/31/25 07:45 45 01/31/25 07:45 137 H 85 L 01/31/25 07:40 97.8 F 136 H 20 125/69 89 L 01/31/25 06:00 98.0 F 87 20 144/82 H 91 01/31/25 06:00 87 01/31/25 05:09 84 91 Mechanical Ventilation 35 01/31/25 04:00 90 20 96 Mechanical Ventilation 30 01/31/25 04:00 94 01/31/25 04:00 98.0 F 89 20 129/70 91 01/31/25 04:00 35 01/31/25 02:54 91 22 H 01/31/25 02:46 92 91 Mechanical Ventilation 30 01/31/25 02:39 92 22 H 01/31/25 02:00 82 01/31/25 02:00 98.2 F 82 20 118/63 93 01/31/25 00:00 30 01/31/25 00:00 90 20 96 Mechanical Ventilation 30 01/31/25 00:00 98.4 F 89 20 115/61 92 01/31/25 00:00 87 01/30/25 23:04 88 93 Mechanical Ventilation 30 01/30/25 22:00 98.5 F 88 20 120/68 95 01/30/25 22:00 88 01/30/25 20:53 83 20 01/30/25 20:37 85 01/30/25 20:35 85 96 Mechanical Ventilation 30 01/30/25 20:00 90 20 96 Mechanical Ventilation 30 01/30/25 20:00 30 01/30/25 20:00 98.4 F 85 20 122/64 96 01/30/25 20:00 84 01/30/25 18:00 85 01/30/25 18:00 98.4 F 89 20 125/65 96 01/30/25 16:30 77 95 Mechanical Ventilation 01/30/25 16:00 89 01/30/25 16:00 30 01/30/25 16:00 98.2 F 78 20 125/69 95 01/30/25 16:00 Mechanical Ventilation 01/30/25 14:00 82 01/30/25 14:00 98.1 F 82 20 122/61 95 01/30/25 13:36 82 94 Mechanical Ventilation 30 01/30/25 13:36 82 20 01/30/25 12:00 72 01/30/25 12:00 98.3 F 75 20 110/56 L 95 01/30/25 12:00 30 01/30/25 12:00 Mechanical Ventilation 30 Intake/Output Intake/Output: Intake & Output 01/28/25 01/29/25 01/30/25 01/31/25 23:59 23:59 23:59 23:59 Intake Total 1892.8 1985.8 2375.0 1305.1 Output Total 600 625 950 700 Balance 1292.8 1360.8 1425.0 605.1 Meds/Results Medications: Active Medications Generic Name Dose Route Start Last Admin Trade Name Freq PRN Reason Stop Dose Admin Acetaminophen 650 mg 01/25/25 11:14 01/25/25 18:58 Acetaminophen 325 Mg Tablet PO 650 mg Q4H PRN Administration Mild Pain (1-3) or Fever Baricitinib 2 mg 01/31/25 11:00 01/31/25 10:57 Baricitinib 2 Mg Tablet PO 02/08/25 11:01 2 mg DAILY@1100 NELLIE Administration Dexamethasone Sodium Phosphate 6 mg 01/26/25 09:00 01/31/25 08:00 Dexamethasone Sod Phos Inj 10 Mg/Ml 1 Ml Vial IV PUSH 02/04/25 09:01 6 mg DAILY NELLIE Administration Dextrose 12.5 gm 01/26/25 07:40 Dextrose 50% 25 Gm/50 Ml Syringe IV PUSH PRN PRN Hypoglycemia Protocol Enoxaparin Sodium 30 mg 01/26/25 09:00 01/31/25 08:00 Enoxaparin 30 Mg/0.3 Ml Syringe SUB-Q 30 mg DAILY NELLIE Administration Glucagon 1 mg 01/26/25 07:40 Glucagon For Inj 1 Mg Vial IM PRN PRN Hypoglycemia Protocol Glucose 15 gm 01/26/25 07:40 Glucose Oral Gel 15 Gm Of Glucse In 37.5 Gm Tube PO PRN PRN Hypoglycemia Protocol Dextrose 1,000 mls @ 100 mls/hr 01/26/25 07:40 Dextrose 5% 1,000 Ml IVPB PRN PRN Hypoglycemia Protocol Cefepime HCl 1 gm in 50 mls @ 100 mls/hr 01/27/25 10:15 01/31/25 08:30 Maxipime 1 Gm/Ns 50 Ml IVPB Infused Q12HR NELLIE Infusion Azithromycin 500 mg in 250 mls @ 250 mls/hr 01/27/25 12:00 01/31/25 09:00 Zithromax IVPB 02/03/25 11:59 Infused DAILY NELLIE Infusion Vancomycin HCl 1,250 mg in 250 mls @ 166.667 mls/hr 01/29/25 11:00 01/30/25 22:04 Vancomycin 1,250 Mg/Ns 250 Ml IVPB 166.67 mls/hr Q36H NELLIE Administration Dexmedetomidine HCl 400 mcg in 100 mls @ 1.848 mls/hr 01/31/25 08:15 01/31/25 10:00 Precedex 400 Mcg/100 Ml IV CONT 0.1 mcg/kg/hr .Q54H7M NELLIE 1.85 mls/hr Titration Protocol 0.1 MCG/KG/HR Insulin Aspart 3 - 6 units 01/26/25 12:00 01/31/25 05:36 Insulin Aspart (*Bkc) 100 Units/Ml SUB-Q 3 units Q6HR NELLIE Administration Protocol Insulin Glargine 38 units 01/31/25 09:00 01/31/25 08:04 Insulin Glargine (*Bkc) 100 Units/Ml SUB-Q 38 units DAILY NELLIE Administration Ipratropium Muir 0.5 mg 01/26/25 20:00 01/31/25 07:57 Ipratropium Br 0.02% Inh Soln 0.5 Mg/2.5 Ml Vial INHALATION 0.5 mg Q6HRT NELLIE Administration Levalbuterol HCl 1.25 mg 01/26/25 20:00 01/31/25 07:57 Levalbuterol Neb 1.25 Mg/3 Ml INHALATION 1.25 mg Q6HRT NELLIE Administration Memantine 10 mg 01/25/25 17:00 01/25/25 17:29 Memantine 10 Mg Tablet PO Not Given BID [facility] Metoprolol Tartrate 5 mg 01/26/25 15:20 01/26/25 21:15 Metoprolol Tartrate Inj 5 Mg/5 Ml Vial IV PUSH 5 mg Q6H PRN Administration Tachycardia Multi-Ingred Cream/Lotion/Oil/Oint 1 applic 01/26/25 21:00 01/31/25 08:01 Mineral Oil/White Petrolatum Ointment EACH EYE 1 applic Q12HR NELLIE Administration Pantoprazole Sodium 40 mg 01/27/25 09:00 01/31/25 08:00 Pantoprazole Sodium Iv 40 Mg Vial IV PUSH 40 mg QAM NELLIE Administration Sodium Chloride 10 ml 01/27/25 14:00 01/31/25 05:36 Central Line Flush IV PUSH 10 ml Q8HR NELLIE Administration Sodium Chloride 10 ml 01/27/25 11:45 Central Line Flush IV PUSH PRN PRN with TPN bag changes Sodium Chloride 20 ml 01/27/25 11:45 Central Line Flush IV PUSH PRN PRN after blood draws Radiology Results: ITS Impressions Abdomen X-Ray 01/26/25 20:53 IMPRESSION: Bibasilar airspace disease. Small bilateral pleural effusions, likely with a subpulmonic component on the right. NG tube in good position. Renal Ultrasound 01/28/25 12:53 Impression: No hydronephrosis. Trace right perinephric fluid. Chest X-Ray 01/31/25 07:32 IMPRESSION: Bilateral pneumonia which is increased more on the right side. Underlying pulmonary edema is not excluded. Labs Labs: Laboratory Tests 01/31/25 04:18 01/31/25 04:18 Calcium 9.3 Phosphorus 3.1 Magnesium 2.7 H Total Bilirubin 0.4 AST 64 H ALT 201 H Alkaline Phosphatase 106 Total Protein 6.0 L Albumin 3.3 L Microbiology 01/28/25 09:45 Sputum Sputum Culture - Final 01/25/25 11:35 Blood Blood Culture - Final 01/25/25 11:37 Blood Blood Culture - Final
--- NOTE | 2025-01-31 10:21 | P.PNIM_ITS ---
Progress Note: A&P Assessment and Plan (1) Acute respiratory failure: Code(s): J96.00 - Acute respiratory failure, unspecified whether with hypoxia or hypercapnia Status: Acute Assessment and Plan: Acute respiratory failure likely related to pneumonia, COVID-19 -chest x-ray this morning, reviewed - ABGs reviewed, ventilator adjusted, increase PEEP back to 10, FiO2 was increased maintain O2 sats greater than 92% -Continue Azithromycin and Vancomycin -Continue Cefepime (01/27) -Continue Dexamethasone -patient getting tachycardic, will start Precedex 01/27-preliminary cultures shows no growth x2 01/31- Sputum culture final: No organism seen (2) Pneumonia: Code(s): J18.9 - Pneumonia, unspecified organism Status: Acute Assessment and Plan: Continue as above (3) COVID: Code(s): U07.1 - COVID-19 Status: Acute Assessment and Plan: Patient has been positive for COVID 19. Chest x-ray shows worsening infiltrates -continue remdesivir, dexamethasone (01/25) -continue baricitinib (01/26), renally dosed by pharmacy -continue droplet and contact isolation/precautions 01/27- rising LFT's likely transient related to rapid response, will continue to monitor. No change to Remdesivir at this time. 01/31- LFT's trending down. Remdesivir course completed (4) Sepsis: Code(s): A41.9 - Sepsis, unspecified organism Status: Acute Assessment and Plan: Patient presented with tachycardia, tachypnea, hypoxia, and acute kidney injury -adequately fluid-resuscitated, s/p albumin for intravascular volume expansion -urine output has been adequate, will continue to follow -01/27: status post LR at 100 mL/hour for 1000 mL -01/28: Lactic acid resolved -01/29: increase in lactic acid to 2.3, patient received maintenance IV fluids at 75 mL for 1000 ml (5) MICHAEL (acute kidney injury): Code(s): N17.9 - Acute kidney failure, unspecified Status: Acute Assessment and Plan: Acute kidney injury likely related to sepsis, -adequately fluid-resuscitated -continue to monitor urine output, renal function and electrolytes -nephrology has been consulted -urine lytes do not reflect pre renal, CK level 317, negative urine eosinophils -01/28: Renal ultrasound ordered and demonstrated no hydronephrosis, but trace right perinephric fluid present -01/29: Discuss with Nephrology, will give LR at 75 mL for a total of 1000 mL -01/31: Improved urine output, creatinine trending down (6) Dementia: Qualifiers: Dementia type: unspecified type Dementia severity: unspecified severity Dementia behavioral or psychological symptom: unspecified whether behavioral, psychotic, or mood disturbance or anxiety Qualified Code(s): F03.90 - Unspecified dementia, unspecified severity, without behavioral disturbance, psychotic disturbance, mood disturbance, and anxiety Code(s): F03.90 - Unspecified dementia, unspecified severity, without behavioral disturbance, psychotic disturbance, mood disturbance, and anxiety Status: Acute Assessment and Plan: Baseline cognitive impairment, on Namenda at home, will continue to hold for now (7) Generalized weakness: Code(s): R53.1 - Weakness Status: Acute Assessment and Plan: Generalized weakness could be related to hypoxia, tachypnea, COVID-19, pneumonia -continue to manage underlying issues (8) Hyperlipidemia: Qualifiers: Hyperlipidemia type: unspecified Qualified Code(s): E78.5 - Hyperlipidemia, unspecified Code(s): E78.5 - Hyperlipidemia, unspecified Status: Acute Assessment and Plan: continue pravastatin (9) Pre-diabetes: Code(s): R73.03 - Prediabetes Status: Acute Assessment and Plan: Accu-Cheks and sliding scale insulin 01/29: Glucose of 283, will increase Lantus 01/30: Glucose of 239, lantus increased to 30 units 01/31: Hyperglycemia, lantus increased to 38 units, this could be related due to steroids and increasing tube feeds 12/16/2024: Hemoglobin A1c was 6.4 (10) Tachycardia: Code(s): R00.0 - Tachycardia, unspecified Status: Acute Assessment and Plan: 01/31- Pt tachycardic on exam, HR between 130-137, pt denies chest pain - ordered 1 time dose of Metoprolol - continue to monitor Plan DVT prophylaxis: Enoxaparin Stress ulcer prophylaxis: Protonix Nutrition: Increased tube feed to goal Code Status: Okay to intubation but no CPR Subjective Date/time seen: 01/31/25 10:21 Interval history: Intubated and off sedation Review of Systems Review of Systems: All systems reviewed & are unremarkable except as noted in HPI and below ROS unobtainable: Yes unobtainable due to endotracheal tube, unobtainable due to medical condition and unobtainable due to mental status Exam Narrative: General: Intubated, in no acute distress HEENT:? Pupils equal and reactive, sclera is clear, ETT in place Neck:? Supple Respiratory:? Coarse breath sounds bilaterally, right greater than left, no wheezing, adequate air entry Cardiac:? S1-S2 normal, regular rhythm, Tachycardic Abdomen:? Soft, nontender, hypoactive bowel sounds Extremities:? No edema, palpable pedal pulses Neuro:? Patient remains intubated off sedation, Opens his eyes and follow simple commands in all extremities Skin:? No skin lesions noted Psych:? Unable to assess at this time Objective Data Vital Signs Vital Signs: Vital Signs - 24 hr 01/30/25 10:32 01/30/25 11:07 01/30/25 11:08 Temperature Pulse Rate 72 77 77 Respiratory Rate 20 20 Blood Pressure Pulse Oximetry 96 Oxygen Delivery Mechanical Ventilation Fraction of Inspired Oxygen 30 01/30/25 12:00 01/30/25 12:00 01/30/25 12:00 Temperature 98.3 F Pulse Rate 75 Respiratory Rate 20 Blood Pressure 110/56 L Pulse Oximetry 95 Oxygen Delivery Mechanical Ventilation Fraction of Inspired Oxygen 30 30 01/30/25 12:00 01/30/25 13:36 01/30/25 13:36 Temperature Pulse Rate 72 82 82 Respiratory Rate 20 Blood Pressure Pulse Oximetry 94 Oxygen Delivery Mechanical Ventilation Fraction of Inspired Oxygen 30 01/30/25 14:00 01/30/25 14:00 01/30/25 16:00 Temperature 98.1 F Pulse Rate 82 82 Respiratory Rate 20 Blood Pressure 122/61 Pulse Oximetry 95 Oxygen Delivery Mechanical Ventilation Fraction of Inspired Oxygen 30 01/30/25 16:00 01/30/25 16:00 01/30/25 16:00 Temperature 98.2 F Pulse Rate 78 89 Respiratory Rate 20 Blood Pressure 125/69 Pulse Oximetry 95 Oxygen Delivery Fraction of Inspired Oxygen 30 01/30/25 16:30 01/30/25 18:00 01/30/25 18:00 Temperature 98.4 F Pulse Rate 77 89 85 Respiratory Rate 20 Blood Pressure 125/65 Pulse Oximetry 95 96 Oxygen Delivery Mechanical Ventilation Fraction of Inspired Oxygen 30 01/30/25 20:00 01/30/25 20:00 01/30/25 20:00 Temperature 98.4 F Pulse Rate 84 85 Respiratory Rate 20 Blood Pressure 122/64 Pulse Oximetry 96 Oxygen Delivery Fraction of Inspired Oxygen 30 01/30/25 20:00 01/30/25 20:35 01/30/25 20:37 Temperature Pulse Rate 90 85 85 Respiratory Rate 20 20 Blood Pressure Pulse Oximetry 96 96 Oxygen Delivery Mechanical Ventilation Mechanical Ventilation Fraction of Inspired Oxygen 30 30 01/30/25 20:53 01/30/25 22:00 01/30/25 22:00 Temperature 98.5 F Pulse Rate 83 88 88 Respiratory Rate 20 20 Blood Pressure 120/68 Pulse Oximetry 95 Oxygen Delivery Fraction of Inspired Oxygen 01/30/25 23:04 01/31/25 00:00 01/31/25 00:00 Temperature 98.4 F Pulse Rate 88 87 89 Respiratory Rate 20 Blood Pressure 115/61 Pulse Oximetry 93 92 Oxygen Delivery Mechanical Ventilation Fraction of Inspired Oxygen 30 01/31/25 00:00 01/31/25 00:00 01/31/25 02:00 Temperature 98.2 F Pulse Rate 90 82 Respiratory Rate 20 20 Blood Pressure 118/63 Pulse Oximetry 96 93 Oxygen Delivery Mechanical Ventilation Fraction of Inspired Oxygen 30 30 01/31/25 02:00 01/31/25 02:39 01/31/25 02:46 Temperature Pulse Rate 82 92 92 Respiratory Rate 22 H Blood Pressure Pulse Oximetry 91 Oxygen Delivery Mechanical Ventilation Fraction of Inspired Oxygen 30 01/31/25 02:54 01/31/25 04:00 01/31/25 04:00 Temperature 98.0 F Pulse Rate 91 89 Respiratory Rate 22 H 20 Blood Pressure 129/70 Pulse Oximetry 91 Oxygen Delivery Fraction of Inspired Oxygen 35 01/31/25 04:00 01/31/25 04:00 01/31/25 05:09 Temperature Pulse Rate 94 90 84 Respiratory Rate 20 Blood Pressure Pulse Oximetry 96 91 Oxygen Delivery Mechanical Ventilation Mechanical Ventilation Fraction of Inspired Oxygen 30 35 01/31/25 06:00 01/31/25 06:00 01/31/25 07:40 Temperature 98.0 F 97.8 F Pulse Rate 87 87 136 H Respiratory Rate 20 20 Blood Pressure 144/82 H 125/69 Pulse Oximetry 91 89 L Oxygen Delivery Fraction of Inspired Oxygen 01/31/25 07:45 01/31/25 07:45 01/31/25 07:57 Temperature Pulse Rate 137 H 99 Respiratory Rate 24 H Blood Pressure Pulse Oximetry 85 L Oxygen Delivery Fraction of Inspired Oxygen 45 01/31/25 08:00 01/31/25 08:10 01/31/25 08:15 Temperature Pulse Rate 109 H 143 H Respiratory Rate 26 H Blood Pressure Pulse Oximetry 96 Oxygen Delivery Mechanical Ventilation Fraction of Inspired Oxygen 45 45 01/31/25 08:16 01/31/25 08:25 01/31/25 08:25 Temperature Pulse Rate 141 H 146 H Respiratory Rate 28 H Blood Pressure Pulse Oximetry 88 L Oxygen Delivery Fraction of Inspired Oxygen 50 01/31/25 08:27 01/31/25 08:49 01/31/25 08:51 Temperature Pulse Rate 114 H Respiratory Rate Blood Pressure 126/72 Pulse Oximetry Oxygen Delivery Fraction of Inspired Oxygen 55 01/31/25 09:44 01/31/25 09:45 Temperature Pulse Rate 85 86 Respiratory Rate 22 H Blood Pressure 90/55 L Pulse Oximetry 97 Oxygen Delivery Fraction of Inspired Oxygen Intake/Output Intake/Output: Intake & Output 01/28/25 01/29/25 01/30/25 01/31/25 23:59 23:59 23:59 23:59 Intake Total 1892.8 1985.8 2375.0 1304.6 Output Total 600 625 950 700 Balance 1292.8 1360.8 1425.0 604.6 Meds/Results Medications: Active Medications Generic Name Dose Route Start Last Admin Trade Name Freq PRN Reason Stop Dose Admin Acetaminophen 650 mg 01/25/25 11:14 01/25/25 18:58 Acetaminophen 325 Mg Tablet PO 650 mg Q4H PRN Administration Mild Pain (1-3) or Fever Baricitinib 2 mg 01/31/25 11:00 Baricitinib 2 Mg Tablet PO 02/08/25 11:01 DAILY@1100 NELLIE Dexamethasone Sodium Phosphate 6 mg 01/26/25 09:00 01/31/25 08:00 Dexamethasone Sod Phos Inj 10 Mg/Ml 1 Ml Vial IV PUSH 02/04/25 09:01 6 mg DAILY NELLIE Administration Dextrose 12.5 gm 01/26/25 07:40 Dextrose 50% 25 Gm/50 Ml Syringe IV PUSH PRN PRN Hypoglycemia Protocol Enoxaparin Sodium 30 mg 01/26/25 09:00 01/31/25 08:00 Enoxaparin 30 Mg/0.3 Ml Syringe SUB-Q 30 mg DAILY NELLIE Administration Glucagon 1 mg 01/26/25 07:40 Glucagon For Inj 1 Mg Vial IM PRN PRN Hypoglycemia Protocol Glucose 15 gm 01/26/25 07:40 Glucose Oral Gel 15 Gm Of Glucse In 37.5 Gm Tube PO PRN PRN Hypoglycemia Protocol Dextrose 1,000 mls @ 100 mls/hr 01/26/25 07:40 Dextrose 5% 1,000 Ml IVPB PRN PRN Hypoglycemia Protocol Cefepime HCl 1 gm in 50 mls @ 100 mls/hr 01/27/25 10:15 01/31/25 08:30 Maxipime 1 Gm/Ns 50 Ml IVPB Infused Q12HR NELLIE Infusion Azithromycin 500 mg in 250 mls @ 250 mls/hr 01/27/25 12:00 01/31/25 09:00 Zithromax IVPB 02/03/25 11:59 Infused DAILY NELLIE Infusion Vancomycin HCl 1,250 mg in 250 mls @ 166.667 mls/hr 01/29/25 11:00 01/30/25 22:04 Vancomycin 1,250 Mg/Ns 250 Ml IVPB 166.67 mls/hr Q36H NELLIE Administration Dexmedetomidine HCl 400 mcg in 100 mls @ 1.848 mls/hr 01/31/25 08:15 01/31/25 09:45 Precedex 400 Mcg/100 Ml IV CONT 0.1 mcg/kg/hr .Q54H7M NELLIE 1.85 mls/hr Titration Protocol 0.1 MCG/KG/HR Insulin Aspart 3 - 6 units 01/26/25 12:00 01/31/25 05:36 Insulin Aspart (*Bkc) 100 Units/Ml SUB-Q 3 units Q6HR NELLIE Administration Protocol Insulin Glargine 38 units 01/31/25 09:00 01/31/25 08:04 Insulin Glargine (*Bkc) 100 Units/Ml SUB-Q 38 units DAILY NELLIE Administration Ipratropium [place] 0.5 mg 01/26/25 20:00 01/31/25 07:57 Ipratropium Br 0.02% Inh Soln 0.5 Mg/2.5 Ml Vial INHALATION 0.5 mg Q6HRT NELLIE Administration Levalbuterol HCl 1.25 mg 01/26/25 20:00 01/31/25 07:57 Levalbuterol Neb 1.25 Mg/3 Ml INHALATION 1.25 mg Q6HRT NELLIE Administration Memantine 10 mg 01/25/25 17:00 01/25/25 17:29 Memantine 10 Mg Tablet PO Not Given BID NELLIE Metoprolol Tartrate 5 mg 01/26/25 15:20 01/26/25 21:15 Metoprolol Tartrate Inj 5 Mg/5 Ml Vial IV PUSH 5 mg Q6H PRN Administration Tachycardia Multi-Ingred Cream/Lotion/Oil/Oint 1 applic 01/26/25 21:00 01/31/25 08:01 Mineral Oil/White Petrolatum Ointment EACH EYE 1 applic Q12HR NELLIE Administration Pantoprazole Sodium 40 mg 01/27/25 09:00 01/31/25 08:00 Pantoprazole Sodium Iv 40 Mg Vial IV PUSH 40 mg QAM NELLIE Administration Sodium Chloride 10 ml 01/27/25 14:00 01/31/25 05:36 Central Line Flush IV PUSH 10 ml Q8HR NELLIE Administration Sodium Chloride 10 ml 01/27/25 11:45 Central Line Flush IV PUSH PRN PRN with TPN bag changes Sodium Chloride 20 ml 01/27/25 11:45 Central Line Flush IV PUSH PRN PRN after blood draws Radiology Results: ITS Impressions Abdomen X-Ray 01/26/25 20:53 IMPRESSION: Bibasilar airspace disease. Small bilateral pleural effusions, likely with a subpulmonic component on the right. NG tube in good position. Renal Ultrasound 01/28/25 12:53 Impression: No hydronephrosis. Trace right perinephric fluid. Chest X-Ray 01/31/25 07:32 IMPRESSION: Bilateral pneumonia which is increased more on the right side. Underlying pulmonary edema is not excluded. Labs Labs: Laboratory Results - last 24 hr 01/30/25 01/30/25 01/30/25 11:18 17:59 23:27 WBC RBC Hgb Hct MCV MCH MCHC RDW Plt Count MPV Immature Gran % (Auto) Neut % (Auto) Lymph % (Auto) [place] % (Auto) Eos % (Auto) Baso % (Auto) Lymph # (Auto) [place] # (Auto) Eos # (Auto) Baso # (Auto) Abs Immat Gran (auto) Absolute Neuts (auto) Absolute Nucleated RBC Nucleated RBC % Puncture Site ABG pH ABG pCO2 ABG pO2 ABG PO2/FiO2 Ratio ABG HCO3 ABG O2 Saturation ABG O2 Content ABG Base Excess A-a Gradient Oxyhemoglobin Carboxyhemoglobin Methemoglobin Reduced Hemoglobin Total Hemoglobin O2 Delivery Device O2 Liters/Min Minute Volume Vent Rate Vent Mode FiO2 Tidal Volume PEEP Peak Inspir Pressure Pressure Support Sodium Potassium Chloride Carbon Dioxide Anion Gap BUN Creatinine Estim Creat Clear Calc Estimated GFR Glucose POC Capillary Glucose 251 H 220 H 207 H Calcium Phosphorus Magnesium Total Bilirubin AST ALT Alkaline Phosphatase Total Protein Albumin 01/31/25 01/31/25 04:18 05:08 WBC 15.6 H RBC 3.52 L Hgb 10.7 L Hct 33.8 L MCV 96.0 MCH 30.4 MCHC 31.7 L RDW 14.2 Plt Count 184 MPV 11.4 H Immature Gran % (Auto) 1.9 H Neut % (Auto) 89.4 H Lymph % (Auto) 2.1 L [place] % (Auto) 6.5 Eos % (Auto) 0.0 Baso % (Auto) 0.1 L Lymph # (Auto) 0.33 L [place] # (Auto) 1.0 H Eos # (Auto) 0.0 Baso # (Auto) 0.0 Abs Immat Gran (auto) 0.30 H Absolute Neuts (auto) 13.9 H Absolute Nucleated RBC 0.020 H Nucleated RBC % 0.1 Puncture Site Left radial ABG pH 7.460 H ABG pCO2 31.1 L ABG pO2 58.6 L ABG PO2/FiO2 Ratio 1.67 ABG HCO3 21.6 L ABG O2 Saturation 92.1 L ABG O2 Content 14.6 L ABG Base Excess -1.4 A-a Gradient 154.8 Oxyhemoglobin 89.6 L Carboxyhemoglobin 0.3 Methemoglobin 0.3 Reduced Hemoglobin 9.8 H Total Hemoglobin 11.6 L O2 Delivery Device Ventilator O2 Liters/Min Not Reportable Minute Volume Not Reportable Vent Rate 20 Vent Mode Cmv FiO2 35 Tidal Volume 400 PEEP 8 Peak Inspir Pressure Not Reportable Pressure Support Not Reportable Sodium 146 H Potassium 4.3 Chloride 112 H Carbon Dioxide 23 Anion Gap 11 BUN 118 H Creatinine 1.97 H Estim Creat Clear Calc 23 Estimated GFR 33 L Glucose 233 H POC Capillary Glucose Calcium 9.3 Phosphorus 3.1 Magnesium 2.7 H Total Bilirubin 0.4 AST 64 H ALT 201 H Alkaline Phosphatase 106 Total Protein 6.0 L Albumin 3.3 L Quality VTE Prophylaxis VTE prophylaxis: pharmacologic ordered
[2025-01-31] MEDS: BARICITINIB 2 MG TABLET PO (10:57)
[2025-01-31 11:47] LABS: Glucose Point of Care 256 mg/dl (65-105)
[2025-01-31 18:21] LABS: Glucose Point of Care 237 mg/dl (65-105)
[2025-01-31 23:52] LABS: Glucose Point of Care 254 mg/dl (65-105)
[2025-02-01] VITALS (28 sets, daily range): BP systolic 102–121; BP diastolic 42–65; PULSE 68–90; RESP 15–26; TEMP 36.5–37; O2SAT 92–100
[2025-02-01] MEDS: INSULIN ASPART (*BKC) 100 UNITS/ML SUB-Q ×3 (00:30→11:23)
[2025-02-01] MEDS: LEVALBUTEROL NEB 1.25 MG/3 ML INHALATION ×4 (02:03→20:18)
[2025-02-01] MEDS: IPRATROPIUM BR 0.02% INH SOLN 0.5 MG/2.5 ML VIAL INHALATION ×4 (02:03→20:18)
[2025-02-01 05:11] LABS: Alveolar/Arterial O2 Gradient 154.3 mmHg; Base Excess ABG -3.8 mEq/l (+/-2.0); Carboxyhemoglobin 0.3 % THb (0-2.0); Fractional Inspired Oxygen 40 %; HCO3 ABG 19.2 mEq/l (22.0-26.0); Oxygen Content ABG 14.9 %vol (16.0-22.0); Oxygen Saturation ABG 97.8 % (95.0-100.0); Oxyhemoglobin 97.1 % THb (90.0-100.0); PCO2 ABG 28.3 mmHg (35.0-45.0); PO2 ABG 98.4 mmHg (80.0-100.0); PO2 FiO2 Ratio Arterial Blood 2.46 %; Reduced Hemoglobin 2.6 %THb (0-5.0); Total Hemoglobin 10.8 g/dL (12.0-18.0); pH ABG 7.449 (7.350-7.450)
[2025-02-01 05:12] LABS: Arterial Blood Gas PEEP 10 cmH2O; Arterial Blood Gas Tidal Volume 400 ml; Arterial Blood Gas Vent Mode CMV; Arterial Blood Gas Ventilator rate 20 /MIN; Device VENTILATOR; Modified Allen's Test Pass; Site Drawn LEFT RADIAL
[2025-02-01 05:49] LABS: Basophils Percent Auto 0.1 % (0.2-1.2); Hemoglobin 10.1 g/dL (14.0-18.0); Immature Granulocyte Absolute 0.23 K/mm3 (0.00-0.031); Immature Granulocyte Percent A 1.9 % (0-0.5); Lymphocytes Absolute Auto 0.29 K/mm3 (0.9-3.2); Lymphocytes Percent Auto 2.4 % (18.3-44.2); Mean Corpuscular HGB Conc 31.6 g/dl (32-36); Mean Corpuscular Hemoglobin 30.3 pg (26-34); Mean Corpuscular Volume 96.1 fl (80-100); Mean Platelet Volume 11.7 fl (7.4-10.4); Monocytes Absolute Auto 0.7 K/mm3 (0.1-0.6); Monocytes Percent Auto 5.7 % (2.6-8.5); Neutrophils Absolute Auto 10.8 K/mm3 (1.3-6.7); Neutrophils Percent Auto 89.9 % (45.5-73.1); Platelet Count Result 166 k/mm3 (150-375); Red Blood Count 3.33 M/mm3 (4.6-6.20); Red Cell Distribution Width 14.1 % (11.5-14.5)
[2025-02-01 06:01] LABS: Alanine Aminotransferase 147 U/L (6-50); Albumin Level 2.8 g/dL (3.5-5.1); Alkaline Phosphatase 109 U/L (38-126); Anion Gap 9 mmol/L (4-12); Aspartate Amino Transferase 37 U/L (17-59); Bilirubin,Total 0.3 mg/dL (0.2-1.3); Blood Urea Nitrogen 118 mg/dL (9-20); Calcium 9.3 mg/dL (8.4-10.2); Carbon Dioxide 24 mmol/L (22-30); Chloride 113 mmol/L (98-107); Estimated CRCL calculation 22 ml/min; Estimated Glomerular Filt Rate 32; Glucose 254 mg/dL (65-110); Magnesium 2.8 mg/dL (1.6-2.3); Phosphorus 4.1 mg/dL (2.5-4.5); Potassium 4.5 mmol/L (3.4-5.0); Sodium 146 mmol/L (137-145)
[2025-02-01] MEDS: CENTRAL LINE FLUSH 10 ML IV PUSH ×3 (06:15→21:37)
--- NOTE | 2025-02-01 07:44 | WPDINTPN ---
Progress Note: A&P Assessment and Plan (1) Acute respiratory failure: Code(s): J96.00 - Acute respiratory failure, unspecified whether with hypoxia or hypercapnia <Lisa Blevins Zita Student - Last Filed: 02/01/25 07:54> Status: Acute <Lisa Ahumada Student - Last Filed: 02/01/25 07:54> Assessment and Plan: Acute respiratory failure likely related to pneumonia, COVID-19 -chest x-ray this morning, reviewed - ABGs reviewed, ventilator adjusted, increase PEEP back to 10, FiO2 was increased maintain O2 sats greater than 92% -Continue Azithromycin and Vancomycin -Continue Cefepime (01/27) -Continue Dexamethasone -patient getting tachycardic, will start Precedex 01/27-preliminary cultures shows no growth x2 01/31- Sputum culture final: No organism seen 02/01- CXR impression Moderate pulmonary edema pattern with small pleural effusions. Correlate for pneumonia or ARDS. Support tubes, as above. -Will discuss possible dose of Lasix w/ Nephrology <Lisaraphael Ahumada, Student - Last Filed: 02/01/25 07:54> Acute respiratory failure likely related to pneumonia, COVID-19 -chest x-ray this morning, reviewed - ABGs reviewed, ventilator adjusted, increase PEEP back to 10, FiO2 was increased maintain O2 sats greater than 92% -Continue Azithromycin and Vancomycin -Continue Cefepime (01/27) 02/01: Will discontinue vancomycin -Continue Dexamethasone -patient getting tachycardic, will start Precedex 01/27-the negative cultures shows no growth x2 01/31- Sputum culture final: No organism seen On Precedex 0.1 mcg/kg/hr infusion. Off all other sedation 5- CXR impression Moderate pulmonary edema pattern with small pleural effusions. Correlate for pneumonia or ARDS. Support tubes, as above. -nephrology was okay with Lasix 40 mg IV x1 <Eloy Emmanuel MD - Last Filed: 02/01/25 11:02> (2) Pneumonia: Code(s): J18.9 - Pneumonia, unspecified organism <Lisaraphael Ahumada Student - Last Filed: 02/01/25 07:54> Status: Acute <Lisa Ahumada Student - Last Filed: 02/01/25 07:54> Assessment and Plan: Continue as above <Lisa Ahumada, Student - Last Filed: 02/01/25 07:54> (3) COVID: Code(s): U07.1 - COVID-19 <Lisa Ahumada, Student - Last Filed: 02/01/25 07:54> Status: Acute <Lisa Ahumada Student - Last Filed: 02/01/25 07:54> Assessment and Plan: Patient has been positive for COVID 19. Chest x-ray shows worsening infiltrates -continue remdesivir, dexamethasone (01/25) -continue baricitinib (01/26), renally dosed by pharmacy -continue droplet and contact isolation/precautions 01/27- rising LFT's likely transient related to rapid response, will continue to monitor. No change to Remdesivir at this time. 5/- LFT's trending down. Remdesivir course completed <Lisa Arredondosocorro Student - Last Filed: 02/01/25 07:54> Patient has been positive for COVID 19. Chest x-ray shows worsening infiltrates -off remdesivir - dexamethasone (01/25) for total of 10 days -continue baricitinib (01/26) for total of 14 days or until discharge, renally dosed by pharmacy -continue droplet and contact isolation/precautions 01/27- rising LFT's likely transient related to rapid response, will continue to monitor. No change to Remdesivir at this time. 5/4- LFT's trending down. Remdesivir course completed <Eloy Emmanuel MD - Last Filed: 02/01/25 11:02> (4) Sepsis: Code(s): A41.9 - Sepsis, unspecified organism <Lisa Ahumada, Student - Last Filed: 02/01/25 07:54> Status: Acute <Lisa Arredondosocorro Student - Last Filed: 02/01/25 07:54> Assessment and Plan: Patient presented with tachycardia, tachypnea, hypoxia, and acute kidney injury -adequately fluid-resuscitated, s/p albumin for intravascular volume expansion -urine output has been adequate, will continue to follow -01/27: status post LR at 100 mL/hour for 1000 mL -01/28: Lactic acid resolved -01/29: increase in lactic acid to 2.3, patient received maintenance IV fluids at 75 mL for 1000 ml <Lisa Ahumada Student - Last Filed: 02/01/25 07:54> Patient presented with tachycardia, tachypnea, hypoxia, and acute kidney injury -adequately fluid-resuscitated, s/p albumin for intravascular volume expansion -urine output has been adequate, will continue to follow -01/27: status post LR at 100 mL/hour for 1000 mL -01/28: Lactic acid resolved -01/29: increase in lactic acid to 2.3, patient received maintenance IV fluids at 75 mL for 1000 ml -remains off Levophed -septic shock has resolved <Eloy Emmanuel MD - Last Filed: 02/01/25 11:02> (5) MICHAEL (acute kidney injury): Code(s): N17.9 - Acute kidney failure, unspecified <Simi Wolfe - Last Filed: 02/01/25 07:54> Status: Acute <Simi Wolfe - Last Filed: 02/01/25 07:54> Assessment and Plan: Acute kidney injury likely related to sepsis, -adequately fluid-resuscitated -continue to monitor urine output, renal function and electrolytes -nephrology has been consulted -urine lytes do not reflect pre renal, CK level 317, negative urine eosinophils -01/28: Renal ultrasound ordered and demonstrated no hydronephrosis, but trace right perinephric fluid present -01/29: Discuss with Nephrology, will give LR at 75 mL for a total of 1000 mL -01/31: Improved urine output, creatinine trending down <Lisa Ahumada Student - Last Filed: 02/01/25 07:54> Acute kidney injury likely related to sepsis, -adequately fluid-resuscitated -continue to monitor urine output, renal function and electrolytes -nephrology has been consulted -urine lytes do not reflect pre renal, CK level 317, negative urine eosinophils -01/28: Renal ultrasound ordered and demonstrated no hydronephrosis, but trace right perinephric fluid present -01/29: Discuss with Nephrology, will give LR at 75 mL for a total of 1000 mL -01/31: Improved urine output, creatinine trending down -02/01: creatinine improving and stable, discuss with Nephrology, okay for Lasix today 40 mg IV x1 <Eloy Emmanuel MD - Last Filed: 02/01/25 11:02> (6) Dementia: Qualifiers: Dementia behavioral or psychological symptom: unspecified whether behavioral, psychotic, or mood disturbance or anxiety Dementia severity: unspecified severity Dementia type: unspecified type Qualified Code(s): F03.90 - Unspecified dementia, unspecified severity, without behavioral disturbance, psychotic disturbance, mood disturbance, and anxiety <Lisa Arredondosocorro, Student - Last Filed: 02/01/25 07:54> Code(s): F03.90 - Unspecified dementia, unspecified severity, without behavioral disturbance, psychotic disturbance, mood disturbance, and anxiety <Lsia Arredondosocorro, Student - Last Filed: 02/01/25 07:54> Status: Acute <Lisa Arredondosocorro, - Last Filed: 02/01/25 07:54> Assessment and Plan: Baseline cognitive impairment, on Namenda at home, will continue to hold for now <Lisa Arredondosocorro, Student - Last Filed: 02/01/25 07:54> (7) Generalized weakness: Code(s): R53.1 - Weakness <Lisa Arredondosocorro, Student - Last Filed: 02/01/25 07:54> Status: Acute <Lisa Arredondosocorro, Student - Last Filed: 02/01/25 07:54> Assessment and Plan: Generalized weakness could be related to hypoxia, tachypnea, COVID-19, pneumonia -continue to manage underlying issues <Lisa McdonaldJesus Ahumada, Student - Last Filed: 02/01/25 07:54> (8) Hyperlipidemia: Qualifiers: Hyperlipidemia type: unspecified Qualified Code(s): E78.5 - Hyperlipidemia, unspecified <Lisa Blevins Zita, - Last Filed: 02/01/25 07:54> Code(s): E78.5 - Hyperlipidemia, unspecified <Lisa Blevins Zita, Student - Last Filed: 02/01/25 07:54> Status: Acute <Lisa McdonaldJesus Ahumada, - Last Filed: 02/01/25 07:54> Assessment and Plan: continue pravastatin <Lisa Ahumada, Student - Last Filed: 02/01/25 07:54> (9) Pre-diabetes: Code(s): R73.03 - Prediabetes <Lisa Ahumada Student - Last Filed: 02/01/25 07:54> Status: Acute <Lisa Ahumada, - Last Filed: 02/01/25 07:54> Assessment and Plan: Accu-Cheks and sliding scale insulin 01/29: Glucose of 283, will increase Lantus 01/30: Glucose of 239, lantus increased to 30 units 01/31: Hyperglycemia, lantus increased to 38 units, this could be related due to steroids and increasing tube feeds 12/16/2024: Hemoglobin A1c was 6.4 <Lisa Ahumada, Student - Last Filed: 02/01/25 07:54> (10) Tachycardia: Code(s): R00.0 - Tachycardia, unspecified <Lisa Ahumada, Student - Last Filed: 02/01/25 07:54> Status: Acute <Lisa Ahumada - Last Filed: 02/01/25 07:54> Assessment and Plan: 01/31- Pt tachycardic on exam, HR between 130-137, pt denies chest pain - ordered 1 time dose of Metoprolol - continue to monitor <Lisa Ahumada Student - Last Filed: 02/01/25 07:54> 01/31- Pt tachycardic on exam, HR between 130-137, pt denies chest pain - ordered 1 time dose of Metoprolol -currently in sinus rhythm, rate controlled, continue to monitor <Eloy Emmanuel MD - Last Filed: 02/01/25 11:02> Assessment and Plan: DVT prophylaxis: Enoxaparin Stress ulcer prophylaxis: Protonix Nutrition: Increased tube feed to goal Code Status: Okay to intubation but no CPR Critical Care Time Spent: 32 minutes Discuss with family in rounds and updated them with patient's condition and plan of care. I answered all questions Due to a high probability of clinically significant, life threatening deterioration, the patient required my highest level of preparedness to intervene emergently and I personally spent this critical care time directly and personally managing the patient. This critical care time included obtaining a history; examining the patient; pulse oximetry; ordering and review of studies; arranging urgent treatment with development of a management plan; evaluation of patient's response to treatment; frequent reassessment; and discussions with other providers. It was exclusive of separately billable procedures and treating other patients and teaching time. Please see Assessment and Plan section and the rest of the note for further information on patient assessment and treatment This dictation may have been done utilizing a voice recognition system. Attempts have been made to correct errors. However, there may be uncorrected grammatical, spelling, and recognitions errors present. <Lisa Ahumada Student - Last Filed: 02/01/25 07:54> DVT prophylaxis: Enoxaparin Stress ulcer prophylaxis: Protonix Nutrition: Tube feeds at goal Code Status: Okay for intubation. No CPR Critical Care Time Spent: 32 minutes Discuss with family in rounds and updated them with patient's condition and plan of care. I answered all questions Due to a high probability of clinically significant, life threatening deterioration, the patient required my highest level of preparedness to intervene emergently and I personally spent this critical care time directly and personally managing the patient. This critical care time included obtaining a history; examining the patient; pulse oximetry; ordering and review of studies; arranging urgent treatment with development of a management plan; evaluation of patient's response to treatment; frequent reassessment; and discussions with other providers. It was exclusive of separately billable procedures and treating other patients and teaching time. Please see Assessment and Plan section and the rest of the note for further information on patient assessment and treatment This dictation may have been done utilizing a voice recognition system. Attempts have been made to correct errors. However, there may be uncorrected grammatical, spelling, and recognitions errors present. <Eloy Emmanuel MD - Last Filed: 02/01/25 11:02> Subjective Date/time seen: 02/01/25 07:44 <Lisa Ahumada Student - Last Filed: 02/01/25 07:54> Interval history: 01/26/25- Intubated 02/01/25- Pt seen and examined in the ICU, remains intubated on CMV mode of ventilation, peep of 10, 40% FiO2. Sedation and Amiodarone are off. Adequate urine output, creatinine improving. LFTs trending down. Afebrile. Opens eyes and follows simple commands. <Simi Wolfe - Last Filed: 02/01/25 07:54> 01/26/25- Intubated 02/01/25- Pt seen and examined in the ICU, remains intubated on CMV mode of ventilation, peep of 10, 40% FiO2. Off all Sedation,, remains on Precedex infusion at 0.1 mcg/kg/hr. Currently in sinus rhythm. Off amiodarone infusion. Adequate urine output, creatinine improving. LFTs trending down. Afebrile. Opens eyes and follows simple commands. <Eloy Emmanuel MD - Last Filed: 02/01/25 11:02> Review of Systems Review of Systems: ROS unobtainable: Yes unobtainable due to endotracheal tube, unobtainable due to medical condition and unobtainable due to mental status <Simi Wolfe - Last Filed: 02/01/25 07:54> Exam Narrative: General: Intubated, in no acute distress HEENT:? Pupils equal and reactive, sclera is clear, ETT in place Neck:? Supple Respiratory:? Coarse breath sounds bilaterally, right greater than left, no wheezing, adequate air entry Cardiac:? S1-S2 normal, regular rhythm, Tachycardic Abdomen:? Soft, nontender, hypoactive bowel sounds Extremities:? No edema, palpable pedal pulses Neuro:? Patient remains intubated off sedation, Opens his eyes and follow simple commands in all extremities Skin:? No skin lesions noted Psych:? Unable to assess at this time <Simi Wolfe - Last Filed: 02/01/25 07:54> Objective Data Vital Signs Vital Signs: Vital Signs - 24 hr 01/31/25 07:45 01/31/25 07:45 01/31/25 07:57 Temperature Pulse Rate 137 H 99 Respiratory Rate 24 H Blood Pressure Pulse Oximetry 85 L Oxygen Delivery Fraction of Inspired Oxygen 45 01/31/25 08:00 01/31/25 08:00 01/31/25 08:10 Temperature Pulse Rate 112 H 109 H Respiratory Rate Blood Pressure Pulse Oximetry 96 Oxygen Delivery Mechanical Ventilation Fraction of Inspired Oxygen 45 45 01/31/25 08:15 05/04/25 08:16 01/31/25 08:25 Temperature Pulse Rate 143 H 141 H 146 H Respiratory Rate 26 H 28 H Blood Pressure Pulse Oximetry 88 L Oxygen Delivery Fraction of Inspired Oxygen 01/31/25 08:25 01/31/25 08:27 01/31/25 08:49 Temperature Pulse Rate 114 H Respiratory Rate Blood Pressure Pulse Oximetry Oxygen Delivery Fraction of Inspired Oxygen 50 55 01/31/25 08:51 01/31/25 09:44 01/31/25 09:45 Temperature Pulse Rate 85 86 Respiratory Rate 22 H Blood Pressure 126/72 90/55 L Pulse Oximetry 97 Oxygen Delivery Fraction of Inspired Oxygen 01/31/25 10:00 01/31/25 10:00 01/31/25 10:00 Temperature 97.9 F Pulse Rate 77 83 76 Respiratory Rate 24 H 18 Blood Pressure 96/61 L Pulse Oximetry 98 Oxygen Delivery Fraction of Inspired Oxygen 01/31/25 10:52 01/31/25 12:00 01/31/25 12:00 Temperature 97.8 F Pulse Rate 81 91 Respiratory Rate 22 H Blood Pressure 98/60 L Pulse Oximetry 96 92 Oxygen Delivery Mechanical Ventilation Fraction of Inspired Oxygen 55 50 01/31/25 12:00 01/31/25 12:00 01/31/25 12:00 Temperature Pulse Rate 84 84 Respiratory Rate 22 H Blood Pressure Pulse Oximetry 92 Oxygen Delivery Mechanical Ventilation Fraction of Inspired Oxygen 50 01/31/25 14:00 01/31/25 14:00 01/31/25 14:00 Temperature 97.8 F Pulse Rate 77 78 78 Respiratory Rate 21 H 21 H Blood Pressure 114/63 Pulse Oximetry 97 Oxygen Delivery Fraction of Inspired Oxygen 01/31/25 14:10 01/31/25 14:22 01/31/25 14:24 Temperature Pulse Rate 77 79 Respiratory Rate 20 Blood Pressure Pulse Oximetry 97 97 Oxygen Delivery Mechanical Ventilation Mechanical Ventilation Fraction of Inspired Oxygen 40 40 01/31/25 14:26 01/31/25 16:00 01/31/25 16:00 Temperature 98 F Pulse Rate 85 79 Respiratory Rate 23 H 21 H Blood Pressure 117/65 Pulse Oximetry 99 99 Oxygen Delivery Mechanical Ventilation Fraction of Inspired Oxygen 40 01/31/25 16:00 01/31/25 16:00 01/31/25 16:00 Temperature Pulse Rate 80 87 Respiratory Rate 20 Blood Pressure Pulse Oximetry Oxygen Delivery Fraction of Inspired Oxygen 40 01/31/25 17:24 01/31/25 18:00 01/31/25 18:00 Temperature 98.3 F Pulse Rate 80 73 71 Respiratory Rate 20 Blood Pressure 104/57 L Pulse Oximetry 98 100 Oxygen Delivery Mechanical Ventilation Fraction of Inspired Oxygen 40 01/31/25 18:00 01/31/25 20:00 01/31/25 20:00 Temperature 98.4 F Pulse Rate 75 83 83 Respiratory Rate 20 17 Blood Pressure 115/62 Pulse Oximetry 100 Oxygen Delivery Fraction of Inspired Oxygen 01/31/25 20:00 01/31/25 20:00 01/31/25 20:00 Temperature Pulse Rate 83 83 Respiratory Rate 20 20 Blood Pressure Pulse Oximetry 100 Oxygen Delivery Mechanical Ventilation Fraction of Inspired Oxygen 40 30 01/31/25 20:05 01/31/25 20:07 01/31/25 20:09 Temperature Pulse Rate 82 83 Respiratory Rate 19 Blood Pressure Pulse Oximetry 96 100 Oxygen Delivery Mechanical Ventilation Mechanical Ventilation Fraction of Inspired Oxygen 40 40 01/31/25 22:00 01/31/25 22:00 01/31/25 22:00 Temperature 98.5 F Pulse Rate 78 80 77 Respiratory Rate 24 H 20 Blood Pressure 106/57 L Pulse Oximetry 100 Oxygen Delivery Fraction of Inspired Oxygen 01/31/25 23:01 02/01/25 00:00 02/01/25 00:00 Temperature 98.4 F Pulse Rate 84 86 78 Respiratory Rate 26 H 20 Blood Pressure 114/47 L Pulse Oximetry 100 100 100 Oxygen Delivery Mechanical Ventilation Mechanical Ventilation Fraction of Inspired Oxygen 40 30 02/01/25 00:00 02/01/25 00:00 02/01/25 00:00 Temperature Pulse Rate 78 82 Respiratory Rate 20 Blood Pressure Pulse Oximetry Oxygen Delivery Fraction of Inspired Oxygen 40 02/01/25 02:00 02/01/25 02:00 02/01/25 02:00 Temperature 98.2 F Pulse Rate 90 81 84 Respiratory Rate 24 H 20 Blood Pressure 102/55 L Pulse Oximetry 97 Oxygen Delivery Fraction of Inspired Oxygen 02/01/25 02:04 02/01/25 02:06 02/01/25 02:13 Temperature Pulse Rate 75 81 90 Respiratory Rate 23 H 24 H Blood Pressure Pulse Oximetry 99 Oxygen Delivery Mechanical Ventilation Fraction of Inspired Oxygen 40 02/01/25 04:00 02/01/25 04:00 02/01/25 04:00 Temperature 97.8 F Pulse Rate 80 78 82 Respiratory Rate 24 H 20 Blood Pressure 102/54 L Pulse Oximetry 92 97 Oxygen Delivery Mechanical Ventilation Fraction of Inspired Oxygen 30 02/01/25 04:00 02/01/25 04:00 02/01/25 05:14 Temperature Pulse Rate 82 80 Respiratory Rate 26 H Blood Pressure Pulse Oximetry 98 Oxygen Delivery Mechanical Ventilation Fraction of Inspired Oxygen 40 40 02/01/25 06:00 02/01/25 06:00 02/01/25 06:00 Temperature Pulse Rate 75 81 78 Respiratory Rate 24 H 20 Blood Pressure 102/42 L Pulse Oximetry 97 Oxygen Delivery Fraction of Inspired Oxygen 02/01/25 07:33 02/01/25 07:33 Temperature Pulse Rate 78 78 Respiratory Rate 22 H Blood Pressure Pulse Oximetry 98 Oxygen Delivery Mechanical Ventilation Fraction of Inspired Oxygen 40 <Lisa Ahumada, Student - Last Filed: 02/01/25 07:54> Intake/Output Intake/Output: Intake & Output 01/29/25 01/30/25 01/31/25 02/01/25 23:59 23:59 23:59 23:59 Intake Total 1985.8 2625.0 1861.3 701.8 Output Total 405 712 3397 800 Balance 1360.8 1675.0 711.3 -98.2 <Lisa Ahumada, Student - Last Filed: 02/01/25 07:54> Meds/Results Medications: Active Medications Generic Name Dose Route Start Last Admin Trade Name Freq PRN Reason Stop Dose Admin Acetaminophen 650 mg 01/25/25 11:14 01/25/25 18:58 Acetaminophen 325 Mg Tablet PO 650 mg Q4H PRN Administration Mild Pain (1-3) or Fever Baricitinib 2 mg 01/31/25 11:00 01/31/25 10:57 Baricitinib 2 Mg Tablet PO 02/08/25 11:01 2 mg DAILY@1100 NELLIE Administration Dexamethasone Sodium Phosphate 6 mg 01/26/25 09:00 01/31/25 08:00 Dexamethasone Sod Phos Inj 10 Mg/Ml 1 Ml Vial IV PUSH 02/04/25 09:01 6 mg DAILY NELLIE Administration Dextrose 12.5 gm 01/26/25 07:40 Dextrose 50% 25 Gm/50 Ml Syringe IV PUSH PRN PRN Hypoglycemia Protocol Enoxaparin Sodium 30 mg 01/26/25 09:00 01/31/25 08:00 Enoxaparin 30 Mg/0.3 Ml Syringe SUB-Q 30 mg DAILY NELLIE Administration Glucagon 1 mg 01/26/25 07:40 Glucagon For Inj 1 Mg Vial IM PRN PRN Hypoglycemia Protocol Glucose 15 gm 01/26/25 07:40 Glucose Oral Gel 15 Gm Of Glucse In 37.5 Gm Tube PO PRN PRN Hypoglycemia Protocol Dextrose 1,000 mls @ 100 mls/hr 01/26/25 07:40 Dextrose 5% 1,000 Ml IVPB PRN PRN Hypoglycemia Protocol Cefepime HCl 1 gm in 50 mls @ 100 mls/hr 01/27/25 10:15 01/31/25 22:00 Maxipime 1 Gm/Ns 50 Ml IVPB Infused Q12HR NELLIE Infusion Azithromycin 500 mg in 250 mls @ 250 mls/hr 01/27/25 12:00 01/31/25 09:00 Zithromax IVPB 02/03/25 11:59 Infused DAILY NELLIE Infusion Vancomycin HCl 1,250 mg in 250 mls @ 166.667 mls/hr 01/29/25 11:00 01/30/25 23:40 Vancomycin 1,250 Mg/Ns 250 Ml IVPB Infused Q36H NELLIE Infusion Dexmedetomidine HCl 400 mcg in 100 mls @ 1.848 mls/hr 01/31/25 08:15 02/01/25 06:00 Precedex 400 Mcg/100 Ml IV CONT 0.1 mcg/kg/hr .Q54H7M NELLIE 1.85 mls/hr Titration Protocol 0.1 MCG/KG/HR Insulin Aspart 3 - 6 units 01/26/25 12:00 02/01/25 06:15 Insulin Aspart (*Bkc) 100 Units/Ml SUB-Q 4 units Q6HR NELLIE Administration Protocol Insulin Glargine 38 units 01/31/25 09:00 01/31/25 08:04 Insulin Glargine (*Bkc) 100 Units/Ml SUB-Q 38 units DAILY NELLIE Administration Ipratropium [place] 0.5 mg 01/26/25 20:00 02/01/25 07:33 Ipratropium Br 0.02% Inh Soln 0.5 Mg/2.5 Ml Vial INHALATION 0.5 mg Q6HRT NELLIE Administration Levalbuterol HCl 1.25 mg 01/26/25 20:00 02/01/25 07:33 Levalbuterol Neb 1.25 Mg/3 Ml INHALATION 1.25 mg Q6HRT NELLIE Administration Memantine 10 mg 01/25/25 17:00 01/25/25 17:29 Memantine 10 Mg Tablet PO Not Given BID NELLIE Metoprolol Tartrate 5 mg 01/26/25 15:20 01/26/25 21:15 Metoprolol Tartrate Inj 5 Mg/5 Ml Vial IV PUSH 5 mg Q6H PRN Administration Tachycardia Multi-Ingred Cream/Lotion/Oil/Oint 1 applic 01/26/25 21:00 01/31/25 21:29 Mineral Oil/White Petrolatum Ointment EACH EYE 1 applic Q12HR NELLIE Administration Pantoprazole Sodium 40 mg 01/27/25 09:00 01/31/25 08:00 Pantoprazole Sodium Iv 40 Mg Vial IV PUSH 40 mg QAM NELLIE Administration Sodium Chloride 10 ml 01/27/25 14:00 02/01/25 06:15 Central Line Flush IV PUSH 10 ml Q8HR NELLIE Administration Sodium Chloride 10 ml 01/27/25 11:45 Central Line Flush IV PUSH PRN PRN with TPN bag changes Sodium Chloride 20 ml 01/27/25 11:45 Central Line Flush IV PUSH PRN PRN after blood draws <Lisa Ahumada, Student - Last Filed: 02/01/25 07:54> Radiology Results: ITS Impressions Abdomen X-Ray 01/26/25 20:53 IMPRESSION: Bibasilar airspace disease. Small bilateral pleural effusions, likely with a subpulmonic component on the right. NG tube in good position. Renal Ultrasound 01/28/25 12:53 Impression: No hydronephrosis. Trace right perinephric fluid. Chest X-Ray 02/01/25 06:50 Impression: Moderate pulmonary edema pattern with small pleural effusions. Correlate for pneumonia or ARDS. Support tubes, as above. <Lisa Ahumada, Student - Last Filed: 02/01/25 07:54> Labs Labs: Laboratory Results - last 24 hr 01/31/25 01/31/25 01/31/25 11:43 18:07 23:49 WBC RBC Hgb Hct MCV MCH MCHC RDW Plt Count MPV Immature Gran % (Auto) Neut % (Auto) Lymph % (Auto) [place] % (Auto) Eos % (Auto) Baso % (Auto) Lymph # (Auto) [place] # (Auto) Eos # (Auto) Baso # (Auto) Abs Immat Gran (auto) Absolute Neuts (auto) Absolute Nucleated RBC Nucleated RBC % Puncture Site ABG pH ABG pCO2 ABG pO2 ABG PO2/FiO2 Ratio ABG HCO3 ABG O2 Saturation ABG O2 Content ABG Base Excess A-a Gradient Oxyhemoglobin Carboxyhemoglobin Methemoglobin Reduced Hemoglobin Total Hemoglobin O2 Delivery Device O2 Liters/Min Minute Volume Vent Rate Vent Mode FiO2 Tidal Volume PEEP Peak Inspir Pressure Pressure Support Sodium Potassium Chloride Carbon Dioxide Anion Gap BUN Creatinine Estim Creat Clear Calc Estimated GFR Glucose POC Capillary Glucose 256 H 237 H 254 H Calcium Phosphorus Magnesium Total Bilirubin AST ALT Alkaline Phosphatase Total Protein Albumin 02/01/25 02/01/25 02/01/25 04:55 05:26 05:27 WBC 12.0 H RBC 3.33 L Hgb 10.1 L Hct 32.0 L MCV 96.1 MCH 30.3 MCHC 31.6 L RDW 14.1 Plt Count 166 MPV 11.7 H Immature Gran % (Auto) 1.9 H Neut % (Auto) 89.9 H Lymph % (Auto) 2.4 L [place] % (Auto) 5.7 Eos % (Auto) 0.0 Baso % (Auto) 0.1 L Lymph # (Auto) 0.29 L [place] # (Auto) 0.7 H Eos # (Auto) 0.0 Baso # (Auto) 0.0 Abs Immat Gran (auto) 0.23 H Absolute Neuts (auto) 10.8 H Absolute Nucleated RBC 0.000 Nucleated RBC % 0.0 Puncture Site Left radial ABG pH 7.449 ABG pCO2 28.3 L ABG pO2 98.4 ABG PO2/FiO2 Ratio 2.46 ABG HCO3 19.2 L ABG O2 Saturation 97.8 ABG O2 Content 14.9 L ABG Base Excess -3.8 A-a Gradient 154.3 Oxyhemoglobin 97.1 Carboxyhemoglobin 0.3 Methemoglobin 0.0 Reduced Hemoglobin 2.6 Total Hemoglobin 10.8 L O2 Delivery Device Ventilator O2 Liters/Min Not Reportable Minute Volume Not Reportable Vent Rate 20 Vent Mode Cmv FiO2 40 Tidal Volume 400 PEEP 10 Peak Inspir Pressure Not Reportable Pressure Support Not Reportable Sodium 146 H Potassium 4.5 Chloride 113 H Carbon Dioxide 24 Anion Gap 9 BUN 118 H Creatinine 2.02 H Estim Creat Clear Calc 22 Estimated GFR 32 L Glucose 254 H POC Capillary Glucose Calcium 9.3 Phosphorus 4.1 Magnesium 2.8 H Total Bilirubin 0.3 AST 37 ALT 147 H Alkaline Phosphatase 109 Total Protein 5.0 L Albumin 2.8 L <Lisa Ahumada, Student - Last Filed: 02/01/25 07:54> Quality VTE Prophylaxis VTE prophylaxis: pharmacologic ordered <Lisa Ahumada, Student - Last Filed: 02/01/25 07:54> Attestation Student Attestation H&P performed by ERIN Kimble <Lisa Ahumada Student - Last Filed: 02/01/25 07:54>
[2025-02-01] MEDS: CEFEPIME 1 GM/NS 50 ML 1 GM/50 ML BAG IVPB ×2 (08:28→21:37)
[2025-02-01] MEDS: AZITHROMYCIN 500 MG/NS 250 ML 500 MG/250 ML BAG 250 MG IVPB (08:28)
[2025-02-01] MEDS: dexAMETHasone SOD PHOS INJ 10 MG/ML 1 ML VIAL 6 MG IV PUSH (08:30)
[2025-02-01] MEDS: ENOXAPARIN 30 MG/0.3 ML SYRINGE SUB-Q (08:30)
[2025-02-01] MEDS: INSULIN GLARGINE (*BKC) 100 UNITS/ML 38 UNITS SUB-Q (08:31)
[2025-02-01] MEDS: MINERAL OIL/WHITE PETROLATUM OINTMENT 1 APPLIC EACH EYE ×2 (08:33→21:37)
[2025-02-01] MEDS: PANTOPRAZOLE SODIUM IV 40 MG VIAL IV PUSH (08:39)
--- NOTE | 2025-02-01 10:31 | P.PNNP_ITS ---
Progress Note: A&P Assessment and Plan (1) Acute kidney injury: Code(s): N17.9 - Acute kidney failure, unspecified Status: Acute Assessment and Plan: * improvement noted * as noted on admission * transient improvement to 1.61mg/d on 01/26 * worsening creatinine starting on 01/27 * baseline creatinine runs around 1.1 - 1.3mg/dl * suspect ATN with multifactorial etiology: * hemodynamic instability/shock * infection/sepsis (pneumonia + COVID) * hypoxia * possible prerenal factors * other(?) * evaluation to date noted: * renal ultrasound without hydronephrosis * urine electrolytes prerenal * urine eosinophils negative * CPK mildly elevated (but enough to affect kidney function) * moderate proteinuria * continue supportive therapy * follow trend of repeat labs and UOP (2) Septic shock: Code(s): A41.9 - Sepsis, unspecified organism; R65.21 - Severe sepsis with septic shock Status: Acute Assessment and Plan: * as noted by presentation of tachycardia, tachypnea, hypoxia, lactic acidosis, MICHAEL, and hypotension * s/p volume resuscitation along with IV albumin for intravascular volume expansion * lactic acidosis resolved * was on vasopressor therapy (levophed) to maintain MAP/blood pressure * weaned off * follow culture data * on antibiotics * not opposed to IV diuretic trial today * follow trend of hemodynamics (3) Acute respiratory failure: Code(s): J96.00 - Acute respiratory failure, unspecified whether with hypoxia or hypercapnia Status: Acute Assessment and Plan: * felt to be secondary to pneumonia and COVID-19 * on ventilator support * weaning as tolerated (4) Pneumonia: Code(s): J18.9 - Pneumonia, unspecified organism Status: Acute Assessment and Plan: * as suggested by admission imaging * follow culture data * on antibiotic therapy * continue supportive therapy (5) COVID: Code(s): U07.1 - COVID-19 Status: Acute Assessment and Plan: * positive testing noted on 01/22 * imaging with worsening infiltrates as well * initated on remdesivir and dexamethasone (on 01/25) * started on baricitinib as well (on 01/26) * remains on droplet and contact isolation/precautions (6) Anemia: Code(s): D64.9 - Anemia, unspecified Status: Acute Assessment and Plan: * presumably due to MICHAEL and acute illness * follow trend of H/H (7) Elevated LFTs: Code(s): R79.89 - Other specified abnormal findings of blood chemistry Status: Acute Assessment and Plan: * presumably due to septic shock and hypoxia * statin on hold * appear to be improving * follow trend (8) Pre-diabetes: Code(s): R73.03 - Prediabetes Status: Acute Assessment and Plan: * follow accu-cheks * possibly exacerbated by steroid use and acute illness * glycemic control per hand endband cutter/hospitalist Discussed case with Dr. Emmanuel. Will continue to follow. L Subjective Date/time seen: 02/01/25 10:31 Interval history: Follow-up for acute kidney injury/acute renal failure. Renal function/creatinine remains stable with reasonable urine output; stable hemodynamics noted without the need for vasopressor therapy; remains intubated and on mechanical ventilation (on precedex gtt); opens eyes and able to follow simple commands; no other issues/events overnight or earlier this morning. Exam 2 Narrative: General: elderly male intubated/sedated and on mechanical ventilation Heart: normal S1 and S2; no rub Lungs: coarse breath sounds, right > left Abdomen: soft, nontender, nondistended, diminished bowel sounds Extremities: no cyanosis or clubbing; no edema Skin: no nodules Objective Data Vital Signs Vital Signs: Vital Signs Temp Pulse Resp BP Pulse Ox O2 Del Method FiO2 02/01/25 10:30 74 99 Mechanical Ventilation 40 02/01/25 10:00 81 02/01/25 10:00 98.0 F 79 20 103/59 L 98 02/01/25 08:00 98 Mechanical Ventilation 30 02/01/25 08:00 85 02/01/25 08:00 40 02/01/25 08:00 97.7 F 79 17 106/57 L 98 02/01/25 07:48 81 22 H 02/01/25 07:33 78 22 H 02/01/25 07:33 78 98 Mechanical Ventilation 40 02/01/25 06:00 78 20 02/01/25 06:00 81 02/01/25 06:00 75 24 H 102/42 L 97 02/01/25 05:14 80 98 Mechanical Ventilation 40 02/01/25 04:00 82 26 H 02/01/25 04:00 40 02/01/25 04:00 82 20 97 Mechanical Ventilation 30 02/01/25 04:00 78 02/01/25 04:00 97.8 F 80 24 H 102/54 L 92 02/01/25 02:13 90 24 H 02/01/25 02:06 81 99 Mechanical Ventilation 40 02/01/25 02:04 75 23 H 02/01/25 02:00 84 20 02/01/25 02:00 98.2 F 81 24 H 102/55 L 97 02/01/25 02:00 90 02/01/25 00:00 82 20 02/01/25 00:00 78 02/01/25 00:00 40 02/01/25 00:00 78 20 100 Mechanical Ventilation 30 02/01/25 00:00 98.4 F 86 26 H 114/47 L 100 01/31/25 23:01 84 100 Mechanical Ventilation 40 01/31/25 22:00 77 20 01/31/25 22:00 80 01/31/25 22:00 98.5 F 78 24 H 106/57 L 100 01/31/25 20:09 83 100 Mechanical Ventilation 40 01/31/25 20:07 96 Mechanical Ventilation 40 01/31/25 20:05 82 19 01/31/25 20:00 83 20 01/31/25 20:00 83 20 100 Mechanical Ventilation 30 01/31/25 20:00 40 01/31/25 20:00 83 01/31/25 20:00 98.4 F 83 17 115/62 100 01/31/25 18:00 75 20 01/31/25 18:00 98.3 F 71 20 104/57 L 100 01/31/25 18:00 73 01/31/25 17:24 80 98 Mechanical Ventilation 40 01/31/25 16:00 87 20 01/31/25 16:00 80 01/31/25 16:00 40 01/31/25 16:00 99 Mechanical Ventilation 40 01/31/25 16:00 98 F 79 21 H 117/65 99 01/31/25 14:26 85 23 H 01/31/25 14:24 97 Mechanical Ventilation 40 01/31/25 14:22 79 97 Mechanical Ventilation 40 01/31/25 14:10 77 20 01/31/25 14:00 78 21 H 01/31/25 14:00 97.8 F 78 21 H 114/63 97 01/31/25 14:00 77 01/31/25 12:00 84 01/31/25 12:00 84 22 H 01/31/25 12:00 92 Mechanical Ventilation 50 01/31/25 12:00 50 01/31/25 12:00 97.8 F 91 22 H 98/60 L 92 Intake/Output Intake/Output: Intake & Output 01/29/25 01/30/25 01/31/25 02/01/25 23:59 23:59 23:59 23:59 Intake Total 1985.8 2625.0 1861.3 701.8 Output Total 923 785 5889 800 Balance 1360.8 1675.0 711.3 -98.2 Meds/Results Medications: Active Medications Generic Name Dose Route Start Last Admin Trade Name Freq PRN Reason Stop Dose Admin Acetaminophen 650 mg 01/25/25 11:14 01/25/25 18:58 Acetaminophen 325 Mg Tablet PO 650 mg Q4H PRN Administration Mild Pain (1-3) or Fever Baricitinib 2 mg 01/31/25 11:00 02/01/25 10:45 Baricitinib 2 Mg Tablet PO 02/08/25 11:01 2 mg DAILY@1100 NELLIE Administration Dexamethasone Sodium Phosphate 6 mg 01/26/25 09:00 02/01/25 08:30 Dexamethasone Sod Phos Inj 10 Mg/Ml 1 Ml Vial IV PUSH 02/04/25 09:01 6 mg DAILY NELLIE Administration Dextrose 12.5 gm 01/26/25 07:40 Dextrose 50% 25 Gm/50 Ml Syringe IV PUSH PRN PRN Hypoglycemia Protocol Enoxaparin Sodium 30 mg 01/26/25 09:00 02/01/25 08:30 Enoxaparin 30 Mg/0.3 Ml Syringe SUB-Q 30 mg DAILY NELLIE Administration Glucagon 1 mg 01/26/25 07:40 Glucagon For Inj 1 Mg Vial IM PRN PRN Hypoglycemia Protocol Glucose 15 gm 01/26/25 07:40 Glucose Oral Gel 15 Gm Of Glucse In 37.5 Gm Tube PO PRN PRN Hypoglycemia Protocol Dextrose 1,000 mls @ 100 mls/hr 01/26/25 07:40 Dextrose 5% 1,000 Ml IVPB PRN PRN Hypoglycemia Protocol Cefepime HCl 1 gm in 50 mls @ 100 mls/hr 01/27/25 10:15 02/01/25 08:28 Maxipime 1 Gm/Ns 50 Ml IVPB 100 mls/hr Q12HR NELLIE Administration Azithromycin 500 mg in 250 mls @ 250 mls/hr 01/27/25 12:00 02/01/25 08:28 Zithromax IVPB 02/03/25 11:59 250 mls/hr DAILY NELLIE Administration Dexmedetomidine HCl 400 mcg in 100 mls @ 1.848 mls/hr 01/31/25 08:15 02/01/25 06:00 Precedex 400 Mcg/100 Ml IV CONT 0.1 mcg/kg/hr .Q54H7M NELLIE 1.85 mls/hr Titration Protocol 0.1 MCG/KG/HR Insulin Aspart 3 - 6 units 01/26/25 12:00 02/01/25 11:23 Insulin Aspart (*Bkc) 100 Units/Ml SUB-Q 3 units Q6HR NELLIE Administration Protocol Insulin Glargine 38 units 01/31/25 09:00 02/01/25 08:31 Insulin Glargine (*Bkc) 100 Units/Ml SUB-Q 38 units DAILY NELLIE Administration Ipratropium [place] 0.5 mg 01/26/25 20:00 02/01/25 07:33 Ipratropium Br 0.02% Inh Soln 0.5 Mg/2.5 Ml Vial INHALATION 0.5 mg Q6HRT NELLIE Administration Levalbuterol HCl 1.25 mg 01/26/25 20:00 02/01/25 07:33 Levalbuterol Neb 1.25 Mg/3 Ml INHALATION 1.25 mg Q6HRT NELLIE Administration Memantine 10 mg 01/25/25 17:00 01/25/25 17:29 Memantine 10 Mg Tablet PO Not Given BID NELLIE Metoprolol Tartrate 5 mg 01/26/25 15:20 01/26/25 21:15 Metoprolol Tartrate Inj 5 Mg/5 Ml Vial IV PUSH 5 mg Q6H PRN Administration Tachycardia Multi-Ingred Cream/Lotion/Oil/Oint 1 applic 01/26/25 21:00 02/01/25 08:33 Mineral Oil/White Petrolatum Ointment EACH EYE 1 applic Q12HR NELLIE Administration Pantoprazole Sodium 40 mg 01/27/25 09:00 02/01/25 08:39 Pantoprazole Sodium Iv 40 Mg Vial IV PUSH 40 mg QAM NELLIE Administration Sodium Chloride 10 ml 01/27/25 14:00 02/01/25 06:15 Central Line Flush IV PUSH 10 ml Q8HR NELLIE Administration Sodium Chloride 10 ml 01/27/25 11:45 Central Line Flush IV PUSH PRN PRN with TPN bag changes Sodium Chloride 20 ml 01/27/25 11:45 Central Line Flush IV PUSH PRN PRN after blood draws Radiology Results: ITS Impressions Abdomen X-Ray 01/26/25 20:53 IMPRESSION: Bibasilar airspace disease. Small bilateral pleural effusions, likely with a subpulmonic component on the right. NG tube in good position. Renal Ultrasound 01/28/25 12:53 Impression: No hydronephrosis. Trace right perinephric fluid. Chest X-Ray 02/01/25 06:50 Impression: Moderate pulmonary edema pattern with small pleural effusions. Correlate for pneumonia or ARDS. Support tubes, as above. Labs Labs: Laboratory Tests 02/01/25 05:26 02/01/25 05:27 Calcium 9.3 Phosphorus 4.1 Magnesium 2.8 H Total Bilirubin 0.3 AST 37 ALT 147 H Alkaline Phosphatase 109 Total Protein 5.0 L Albumin 2.8 L
[2025-02-01] MEDS: BARICITINIB 2 MG TABLET PO (10:45)
--- NOTE | 2025-02-01 10:59 | PCFNICU ---
ICU Rounding Note: Pt current nutrition is Nepro @ 40 ml/h. FLush 30 ml q 4 h.. Nutrition recommendation: No new recommendations. Continue current nutrition care plan and orders. Agree with orders. Last recorded weight is 69.9 kg. Bowel Motility: +2 BMs /01/22 Labs Reviewed: Hgb 10.1, Hct 32, Alb 2.8, Na 146, BUN 118, Cre 2.02, Glu 254 Meds Noted:Protonix, Lantus, precedex Skin: Friction to buttocks. No pressure Additional Notes: Pt tolerating TF and remains on vent. Continue current nutrition care plan and orders. Nepro @ goal rate 40 ml/h provides 1582 kkcal, 72 g protein, 640 ml free water. Meets needs @ 23 kcal. kg, 1 g protein/kg. May consider Prosource if pt continues on vent. Following daily in ICU rounds. Will monitor weight, labs, skin, diet orders, meds every 3 days. .
[2025-02-01 11:20] LABS: Glucose Point of Care 225 mg/dl (65-105)
[2025-02-01] MEDS: FUROSEMIDE INJ 40 MG/4 ML VIAL IV PUSH (11:23)
[2025-02-01 17:20] LABS: Glucose Point of Care 188 mg/dl (65-105)
--- NOTE | 2025-02-01 17:41 | PC.NURSE ---
PT had one BM during shift, red blood noticed in stool. Notified Dr Emmanuel who gave order to d/c Lovenox and order occult stool specimen. Order read back and verified.
[2025-02-02] VITALS (28 sets, daily range): BP systolic 95–142; BP diastolic 56–70; PULSE 61–92; RESP 15–21; TEMP 36.5–36.9; O2SAT 96–100
[2025-02-02] MEDS: INSULIN ASPART (*BKC) 100 UNITS/ML SUB-Q (00:28)
[2025-02-02 00:37] LABS: Glucose Point of Care 206 mg/dl (65-105)
[2025-02-02] MEDS: IPRATROPIUM BR 0.02% INH SOLN 0.5 MG/2.5 ML VIAL INHALATION ×4 (02:21→20:44)
[2025-02-02] MEDS: LEVALBUTEROL NEB 1.25 MG/3 ML INHALATION ×4 (02:21→20:44)
[2025-02-02] MEDS: dexmedeTOMIDine 400 MCG/100 ML 400 MCG/100 ML BAG IV CONT (04:37)
[2025-02-02 04:57] LABS: Hematocrit 32.1 % (42.0-52.0); Hemoglobin 10.1 g/dL (14.0-18.0); Immature Granulocyte Percent A 1.8 % (0-0.5); Lymphocytes Absolute Auto 0.29 K/mm3 (0.9-3.2); Lymphocytes Percent Auto 2.6 % (18.3-44.2); Mean Corpuscular HGB Conc 31.5 g/dl (32-36); Mean Corpuscular Hemoglobin 30.1 pg (26-34); Mean Corpuscular Volume 95.5 fl (80-100); Mean Platelet Volume 11.6 fl (7.4-10.4); Monocytes Absolute Auto 0.6 K/mm3 (0.1-0.6); Monocytes Percent Auto 5.7 % (2.6-8.5); Neutrophils Percent Auto 89.9 % (45.5-73.1); Platelet Count Result 163 k/mm3 (150-375); Red Blood Count 3.36 M/mm3 (4.6-6.20); Red Cell Distribution Width 14.1 % (11.5-14.5); White Blood Count 11.1 K/mm3 (4.5-10.0)
[2025-02-02 05:20] LABS: Alanine Aminotransferase 129 U/L (6-50); Alkaline Phosphatase 102 U/L (38-126); Anion Gap 7 mmol/L (4-12); Aspartate Amino Transferase 33 U/L (17-59); Bilirubin,Total 0.4 mg/dL (0.2-1.3); Blood Urea Nitrogen 119 mg/dL (9-20); Calcium 9.5 mg/dL (8.4-10.2); Carbon Dioxide 27 mmol/L (22-30); Chloride 112 mmol/L (98-107); Estimated CRCL calculation 21 ml/min; Estimated Glomerular Filt Rate 29; Glucose 168 mg/dL (65-110); Magnesium 2.8 mg/dL (1.6-2.3); Phosphorus 4.2 mg/dL (2.5-4.5); Sodium 146 mmol/L (137-145)
[2025-02-02 05:21] LABS: Alveolar/Arterial O2 Gradient 88.8 mmHg; Base Excess ABG -1.2 mEq/l (+/-2.0); Carboxyhemoglobin 0.3 % THb (0-2.0); Fractional Inspired Oxygen 35 %; HCO3 ABG 20.4 mEq/l (22.0-26.0); Methemoglobin ABG 0.3 %THb (0-1.5); Oxygen Content ABG 15.4 %vol (16.0-22.0); Oxyhemoglobin 98.1 % THb (90.0-100.0); PCO2 ABG 25.2 mmHg (35.0-45.0); PO2 ABG 131.5 mmHg (80.0-100.0); PO2 FiO2 Ratio Arterial Blood 3.76 %; Reduced Hemoglobin 1.3 %THb (0-5.0)
[2025-02-02 05:22] LABS: Device VENTILATOR; Site Drawn RIGHT BRACHIAL; pH ABG 7.526 (7.350-7.450)
[2025-02-02 05:23] LABS: Arterial Blood Gas PEEP 10 cmH2O; Arterial Blood Gas Tidal Volume 400 ml; Arterial Blood Gas Vent Mode CMV; Arterial Blood Gas Ventilator rate 20 /MIN
[2025-02-02] MEDS: CENTRAL LINE FLUSH 10 ML IV PUSH ×3 (06:30→21:44)
[2025-02-02] MEDS: MINERAL OIL/WHITE PETROLATUM OINTMENT 1 APPLIC EACH EYE ×2 (08:19→21:44)
[2025-02-02] MEDS: INSULIN GLARGINE (*BKC) 100 UNITS/ML 38 UNITS SUB-Q (08:19)
[2025-02-02] MEDS: CEFEPIME 1 GM/NS 50 ML 1 GM/50 ML BAG IVPB ×2 (08:19→21:44)
[2025-02-02] MEDS: AZITHROMYCIN 500 MG/NS 250 ML 500 MG/250 ML BAG 250 MG IVPB (08:19)
[2025-02-02] MEDS: dexAMETHasone SOD PHOS INJ 10 MG/ML 1 ML VIAL 6 MG IV PUSH (08:19)
[2025-02-02] MEDS: FUROSEMIDE INJ 40 MG/4 ML VIAL IV PUSH ×2 (08:56→17:46)
[2025-02-02] MEDS: PANTOPRAZOLE SODIUM IV 40 MG VIAL IV PUSH ×2 (08:56→21:44)
--- NOTE | 2025-02-02 09:54 | P.PNINT_ITS ---
Progress Note: A&P Assessment and Plan (1) Acute respiratory failure: Code(s): J96.00 - Acute respiratory failure, unspecified whether with hypoxia or hypercapnia Status: Acute Assessment and Plan: Acute respiratory failure likely related to pneumonia, COVID-19, and pulmonary edema -chest x-ray and ABG reviewed -FiO2 is at 35%. I will decrease the PEEP to 8. Decrease tidal volume to 350 and rate to 16. -not ready for weaning as he needs additional diuresis -Continue Azithromycin, and cefepime 02/01: vancomycin discontinue -Continue Dexamethasone On Precedex 0.1 mcg/kg/hr infusion. Off all other sedation 01/27-the negative cultures shows no growth x2 01/31- Sputum culture final: No organism seen (2) Pneumonia: Code(s): J18.9 - Pneumonia, unspecified organism Status: Acute Assessment and Plan: Continue as above (3) COVID: Code(s): U07.1 - COVID-19 Status: Acute Assessment and Plan: Patient has been positive for COVID 19. Chest x-ray shows worsening infiltrates -off remdesivir - dexamethasone (01/25) for total of 10 days -continue baricitinib (01/26) for total of 14 days or until discharge, renally dosed by pharmacy -continue droplet and contact isolation/precautions 01/27- rising LFT's likely transient related to rapid response, will continue to monitor. No change to Remdesivir at this time. 01/31- LFT's trending down. Remdesivir course completed (4) Sepsis: Code(s): A41.9 - Sepsis, unspecified organism Status: Acute Assessment and Plan: Patient presented with tachycardia, tachypnea, hypoxia, and acute kidney injury -adequately fluid-resuscitated, s/p albumin for intravascular volume expansion -urine output has been adequate, will continue to follow -01/27: status post LR at 100 mL/hour for 1000 mL -01/28: Lactic acid resolved -01/29: increase in lactic acid to 2.3, patient received maintenance IV fluids at 75 mL for 1000 ml -remains off Levophed -septic shock has resolved (5) MICHAEL (acute kidney injury): Code(s): N17.9 - Acute kidney failure, unspecified Status: Acute Assessment and Plan: Acute kidney injury likely related to sepsis, -adequately fluid-resuscitated -continue to monitor urine output, renal function and electrolytes -nephrology has been consulted -urine lytes do not reflect pre renal, CK level 317, negative urine eosinophils -01/28: Renal ultrasound ordered and demonstrated no hydronephrosis, but trace right perinephric fluid present Creatinine stable, urine output has improved, continue diuretics as patient is overall volume overloaded. Elevated BUN likely secondary to steroids and catabolic state (6) Dementia: Qualifiers: Dementia behavioral or psychological symptom: unspecified whether behavioral, psychotic, or mood disturbance or anxiety Dementia severity: unspecified severity Dementia type: unspecified type Qualified Code(s): F03.90 - Unspecified dementia, unspecified severity, without behavioral disturbance, psychotic disturbance, mood disturbance, and anxiety Code(s): F03.90 - Unspecified dementia, unspecified severity, without behavioral disturbance, psychotic disturbance, mood disturbance, and anxiety Status: Acute Assessment and Plan: Baseline cognitive impairment, on Namenda at home, will continue to hold for now (7) Hyperlipidemia: Qualifiers: Hyperlipidemia type: unspecified Qualified Code(s): E78.5 - Hyperlipidemia, unspecified Code(s): E78.5 - Hyperlipidemia, unspecified Status: Acute Assessment and Plan: continue pravastatin (8) Pre-diabetes: Code(s): R73.03 - Prediabetes Status: Acute Assessment and Plan: Currently hyperglycemic. Likely secondary to steroids. Continue Lantus, Accu-Cheks and sliding scale insulin 12/16/2024: Hemoglobin A1c was 6.4 (9) GI bleeding: Code(s): K92.2 - Gastrointestinal hemorrhage, unspecified Status: Acute Assessment and Plan: Overnight patient had a bowel movement and stool was reported to be dark by the nursing staff. Lovenox on hold Monitor hemoglobin IV PPI q.12 hours (10) Congestive heart failure: Code(s): I50.9 - Heart failure, unspecified Status: Acute Assessment and Plan: Echo 01/26 Summary 1. Definity contrast administered improved wall motion interpretation. 2. Left ventricular chamber dimension is moderately enlarged. 3. Left ventricular systolic function is moderately globally reduced, estimated at 35-40%. 4. The left ventricular diastolic function is abnormal. 5. E/e' 13 is mildly elevated. 6. Left atrial chamber dimension is moderately enlarged. 7. Right atrial chamber dimension is mildly enlarged. 8. There is mild aortic valve sclerosis. 9. There is mild aortic valve regurgitation. 10. There is moderate to severe mitral valve regurgitation. 11. There is moderate tricuspid valve regurgitation. 12. Mild pulmonary hypertension, estimated pulmonary arterial systolic pr essure is 40 mmHg. Lasix IV Plan DVT prophylaxis: Enoxaparin is on hold. SCDs ordered. Stress ulcer prophylaxis: Protonix Nutrition: Tube feeds at goal Code Status: Okay for intubation. No CPR Critical Care Time Spent: 30 minutes Due to a high probability of clinically significant, life threatening deterioration, the patient required my highest level of preparedness to intervene emergently and I personally spent this critical care time directly and personally managing the patient. This critical care time included obtaining a history; examining the patient; pulse oximetry; ordering and review of studies; arranging urgent treatment with development of a management plan; evaluation of patient's response to treatment; frequent reassessment; and discussions with other providers. It was exclusive of separately billable procedures and treating other patients and teaching time. Please see Assessment and Plan section and the rest of the note for further information on patient assessment and treatment This dictation may have been done utilizing a voice recognition system. Attempts have been made to correct errors. However, there may be uncorrected grammatical, spelling, and recognitions errors present. Subjective Date/time seen: 02/02/25 Overnight events reviewed. Afebrile Continues to be on mechanical ventilation 35% FiO2 and 10 of PEEP Good urine output in response to laced Continues to be sedated with low-dose Precedex Other Vitals acceptable Follows commands Overnight he had a bowel movement and nurse reported stool to be dark. Interval history: 01/26/25- Intubated Review of Systems Review of Systems: ROS unobtainable: Yes unobtainable due to endotracheal tube, unobtainable due to medical condition and unobtainable due to mental status Exam Narrative: General: Intubated, in no acute distress HEENT:? Pupils equal and reactive, sclera is clear, ETT in place Neck:? Supple Respiratory:? Coarse breath sounds bilaterally, right greater than left, no wheezing, adequate air entry Cardiac:? S1-S2 normal, regular rhythm, Tachycardic Abdomen:? Soft, nontender, hypoactive bowel sounds Extremities:? No edema, palpable pedal pulses Neuro:? Patient remains intubated off sedation, Opens his eyes and follow simple commands in all extremities Skin:? No skin lesions noted Psych:? Unable to assess at this time Objective Data Vital Signs Vital Signs: Vital Signs - 24 hr 02/01/25 10:00 02/01/25 10:00 02/01/25 10:00 Temperature 36.7 C Pulse Rate 79 81 79 Respiratory Rate 20 21 H Blood Pressure 103/59 L Pulse Oximetry 98 Oxygen Delivery Fraction of Inspired Oxygen 02/01/25 10:30 02/01/25 12:00 02/01/25 12:00 Temperature Pulse Rate 74 Respiratory Rate Blood Pressure Pulse Oximetry 99 97 Oxygen Delivery Mechanical Ventilation Mechanical Ventilation Fraction of Inspired Oxygen 40 30 40 02/01/25 12:00 02/01/25 12:00 02/01/25 12:00 Temperature 36.8 C Pulse Rate 81 81 85 Respiratory Rate 15 20 Blood Pressure 121/62 Pulse Oximetry 97 Oxygen Delivery Fraction of Inspired Oxygen 02/01/25 13:22 02/01/25 13:22 02/01/25 13:38 Temperature Pulse Rate 86 86 83 Respiratory Rate 24 H 23 H Blood Pressure Pulse Oximetry 96 Oxygen Delivery Mechanical Ventilation Fraction of Inspired Oxygen 40 02/01/25 14:00 02/01/25 14:00 02/01/25 14:00 Temperature 36.9 C Pulse Rate 82 74 84 Respiratory Rate 20 20 Blood Pressure 118/65 Pulse Oximetry 97 Oxygen Delivery Fraction of Inspired Oxygen 02/01/25 16:00 02/01/25 16:00 02/01/25 16:00 Temperature 37.0 C Pulse Rate 76 72 Respiratory Rate 20 Blood Pressure 111/54 L Pulse Oximetry 98 100 Oxygen Delivery Mechanical Ventilation Fraction of Inspired Oxygen 30 02/01/25 16:00 02/01/25 16:00 02/01/25 16:11 Temperature Pulse Rate 74 82 Respiratory Rate 20 Blood Pressure Pulse Oximetry 98 Oxygen Delivery Mechanical Ventilation Fraction of Inspired Oxygen 40 40 02/01/25 18:00 02/01/25 18:00 02/01/25 18:05 Temperature 36.9 C Pulse Rate 72 72 68 Respiratory Rate 20 20 Blood Pressure 115/59 L Pulse Oximetry 100 Oxygen Delivery Fraction of Inspired Oxygen 02/01/25 19:40 02/01/25 20:00 02/01/25 20:00 Temperature 37.0 C Pulse Rate 69 69 Respiratory Rate 20 Blood Pressure 118/58 L Pulse Oximetry 100 Oxygen Delivery Fraction of Inspired Oxygen 40 02/01/25 20:00 02/01/25 20:18 02/01/25 20:18 Temperature Pulse Rate 69 69 Respiratory Rate 20 Blood Pressure Pulse Oximetry 100 100 Oxygen Delivery Mechanical Ventilation Mechanical Ventilation Fraction of Inspired Oxygen 40 40 02/01/25 20:26 02/01/25 21:43 02/01/25 22:00 Temperature 37.0 C Pulse Rate 69 70 71 Respiratory Rate 20 21 H 21 H Blood Pressure 118/60 Pulse Oximetry 100 Oxygen Delivery Fraction of Inspired Oxygen 02/01/25 22:00 02/01/25 22:00 02/01/25 22:00 Temperature Pulse Rate 82 82 Respiratory Rate 21 H Blood Pressure Pulse Oximetry Oxygen Delivery Fraction of Inspired Oxygen 35 02/01/25 23:05 02/02/25 00:00 02/02/25 00:00 Temperature 36.9 C Pulse Rate 73 70 68 Respiratory Rate 20 20 Blood Pressure 119/61 Pulse Oximetry 97 98 Oxygen Delivery Mechanical Ventilation Fraction of Inspired Oxygen 35 02/02/25 00:00 02/02/25 00:00 02/02/25 00:00 Temperature Pulse Rate 68 Respiratory Rate Blood Pressure Pulse Oximetry 100 Oxygen Delivery Mechanical Ventilation Fraction of Inspired Oxygen 35 40 02/02/25 02:00 02/02/25 02:00 02/02/25 02:00 Temperature 36.8 C Pulse Rate 66 66 66 Respiratory Rate 21 H 21 H Blood Pressure 124/67 Pulse Oximetry 97 Oxygen Delivery Fraction of Inspired Oxygen 02/02/25 02:21 02/02/25 02:22 02/02/25 02:27 Temperature Pulse Rate 64 63 64 Respiratory Rate 20 20 Blood Pressure Pulse Oximetry 97 Oxygen Delivery Mechanical Ventilation Fraction of Inspired Oxygen 35 02/02/25 04:00 02/02/25 04:00 02/02/25 04:00 Temperature 36.6 C Pulse Rate 63 63 Respiratory Rate 20 20 Blood Pressure 111/60 Pulse Oximetry 96 100 Oxygen Delivery Mechanical Ventilation Fraction of Inspired Oxygen 40 02/02/25 04:00 02/02/25 04:00 02/02/25 04:37 Temperature Pulse Rate 65 65 Respiratory Rate 20 Blood Pressure Pulse Oximetry Oxygen Delivery Fraction of Inspired Oxygen 35 02/02/25 04:37 02/02/25 04:54 02/02/25 06:00 Temperature Pulse Rate 65 61 61 Respiratory Rate 20 20 Blood Pressure Pulse Oximetry 96 Oxygen Delivery Mechanical Ventilation Fraction of Inspired Oxygen 35 02/02/25 06:00 02/02/25 06:00 02/02/25 08:00 Temperature 36.5 C 36.5 C Pulse Rate 61 61 66 Respiratory Rate 20 20 Blood Pressure 118/58 L 117/60 Pulse Oximetry 96 100 Oxygen Delivery Fraction of Inspired Oxygen 02/02/25 08:00 02/02/25 08:00 02/02/25 08:00 Temperature Pulse Rate 67 Respiratory Rate 20 Blood Pressure Pulse Oximetry 100 Oxygen Delivery Mechanical Ventilation Fraction of Inspired Oxygen 35 35 02/02/25 08:00 02/02/25 08:42 02/02/25 08:42 Temperature Pulse Rate 67 69 69 Respiratory Rate 21 H Blood Pressure Pulse Oximetry 100 Oxygen Delivery Mechanical Ventilation Fraction of Inspired Oxygen 35 02/02/25 08:51 02/02/25 08:56 02/02/25 08:59 Temperature Pulse Rate 71 69 Respiratory Rate 20 Blood Pressure 117/60 Pulse Oximetry Oxygen Delivery Fraction of Inspired Oxygen 35 Intake/Output Intake/Output: Intake & Output 01/30/25 01/31/25 02/01/25 02/02/25 23:59 23:59 23:59 23:59 Intake Total 2625.0 1861.3 1551.4 626.5 Output Total 950 1150 3400 600 Balance 1675.0 711.3 -1848.6 26.5 Meds/Results Medications: Active Medications Generic Name Dose Route Start Last Admin Trade Name Freq PRN Reason Stop Dose Admin Acetaminophen 650 mg 01/25/25 11:14 01/25/25 18:58 Acetaminophen 325 Mg Tablet PO 650 mg Q4H PRN Administration Mild Pain (1-3) or Fever Baricitinib 2 mg 01/31/25 11:00 02/01/25 10:45 Baricitinib 2 Mg Tablet PO 02/08/25 11:01 2 mg DAILY@1100 NELLIE Administration Dexamethasone Sodium Phosphate 6 mg 01/26/25 09:00 02/02/25 08:19 Dexamethasone Sod Phos Inj 10 Mg/Ml 1 Ml Vial IV PUSH 02/04/25 09:01 6 mg DAILY NELLIE Administration Dextrose 12.5 gm 01/26/25 07:40 Dextrose 50% 25 Gm/50 Ml Syringe IV PUSH PRN PRN Hypoglycemia Protocol Furosemide 40 mg 02/02/25 09:00 02/02/25 08:56 Furosemide Inj 40 Mg/4 Ml Vial IV PUSH 02/02/25 17:01 40 mg BID NELLIE Administration Glucagon 1 mg 01/26/25 07:40 Glucagon For Inj 1 Mg Vial IM PRN PRN Hypoglycemia Protocol Glucose 15 gm 01/26/25 07:40 Glucose Oral Gel 15 Gm Of Glucse In 37.5 Gm Tube PO PRN PRN Hypoglycemia Protocol Dextrose 1,000 mls @ 100 mls/hr 01/26/25 07:40 Dextrose 5% 1,000 Ml IVPB PRN PRN Hypoglycemia Protocol Cefepime HCl 1 gm in 50 mls @ 100 mls/hr 01/27/25 10:15 02/02/25 08:19 Maxipime 1 Gm/Ns 50 Ml IVPB 100 mls/hr Q12HR NELLIE Administration Azithromycin 500 mg in 250 mls @ 250 mls/hr 01/27/25 12:00 02/02/25 08:19 Zithromax IVPB 02/03/25 11:59 250 mls/hr DAILY NELLIE Administration Dexmedetomidine HCl 400 mcg in 100 mls @ 1.848 mls/hr 01/31/25 08:15 02/02/25 08:00 Precedex 400 Mcg/100 Ml IV CONT 0.1 mcg/kg/hr .Q54H7M NELLIE 1.85 mls/hr Titration Protocol 0.1 MCG/KG/HR Insulin Aspart 3 - 6 units 01/26/25 12:00 02/02/25 06:29 Insulin Aspart (*Bkc) 100 Units/Ml SUB-Q Not Given Q6HR NELLIE Protocol Insulin Glargine 38 units 01/31/25 09:00 02/02/25 08:19 Insulin Glargine (*Bkc) 100 Units/Ml SUB-Q 38 units DAILY NELLIE Administration Ipratropium [place] 0.5 mg 01/26/25 20:00 02/02/25 08:41 Ipratropium Br 0.02% Inh Soln 0.5 Mg/2.5 Ml Vial INHALATION 0.5 mg Q6HRT NELLIE Administration Levalbuterol HCl 1.25 mg 01/26/25 20:00 02/02/25 08:41 Levalbuterol Neb 1.25 Mg/3 Ml INHALATION 1.25 mg Q6HRT NELLIE Administration Memantine 10 mg 01/25/25 17:00 01/25/25 17:29 Memantine 10 Mg Tablet PO Not Given BID NELLIE Metoprolol Tartrate 5 mg 01/26/25 15:20 01/26/25 21:15 Metoprolol Tartrate Inj 5 Mg/5 Ml Vial IV PUSH 5 mg Q6H PRN Administration Tachycardia Multi-Ingred Cream/Lotion/Oil/Oint 1 applic 01/26/25 21:00 02/02/25 08:19 Mineral Oil/White Petrolatum Ointment EACH EYE 1 applic Q12HR NELLIE Administration Pantoprazole Sodium 40 mg 02/02/25 09:00 02/02/25 08:56 Pantoprazole Sodium Iv 40 Mg Vial IV PUSH 40 mg Q12HR NELLIE Administration Sodium Chloride 10 ml 01/27/25 14:00 02/02/25 06:30 Central Line Flush IV PUSH 10 ml Q8HR NELLIE Administration Sodium Chloride 10 ml 01/27/25 11:45 Central Line Flush IV PUSH PRN PRN with TPN bag changes Sodium Chloride 20 ml 01/27/25 11:45 Central Line Flush IV PUSH PRN PRN after blood draws Radiology Results: ITS Impressions Abdomen X-Ray 01/26/25 20:53 IMPRESSION: Bibasilar airspace disease. Small bilateral pleural effusions, likely with a subpulmonic component on the right. NG tube in good position. Renal Ultrasound 01/28/25 12:53 Impression: No hydronephrosis. Trace right perinephric fluid. Chest X-Ray 02/02/25 06:18 Impression: Hazy bibasilar airspace disease, right worse than left, is overall improved from prior exam. Findings are compatible with improving pulmonary edema versus pneumonia. Support tubes, as above. Labs Labs: Laboratory Results - last 24 hr 02/01/25 02/01/25 02/02/25 11:14 17:16 00:25 WBC RBC Hgb Hct MCV MCH MCHC RDW Plt Count MPV Immature Gran % (Auto) Neut % (Auto) Lymph % (Auto) [place] % (Auto) Eos % (Auto) Baso % (Auto) Lymph # (Auto) [place] # (Auto) Eos # (Auto) Baso # (Auto) Abs Immat Gran (auto) Absolute Neuts (auto) Absolute Nucleated RBC Nucleated RBC % Puncture Site ABG pH ABG pCO2 ABG pO2 ABG PO2/FiO2 Ratio ABG HCO3 ABG O2 Saturation ABG O2 Content ABG Base Excess A-a Gradient Oxyhemoglobin Carboxyhemoglobin Methemoglobin Reduced Hemoglobin Total Hemoglobin O2 Delivery Device O2 Liters/Min Minute Volume Vent Rate Vent Mode FiO2 Tidal Volume PEEP Peak Inspir Pressure Pressure Support Sodium Potassium Chloride Carbon Dioxide Anion Gap BUN Creatinine Estim Creat Clear Calc Estimated GFR Glucose POC Capillary Glucose 225 H 188 H 206 H Calcium Phosphorus Magnesium Total Bilirubin AST ALT Alkaline Phosphatase Total Protein Albumin 02/02/25 02/02/25 04:42 04:56 WBC 11.1 H RBC 3.36 L Hgb 10.1 L Hct 32.1 L MCV 95.5 MCH 30.1 MCHC 31.5 L RDW 14.1 Plt Count 163 MPV 11.6 H Immature Gran % (Auto) 1.8 H Neut % (Auto) 89.9 H Lymph % (Auto) 2.6 L [place] % (Auto) 5.7 Eos % (Auto) 0.0 Baso % (Auto) 0.0 L Lymph # (Auto) 0.29 L [place] # (Auto) 0.6 Eos # (Auto) 0.0 Baso # (Auto) 0.0 Abs Immat Gran (auto) 0.20 H Absolute Neuts (auto) 10.0 H Absolute Nucleated RBC 0.000 Nucleated RBC % 0.0 Puncture Site Right brachial ABG pH 7.526 H* ABG pCO2 25.2 L ABG pO2 131.5 H ABG PO2/FiO2 Ratio 3.76 ABG HCO3 20.4 L ABG O2 Saturation 99.0 ABG O2 Content 15.4 L ABG Base Excess -1.2 A-a Gradient 88.8 Oxyhemoglobin 98.1 Carboxyhemoglobin 0.3 Methemoglobin 0.3 Reduced Hemoglobin 1.3 Total Hemoglobin 11.0 L O2 Delivery Device Ventilator O2 Liters/Min Not Reportable Minute Volume Not Reportable Vent Rate 20 Vent Mode Cmv FiO2 35 Tidal Volume 400 PEEP 10 Peak Inspir Pressure Not Reportable Pressure Support Not Reportable Sodium 146 H Potassium 4.0 Chloride 112 H Carbon Dioxide 27 Anion Gap 7 BUN 119 H Creatinine 2.16 H Estim Creat Clear Calc 21 Estimated GFR 29 L Glucose 168 H POC Capillary Glucose Calcium 9.5 Phosphorus 4.2 Magnesium 2.8 H Total Bilirubin 0.4 AST 33 ALT 129 H Alkaline Phosphatase 102 Total Protein 5.0 L Albumin 3.0 L Quality VTE Prophylaxis VTE prophylaxis: mechanical ordered
--- NOTE | 2025-02-02 10:31 | P.PNNP_ITS ---
Progress Note: A&P Assessment and Plan (1) Acute kidney injury: Code(s): N17.9 - Acute kidney failure, unspecified Status: Acute Assessment and Plan: * improvement noted (if not stable) * as noted on admission * transient improvement to 1.61mg/d on 01/26 * worsening creatinine starting on 01/27 * baseline creatinine runs around 1.1 - 1.3mg/dl * suspect ATN with multifactorial etiology: * hemodynamic instability/shock * infection/sepsis (pneumonia + COVID) * hypoxia * possible prerenal factors * other(?) * evaluation to date noted: * renal ultrasound without hydronephrosis * urine electrolytes prerenal * urine eosinophils negative * CPK mildly elevated (but enough to affect kidney function) * moderate proteinuria * continue supportive therapy * follow trend of repeat labs and UOP (2) Septic shock: Code(s): A41.9 - Sepsis, unspecified organism; R65.21 - Severe sepsis with septic shock Status: Acute Assessment and Plan: * as noted by presentation of tachycardia, tachypnea, hypoxia, lactic acidosis, MICHAEL, and hypotension * s/p volume resuscitation along with IV albumin for intravascular volume expansion * lactic acidosis resolved * was on vasopressor therapy (levophed) to maintain MAP/blood pressure * weaned off * follow culture data * on antibiotics * not opposed to IV diuretics as needed * follow trend of hemodynamics (3) Acute respiratory failure: Code(s): J96.00 - Acute respiratory failure, unspecified whether with hypoxia or hypercapnia Status: Acute Assessment and Plan: * felt to be secondary to pneumonia and COVID-19 * on ventilator support * weaning as tolerated (4) Pneumonia: Code(s): J18.9 - Pneumonia, unspecified organism Status: Acute Assessment and Plan: * as suggested by admission imaging * follow culture data * on antibiotic therapy * continue supportive therapy (5) COVID: Code(s): U07.1 - COVID-19 Status: Acute Assessment and Plan: * positive testing noted on 01/22 * imaging with worsening infiltrates as well * initated on remdesivir and dexamethasone (on 01/25) * started on baricitinib as well (on 01/26) * remains on droplet and contact isolation/precautions (6) Anemia: Code(s): D64.9 - Anemia, unspecified Status: Acute Assessment and Plan: * presumably due to MICHAEL and acute illness * follow trend of H/H (7) Elevated LFTs: Code(s): R79.89 - Other specified abnormal findings of blood chemistry Status: Acute Assessment and Plan: * presumably due to septic shock and hypoxia * statin on hold * appear to be improving * follow trend (8) Pre-diabetes: Code(s): R73.03 - Prediabetes Status: Acute Assessment and Plan: * follow accu-cheks * possibly exacerbated by steroid use and acute illness * glycemic control per breadman/hospitalist Will continue to follow. L Subjective Date/time seen: 02/02/25 10:31 Interval history: Follow-up for acute kidney injury/acute renal failure. Remains intubated/sedated (low dose precedex) and on mechanical ventilation; renal function/creatinine remains relatively stable; good urine output noted in response to IV lasix; remains hemodynamically stable without the need for vasopressor therapy; opens eyes and follows simple commands. Exam 2 Narrative: General: elderly male intubated/sedated and on mechanical ventilation Heart: normal S1 and S2; no rub Lungs: coarse breath sounds, right > left Abdomen: soft, nontender, nondistended, diminished bowel sounds Extremities: no cyanosis or clubbing; no edema Skin: warm and dry Objective Data Vital Signs Vital Signs: Vital Signs Temp Pulse Resp BP Pulse Ox O2 Del Method FiO2 02/02/25 10:00 97.8 F 70 18 95/56 L 99 02/02/25 09:10 73 99 Mechanical Ventilation 35 02/02/25 08:59 35 02/02/25 08:56 69 117/60 02/02/25 08:51 71 20 02/02/25 08:42 69 21 H 02/02/25 08:42 69 100 Mechanical Ventilation 35 02/02/25 08:00 67 02/02/25 08:00 67 20 02/02/25 08:00 100 Mechanical Ventilation 35 02/02/25 08:00 35 02/02/25 08:00 97.7 F 66 20 117/60 100 02/02/25 06:00 97.7 F 61 20 118/58 L 96 02/02/25 06:00 61 02/02/25 06:00 61 20 02/02/25 04:54 61 96 Mechanical Ventilation 35 02/02/25 04:37 65 20 02/02/25 04:37 65 20 02/02/25 04:00 65 02/02/25 04:00 35 02/02/25 04:00 100 Mechanical Ventilation 40 02/02/25 04:00 97.9 F 63 20 111/60 96 02/02/25 04:00 63 20 02/02/25 02:27 64 20 02/02/25 02:22 63 97 Mechanical Ventilation 35 02/02/25 02:21 64 20 02/02/25 02:00 98.3 F 66 21 H 124/67 97 02/02/25 02:00 66 02/02/25 02:00 66 21 H 02/02/25 00:00 100 Mechanical Ventilation 40 02/02/25 00:00 68 02/02/25 00:00 35 02/02/25 00:00 98.4 F 68 20 119/61 98 02/02/25 00:00 70 20 02/01/25 23:05 73 97 Mechanical Ventilation 35 02/01/25 22:00 35 02/01/25 22:00 82 02/01/25 22:00 82 21 H 02/01/25 22:00 71 21 H 02/01/25 21:43 98.6 F 70 21 H 118/60 100 02/01/25 20:26 69 20 02/01/25 20:18 69 100 Mechanical Ventilation 40 02/01/25 20:18 69 20 02/01/25 20:00 100 Mechanical Ventilation 40 02/01/25 20:00 40 02/01/25 20:00 69 02/01/25 19:40 98.6 F 69 20 118/58 L 100 02/01/25 18:05 68 20 02/01/25 18:00 72 02/01/25 18:00 98.4 F 72 20 115/59 L 100 02/01/25 16:11 82 98 Mechanical Ventilation 40 02/01/25 16:00 74 20 02/01/25 16:00 40 02/01/25 16:00 72 02/01/25 16:00 100 Mechanical Ventilation 30 02/01/25 16:00 98.6 F 76 20 111/54 L 98 02/01/25 14:00 84 20 02/01/25 14:00 74 02/01/25 14:00 98.4 F 82 20 118/65 97 02/01/25 13:38 83 23 H 02/01/25 13:22 86 24 H 02/01/25 13:22 86 96 Mechanical Ventilation 40 Intake/Output Intake/Output: Intake & Output 01/30/25 01/31/25 02/01/25 02/02/25 23:59 23:59 23:59 23:59 Intake Total 2625.0 1861.3 1551.4 930.2 Output Total 950 1150 3400 600 Balance 1675.0 711.3 -1848.6 330.2 Meds/Results Medications: Active Medications Generic Name Dose Route Start Last Admin Trade Name Freq PRN Reason Stop Dose Admin Acetaminophen 650 mg 01/25/25 11:14 01/25/25 18:58 Acetaminophen 325 Mg Tablet PO 650 mg Q4H PRN Administration Mild Pain (1-3) or Fever Baricitinib 2 mg 01/31/25 11:00 02/02/25 11:35 Baricitinib 2 Mg Tablet PO 02/08/25 11:01 2 mg DAILY@1100 NELLIE Administration Dexamethasone Sodium Phosphate 6 mg 01/26/25 09:00 02/02/25 08:19 Dexamethasone Sod Phos Inj 10 Mg/Ml 1 Ml Vial IV PUSH 02/04/25 09:01 6 mg DAILY NELLIE Administration Dextrose 12.5 gm 01/26/25 07:40 Dextrose 50% 25 Gm/50 Ml Syringe IV PUSH PRN PRN Hypoglycemia Protocol Furosemide 40 mg 02/02/25 09:00 02/02/25 08:56 Furosemide Inj 40 Mg/4 Ml Vial IV PUSH 02/02/25 17:01 40 mg BID NELLIE Administration Glucagon 1 mg 01/26/25 07:40 Glucagon For Inj 1 Mg Vial IM PRN PRN Hypoglycemia Protocol Glucose 15 gm 01/26/25 07:40 Glucose Oral Gel 15 Gm Of Glucse In 37.5 Gm Tube PO PRN PRN Hypoglycemia Protocol Dextrose 1,000 mls @ 100 mls/hr 01/26/25 07:40 Dextrose 5% 1,000 Ml IVPB PRN PRN Hypoglycemia Protocol Cefepime HCl 1 gm in 50 mls @ 100 mls/hr 01/27/25 10:15 02/02/25 08:49 Maxipime 1 Gm/Ns 50 Ml IVPB 02/05/25 21:29 Infused Q12HR NELLIE Infusion Dexmedetomidine HCl 400 mcg in 100 mls @ 1.848 mls/hr 01/31/25 08:15 02/02/25 10:00 Precedex 400 Mcg/100 Ml IV CONT 0.1 mcg/kg/hr .Q54H7M NELLIE 1.85 mls/hr Titration Protocol 0.1 MCG/KG/HR Insulin Aspart 3 - 6 units 01/26/25 12:00 02/02/25 11:35 Insulin Aspart (*Bkc) 100 Units/Ml SUB-Q Not Given Q6HR NELLIE Protocol Insulin Glargine 38 units 01/31/25 09:00 02/02/25 08:19 Insulin Glargine (*Bkc) 100 Units/Ml SUB-Q 38 units DAILY NELLIE Administration Ipratropium [place] 0.5 mg 01/26/25 20:00 02/02/25 08:41 Ipratropium Br 0.02% Inh Soln 0.5 Mg/2.5 Ml Vial INHALATION 0.5 mg Q6HRT NELLIE Administration Levalbuterol HCl 1.25 mg 01/26/25 20:00 02/02/25 08:41 Levalbuterol Neb 1.25 Mg/3 Ml INHALATION 1.25 mg Q6HRT NELLIE Administration Memantine 10 mg 01/25/25 17:00 01/25/25 17:29 Memantine 10 Mg Tablet PO Not Given BID NELLIE Metoprolol Tartrate 5 mg 01/26/25 15:20 01/26/25 21:15 Metoprolol Tartrate Inj 5 Mg/5 Ml Vial IV PUSH 5 mg Q6H PRN Administration Tachycardia Multi-Ingred Cream/Lotion/Oil/Oint 1 applic 01/26/25 21:00 02/02/25 08:19 Mineral Oil/White Petrolatum Ointment EACH EYE 1 applic Q12HR NELLIE Administration Pantoprazole Sodium 40 mg 02/02/25 09:00 02/02/25 08:56 Pantoprazole Sodium Iv 40 Mg Vial IV PUSH 40 mg Q12HR NELLIE Administration Sodium Chloride 10 ml 01/27/25 14:00 02/02/25 06:30 Central Line Flush IV PUSH 10 ml Q8HR NELLIE Administration Sodium Chloride 10 ml 01/27/25 11:45 Central Line Flush IV PUSH PRN PRN with TPN bag changes Sodium Chloride 20 ml 01/27/25 11:45 Central Line Flush IV PUSH PRN PRN after blood draws Radiology Results: ITS Impressions Abdomen X-Ray 01/26/25 20:53 IMPRESSION: Bibasilar airspace disease. Small bilateral pleural effusions, likely with a subpulmonic component on the right. NG tube in good position. Renal Ultrasound 01/28/25 12:53 Impression: No hydronephrosis. Trace right perinephric fluid. Chest X-Ray 02/02/25 06:18 Impression: Hazy bibasilar airspace disease, right worse than left, is overall improved from prior exam. Findings are compatible with improving pulmonary edema versus pneumonia. Support tubes, as above. Labs Labs: Laboratory Tests 02/02/25 04:42 02/02/25 04:42 Calcium 9.5 Phosphorus 4.2 Magnesium 2.8 H Total Bilirubin 0.4 AST 33 ALT 129 H Alkaline Phosphatase 102 Total Protein 5.0 L Albumin 3.0 L
--- NOTE | 2025-02-02 11:30 | PCNFU ---
Nutrition Follow-Up Complete: Suboptimal Nutrition as related to Pneumonia/COVID as evidenced by NPO goal: Meet estimated nutritional needs Patient will continue current goal. Pt current nutrition is Nepro at 40 ml/hr. Last recorded weight is 72.1 kg., up from 61 kg on admit. Bowel Motility:+BM reported /5 Labs Reviewed: Glu 168, Hct 32.1, Hgb 10.1, Alb 3.0, Na 146 Meds Noted:Protonix, Precedex, Lantus, NovoLog, Lasix. Skin: friction-buttock Additional Notes: Patient remains on mechanical vent. Tube feedings are being tolerated of Nepro at 40 ml/hr which is providing 1584 kcal/72 gm protein/640 ml water. Flush increased to 60 ml/hr q 4 hours due to elevated Na 136. Agree with diet orders. Will monitor daily in ICU rounds and reassessing every Saturday and Saturday.
[2025-02-02] MEDS: BARICITINIB 2 MG TABLET PO (11:35)
[2025-02-02 11:38] LABS: Glucose Point of Care 198 mg/dl (65-105)
[2025-02-02 12:04] LABS: Chloride Rand Ur 20 mmol/L (32-290); Chloride/Creatinine Rand Ur 18 (23-275); Creatinine Random Urine 109 mg/dL (20-320)
[2025-02-02 12:06] LABS: IFOB Positive Control Positive; Immunochemical Fecal Occult Bl Positive (N)
[2025-02-02 16:09] LABS: Hematocrit 35.6 % (42.0-52.0); Hemoglobin 11.3 g/dL (14.0-18.0); Mean Corpuscular HGB Conc 31.7 g/dl (32-36); Mean Corpuscular Hemoglobin 30.3 pg (26-34); Mean Corpuscular Volume 95.4 fl (80-100); Platelet Count Result 168 k/mm3 (150-375); Red Blood Count 3.73 M/mm3 (4.6-6.20); White Blood Count 13.7 K/mm3 (4.5-10.0)
[2025-02-02 16:20] LABS: Anion Gap 7 mmol/L (4-12); Blood Urea Nitrogen 119 mg/dL (9-20); Calcium 9.5 mg/dL (8.4-10.2); Carbon Dioxide 32 mmol/L (22-30); Chloride 108 mmol/L (98-107); Estimated CRCL calculation 21 ml/min; Estimated Glomerular Filt Rate 29; Glucose 178 mg/dL (65-110); Sodium 147 mmol/L (137-145)
[2025-02-02 18:00] LABS: Glucose Point of Care 169 mg/dl (65-105)
[2025-02-03] VITALS (27 sets, daily range): BP systolic 107–151; BP diastolic 57–75; PULSE 64–102; RESP 13–22; TEMP 36.6–36.9; O2SAT 92–100
[2025-02-03 00:06] LABS: Glucose Point of Care 199 mg/dl (65-105)
[2025-02-03] MEDS: IPRATROPIUM BR 0.02% INH SOLN 0.5 MG/2.5 ML VIAL INHALATION ×3 (02:30→13:33)
[2025-02-03] MEDS: LEVALBUTEROL NEB 1.25 MG/3 ML INHALATION ×4 (02:30→20:39)
[2025-02-03 05:01] LABS: Alveolar/Arterial O2 Gradient 66.3 mmHg; Base Excess ABG 5.8 mEq/l (+/-2.0); Carboxyhemoglobin 0.1 % THb (0-2.0); Fractional Inspired Oxygen 30 %; HCO3 ABG 28.7 mEq/l (22.0-26.0); Methemoglobin ABG 0.3 %THb (0-1.5); Oxygen Content ABG 16.6 %vol (16.0-22.0); Oxygen Saturation ABG 98.3 % (95.0-100.0); Oxyhemoglobin 97.6 % THb (90.0-100.0); PCO2 ABG 35.4 mmHg (35.0-45.0); PO2 FiO2 Ratio Arterial Blood 3.53 %
[2025-02-03 05:04] LABS: Device VENTILATOR; Modified Allen's Test Pass; Site Drawn LEFT RADIAL; pH ABG 7.526 (7.350-7.450)
[2025-02-03 05:05] LABS: Arterial Blood Gas PEEP 8 cmH2O; Arterial Blood Gas Tidal Volume 350 ml; Arterial Blood Gas Vent Mode CMV; Arterial Blood Gas Ventilator rate 16 /MIN
[2025-02-03] MEDS: CENTRAL LINE FLUSH 10 ML IV PUSH ×3 (05:32→20:24)
[2025-02-03 06:23] LABS: Alanine Aminotransferase 120 U/L (6-50); Albumin Level 3.2 g/dL (3.5-5.1); Alkaline Phosphatase 104 U/L (38-126); Anion Gap 8 mmol/L (4-12); Aspartate Amino Transferase 36 U/L (17-59); Bilirubin,Total 0.8 mg/dL (0.2-1.3); Blood Urea Nitrogen 119 mg/dL (9-20); Calcium 9.6 mg/dL (8.4-10.2); Carbon Dioxide 33 mmol/L (22-30); Chloride 106 mmol/L (98-107); Estimated CRCL calculation 20 ml/min; Estimated Glomerular Filt Rate 28; Glucose 186 mg/dL (65-110); Magnesium 2.7 mg/dL (1.6-2.3); Potassium 3.8 mmol/L (3.4-5.0); Sodium 147 mmol/L (137-145)
[2025-02-03 06:33] LABS: Basophils Percent Auto 0.1 % (0.2-1.2); Hematocrit 34.6 % (42.0-52.0); Immature Granulocyte Absolute 0.12 K/mm3 (0.00-0.031); Lymphocytes Percent Auto 1.7 % (18.3-44.2); Mean Corpuscular HGB Conc 31.8 g/dl (32-36); Mean Corpuscular Hemoglobin 30.5 pg (26-34); Mean Corpuscular Volume 95.8 fl (80-100); Mean Platelet Volume 12.2 fl (7.4-10.4); Monocytes Absolute Auto 0.7 K/mm3 (0.1-0.6); Monocytes Percent Auto 5.8 % (2.6-8.5); Neutrophils Absolute Auto 10.9 K/mm3 (1.3-6.7); Neutrophils Percent Auto 91.4 % (45.5-73.1); Platelet Count Result 165 k/mm3 (150-375); Red Blood Count 3.61 M/mm3 (4.6-6.20); White Blood Count 11.9 K/mm3 (4.5-10.0)
[2025-02-03 06:51] LABS: Glucose Point of Care 179 mg/dl (65-105)
[2025-02-03] MEDS: dexAMETHasone SOD PHOS INJ 10 MG/ML 1 ML VIAL 6 MG IV PUSH (08:35)
[2025-02-03] MEDS: PANTOPRAZOLE SODIUM IV 40 MG VIAL IV PUSH ×2 (08:35→20:23)
[2025-02-03] MEDS: MINERAL OIL/WHITE PETROLATUM OINTMENT 1 APPLIC EACH EYE ×2 (08:35→20:24)
[2025-02-03] MEDS: CEFEPIME 1 GM/NS 50 ML 1 GM/50 ML BAG IVPB ×2 (08:35→20:23)
[2025-02-03] MEDS: INSULIN GLARGINE (*BKC) 100 UNITS/ML 38 UNITS SUB-Q (08:36)
[2025-02-03] MEDS: FUROSEMIDE INJ 40 MG/4 ML VIAL IV PUSH (09:33)
--- NOTE | 2025-02-03 09:35 | P.PNNP_ITS ---
Progress Note: A&P Assessment and Plan (1) Acute kidney injury: Code(s): N17.9 - Acute kidney failure, unspecified Status: Acute Assessment and Plan: * relatively stable * as noted on admission * transient improvement to 1.61mg/d on 01/26 * worsening creatinine starting on 01/27 * baseline creatinine runs around 1.1 - 1.3mg/dl * suspect ATN with multifactorial etiology: * hemodynamic instability/shock * infection/sepsis (pneumonia + COVID) * hypoxia * possible prerenal factors * other(?) * evaluation to date noted: * renal ultrasound without hydronephrosis * urine electrolytes prerenal * urine eosinophils negative * CPK mildly elevated (but enough to affect kidney function) * moderate proteinuria * continue supportive therapy * follow trend of repeat labs and UOP (2) Septic shock: Code(s): A41.9 - Sepsis, unspecified organism; R65.21 - Severe sepsis with septic shock Status: Acute Assessment and Plan: * as noted by presentation of tachycardia, tachypnea, hypoxia, lactic acidosis, MICHAEL, and hypotension * s/p volume resuscitation along with IV albumin for intravascular volume expansion * lactic acidosis resolved * was on vasopressor therapy (levophed) to maintain MAP/blood pressure * weaned off * follow culture data * on antibiotics * not opposed to IV diuretics as needed * follow trend of hemodynamics (3) Acute respiratory failure: Code(s): J96.00 - Acute respiratory failure, unspecified whether with hypoxia or hypercapnia Status: Acute Assessment and Plan: * felt to be secondary to pneumonia and COVID-19 * on ventilator support * weaning as tolerated (4) Pneumonia: Code(s): J18.9 - Pneumonia, unspecified organism Status: Acute Assessment and Plan: * as suggested by admission imaging * follow culture data * on antibiotic therapy * continue supportive therapy (5) COVID: Code(s): U07.1 - COVID-19 Status: Acute Assessment and Plan: * positive testing noted on 01/22 * imaging with worsening infiltrates as well * initated on remdesivir and dexamethasone (on 01/25) * started on baricitinib as well (on 01/26) * remains on droplet and contact isolation/precautions (6) Anemia: Code(s): D64.9 - Anemia, unspecified Status: Acute Assessment and Plan: * presumably due to MICHAEL and acute illness * follow trend of H/H (7) Elevated LFTs: Code(s): R79.89 - Other specified abnormal findings of blood chemistry Status: Acute Assessment and Plan: * presumably due to septic shock and hypoxia * statin on hold * appear to be improving * follow trend (8) Pre-diabetes: Code(s): R73.03 - Prediabetes Status: Acute Assessment and Plan: * follow accu-cheks * possibly exacerbated by steroid use and acute illness * glycemic control per traffic court referee/hospitalist Will continue to follow. L Subjective Date/time seen: 02/03/25 09:35 Interval history: Follow-up for acute kidney injury/acute renal failure. Renal function/creatinine appears relatively stable -- continues to make good urine output in response to IV diuretics; remains intubated and on mechanical ventilation but off sedation; remains hemodynamically stable at the time of my visit; no other issues/events overnight or earlier this morning. Exam 2 Narrative: General: elderly male intubated/sedated and on mechanical ventilation Heart: normal S1 and S2; no rub Lungs: coarse breath sounds, Abdomen: soft, nontender, nondistended, diminished bowel sounds Extremities: no cyanosis or clubbing; no edema Skin: warm and intact Objective Data Vital Signs Vital Signs: Vital Signs Temp Pulse Resp BP Pulse Ox O2 Del Method O2 Flow Rate 02/03/25 09:25 77 99 Mechanical Ventilation 02/03/25 08:35 74 19 02/03/25 08:24 72 17 02/03/25 08:24 72 100 Mechanical Ventilation 02/03/25 08:00 76 17 02/03/25 08:00 97.8 F 76 17 140/65 98 02/03/25 08:00 02/03/25 08:00 76 02/03/25 06:35 65 16 02/03/25 06:00 65 16 02/03/25 06:00 64 16 107/57 L 99 02/03/25 06:00 64 02/03/25 04:52 68 99 Mechanical Ventilation 02/03/25 04:00 75 16 02/03/25 04:00 98.0 F 71 18 121/75 99 02/03/25 04:00 02/03/25 04:00 72 02/03/25 03:43 74 19 98 Mechanical Ventilation 02/03/25 02:48 72 19 02/03/25 02:33 74 19 02/03/25 02:33 74 98 Mechanical Ventilation 02/03/25 02:00 75 18 02/03/25 02:00 75 17 131/66 98 02/03/25 02:00 75 02/03/25 00:00 79 16 02/03/25 00:00 79 18 100 Mechanical Ventilation 02/03/25 00:00 98.5 F 79 18 141/67 H 100 02/03/25 00:00 79 02/03/25 00:00 02/02/25 22:58 75 98 Mechanical Ventilation 02/02/25 22:00 76 17 02/02/25 22:00 75 02/02/25 22:00 98.4 F 76 17 130/62 98 02/02/25 21:07 75 18 02/02/25 20:49 78 98 Mechanical Ventilation 02/02/25 20:49 78 18 02/02/25 20:00 79 16 02/02/25 20:00 76 02/02/25 20:00 98.5 F 79 16 141/68 H 96 02/02/25 20:00 78 18 98 Mechanical Ventilation 02/02/25 20:00 02/02/25 18:00 82 18 02/02/25 18:00 98.4 F 76 18 136/63 98 02/02/25 18:00 76 02/02/25 17:05 73 98 Mechanical Ventilation Intake/Output Intake/Output: Intake & Output 01/31/25 02/01/25 02/02/25 02/03/25 23:59 23:59 23:59 23:59 Intake Total 1861.3 1551.4 1654.4 985.9 Output Total 1150 3400 2850 2800 Balance 711.3 -1848.6 -1195.6 -1814.1 Meds/Results Medications: Active Medications Generic Name Dose Route Start Last Admin Trade Name Freq PRN Reason Stop Dose Admin Acetaminophen 650 mg 01/25/25 11:14 01/25/25 18:58 Acetaminophen 325 Mg Tablet PO 650 mg Q4H PRN Administration Mild Pain (1-3) or Fever Baricitinib 2 mg 01/31/25 11:00 02/03/25 11:37 Baricitinib 2 Mg Tablet PO 02/08/25 11:01 2 mg DAILY@1100 NELLIE Administration Dexamethasone Sodium Phosphate 6 mg 01/26/25 09:00 02/03/25 08:35 Dexamethasone Sod Phos Inj 10 Mg/Ml 1 Ml Vial IV PUSH 02/04/25 09:01 6 mg DAILY NELLIE Administration Dextrose 12.5 gm 01/26/25 07:40 Dextrose 50% 25 Gm/50 Ml Syringe IV PUSH PRN PRN Hypoglycemia Protocol Enoxaparin Sodium 30 mg 02/04/25 09:00 Enoxaparin 30 Mg/0.3 Ml Syringe SUB-Q DAILY NELLIE Glucagon 1 mg 01/26/25 07:40 Glucagon For Inj 1 Mg Vial IM PRN PRN Hypoglycemia Protocol Glucose 15 gm 01/26/25 07:40 Glucose Oral Gel 15 Gm Of Glucse In 37.5 Gm Tube PO PRN PRN Hypoglycemia Protocol Dextrose 1,000 mls @ 100 mls/hr 01/26/25 07:40 Dextrose 5% 1,000 Ml IVPB PRN PRN Hypoglycemia Protocol Cefepime HCl 1 gm in 50 mls @ 100 mls/hr 01/27/25 10:15 02/03/25 10:49 Maxipime 1 Gm/Ns 50 Ml IVPB 02/05/25 21:29 Infused Q12HR NELLIE Infusion Dexmedetomidine HCl 400 mcg in 100 mls @ 0 mls/hr 01/31/25 08:15 02/03/25 12:00 Precedex 400 Mcg/100 Ml IV CONT Not Given .Q0M NELLIE Protocol 0 MCG/KG/HR Albumin Human 100 mls @ 60 mls/hr 02/03/25 12:00 02/03/25 13:32 Albutein IVPB 02/04/25 07:39 Infused Q6HR NELLIE Infusion Insulin Aspart 3 - 6 units 01/26/25 12:00 02/03/25 12:08 Insulin Aspart (*Bkc) 100 Units/Ml SUB-Q Not Given Q6HR NELLIE Protocol Insulin Glargine 38 units 01/31/25 09:00 02/03/25 08:36 Insulin Glargine (*Bkc) 100 Units/Ml SUB-Q 38 units DAILY NELLIE Administration Ipratropium [place] 0.5 mg 01/26/25 20:00 02/03/25 13:33 Ipratropium Br 0.02% Inh Soln 0.5 Mg/2.5 Ml Vial INHALATION 0.5 mg Q6HRT NELLIE Administration Levalbuterol HCl 1.25 mg 01/26/25 20:00 02/03/25 13:33 Levalbuterol Neb 1.25 Mg/3 Ml INHALATION 1.25 mg Q6HRT NELLIE Administration Memantine 10 mg 01/25/25 17:00 01/25/25 17:29 Memantine 10 Mg Tablet PO Not Given BID NELLIE Metoprolol Tartrate 5 mg 01/26/25 15:20 01/26/25 21:15 Metoprolol Tartrate Inj 5 Mg/5 Ml Vial IV PUSH 5 mg Q6H PRN Administration Tachycardia Multi-Ingred Cream/Lotion/Oil/Oint 1 applic 01/26/25 21:00 02/03/25 08:35 Mineral Oil/White Petrolatum Ointment EACH EYE 1 applic Q12HR NELLIE Administration Pantoprazole Sodium 40 mg 02/02/25 09:00 02/03/25 08:35 Pantoprazole Sodium Iv 40 Mg Vial IV PUSH 40 mg Q12HR NELLIE Administration Sodium Chloride 10 ml 01/27/25 14:00 02/03/25 12:08 Central Line Flush IV PUSH 10 ml Q8HR NELLIE Administration Sodium Chloride 10 ml 01/27/25 11:45 Central Line Flush IV PUSH PRN PRN with TPN bag changes Sodium Chloride 20 ml 01/27/25 11:45 Central Line Flush IV PUSH PRN PRN after blood draws Radiology Results: ITS Impressions Abdomen X-Ray 01/26/25 20:53 IMPRESSION: Bibasilar airspace disease. Small bilateral pleural effusions, likely with a subpulmonic component on the right. NG tube in good position. Renal Ultrasound 01/28/25 12:53 Impression: No hydronephrosis. Trace right perinephric fluid. Chest X-Ray 02/03/25 06:42 Impression: Small left pleural effusion with probable left basilar atelectasis. Correlate clinically for pneumonia. Support tubes, as above. Labs Labs: Laboratory Tests 02/03/25 05:33 02/03/25 05:33 Calcium 9.6 Phosphorus 5.0 H Magnesium 2.7 H Total Bilirubin 0.8 AST 36 ALT 120 H Alkaline Phosphatase 104 Total Protein 6.0 L Albumin 3.2 L
[2025-02-03 10:16] LABS: Alveolar/Arterial O2 Gradient 67.3 mmHg; Base Excess ABG 5.2 mEq/l (+/-2.0); Fractional Inspired Oxygen 30 %; HCO3 ABG 27.8 mEq/l (22.0-26.0); Oxygen Content ABG 17.6 %vol (16.0-22.0); Oxygen Saturation ABG 98.4 % (95.0-100.0); Oxyhemoglobin 97.7 % THb (90.0-100.0); PCO2 ABG 34.4 mmHg (35.0-45.0); PO2 ABG 106.2 mmHg (80.0-100.0); PO2 FiO2 Ratio Arterial Blood 3.54 %; Total Hemoglobin 12.7 g/dL (12.0-18.0)
[2025-02-03 10:19] LABS: Arterial Blood Gas PEEP 5 cmH2O; Arterial Blood Gas Vent Mode SPONTANEOUS; Device VENTILATOR; Modified Allen's Test Pass; Site Drawn LEFT RADIAL; pH ABG 7.526 (7.350-7.450)
[2025-02-03 10:20] LABS: Arterial Blood Gas Pressure Support 5 cmH2O
--- NOTE | 2025-02-03 11:00 | PCFNICU ---
ICU Rounding Note: Pt current nutrition is NPO. Nutrition recommendation:advance diet as tolerated per MD orders when medically able. Last recorded weight is 68.2 kg. Bowel Motility:+BM reported 5/6 Labs Reviewed:Glu 168, BUN 119, Cr 2.16, NA 146, Alb 3.0 Meds Noted: Protonix, Lantus, Lovenox. Skin: friction-bottom Additional Notes: Patient extubated today. NPO at this time. Agree with diet orders. Following daily in ICU rounds. Will monitor weight, labs, skin, diet orders, meds every 3 days.
--- NOTE | 2025-02-03 11:12 | WPDINTPN ---
Progress Note: A&P Assessment and Plan (1) Acute respiratory failure: Code(s): J96.00 - Acute respiratory failure, unspecified whether with hypoxia or hypercapnia Status: Acute Assessment and Plan: Acute respiratory failure likely related to pneumonia, COVID-19, and pulmonary edema -chest x-ray and ABG reviewed -02/01 PSV SBT done for more than 30 minutes. RSBI, ABGI and Vitals acceptable. Pt awake and following commands. Will extubate and monitor. NPO for now. May need BiPAP -continue diuresis -Continue Azithromycin, and cefepime 02/01: vancomycin discontinue -Continue Dexamethasone Off pressor 01/27-the negative cultures shows no growth x2 01/31- Sputum culture final: No organism seen (2) Pneumonia: Code(s): J18.9 - Pneumonia, unspecified organism Status: Acute Assessment and Plan: Continue as above (3) COVID: Code(s): U07.1 - COVID-19 Status: Acute Assessment and Plan: Patient has been positive for COVID 19. Chest x-ray shows worsening infiltrates -off remdesivir - dexamethasone (01/25) for total of 10 days -continue baricitinib (01/26) for total of 14 days or until discharge, renally dosed by pharmacy -continue droplet and contact isolation/precautions 01/27- rising LFT's likely transient related to rapid response, will continue to monitor. No change to Remdesivir at this time. 01/31- LFT's trending down. Remdesivir course completed (4) Sepsis: Code(s): A41.9 - Sepsis, unspecified organism Status: Acute Assessment and Plan: Patient presented with tachycardia, tachypnea, hypoxia, and acute kidney injury -adequately fluid-resuscitated, s/p albumin for intravascular volume expansion -urine output has been adequate, will continue to follow -01/27: status post LR at 100 mL/hour for 1000 mL -01/28: Lactic acid resolved -01/29: increase in lactic acid to 2.3, patient received maintenance IV fluids at 75 mL for 1000 ml -remains off Levophed -septic shock has resolved (5) MICHAEL (acute kidney injury): Code(s): N17.9 - Acute kidney failure, unspecified Status: Acute Assessment and Plan: Acute kidney injury likely related to sepsis, -adequately fluid-resuscitated -continue to monitor urine output, renal function and electrolytes -nephrology has been consulted -urine lytes do not reflect pre renal, CK level 317, negative urine eosinophils -01/28: Renal ultrasound ordered and demonstrated no hydronephrosis, but trace right perinephric fluid present Creatinine stable, urine output has improved, continue diuretics as patient is overall volume overloaded. Elevated BUN likely secondary to steroids and catabolic state Discussed with daughter in detail she does not think patient would want hemodialysis if his kidney function deteriorated (6) Dementia: Qualifiers: Dementia type: unspecified type Dementia severity: unspecified severity Dementia behavioral or psychological symptom: unspecified whether behavioral, psychotic, or mood disturbance or anxiety Qualified Code(s): F03.90 - Unspecified dementia, unspecified severity, without behavioral disturbance, psychotic disturbance, mood disturbance, and anxiety Code(s): F03.90 - Unspecified dementia, unspecified severity, without behavioral disturbance, psychotic disturbance, mood disturbance, and anxiety Status: Acute Assessment and Plan: Baseline cognitive impairment, on Namenda at home, will continue to hold for now (7) Hyperlipidemia: Qualifiers: Hyperlipidemia type: unspecified Qualified Code(s): E78.5 - Hyperlipidemia, unspecified Code(s): E78.5 - Hyperlipidemia, unspecified Status: Acute Assessment and Plan: continue pravastatin (8) Pre-diabetes: Code(s): R73.03 - Prediabetes Status: Acute Assessment and Plan: Currently hyperglycemic. Likely secondary to steroids. Continue Lantus, Accu-Cheks and sliding scale insulin 12/16/2024: Hemoglobin A1c was 6.4 (9) GI bleeding: Code(s): K92.2 - Gastrointestinal hemorrhage, unspecified Status: Acute Assessment and Plan: Overnight patient had a bowel movement and stool was reported to be dark by the nursing staff. Although stool Hemoccult was positive his hemoglobin has been stable Monitor hemoglobin IV PPI q.12 hours Start DVT prophylaxis Lovenox (10) Congestive heart failure: Code(s): I50.9 - Heart failure, unspecified Status: Acute Assessment and Plan: Echo 01/26 Summary 1. Definity contrast administered improved wall motion interpretation. 2. Left ventricular chamber dimension is moderately enlarged. 3. Left ventricular systolic function is moderately globally reduced, estimated at 35-40%. 4. The left ventricular diastolic function is abnormal. 5. E/e' 13 is mildly elevated. 6. Left atrial chamber dimension is moderately enlarged. 7. Right atrial chamber dimension is mildly enlarged. 8. There is mild aortic valve sclerosis. 9. There is mild aortic valve regurgitation. 10. There is moderate to severe mitral valve regurgitation. 11. There is moderate tricuspid valve regurgitation. 12. Mild pulmonary hypertension, estimated pulmonary arterial systolic pressure is 40 mmHg. Lasix IV Plan DVT prophylaxis: Lovenox Stress ulcer prophylaxis: Protonix Nutrition: Tube feeds at goal Code Status: Patient is DNR at this point. Patient is going to be at extubated. Patient's family is not sure whether they would want re-intubation if patient fails. They are going to discuss among themselves before making final decision. Critical Care Time Spent: 30 minutes Due to a high probability of clinically significant, life threatening deterioration, the patient required my highest level of preparedness to intervene emergently and I personally spent this critical care time directly and personally managing the patient. This critical care time included obtaining a history; examining the patient; pulse oximetry; ordering and review of studies; arranging urgent treatment with development of a management plan; evaluation of patient's response to treatment; frequent reassessment; and discussions with other providers. It was exclusive of separately billable procedures and treating other patients and teaching time. Please see Assessment and Plan section and the rest of the note for further information on patient assessment and treatment This dictation may have been done utilizing a voice recognition system. Attempts have been made to correct errors. However, there may be uncorrected grammatical, spelling, and recognitions errors present. Subjective Date/time seen: 02/03/25 Overnight events reviewed. Afebrile Continues to be on mechanical ventilation 30% FiO2 Off sedation Follows command Tolerating tube feed Good urine output in response to diuretics Other Vitals acceptable Interval history: 01/26/25- Intubated Review of Systems Review of Systems: All systems reviewed & are unremarkable except as noted in HPI and below ROS unobtainable: Yes unobtainable due to endotracheal tube, unobtainable due to medical condition and unobtainable due to mental status Exam Narrative: General: Intubated, in no acute distress HEENT:? Pupils equal and reactive, sclera is clear, ETT in place Neck:? Supple Respiratory:? Coarse breath sounds bilaterally, right greater than left, no wheezing, adequate air entry Cardiac:? S1-S2 normal, regular rhythm, Tachycardic Abdomen:? Soft, nontender, hypoactive bowel sounds Extremities:? No edema, palpable pedal pulses Neuro:? Patient remains intubated off sedation, Opens his eyes and follow simple commands in all extremities Skin:? No skin lesions noted Psych:? Unable to assess at this time Objective Data Vital Signs Vital Signs: Vital Signs - 24 hr 02/02/25 12:00 02/02/25 12:00 02/02/25 12:00 Temperature 36.7 C Pulse Rate 84 Respiratory Rate 16 Blood Pressure 142/65 H Pulse Oximetry 99 99 Oxygen Delivery Mechanical Ventilation Fraction of Inspired Oxygen 35 35 02/02/25 12:00 02/02/25 12:00 02/02/25 14:00 Temperature Pulse Rate 92 77 74 Respiratory Rate 18 Blood Pressure Pulse Oximetry Oxygen Delivery Fraction of Inspired Oxygen 02/02/25 14:00 02/02/25 14:00 02/02/25 14:29 Temperature 36.8 C Pulse Rate 74 87 73 Respiratory Rate 18 17 Blood Pressure 142/70 H Pulse Oximetry 99 98 Oxygen Delivery Mechanical Ventilation Fraction of Inspired Oxygen 35 02/02/25 14:29 02/02/25 14:37 02/02/25 16:00 Temperature Pulse Rate 73 76 Respiratory Rate 19 20 Blood Pressure Pulse Oximetry 99 Oxygen Delivery Mechanical Ventilation Fraction of Inspired Oxygen 35 02/02/25 16:00 02/02/25 16:00 02/02/25 16:00 Temperature 36.9 C Pulse Rate 76 75 Respiratory Rate 18 18 Blood Pressure 132/63 Pulse Oximetry 99 Oxygen Delivery Fraction of Inspired Oxygen 35 02/02/25 16:00 02/02/25 16:00 02/02/25 17:05 Temperature 36.8 C Pulse Rate 75 76 73 Respiratory Rate 15 Blood Pressure 132/63 Pulse Oximetry 99 98 Oxygen Delivery Mechanical Ventilation Fraction of Inspired Oxygen 35 02/02/25 18:00 02/02/25 18:00 02/02/25 18:00 Temperature 36.9 C Pulse Rate 76 76 82 Respiratory Rate 18 18 Blood Pressure 136/63 Pulse Oximetry 98 Oxygen Delivery Fraction of Inspired Oxygen 02/02/25 20:00 02/02/25 20:00 02/02/25 20:00 Temperature 36.9 C Pulse Rate 78 79 Respiratory Rate 18 16 Blood Pressure 141/68 H Pulse Oximetry 98 96 Oxygen Delivery Mechanical Ventilation Fraction of Inspired Oxygen 35 35 02/02/25 20:00 02/02/25 20:00 02/02/25 20:49 Temperature Pulse Rate 76 79 78 Respiratory Rate 16 18 Blood Pressure Pulse Oximetry Oxygen Delivery Fraction of Inspired Oxygen 02/02/25 20:49 02/02/25 21:07 02/02/25 22:00 Temperature 36.9 C Pulse Rate 78 75 76 Respiratory Rate 18 17 Blood Pressure 130/62 Pulse Oximetry 98 98 Oxygen Delivery Mechanical Ventilation Fraction of Inspired Oxygen 35 02/02/25 22:00 02/02/25 22:00 02/02/25 22:58 Temperature Pulse Rate 75 76 75 Respiratory Rate 17 Blood Pressure Pulse Oximetry 98 Oxygen Delivery Mechanical Ventilation Fraction of Inspired Oxygen 30 02/03/25 00:00 02/03/25 00:00 02/03/25 00:00 Temperature 36.9 C Pulse Rate 79 79 Respiratory Rate 18 Blood Pressure 141/67 H Pulse Oximetry 100 Oxygen Delivery Fraction of Inspired Oxygen 30 02/03/25 00:00 02/03/25 00:00 02/03/25 02:00 Temperature Pulse Rate 79 79 75 Respiratory Rate 18 16 Blood Pressure Pulse Oximetry 100 Oxygen Delivery Mechanical Ventilation Fraction of Inspired Oxygen 30 02/03/25 02:00 02/03/25 02:00 02/03/25 02:33 Temperature Pulse Rate 75 75 74 Respiratory Rate 17 18 Blood Pressure 131/66 Pulse Oximetry 98 98 Oxygen Delivery Mechanical Ventilation Fraction of Inspired Oxygen 30 02/03/25 02:33 02/03/25 02:48 02/03/25 03:43 Temperature Pulse Rate 74 72 74 Respiratory Rate 19 19 19 Blood Pressure Pulse Oximetry 98 Oxygen Delivery Mechanical Ventilation Fraction of Inspired Oxygen 30 02/03/25 04:00 02/03/25 04:00 02/03/25 04:00 Temperature 36.7 C Pulse Rate 72 71 Respiratory Rate 18 Blood Pressure 121/75 Pulse Oximetry 99 Oxygen Delivery Fraction of Inspired Oxygen 30 02/03/25 04:00 02/03/25 04:52 02/03/25 06:00 Temperature Pulse Rate 75 68 64 Respiratory Rate 16 Blood Pressure Pulse Oximetry 99 Oxygen Delivery Mechanical Ventilation Fraction of Inspired Oxygen 30 02/03/25 06:00 02/03/25 06:00 02/03/25 06:35 Temperature Pulse Rate 64 65 65 Respiratory Rate 16 16 16 Blood Pressure 107/57 L Pulse Oximetry 99 Oxygen Delivery Fraction of Inspired Oxygen 02/03/25 08:00 02/03/25 08:00 02/03/25 08:00 Temperature 36.6 C Pulse Rate 76 76 Respiratory Rate 17 Blood Pressure 140/65 Pulse Oximetry 98 Oxygen Delivery Fraction of Inspired Oxygen 30 02/03/25 08:00 02/03/25 08:24 02/03/25 08:24 Temperature Pulse Rate 76 72 72 Respiratory Rate 17 17 Blood Pressure Pulse Oximetry 100 Oxygen Delivery Mechanical Ventilation Fraction of Inspired Oxygen 30 02/03/25 08:35 02/03/25 09:25 02/03/25 10:00 Temperature Pulse Rate 74 77 78 Respiratory Rate 19 13 Blood Pressure Pulse Oximetry 99 Oxygen Delivery Mechanical Ventilation Fraction of Inspired Oxygen 30 02/03/25 10:00 02/03/25 10:00 Temperature 36.7 C Pulse Rate 78 78 Respiratory Rate 13 Blood Pressure 151/72 H Pulse Oximetry 97 Oxygen Delivery Fraction of Inspired Oxygen Intake/Output Intake/Output: Intake & Output 01/31/25 02/01/25 02/02/25 02/03/25 23:59 23:59 23:59 23:59 Intake Total 1861.3 1551.4 1654.4 885.9 Output Total 1150 3400 2850 2800 Balance 711.3 -1848.6 -1195.6 -1914.1 Meds/Results Medications: Active Medications Generic Name Dose Route Start Last Admin Trade Name Freq PRN Reason Stop Dose Admin Acetaminophen 650 mg 01/25/25 11:14 01/25/25 18:58 Acetaminophen 325 Mg Tablet PO 650 mg Q4H PRN Administration Mild Pain (1-3) or Fever Baricitinib 2 mg 01/31/25 11:00 02/02/25 11:35 Baricitinib 2 Mg Tablet PO 02/08/25 11:01 2 mg DAILY@1100 NELLIE Administration Dexamethasone Sodium Phosphate 6 mg 01/26/25 09:00 02/03/25 08:35 Dexamethasone Sod Phos Inj 10 Mg/Ml 1 Ml Vial IV PUSH 02/04/25 09:01 6 mg DAILY NELLIE Administration Dextrose 12.5 gm 01/26/25 07:40 Dextrose 50% 25 Gm/50 Ml Syringe IV PUSH PRN PRN Hypoglycemia Protocol Glucagon 1 mg 01/26/25 07:40 Glucagon For Inj 1 Mg Vial IM PRN PRN Hypoglycemia Protocol Glucose 15 gm 01/26/25 07:40 Glucose Oral Gel 15 Gm Of Glucse In 37.5 Gm Tube PO PRN PRN Hypoglycemia Protocol Dextrose 1,000 mls @ 100 mls/hr 01/26/25 07:40 Dextrose 5% 1,000 Ml IVPB PRN PRN Hypoglycemia Protocol Cefepime HCl 1 gm in 50 mls @ 100 mls/hr 01/27/25 10:15 02/03/25 10:49 Maxipime 1 Gm/Ns 50 Ml IVPB 02/05/25 21:29 Infused Q12HR NELLIE Infusion Dexmedetomidine HCl 400 mcg in 100 mls @ 0 mls/hr 01/31/25 08:15 02/03/25 10:00 Precedex 400 Mcg/100 Ml IV CONT 0 mcg/kg/hr .Q0M NELLIE 0 mls/hr Titration Protocol 0 MCG/KG/HR Albumin Human 100 mls @ 60 mls/hr 02/03/25 12:00 Albutein IVPB 02/04/25 07:39 Q6HR NELLIE Insulin Aspart 3 - 6 units 01/26/25 12:00 02/03/25 06:54 Insulin Aspart (*Bkc) 100 Units/Ml SUB-Q Not Given Q6HR [facility] Protocol Insulin Glargine 38 units 01/31/25 09:00 02/03/25 08:36 Insulin Glargine (*Bkc) 100 Units/Ml SUB-Q 38 units DAILY NELLIE Administration Ipratropium [place] 0.5 mg 01/26/25 20:00 02/03/25 08:19 Ipratropium Br 0.02% Inh Soln 0.5 Mg/2.5 Ml Vial INHALATION 0.5 mg Q6HRT NELLIE Administration Levalbuterol HCl 1.25 mg 01/26/25 20:00 02/03/25 08:18 Levalbuterol Neb 1.25 Mg/3 Ml INHALATION 1.25 mg Q6HRT NELLIE Administration Memantine 10 mg 01/25/25 17:00 01/25/25 17:29 Memantine 10 Mg Tablet PO Not Given BID NELLIE Metoprolol Tartrate 5 mg 01/26/25 15:20 01/26/25 21:15 Metoprolol Tartrate Inj 5 Mg/5 Ml Vial IV PUSH 5 mg Q6H PRN Administration Tachycardia Multi-Ingred Cream/Lotion/Oil/Oint 1 applic 01/26/25 21:00 02/03/25 08:35 Mineral Oil/White Petrolatum Ointment EACH EYE 1 applic Q12HR NELLIE Administration Pantoprazole Sodium 40 mg 02/02/25 09:00 02/03/25 08:35 Pantoprazole Sodium Iv 40 Mg Vial IV PUSH 40 mg Q12HR NELLIE Administration Sodium Chloride 10 ml 01/27/25 14:00 02/03/25 05:32 Central Line Flush IV PUSH 10 ml Q8HR NELLIE Administration Sodium Chloride 10 ml 01/27/25 11:45 Central Line Flush IV PUSH PRN PRN with TPN bag changes Sodium Chloride 20 ml 01/27/25 11:45 Central Line Flush IV PUSH PRN PRN after blood draws Radiology Results: ITS Impressions Abdomen X-Ray 01/26/25 20:53 IMPRESSION: Bibasilar airspace disease. Small bilateral pleural effusions, likely with a subpulmonic component on the right. NG tube in good position. Renal Ultrasound 01/28/25 12:53 Impression: No hydronephrosis. Trace right perinephric fluid. Chest X-Ray 02/03/25 06:42 Impression: Small left pleural effusion with probable left basilar atelectasis. Correlate clinically for pneumonia. Support tubes, as above. Labs Labs: Laboratory Results - last 24 hr 01/28/25 02/02/25 02/02/25 09:45 11:34 11:44 WBC RBC Hgb Hct MCV MCH MCHC RDW Plt Count MPV Immature Gran % (Auto) Neut % (Auto) Lymph % (Auto) [place] % (Auto) Eos % (Auto) Baso % (Auto) Lymph # (Auto) [place] # (Auto) Eos # (Auto) Baso # (Auto) Abs Immat Gran (auto) Absolute Neuts (auto) Absolute Nucleated RBC Nucleated RBC % Puncture Site ABG pH ABG pCO2 ABG pO2 ABG PO2/FiO2 Ratio ABG HCO3 ABG O2 Saturation ABG O2 Content ABG Base Excess A-a Gradient Oxyhemoglobin Carboxyhemoglobin Methemoglobin Reduced Hemoglobin Total Hemoglobin O2 Delivery Device O2 Liters/Min Minute Volume Vent Rate Vent Mode FiO2 Tidal Volume PEEP Peak Inspir Pressure Pressure Support Sodium Potassium Chloride Carbon Dioxide Anion Gap BUN Creatinine Estim Creat Clear Calc Estimated GFR Glucose POC Capillary Glucose 198 H Calcium Phosphorus Magnesium Total Bilirubin AST ALT Alkaline Phosphatase Total Protein Albumin Ur Random Creatinine 109 Ur Random Chloride 20 L U Random Chloride/Creat 18 L Stl Occult Blood (IFOB) Positive H 02/02/25 02/02/25 02/03/25 15:59 17:45 00:03 WBC 13.7 H RBC 3.73 L Hgb 11.3 L Hct 35.6 L MCV 95.4 MCH 30.3 MCHC 31.7 L RDW 14.0 Plt Count 168 MPV 12.0 H Immature Gran % (Auto) Neut % (Auto) Lymph % (Auto) [place] % (Auto) Eos % (Auto) Baso % (Auto) Lymph # (Auto) [place] # (Auto) Eos # (Auto) Baso # (Auto) Abs Immat Gran (auto) Absolute Neuts (auto) Absolute Nucleated RBC Nucleated RBC % Puncture Site ABG pH ABG pCO2 ABG pO2 ABG PO2/FiO2 Ratio ABG HCO3 ABG O2 Saturation ABG O2 Content ABG Base Excess A-a Gradient Oxyhemoglobin Carboxyhemoglobin Methemoglobin Reduced Hemoglobin Total Hemoglobin O2 Delivery Device O2 Liters/Min Minute Volume Vent Rate Vent Mode FiO2 Tidal Volume PEEP Peak Inspir Pressure Pressure Support Sodium 147 H Potassium 4.0 Chloride 108 H Carbon Dioxide 32 H Anion Gap 7 BUN 119 H Creatinine 2.18 H Estim Creat Clear Calc 21 Estimated GFR 29 L Glucose 178 H POC Capillary Glucose 169 H 199 H Calcium 9.5 Phosphorus Magnesium Total Bilirubin AST ALT Alkaline Phosphatase Total Protein Albumin Ur Random Creatinine Ur Random Chloride U Random Chloride/Creat Stl Occult Blood (IFOB) 02/03/25 02/03/25 02/03/25 04:51 05:33 06:49 WBC 11.9 H RBC 3.61 L Hgb 11.0 L Hct 34.6 L MCV 95.8 MCH 30.5 MCHC 31.8 L RDW 14.0 Plt Count 165 MPV 12.2 H Immature Gran % (Auto) 1.0 H Neut % (Auto) 91.4 H Lymph % (Auto) 1.7 L [place] % (Auto) 5.8 Eos % (Auto) 0.0 Baso % (Auto) 0.1 L Lymph # (Auto) 0.20 L [place] # (Auto) 0.7 H Eos # (Auto) 0.0 Baso # (Auto) 0.0 Abs Immat Gran (auto) 0.12 H Absolute Neuts (auto) 10.9 H Absolute Nucleated RBC 0.000 Nucleated RBC % 0.0 Puncture Site Left radial ABG pH 7.526 H* ABG pCO2 35.4 ABG pO2 106.0 H ABG PO2/FiO2 Ratio 3.53 ABG HCO3 28.7 H ABG O2 Saturation 98.3 ABG O2 Content 16.6 ABG Base Excess 5.8 A-a Gradient 66.3 Oxyhemoglobin 97.6 Carboxyhemoglobin 0.1 Methemoglobin 0.3 Reduced Hemoglobin 2.0 Total Hemoglobin 12.0 O2 Delivery Device Ventilator O2 Liters/Min Not Reportable Minute Volume Not Reportable Vent Rate 16 Vent Mode Cmv FiO2 30 Tidal Volume 350 PEEP 8 Peak Inspir Pressure Not Reportable Pressure Support Not Reportable Sodium 147 H Potassium 3.8 Chloride 106 Carbon Dioxide 33 H Anion Gap 8 BUN 119 H Creatinine 2.27 H Estim Creat Clear Calc 20 Estimated GFR 28 L Glucose 186 H POC Capillary Glucose 179 H Calcium 9.6 Phosphorus 5.0 H Magnesium 2.7 H Total Bilirubin 0.8 AST 36 ALT 120 H Alkaline Phosphatase 104 Total Protein 6.0 L Albumin 3.2 L Ur Random Creatinine Ur Random Chloride U Random Chloride/Creat Stl Occult Blood (IFOB) 02/03/25 10:11 WBC RBC Hgb Hct MCV MCH MCHC RDW Plt Count MPV Immature Gran % (Auto) Neut % (Auto) Lymph % (Auto) [place] % (Auto) Eos % (Auto) Baso % (Auto) Lymph # (Auto) [place] # (Auto) Eos # (Auto) Baso # (Auto) Abs Immat Gran (auto) Absolute Neuts (auto) Absolute Nucleated RBC Nucleated RBC % Puncture Site Left radial ABG pH 7.526 H* ABG pCO2 34.4 L ABG pO2 106.2 H ABG PO2/FiO2 Ratio 3.54 ABG HCO3 27.8 H ABG O2 Saturation 98.4 ABG O2 Content 17.6 ABG Base Excess 5.2 A-a Gradient 67.3 Oxyhemoglobin 97.7 Carboxyhemoglobin Methemoglobin Reduced Hemoglobin Total Hemoglobin 12.7 O2 Delivery Device Ventilator O2 Liters/Min Not Reportable Minute Volume Not Reportable Vent Rate Not Reportable Vent Mode Spontaneous FiO2 30 Tidal Volume Not Reportable PEEP 5 Peak Inspir Pressure Not Reportable Pressure Support 5 Sodium Potassium Chloride Carbon Dioxide Anion Gap BUN Creatinine Estim Creat Clear Calc Estimated GFR Glucose POC Capillary Glucose Calcium Phosphorus Magnesium Total Bilirubin AST ALT Alkaline Phosphatase Total Protein Albumin Ur Random Creatinine Ur Random Chloride U Random Chloride/Creat Stl Occult Blood (IFOB) Quality VTE Prophylaxis VTE prophylaxis: mechanical ordered
[2025-02-03] MEDS: ALBUMIN HUMAN 25% 25 GM/100 ML 100 ML IVPB ×3 (11:37→23:11)
[2025-02-03] MEDS: BARICITINIB 2 MG TABLET PO (11:37)
[2025-02-03 13:00] LABS: Glucose Point of Care 176 mg/dl (65-105)
--- NOTE | 2025-02-03 16:32 | P.PNIM_ITS ---
Progress Note: A&P Assessment and Plan (1) Acute respiratory failure: Code(s): J96.00 - Acute respiratory failure, unspecified whether with hypoxia or hypercapnia Status: Acute Assessment and Plan: Acute respiratory failure likely related to pneumonia, COVID-19, and pulmonary edema -chest x-ray and ABG reviewed -02/01 PSV SBT done for more than 30 minutes. RSBI, ABGI and Vitals acceptable. Pt awake and following commands. Will extubate and monitor. NPO for now. May need BiPAP -continue diuresis -Continue Azithromycin, and cefepime 02/01: vancomycin discontinue -Continue Dexamethasone Off pressor 01/27-the negative cultures shows no growth x2 01/31- Sputum culture final: No organism seen (2) Pneumonia: Code(s): J18.9 - Pneumonia, unspecified organism Status: Acute Assessment and Plan: Continue as above (3) COVID: Code(s): U07.1 - COVID-19 Status: Acute Assessment and Plan: Patient has been positive for COVID 19. Chest x-ray shows worsening infiltrates -off remdesivir - dexamethasone (01/25) for total of 10 days -continue baricitinib (01/26) for total of 14 days or until discharge, renally d osed by pharmacy -continue droplet and contact isolation/precautions 01/27- rising LFT's likely transient related to rapid response, will continue to monitor. No change to Remdesivir at this time. 01/31- LFT's trending down. Remdesivir course completed (4) Sepsis: Code(s): A41.9 - Sepsis, unspecified organism Status: Acute Assessment and Plan: Patient presented with tachycardia, tachypnea, hypoxia, and acute kidney injury -adequately fluid-resuscitated, s/p albumin for intravascular volume expansion -urine output has been adequate, will continue to follow -01/27: status post LR at 100 mL/hour for 1000 mL -01/28: Lactic acid resolved -01/29: increase in lactic acid to 2.3, patient received maintenance IV fluids at 75 mL for 1000 ml -remains off Levophed -septic shock has resolved (5) MICHAEL (acute kidney injury): Code(s): N17.9 - Acute kidney failure, unspecified Status: Acute Assessment and Plan: Acute kidney injury likely related to sepsis, -adequately fluid-resuscitated -continue to monitor urine output, renal function and electrolytes -nephrology has been consulted -urine lytes do not reflect pre renal, CK level 317, negative urine eosinophils -01/28: Renal ultrasound ordered and demonstrated no hydronephrosis, but trace right perinephric fluid present Creatinine stable, urine output has improved, continue diuretics as patient is overall volume overloaded. Elevated BUN likely secondary to steroids and catabolic state Discussed with daughter in detail she does not think patient would want hemodialysis if his kidney function deteriorated (6) Dementia: Qualifiers: Dementia behavioral or psychological symptom: unspecified whether behavioral, psychotic, or mood disturbance or anxiety Dementia severity: unspecified severity Dementia type: unspecified type Qualified Code(s): F03.90 - Unspecified dementia, unspecified severity, without behavioral disturbance, psychotic disturbance, mood disturbance, and anxiety Code(s): F03.90 - Unspecified dementia, unspecified severity, without behavioral disturbance, psychotic disturbance, mood disturbance, and anxiety Status: Acute Assessment and Plan: Baseline cognitive impairment, on Namenda at home, will continue to hold for now (7) Hyperlipidemia: Qualifiers: Hyperlipidemia type: unspecified Qualified Code(s): E78.5 - Hyperlipidemia, unspecified Code(s): E78.5 - Hyperlipidemia, unspecified Status: Acute Assessment and Plan: continue pravastatin (8) Pre-diabetes: Code(s): R73.03 - Prediabetes Status: Acute Assessment and Plan: Currently hyperglycemic. Likely secondary to steroids. Continue Lantus, Accu-Cheks and sliding scale insulin 12/16/2024: Hemoglobin A1c was 6.4 (9) GI bleeding: Code(s): K92.2 - Gastrointestinal hemorrhage, unspecified Status: Acute Assessment and Plan: Overnight patient had a bowel movement and stool was reported to be dark by the nursing staff. Although stool Hemoccult was positive his hemoglobin has been stable Monitor hemoglobin IV PPI q.12 hours Start DVT prophylaxis Lovenox (10) Congestive heart failure: Code(s): I50.9 - Heart failure, unspecified Status: Acute Assessment and Plan: Echo 01/26 Summary 1. Definity contrast administered improved wall motion interpretation. 2. Left ventricular chamber dimension is moderately enlarged. 3. Left ventricular systolic function is moderately globally reduced, estimated at 35-40%. 4. The left ventricular diastolic function is abnormal. 5. E/e' 13 is mildly elevated. 6. Left atrial chamber dimension is moderately enlarged. 7. Right atrial chamber dimension is mildly enlarged. 8. There is mild aortic valve sclerosis. 9. There is mild aortic valve regurgitation. 10. There is moderate to severe mitral valve regurgitation. 11. There is moderate tricuspid valve regurgitation. 12. Mild pulmonary hypertension, estimated pulmonary arterial systolic pressure is 40 mmHg. Lasix IV Subjective Date/time seen: 02/03/25 16:32 Interval history: Extubated. Evaluated along with his along the bedside.PMHx of multiple stents and dementia. Admitted in the setting of COVID. Review of Systems Review of Systems: All systems reviewed & are unremarkable except as noted in HPI and below ROS unobtainable: Yes unobtainable due to endotracheal tube, unobtainable due to medical condition and unobtainable due to mental status Exam Narrative: General: Intubated, in no acute distress HEENT:? Pupils equal and reactive, sclera is clear, ETT in place Neck:? Supple Respiratory:? Coarse breath sounds bilaterally, right greater than left, no wheezing, adequate air entry Cardiac:? S1-S2 normal, regular rhythm, Tachycardic Abdomen:? Soft, nontender, hypoactive bowel sounds Extremities:? No edema, palpable pedal pulses Neuro:? Patient remains intubated off sedation, Opens his eyes and follow simple commands in all extremities Skin:? No skin lesions noted Psych:? Unable to assess at this time Objective Data Vital Signs Vital Signs: Vital Signs - 24 hr 02/02/25 17:05 02/02/25 18:00 02/02/25 18:00 Temperature 98.4 F Pulse Rate 73 76 76 Respiratory Rate 18 Blood Pressure 136/63 Pulse Oximetry 98 98 Oxygen Delivery Mechanical Ventilation Oxygen Flow Rate Fraction of Inspired Oxygen 35 02/02/25 18:00 02/02/25 20:00 02/02/25 20:00 Temperature Pulse Rate 82 78 Respiratory Rate 18 18 Blood Pressure Pulse Oximetry 98 Oxygen Delivery Mechanical Ventilation Oxygen Flow Rate Fraction of Inspired Oxygen 35 35 02/02/25 20:00 02/02/25 20:00 02/02/25 20:00 Temperature 98.5 F Pulse Rate 79 76 79 Respiratory Rate 16 16 Blood Pressure 141/68 H Pulse Oximetry 96 Oxygen Delivery Oxygen Flow Rate Fraction of Inspired Oxygen 02/02/25 20:49 02/02/25 20:49 02/02/25 21:07 Temperature Pulse Rate 78 78 75 Respiratory Rate 18 18 Blood Pressure Pulse Oximetry 98 Oxygen Delivery Mechanical Ventilation Oxygen Flow Rate Fraction of Inspired Oxygen 35 02/02/25 22:00 02/02/25 22:00 02/02/25 22:00 Temperature 98.4 F Pulse Rate 76 75 76 Respiratory Rate 17 17 Blood Pressure 130/62 Pulse Oximetry 98 Oxygen Delivery Oxygen Flow Rate Fraction of Inspired Oxygen 02/02/25 22:58 02/03/25 00:00 02/03/25 00:00 Temperature Pulse Rate 75 79 Respiratory Rate Blood Pressure Pulse Oximetry 98 Oxygen Delivery Mechanical Ventilation Oxygen Flow Rate Fraction of Inspired Oxygen 30 30 02/03/25 00:00 02/03/25 00:00 02/03/25 00:00 Temperature 98.5 F Pulse Rate 79 79 79 Respiratory Rate 18 18 16 Blood Pressure 141/67 H Pulse Oximetry 100 100 Oxygen Delivery Mechanical Ventilation Oxygen Flow Rate Fraction of Inspired Oxygen 30 02/03/25 02:00 02/03/25 02:00 02/03/25 02:00 Temperature Pulse Rate 75 75 75 Respiratory Rate 17 18 Blood Pressure 131/66 Pulse Oximetry 98 Oxygen Delivery Oxygen Flow Rate Fraction of Inspired Oxygen 02/03/25 02:33 02/03/25 02:33 02/03/25 02:48 Temperature Pulse Rate 74 74 72 Respiratory Rate 19 19 Blood Pressure Pulse Oximetry 98 Oxygen Delivery Mechanical Ventilation Oxygen Flow Rate Fraction of Inspired Oxygen 30 02/03/25 03:43 02/03/25 04:00 02/03/25 04:00 Temperature Pulse Rate 74 72 Respiratory Rate 19 Blood Pressure Pulse Oximetry 98 Oxygen Delivery Mechanical Ventilation Oxygen Flow Rate Fraction of Inspired Oxygen 30 30 02/03/25 04:00 02/03/25 04:00 02/03/25 04:52 Temperature 98.0 F Pulse Rate 71 75 68 Respiratory Rate 18 16 Blood Pressure 121/75 Pulse Oximetry 99 99 Oxygen Delivery Mechanical Ventilation Oxygen Flow Rate Fraction of Inspired Oxygen 30 02/03/25 06:00 02/03/25 06:00 02/03/25 06:00 Temperature Pulse Rate 64 64 65 Respiratory Rate 16 16 Blood Pressure 107/57 L Pulse Oximetry 99 Oxygen Delivery Oxygen Flow Rate Fraction of Inspired Oxygen 02/03/25 06:35 02/03/25 08:00 02/03/25 08:00 Temperature Pulse Rate 65 76 Respiratory Rate 16 Blood Pressure Pulse Oximetry Oxygen Delivery Oxygen Flow Rate Fraction of Inspired Oxygen 30 02/03/25 08:00 02/03/25 08:00 02/03/25 08:24 Temperature 97.8 F Pulse Rate 76 76 72 Respiratory Rate 17 17 Blood Pressure 140/65 Pulse Oximetry 98 100 Oxygen Delivery Mechanical Ventilation Oxygen Flow Rate Fraction of Inspired Oxygen 30 02/03/25 08:24 02/03/25 08:35 02/03/25 09:25 Temperature Pulse Rate 72 74 77 Respiratory Rate 17 19 Blood Pressure Pulse Oximetry 99 Oxygen Delivery Mechanical Ventilation Oxygen Flow Rate Fraction of Inspired Oxygen 30 02/03/25 10:00 02/03/25 10:00 02/03/25 10:00 Temperature 98.1 F Pulse Rate 78 78 78 Respiratory Rate 13 13 Blood Pressure 151/72 H Pulse Oximetry 97 Oxygen Delivery Oxygen Flow Rate Fraction of Inspired Oxygen 02/03/25 11:46 02/03/25 12:00 02/03/25 12:00 Temperature 98.4 F Pulse Rate 79 87 Respiratory Rate 15 14 Blood Pressure 135/60 Pulse Oximetry 96 97 Oxygen Delivery Nasal Cannula Oxygen Flow Rate 1 Fraction of Inspired Oxygen 02/03/25 12:00 02/03/25 13:35 02/03/25 13:53 Temperature Pulse Rate 78 84 Respiratory Rate 18 Blood Pressure Pulse Oximetry 96 Oxygen Delivery Room Air Oxygen Flow Rate Fraction of Inspired Oxygen 02/03/25 13:54 Temperature Pulse Rate 81 Respiratory Rate 18 Blood Pressure Pulse Oximetry Oxygen Delivery Oxygen Flow Rate Fraction of Inspired Oxygen Intake/Output Intake/Output: Intake & Output 01/31/25 02/01/25 02/02/25 02/03/25 23:59 23:59 23:59 23:59 Intake Total 1861.3 1551.4 1654.4 985.9 Output Total 1150 3400 2850 2800 Balance 711.3 -1848.6 -1195.6 -1814.1 Meds/Results Medications: Active Medications Generic Name Dose Route Start Last Admin Trade Name Freq PRN Reason Stop Dose Admin Acetaminophen 650 mg 01/25/25 11:14 01/25/25 18:58 Acetaminophen 325 Mg Tablet PO 650 mg Q4H PRN Administration Mild Pain (1-3) or Fever Baricitinib 2 mg 01/31/25 11:00 02/03/25 11:37 Baricitinib 2 Mg Tablet PO 02/08/25 11:01 2 mg DAILY@1100 NELLIE Administration Dexamethasone Sodium Phosphate 6 mg 01/26/25 09:00 02/03/25 08:35 Dexamethasone Sod Phos Inj 10 Mg/Ml 1 Ml Vial IV PUSH 02/04/25 09:01 6 mg DAILY NELLIE Administration Dextrose 12.5 gm 01/26/25 07:40 Dextrose 50% 25 Gm/50 Ml Syringe IV PUSH PRN PRN Hypoglycemia Protocol Enoxaparin Sodium 30 mg 02/04/25 09:00 Enoxaparin 30 Mg/0.3 Ml Syringe SUB-Q DAILY NELLIE Glucagon 1 mg 01/26/25 07:40 Glucagon For Inj 1 Mg Vial IM PRN PRN Hypoglycemia Protocol Glucose 15 gm 01/26/25 07:40 Glucose Oral Gel 15 Gm Of Glucse In 37.5 Gm Tube PO PRN PRN Hypoglycemia Protocol Dextrose 1,000 mls @ 100 mls/hr 01/26/25 07:40 Dextrose 5% 1,000 Ml IVPB PRN PRN Hypoglycemia Protocol Cefepime HCl 1 gm in 50 mls @ 100 mls/hr 01/27/25 10:15 02/03/25 10:49 Maxipime 1 Gm/Ns 50 Ml IVPB 02/05/25 21:29 Infused Q12HR NELLIE Infusion Dexmedetomidine HCl 400 mcg in 100 mls @ 0 mls/hr 01/31/25 08:15 02/03/25 12:00 Precedex 400 Mcg/100 Ml IV CONT Not Given .Q0M NELLIE Protocol 0 MCG/KG/HR Albumin Human 100 mls @ 60 mls/hr 02/03/25 12:00 02/03/25 13:32 Albutein IVPB 02/04/25 07:39 Infused Q6HR NELLIE Infusion Insulin Aspart 3 - 6 units 01/26/25 12:00 02/03/25 12:08 Insulin Aspart (*Bkc) 100 Units/Ml SUB-Q Not Given Q6HR NELLIE Protocol Insulin Glargine 38 units 01/31/25 09:00 02/03/25 08:36 Insulin Glargine (*Bkc) 100 Units/Ml SUB-Q 38 units DAILY NELLIE Administration Ipratropium [facility] 0.5 mg 01/26/25 20:00 02/03/25 13:33 Ipratropium Br 0.02% Inh Soln 0.5 Mg/2.5 Ml Vial INHALATION 0.5 mg Q6HRT NELLIE Administration Levalbuterol HCl 1.25 mg 01/26/25 20:00 02/03/25 13:33 Levalbuterol Neb 1.25 Mg/3 Ml INHALATION 1.25 mg Q6HRT NELLIE Administration Memantine 10 mg 01/25/25 17:00 01/25/25 17:29 Memantine 10 Mg Tablet PO Not Given BID NELLIE Metoprolol Tartrate 5 mg 01/26/25 15:20 01/26/25 21:15 Metoprolol Tartrate Inj 5 Mg/5 Ml Vial IV PUSH 5 mg Q6H PRN Administration Tachycardia Multi-Ingred Cream/Lotion/Oil/Oint 1 applic 01/26/25 21:00 02/03/25 08:35 Mineral Oil/White Petrolatum Ointment EACH EYE 1 applic Q12HR NELLIE Administration Pantoprazole Sodium 40 mg 02/02/25 09:00 02/03/25 08:35 Pantoprazole Sodium Iv 40 Mg Vial IV PUSH 40 mg Q12HR NELLIE Administration Sodium Chloride 10 ml 01/27/25 14:00 02/03/25 12:08 Central Line Flush IV PUSH 10 ml Q8HR NELLIE Administration Sodium Chloride 10 ml 01/27/25 11:45 Central Line Flush IV PUSH PRN PRN with TPN bag changes Sodium Chloride 20 ml 01/27/25 11:45 Central Line Flush IV PUSH PRN PRN after blood draws Radiology Results: ITS Impressions Abdomen X-Ray 01/26/25 20:53 IMPRESSION: Bibasilar airspace disease. Small bilateral pleural effusions, likely with a subpulmonic component on the right. NG tube in good position. Renal Ultrasound 01/28/25 12:53 Impression: No hydronephrosis. Trace right perinephric fluid. Chest X-Ray 02/03/25 06:42 Impression: Small left pleural effusion with probable left basilar atelectasis. Correlate clinically for pneumonia. Support tubes, as above. Labs Labs: Laboratory Results - last 24 hr 02/02/25 02/03/25 02/03/25 17:45 00:03 04:51 WBC RBC Hgb Hct MCV MCH MCHC RDW Plt Count MPV Immature Gran % (Auto) Neut % (Auto) Lymph % (Auto) [place] % (Auto) Eos % (Auto) Baso % (Auto) Lymph # (Auto) [place] # (Auto) Eos # (Auto) Baso # (Auto) Abs Immat Gran (auto) Absolute Neuts (auto) Absolute Nucleated RBC Nucleated RBC % Puncture Site Left radial ABG pH 7.526 H* ABG pCO2 35.4 ABG pO2 106.0 H ABG PO2/FiO2 Ratio 3.53 ABG HCO3 28.7 H ABG O2 Saturation 98.3 ABG O2 Content 16.6 ABG Base Excess 5.8 A-a Gradient 66.3 Oxyhemoglobin 97.6 Carboxyhemoglobin 0.1 Methemoglobin 0.3 Reduced Hemoglobin 2.0 Total Hemoglobin 12.0 O2 Delivery Device Ventilator O2 Liters/Min Not Reportable Minute Volume Not Reportable Vent Rate 16 Vent Mode Cmv FiO2 30 Tidal Volume 350 PEEP 8 Peak Inspir Pressure Not Reportable Pressure Support Not Reportable Sodium Potassium Chloride Carbon Dioxide Anion Gap BUN Creatinine Estim Creat Clear Calc Estimated GFR Glucose POC Capillary Glucose 169 H 199 H Calcium Phosphorus Magnesium Total Bilirubin AST ALT Alkaline Phosphatase Total Protein Albumin 02/03/25 02/03/25 02/03/25 05:33 06:49 10:11 WBC 11.9 H RBC 3.61 L Hgb 11.0 L Hct 34.6 L MCV 95.8 MCH 30.5 MCHC 31.8 L RDW 14.0 Plt Count 165 MPV 12.2 H Immature Gran % (Auto) 1.0 H Neut % (Auto) 91.4 H Lymph % (Auto) 1.7 L [place] % (Auto) 5.8 Eos % (Auto) 0.0 Baso % (Auto) 0.1 L Lymph # (Auto) 0.20 L [place] # (Auto) 0.7 H Eos # (Auto) 0.0 Baso # (Auto) 0.0 Abs Immat Gran (auto) 0.12 H Absolute Neuts (auto) 10.9 H Absolute Nucleated RBC 0.000 Nucleated RBC % 0.0 Puncture Site Left radial ABG pH 7.526 H* ABG pCO2 34.4 L ABG pO2 106.2 H ABG PO2/FiO2 Ratio 3.54 ABG HCO3 27.8 H ABG O2 Saturation 98.4 ABG O2 Content 17.6 ABG Base Excess 5.2 A-a Gradient 67.3 Oxyhemoglobin 97.7 Carboxyhemoglobin Methemoglobin Reduced Hemoglobin Total Hemoglobin 12.7 O2 Delivery Device Ventilator O2 Liters/Min Not Reportable Minute Volume Not Reportable Vent Rate Not Reportable Vent Mode Spontaneous FiO2 30 Tidal Volume Not Reportable PEEP 5 Peak Inspir Pressure Not Reportable Pressure Support 5 Sodium 147 H Potassium 3.8 Chloride 106 Carbon Dioxide 33 H Anion Gap 8 BUN 119 H Creatinine 2.27 H Estim Creat Clear Calc 20 Estimated GFR 28 L Glucose 186 H POC Capillary Glucose 179 H Calcium 9.6 Phosphorus 5.0 H Magnesium 2.7 H Total Bilirubin 0.8 AST 36 ALT 120 H Alkaline Phosphatase 104 Total Protein 6.0 L Albumin 3.2 L 02/03/25 11:45 WBC RBC Hgb Hct MCV MCH MCHC RDW Plt Count MPV Immature Gran % (Auto) Neut % (Auto) Lymph % (Auto) [place] % (Auto) Eos % (Auto) Baso % (Auto) Lymph # (Auto) [place] # (Auto) Eos # (Auto) Baso # (Auto) Abs Immat Gran (auto) Absolute Neuts (auto) Absolute Nucleated RBC Nucleated RBC % Puncture Site ABG pH ABG pCO2 ABG pO2 ABG PO2/FiO2 Ratio ABG HCO3 ABG O2 Saturation ABG O2 Content ABG Base Excess A-a Gradient Oxyhemoglobin Carboxyhemoglobin Methemoglobin Reduced Hemoglobin Total Hemoglobin O2 Delivery Device O2 Liters/Min Minute Volume Vent Rate Vent Mode FiO2 Tidal Volume PEEP Peak Inspir Pressure Pressure Support Sodium Potassium Chloride Carbon Dioxide Anion Gap BUN Creatinine Estim Creat Clear Calc Estimated GFR Glucose POC Capillary Glucose 176 H Calcium Phosphorus Magnesium Total Bilirubin AST ALT Alkaline Phosphatase Total Protein Albumin Quality VTE Prophylaxis VTE prophylaxis: mechanical ordered Hospitalist MIPS Advance Care Plan I have confirmed that the patient's Advanced Care Plan is present, code status is documented, or surrogate decision maker is listed in patient medical record.: Yes Medication Reconciliation I have utilized all available resources to obtain, update and review the patients current medications (includes all prescriptions, OTC, herbals, cannabis, and nutritional supplements).: Yes
[2025-02-03 17:41] LABS: Glucose Point of Care 108 mg/dl (65-105)
[2025-02-03] MEDS: DEXTROSE 5% 1,000 ML 1,000 ML 30 ML IV CONT (18:45)
[2025-02-03] MEDS: DEXTROSE 50% 25 GM/50 ML SYRINGE IV PUSH (23:12)
[2025-02-03 23:28] LABS: Glucose Point of Care 55 mg/dl (65-105)
[2025-02-03 23:37] LABS: Glucose Point of Care 137 mg/dl (65-105)
[2025-02-03 23:37] LABS: Glucose Point of Care 202 mg/dl (65-105)
[2025-02-03 23:37] LABS: Glucose Point of Care 273 mg/dl (65-105)
[2025-02-04] VITALS (24 sets, daily range): BP systolic 103–139; BP diastolic 59–83; PULSE 96–112; RESP 17–24; TEMP 36.7–36.9; O2SAT 86–96
[2025-02-04] MEDS: IPRATROPIUM BR 0.02% INH SOLN 0.5 MG/2.5 ML VIAL INHALATION ×5 (01:45→20:57)
[2025-02-04] MEDS: LEVALBUTEROL NEB 1.25 MG/3 ML INHALATION ×4 (01:46→20:57)
[2025-02-04 05:52] LABS: Alveolar/Arterial O2 Gradient 136.3 mmHg; Base Excess ABG 5.8 mEq/l (+/-2.0); Fractional Inspired Oxygen 32 %; HCO3 ABG 28.2 mEq/l (22.0-26.0); Oxygen Content ABG 14.4 %vol (16.0-22.0); Oxygen Saturation ABG 91.1 % (95.0-100.0); PCO2 ABG 33.7 mmHg (35.0-45.0); PO2 ABG 52.4 mmHg (80.0-100.0); PO2 FiO2 Ratio Arterial Blood 1.64 %; Total Hemoglobin 11.7 g/dL (12.0-18.0)
[2025-02-04 05:55] LABS: pH ABG 7.541 (7.350-7.450)
[2025-02-04 05:56] LABS: Device NASAL CANNULA; Modified Allen's Test Pass; Oxyhemoglobin 87.8 % THb (90.0-100.0); Site Drawn RIGHT RADIAL
[2025-02-04] MEDS: ALBUMIN HUMAN 25% 25 GM/100 ML 100 ML IVPB (06:40)
[2025-02-04] MEDS: CENTRAL LINE FLUSH 10 ML IV PUSH ×3 (06:54→21:29)
[2025-02-04 06:55] LABS: Basophils Percent Auto 0.1 % (0.2-1.2); Hematocrit 31.7 % (42.0-52.0); Hemoglobin 10.1 g/dL (14.0-18.0); Immature Granulocyte Absolute 0.11 K/mm3 (0.00-0.031); Immature Granulocyte Percent A 0.6 % (0-0.5); Lymphocytes Absolute Auto 0.24 K/mm3 (0.9-3.2); Lymphocytes Percent Auto 1.4 % (18.3-44.2); Mean Corpuscular HGB Conc 31.9 g/dl (32-36); Mean Corpuscular Hemoglobin 30.5 pg (26-34); Mean Corpuscular Volume 95.8 fl (80-100); Mean Platelet Volume 12.5 fl (7.4-10.4); Monocytes Absolute Auto 1.4 K/mm3 (0.1-0.6); Monocytes Percent Auto 7.9 % (2.6-8.5); Neutrophils Absolute Auto 15.8 K/mm3 (1.3-6.7); Platelet Count Result 153 k/mm3 (150-375); Red Blood Count 3.31 M/mm3 (4.6-6.20); White Blood Count 17.6 K/mm3 (4.5-10.0)
[2025-02-04 06:56] LABS: Glucose Point of Care 73 mg/dl (65-105)
[2025-02-04 06:56] LABS: Glucose Point of Care 75 mg/dl (65-105)
[2025-02-04 07:09] LABS: Alanine Aminotransferase 133 U/L (6-50); Albumin Level 4.4 g/dL (3.5-5.1); Alkaline Phosphatase 57 U/L (38-126); Anion Gap 12 mmol/L (4-12); Aspartate Amino Transferase 124 U/L (17-59); Bilirubin,Total 1.8 mg/dL (0.2-1.3); Calcium 9.9 mg/dL (8.4-10.2); Carbon Dioxide 33 mmol/L (22-30); Chloride 104 mmol/L (98-107); Estimated CRCL calculation 19 ml/min; Estimated Glomerular Filt Rate 27; Glucose 73 mg/dL (65-110); Magnesium 2.9 mg/dL (1.6-2.3); Phosphorus 5.4 mg/dL (2.5-4.5); Potassium 3.3 mmol/L (3.4-5.0); Sodium 149 mmol/L (137-145)
[2025-02-04 07:19] LABS: Blood Urea Nitrogen 125 mg/dL (9-20)
[2025-02-04] MEDS: MINERAL OIL/WHITE PETROLATUM OINTMENT 1 APPLIC EACH EYE (08:37)
[2025-02-04] MEDS: PANTOPRAZOLE SODIUM IV 40 MG VIAL IV PUSH ×2 (08:38→21:28)
[2025-02-04] MEDS: dexAMETHasone SOD PHOS INJ 10 MG/ML 1 ML VIAL 6 MG IV PUSH (08:38)
[2025-02-04] MEDS: ENOXAPARIN 30 MG/0.3 ML SYRINGE SUB-Q (08:39)
[2025-02-04] MEDS: CEFEPIME 1 GM/NS 50 ML 1 GM/50 ML BAG IVPB ×2 (08:39→21:28)
[2025-02-04] MEDS: KCL 40 MEQ/WATER 100 ML 100 ML 25 ML IVPB (08:49)
--- NOTE | 2025-02-04 09:25 | WPDINTPN ---
Progress Note: A&P Assessment and Plan (1) Acute respiratory failure: Code(s): J96.00 - Acute respiratory failure, unspecified whether with hypoxia or hypercapnia Status: Acute Assessment and Plan: Acute respiratory failure likely related to pneumonia, COVID-19, and pulmonary edema -chest x-ray and ABG reviewed -02/01 PSV SBT done for more than 30 minutes. RSBI, ABGI and Vitals acceptable. Pt awake and following commands. Will extubate and monitor. NPO for now. May need BiPAP -continue supplemental oxygen with nasal cannula. Add incentive spirometry. Up in chair. - NIPPV p.r.n. -continue diuresis -Continue Azithromycin, and cefepime 02/01: vancomycin discontinue -Continue Dexamethasone Off pressor 01/27-the negative cultures shows no growth x2 01/31- Sputum culture final: No organism seen (2) Pneumonia: Code(s): J18.9 - Pneumonia, unspecified organism Status: Acute Assessment and Plan: Continue as above (3) COVID: Code(s): U07.1 - COVID-19 Status: Acute Assessment and Plan: Patient has been positive for COVID 19. Chest x-ray shows worsening infiltrates -off remdesivir - dexamethasone (01/25) for total of 10 days -continue baricitinib (01/26) for total of 14 days or until discharge, renally dosed by pharmacy -continue droplet and contact isolation/precautions 01/27- rising LFT's likely transient related to rapid response, will continue to monitor. No change to Remdesivir at this time. 01/31- LFT's trending down. Remdesivir course completed (4) Sepsis: Code(s): A41.9 - Sepsis, unspecified organism Status: Acute Assessment and Plan: Patient presented with tachycardia, tachypnea, hypoxia, and acute kidney injury Adequately fluid-resuscitated, s/p albumin for intravascular volume expansion Off Levophed now (5) MICHAEL (acute kidney injury): Code(s): N17.9 - Acute kidney failure, unspecified Status: Acute Assessment and Plan: Acute kidney injury likely related to sepsis, -adequately fluid-resuscitated -continue to monitor urine output, renal function and electrolytes -nephrology has been consulted -urine lytes do not reflect pre renal, CK level 317, negative urine eosinophils -01/28: Renal ultrasound ordered and demonstrated no hydronephrosis, but trace right perinephric fluid present Creatinine stable, urine output has improved, continue diuretics as patient is overall volume overloaded. Elevated BUN likely secondary to steroids and catabolic state Discussed with daughter in detail she does not think patient would want hemodialysis even if his kidney function deteriorated (6) Dementia: Qualifiers: Dementia type: unspecified type Dementia severity: unspecified severity Dementia behavioral or psychological symptom: unspecified whether behavioral, psychotic, or mood disturbance or anxiety Qualified Code(s): F03.90 - Unspecified dementia, unspecified severity, without behavioral disturbance, psychotic disturbance, mood disturbance, and anxiety Code(s): F03.90 - Unspecified dementia, unspecified severity, without behavioral disturbance, psychotic disturbance, mood disturbance, and anxiety Status: Acute Assessment and Plan: Baseline cognitive impairment, on Namenda at home, (7) Hyperlipidemia: Qualifiers: Hyperlipidemia type: unspecified Qualified Code(s): E78.5 - Hyperlipidemia, unspecified Code(s): E78.5 - Hyperlipidemia, unspecified Status: Acute Assessment and Plan: continue pravastatin (8) Pre-diabetes: Code(s): R73.03 - Prediabetes Status: Acute Assessment and Plan: Patient off of tube feeding. On D5 water to prevent hypoglycemia. Hold Lantus today and wean off dextrose IV fluid (9) GI bleeding: Code(s): K92.2 - Gastrointestinal hemorrhage, unspecified Status: Acute Assessment and Plan: Overnight patient had a bowel movement and stool was reported to be dark by the nursing staff. Although stool Hemoccult was positive his hemoglobin has been stable Monitor hemoglobin IV PPI q.12 hours Continue DVT prophylaxis Lovenox (10) Congestive heart failure: Code(s): I50.9 - Heart failure, unspecified Status: Acute Assessment and Plan: Echo 01/26 Summary 1. Definity contrast administered improved wall motion interpretation. 2. Left ventricular chamber dimension is moderately enlarged. 3. Left ventricular systolic function is moderately globally reduced, estimated at 35-40%. 4. The left ventricular diastolic function is abnormal. 5. E/e' 13 is mildly elevated. 6. Left atrial chamber dimension is moderately enlarged. 7. Right atrial chamber dimension is mildly enlarged. 8. There is mild aortic valve sclerosis. 9. There is mild aortic valve regurgitation. 10. There is moderate to severe mitral valve regurgitation. 11. There is moderate tricuspid valve regurgitation. 12. Mild pulmonary hypertension, estimated pulmonary arterial systolic pressure is 40 mmHg. Lasix IV (11) Electrolyte abnormality: Code(s): E87.8 - Other disorders of electrolyte and fluid balance, not elsewhere classified Status: Acute Assessment and Plan: Replace low potassium Plan DVT prophylaxis: Lovenox Stress ulcer prophylaxis: Protonix Nutrition: Consult speech for swallow evaluation Code Status: Patient is DNR at this point. Patient is going to be at extubated. Patient's family is not sure whether they would want re-intubation if patient fails. They are going to discuss among themselves before making final decision. Incentive spirometry, up in chair Subjective Date/time seen: 02/04/25 Patient was extubated after a successful weaning trial yesterday. Patient did well through the day yesterday and even came down to room air. But overnight his oxygen requirement increased and he is up to 5 L nasal cannula this morning. He himself denies any complaints. He is confused and a poor historian but denies any chest pain shortness of breath cough nausea vomiting headache or belly pain. Limited review of system was obtainable due to patient's confusion. He pulled out his NG tube overnight hence tube feeds were discontinued. He was started on D5 water to prevent hypoglycemia as patient had received Lantus He has good urine output. He is sinus rhythm with adequate blood pressure. Interval history: 01/26/25- Intubated Review of Systems Review of Systems: All systems reviewed & are unremarkable except as noted in HPI and below (HPI) Exam Narrative: General: Pt is alert awake and in NAD. He is confused Lungs/Chest: Trachea central Clear BS B/L, No crackles or wheezing. Breath sounds are decreased at bases Cardiac: RRR. Normal S1 S2. No murmurs Circulation: Pedal pulses are intact and symmetrical. Abdomen: Normal bowel sounds.. Soft. NT. ND. Extremities: No clubbing, cyanosis or edema. Warm : Scales in place Neurologic: Follows commands. Moves all 4 extremities PERRL AO x0. He knows he is in the hospital in [place] but could not tell me the year or president 0. Generalized weakness Skin: No Rash Objective Data Vital Signs Vital Signs: Vital Signs - 24 hr 02/03/25 10:00 02/03/25 10:00 02/03/25 10:00 Temperature 36.7 C Pulse Rate 78 78 78 Respiratory Rate 13 13 Blood Pressure 151/72 H Pulse Oximetry 97 Oxygen Delivery Oxygen Flow Rate Fraction of Inspired Oxygen 02/03/25 11:46 02/03/25 12:00 02/03/25 12:00 Temperature 36.9 C Pulse Rate 79 87 Respiratory Rate 15 14 Blood Pressure 135/60 Pulse Oximetry 96 97 Oxygen Delivery Nasal Cannula Oxygen Flow Rate 1 Fraction of Inspired Oxygen 02/03/25 12:00 02/03/25 13:35 02/03/25 13:53 Temperature Pulse Rate 78 84 Respiratory Rate 18 Blood Pressure Pulse Oximetry 96 Oxygen Delivery Room Air Oxygen Flow Rate Fraction of Inspired Oxygen 02/03/25 13:54 02/03/25 14:00 02/03/25 14:00 Temperature 36.9 C Pulse Rate 81 85 85 Respiratory Rate 18 15 Blood Pressure 133/59 L Pulse Oximetry 96 Oxygen Delivery Oxygen Flow Rate Fraction of Inspired Oxygen 02/03/25 16:00 02/03/25 16:00 02/03/25 16:00 Temperature 36.8 C Pulse Rate 97 97 Respiratory Rate 22 H Blood Pressure 130/74 Pulse Oximetry 96 Oxygen Delivery Room Air Oxygen Flow Rate Fraction of Inspired Oxygen 02/03/25 18:00 02/03/25 18:00 02/03/25 20:00 Temperature 36.9 C Pulse Rate 94 94 Respiratory Rate 14 Blood Pressure 128/66 Pulse Oximetry 94 99 Oxygen Delivery Room Air Oxygen Flow Rate Fraction of Inspired Oxygen 02/03/25 20:00 02/03/25 20:00 02/03/25 20:41 Temperature 36.8 C Pulse Rate 102 H 101 H 99 Respiratory Rate 19 20 Blood Pressure 122/62 Pulse Oximetry 94 Oxygen Delivery Oxygen Flow Rate Fraction of Inspired Oxygen 02/03/25 20:42 02/03/25 20:54 02/03/25 22:00 Temperature 36.7 C Pulse Rate 99 99 100 Respiratory Rate 20 20 14 Blood Pressure 113/59 L Pulse Oximetry 94 92 Oxygen Delivery Room Air Oxygen Flow Rate Fraction of Inspired Oxygen 02/03/25 22:00 02/04/25 00:00 02/04/25 00:00 Temperature 36.8 C Pulse Rate 100 100 Respiratory Rate 18 Blood Pressure 107/61 Pulse Oximetry 94 94 Oxygen Delivery Room Air Oxygen Flow Rate Fraction of Inspired Oxygen 02/04/25 00:00 02/04/25 01:46 02/04/25 01:55 Temperature Pulse Rate 100 103 H 106 H Respiratory Rate 20 20 Blood Pressure Pulse Oximetry 92 Oxygen Delivery Nasal Cannula Oxygen Flow Rate 1 Fraction of Inspired Oxygen 24 02/04/25 02:00 02/04/25 02:00 02/04/25 04:00 Temperature 36.9 C Pulse Rate 101 H 100 Respiratory Rate 20 Blood Pressure 103/59 L Pulse Oximetry 92 95 Oxygen Delivery Nasal Cannula Oxygen Flow Rate 3 Fraction of Inspired Oxygen 02/04/25 04:00 02/04/25 04:00 02/04/25 06:00 Temperature 36.9 C 36.7 C Pulse Rate 102 H 101 H 109 H Respiratory Rate 17 20 Blood Pressure 106/61 113/65 Pulse Oximetry 93 93 Oxygen Delivery Oxygen Flow Rate Fraction of Inspired Oxygen 02/04/25 06:00 02/04/25 06:10 02/04/25 07:52 Temperature Pulse Rate 109 H 99 Respiratory Rate 20 20 Blood Pressure Pulse Oximetry 92 94 Oxygen Delivery Nasal Cannula Nasal Cannula Oxygen Flow Rate 5 3 Fraction of Inspired Oxygen 40 02/04/25 07:52 02/04/25 08:12 02/04/25 08:48 Temperature Pulse Rate 99 99 102 H Respiratory Rate 20 20 24 H Blood Pressure Pulse Oximetry 86 L Oxygen Delivery Nasal Cannula Oxygen Flow Rate 5 Fraction of Inspired Oxygen Intake/Output Intake/Output: Intake & Output 02/01/25 02/02/25 02/03/25 02/04/25 23:59 23:59 23:59 23:59 Intake Total 1551.4 1654.4 1842.9 100 Output Total 3400 2850 5500 475 [facility]1848.6 -1195.6 -3657.1 -375 Meds/Results Medications: Active Medications Generic Name Dose Route Start Last Admin Trade Name Freq PRN Reason Stop Dose Admin Acetaminophen 650 mg 01/25/25 11:14 01/25/25 18:58 Acetaminophen 325 Mg Tablet PO 650 mg Q4H PRN Administration Mild Pain (1-3) or Fever Baricitinib 2 mg 01/31/25 11:00 02/03/25 11:37 Baricitinib 2 Mg Tablet PO 02/08/25 11:01 2 mg DAILY@1100 NELLIE Administration Dextrose 12.5 gm 01/26/25 07:40 02/03/25 23:12 Dextrose 50% 25 Gm/50 Ml Syringe IV PUSH 12.5 gm PRN PRN Administration Hypoglycemia Protocol Enoxaparin Sodium 30 mg 02/04/25 09:00 02/04/25 08:39 Enoxaparin 30 Mg/0.3 Ml Syringe SUB-Q 30 mg DAILY NELLIE Administration Furosemide 40 mg 02/04/25 17:00 Furosemide Inj 40 Mg/4 Ml Vial IV PUSH 02/04/25 17:01 ONCE ONE Glucagon 1 mg 01/26/25 07:40 Glucagon For Inj 1 Mg Vial IM PRN PRN Hypoglycemia Protocol Glucose 15 gm 01/26/25 07:40 Glucose Oral Gel 15 Gm Of Glucse In 37.5 Gm Tube PO PRN PRN Hypoglycemia Protocol Dextrose 1,000 mls @ 100 mls/hr 01/26/25 07:40 Dextrose 5% 1,000 Ml IVPB PRN PRN Hypoglycemia Protocol Cefepime HCl 1 gm in 50 mls @ 100 mls/hr 01/27/25 10:15 02/04/25 08:39 Maxipime 1 Gm/Ns 50 Ml IVPB 02/05/25 21:29 100 mls/hr Q12HR NELLIE Administration Potassium Chloride/Dextrose 1,000 mls @ 100 mls/hr 02/04/25 12:00 Kcl 20 Meq/D5w 1,000 Ml IV CONT .Q10H NELLIE Potassium Chloride 100 mls @ 25 mls/hr 02/04/25 08:23 02/04/25 08:49 Kcl 40 Meq/Water 100 Ml IVPB 02/04/25 12:22 25 mls/hr ONCE ONE Administration Insulin Aspart 3 - 6 units 01/26/25 12:00 02/04/25 06:53 Insulin Aspart (*Bkc) 100 Units/Ml SUB-Q Not Given Q6HR NELLIE Protocol Ipratropium Tyler 0.5 mg 01/26/25 20:00 02/04/25 07:52 Ipratropium Br 0.02% Inh Soln 0.5 Mg/2.5 Ml Vial INHALATION 0.5 mg Q6HRT ENLLIE Administration Levalbuterol HCl 1.25 mg 01/26/25 20:00 02/04/25 07:52 Levalbuterol Neb 1.25 Mg/3 Ml INHALATION 1.25 mg Q6HRT NELLIE Administration Memantine 10 mg 01/25/25 17:00 01/25/25 17:29 Memantine 10 Mg Tablet PO Not Given BID NELLIE Metoprolol Tartrate 5 mg 01/26/25 15:20 01/26/25 21:15 Metoprolol Tartrate Inj 5 Mg/5 Ml Vial IV PUSH 5 mg Q6H PRN Administration Tachycardia Multi-Ingred Cream/Lotion/Oil/Oint 1 applic 01/26/25 21:00 02/04/25 08:37 Mineral Oil/White Petrolatum Ointment EACH EYE 1 applic Q12HR NELLIE Administration Pantoprazole Sodium 40 mg 02/02/25 09:00 02/04/25 08:38 Pantoprazole Sodium Iv 40 Mg Vial IV PUSH 40 mg Q12HR NELLIE Administration Sodium Chloride 10 ml 01/27/25 14:00 02/04/25 06:54 Central Line Flush IV PUSH 10 ml Q8HR NELLIE Administration Sodium Chloride 10 ml 01/27/25 11:45 Central Line Flush IV PUSH PRN PRN with TPN bag changes Sodium Chloride 20 ml 01/27/25 11:45 Central Line Flush IV PUSH PRN PRN after blood draws Radiology Results: ITS Impressions Abdomen X-Ray 01/26/25 20:53 IMPRESSION: Bibasilar airspace disease. Small bilateral pleural effusions, likely with a subpulmonic component on the right. NG tube in good position. Renal Ultrasound 01/28/25 12:53 Impression: No hydronephrosis. Trace right perinephric fluid. Chest X-Ray 02/04/25 05:30 Impression: Moderate pulmonary edema pattern with minimal pleural effusions. Correlate for pneumonia. Probable associated left lower lobe atelectasis. Right-sided PICC line. Labs Labs: Laboratory Results - last 24 hr 02/03/25 02/03/25 02/03/25 10:11 11:45 17:38 WBC RBC Hgb Hct MCV MCH MCHC RDW Plt Count MPV Immature Gran % (Auto) Neut % (Auto) Lymph % (Auto) Bartholomew % (Auto) Eos % (Auto) Baso % (Auto) Lymph # (Auto) Bartholomew # (Auto) Eos # (Auto) Baso # (Auto) Abs Immat Gran (auto) Absolute Neuts (auto) Absolute Nucleated RBC Nucleated RBC % Puncture Site Left radial ABG pH 7.526 H* ABG pCO2 34.4 L ABG pO2 106.2 H ABG PO2/FiO2 Ratio 3.54 ABG HCO3 27.8 H ABG O2 Saturation 98.4 ABG O2 Content 17.6 ABG Base Excess 5.2 A-a Gradient 67.3 Oxyhemoglobin 97.7 Total Hemoglobin 12.7 O2 Delivery Device Ventilator O2 Liters/Min Not Reportable Minute Volume Not Reportable Vent Rate Not Reportable Vent Mode Spontaneous FiO2 30 Tidal Volume Not Reportable PEEP 5 Peak Inspir Pressure Not Reportable Pressure Support 5 Sodium Potassium Chloride Carbon Dioxide Anion Gap BUN Creatinine Estim Creat Clear Calc Estimated GFR Glucose POC Capillary Glucose 176 H 108 H Calcium Phosphorus Magnesium Total Bilirubin AST ALT Alkaline Phosphatase Total Protein Albumin 02/03/25 02/03/25 02/03/25 23:10 23:30 23:31 WBC RBC Hgb Hct MCV MCH MCHC RDW Plt Count MPV Immature Gran % (Auto) Neut % (Auto) Lymph % (Auto) Bartholomew % (Auto) Eos % (Auto) Baso % (Auto) Lymph # (Auto) Bartholomew # (Auto) Eos # (Auto) Baso # (Auto) Abs Immat Gran (auto) Absolute Neuts (auto) Absolute Nucleated RBC Nucleated RBC % Puncture Site ABG pH ABG pCO2 ABG pO2 ABG PO2/FiO2 Ratio ABG HCO3 ABG O2 Saturation ABG O2 Content ABG Base Excess A-a Gradient Oxyhemoglobin Total Hemoglobin O2 Delivery Device O2 Liters/Min Minute Volume Vent Rate Vent Mode FiO2 Tidal Volume PEEP Peak Inspir Pressure Pressure Support Sodium Potassium Chloride Carbon Dioxide Anion Gap BUN Creatinine Estim Creat Clear Calc Estimated GFR Glucose POC Capillary Glucose 55 L* 202 H 137 H Calcium Phosphorus Magnesium Total Bilirubin AST ALT Alkaline Phosphatase Total Protein Albumin 02/03/25 02/04/25 02/04/25 23:34 05:49 06:37 WBC RBC Hgb Hct MCV MCH MCHC RDW Plt Count MPV Immature Gran % (Auto) Neut % (Auto) Lymph % (Auto) Bartholomew % (Auto) Eos % (Auto) Baso % (Auto) Lymph # (Auto) Bartholomew # (Auto) Eos # (Auto) Baso # (Auto) Abs Immat Gran (auto) Absolute Neuts (auto) Absolute Nucleated RBC Nucleated RBC % Puncture Site Right radial ABG pH 7.541 H* ABG pCO2 33.7 L ABG pO2 52.4 L ABG PO2/FiO2 Ratio 1.64 ABG HCO3 28.2 H ABG O2 Saturation 91.1 L ABG O2 Content 14.4 L ABG Base Excess 5.8 A-a Gradient 136.3 Oxyhemoglobin 87.8 L* Total Hemoglobin 11.7 L O2 Delivery Device Nasal cannula O2 Liters/Min 3.0 Minute Volume Vent Rate Vent Mode FiO2 32 Tidal Volume PEEP Peak Inspir Pressure Pressure Support Sodium Potassium Chloride Carbon Dioxide Anion Gap BUN Creatinine Estim Creat Clear Calc Estimated GFR Glucose POC Capillary Glucose 273 H 75 Calcium Phosphorus Magnesium Total Bilirubin AST ALT Alkaline Phosphatase Total Protein Albumin 02/04/25 02/04/25 06:45 06:47 WBC 17.6 H RBC 3.31 L Hgb 10.1 L Hct 31.7 L MCV 95.8 MCH 30.5 MCHC 31.9 L RDW 14.0 Plt Count 153 MPV 12.5 H Immature Gran % (Auto) 0.6 H Neut % (Auto) 90.0 H Lymph % (Auto) 1.4 L Bartholomew % (Auto) 7.9 Eos % (Auto) 0.0 Baso % (Auto) 0.1 L Lymph # (Auto) 0.24 L Bartholomew # (Auto) 1.4 H Eos # (Auto) 0.0 Baso # (Auto) 0.0 Abs Immat Gran (auto) 0.11 H Absolute Neuts (auto) 15.8 H Absolute Nucleated RBC 0.000 Nucleated RBC % 0.0 Puncture Site ABG pH ABG pCO2 ABG pO2 ABG PO2/FiO2 Ratio ABG HCO3 ABG O2 Saturation ABG O2 Content ABG Base Excess A-a Gradient Oxyhemoglobin Total Hemoglobin O2 Delivery Device O2 Liters/Min Minute Volume Vent Rate Vent Mode FiO2 Tidal Volume PEEP Peak Inspir Pressure Pressure Support Sodium 149 H Potassium 3.3 L Chloride 104 Carbon Dioxide 33 H Anion Gap 12 BUN 125 H Creatinine 2.35 H Estim Creat Clear Calc 19 Estimated GFR 27 L Glucose 73 POC Capillary Glucose 73 Calcium 9.9 Phosphorus 5.4 H Magnesium 2.9 H Total Bilirubin 1.8 H AST 124 H ALT 133 H Alkaline Phosphatase 57 Total Protein 6.0 L Albumin 4.4 Quality VTE Prophylaxis VTE prophylaxis: mechanical ordered and pharmacologic ordered
--- NOTE | 2025-02-04 10:45 | PCFNICU ---
ICU Rounding Note: Pt current nutrition is NPO. Last recorded weight is 66 kg, up from 61 kg on admit. Bowel Motility: +BM reported 5/6 Labs Reviewed: PO4 5.4, BUN 125, Cr 2.35, Hct 31.7, Hgb 10.1 Meds Noted: Protonix, NovoLog, D5 Skin: WNL Additional Notes: Patient currently NPO, awaiting speech eval. Will make further recommendations once speech has evaluated. Following daily in ICU rounds. Will monitor weight, labs, skin, diet orders, meds every 3 days.
[2025-02-04 12:03] LABS: Glucose Point of Care 76 mg/dl (65-105)
--- NOTE | 2025-02-04 12:18 | P.PNNP_ITS ---
Progress Note: A&P Assessment and Plan (1) Acute kidney injury: Code(s): N17.9 - Acute kidney failure, unspecified Status: Acute Assessment and Plan: * relatively stable * as noted on admission * transient improvement to 1.61mg/d on 01/26 * worsening creatinine starting on 01/27 * baseline creatinine runs around 1.1 - 1.3mg/dl * suspect ATN with multifactorial etiology: * hemodynamic instability/shock * infection/sepsis (pneumonia + COVID) * hypoxia * possible prerenal factors * other(?) * evaluation to date noted: * renal ultrasound without hydronephrosis * urine electrolytes prerenal * urine eosinophils negative * CPK mildly elevated (but enough to affect kidney function) * moderate proteinuria * continue supportive therapy * follow trend of repeat labs and UOP (2) Septic shock: Code(s): A41.9 - Sepsis, unspecified organism; R65.21 - Severe sepsis with septic shock Status: Acute Assessment and Plan: * resolved * as noted by presentation of tachycardia, tachypnea, hypoxia, lactic acidosis, MICHAEL, and hypotension * s/p volume resuscitation along with IV albumin for intravascular volume expansion * lactic acidosis resolved * was on vasopressor therapy (levophed) to maintain MAP/blood pressure * weaned off * follow culture data * on antibiotics * not opposed to IV diuretics as needed * follow trend of hemodynamics (3) Acute respiratory failure: Code(s): J96.00 - Acute respiratory failure, unspecified whether with hypoxia or hypercapnia Status: Acute Assessment and Plan: * felt to be secondary to pneumonia, COVID-19, and CHF * off ventilator support * continue supplemental oxygen support * IV diuretics as tolerated * follow respiratory status (4) Congestive heart failure: Code(s): I50.9 - Heart failure, unspecified Status: Acute Assessment and Plan: * as noted by recent Echo (01/26): * left ventricular systolic function is moderately globally reduced, estimated at 35-40% * left ventricular diastolic function is abnormal. * mild aortic valve sclerosis * mild aortic valve regurgitation * mmoderate tricuspid valve regurgitation * mild pulmonary hypertension, estimated pulmonary arterial systolic pressure is 40 mmHg * IV diuretics PRN (5) Pneumonia: Code(s): J18.9 - Pneumonia, unspecified organism Status: Acute Assessment and Plan: * as suggested by admission imaging * follow culture data * on antibiotic therapy * continue supportive therapy (6) COVID: Code(s): U07.1 - COVID-19 Status: Acute Assessment and Plan: * positive testing noted on 01/22 * imaging with worsening infiltrates as well * initated on remdesivir and dexamethasone (on 01/25) * started on baricitinib as well (on 01/26) * remains on droplet and contact isolation/precautions (7) Anemia: Code(s): D64.9 - Anemia, unspecified Status: Acute Assessment and Plan: * presumably due to MICHAEL and acute illness * follow trend of H/H (8) Elevated LFTs: Code(s): R79.89 - Other specified abnormal findings of blood chemistry Status: Acute Assessment and Plan: * presumably due to septic shock and hypoxia * statin on hold * appear to be improving * follow trend (9) Dementia: Qualifiers: Dementia type: unspecified type Dementia severity: unspecified severity Dementia behavioral or psychological symptom: unspecified whether behavioral, psychotic, or mood disturbance or anxiety Qualified Code(s): F03.90 - Unspecified dementia, unspecified severity, without behavioral disturbance, psychotic disturbance, mood disturbance, and anxiety Code(s): F03.90 - Unspecified dementia, unspecified severity, without behavioral disturbance, psychotic disturbance, mood disturbance, and anxiety Status: Acute Assessment and Plan: * known baseline cognitive impairment * on Namenda at home (10) Pre-diabetes: Code(s): R73.03 - Prediabetes Status: Acute Assessment and Plan: * follow accu-cheks * possibly exacerbated by steroid use and acute illness * glycemic control per director of enrollment/hospitalist Will continue to follow. L Subjective Date/time seen: 02/04/25 12:18 Interval history: Follow-up for acute kidney injury/acute renal failure. Successfully extubated yesterday morning without any issue or problems; was weaned to room air but now requiring supplemental oxygen by nasal cannula; no acute complaints voiced but remains confused when seen; self dc'd NG tube overnight; excellent urine output in response to IV diuretics; renal function/creatinine slightly up from yesterday; remains hemodynamically stable. Exam 2 Narrative: General: elderly male in NAD; on venti-mask Heart: normal S1 and S2; no rub Lungs: coarse breath sounds Abdomen: soft, nontender, nondistended, diminished bowel sounds Extremities: no cyanosis or clubbing; no edema Skin: no rash Objective Data Vital Signs Vital Signs: Vital Signs Temp Pulse Resp BP Pulse Ox O2 Del Method O2 Flow Rate 02/04/25 12:00 98.3 F 107 H 19 128/70 93 02/04/25 12:00 96 Venturi Mask 3 02/04/25 10:00 98.1 F 102 H 19 121/65 95 02/04/25 10:00 102 H 02/04/25 08:48 102 H 24 H 86 L Nasal Cannula 5 02/04/25 08:12 99 20 02/04/25 08:00 BiPAP 02/04/25 08:00 98.0 F 96 17 104/64 94 02/04/25 08:00 96 02/04/25 07:52 99 20 02/04/25 07:52 99 20 94 Nasal Cannula 3 02/04/25 06:10 20 92 Nasal Cannula 5 02/04/25 06:00 109 H 02/04/25 06:00 98.1 F 109 H 20 113/65 93 02/04/25 04:00 101 H 02/04/25 04:00 98.4 F 102 H 17 106/61 93 02/04/25 04:00 95 Nasal Cannula 3 02/04/25 02:00 100 02/04/25 02:00 98.5 F 101 H 20 103/59 L 92 02/04/25 01:55 106 H 20 92 Nasal Cannula 1 02/04/25 01:46 103 H 20 02/04/25 00:00 100 02/04/25 00:00 98.3 F 100 18 107/61 94 02/04/25 00:00 94 Room Air 02/03/25 22:00 100 02/03/25 22:00 98.0 F 100 14 113/59 L 92 02/03/25 20:54 99 20 02/03/25 20:42 99 20 94 Room Air 02/03/25 20:41 99 20 02/03/25 20:00 101 H 02/03/25 20:00 98.2 F 102 H 19 122/62 94 02/03/25 20:00 99 Room Air 02/03/25 18:00 98.4 F 94 14 128/66 94 02/03/25 18:00 94 Intake/Output Intake/Output: Intake & Output 0502/02/25 02/03/25 02/04/25 23:59 23:59 23:59 23:59 Intake Total 1551.4 1654.4 1842.9 150 Output Total 3400 2850 5500 475 Balance -1848.6 -1195.6 -3657.1 -325 Meds/Results Medications: Active Medications Generic Name Dose Route Start Last Admin Trade Name Freq PRN Reason Stop Dose Admin Acetaminophen 650 mg 01/25/25 11:14 01/25/25 18:58 Acetaminophen 325 Mg Tablet PO 650 mg Q4H PRN Administration Mild Pain (1-3) or Fever Baricitinib 2 mg 01/31/25 11:00 02/04/25 11:45 Baricitinib 2 Mg Tablet PO 02/08/25 11:01 Not Given DAILY@1100 NELLIE Dextrose 12.5 gm 01/26/25 07:40 02/03/25 23:12 Dextrose 50% 25 Gm/50 Ml Syringe IV PUSH 12.5 gm PRN PRN Administration Hypoglycemia Protocol Enoxaparin Sodium 30 mg 02/04/25 09:00 02/04/25 08:39 Enoxaparin 30 Mg/0.3 Ml Syringe SUB-Q 30 mg DAILY NELLIE Administration Glucagon 1 mg 01/26/25 07:40 Glucagon For Inj 1 Mg Vial IM PRN PRN Hypoglycemia Protocol Glucose 15 gm 01/26/25 07:40 Glucose Oral Gel 15 Gm Of Glucse In 37.5 Gm Tube PO PRN PRN Hypoglycemia Protocol Dextrose 1,000 mls @ 100 mls/hr 01/26/25 07:40 Dextrose 5% 1,000 Ml IVPB PRN PRN Hypoglycemia Protocol Cefepime HCl 1 gm in 50 mls @ 100 mls/hr 01/27/25 10:15 02/04/25 10:55 Maxipime 1 Gm/Ns 50 Ml IVPB 02/05/25 21:29 Infused Q12HR NELLIE Infusion Potassium Chloride/Dextrose 1,000 mls @ 100 mls/hr 02/04/25 12:00 02/04/25 13:58 Kcl 20 Meq/D5w 1,000 Ml IV CONT 100 mls/hr .Q10H NELLIE Administration Insulin Aspart 3 - 6 units 01/26/25 12:00 02/04/25 17:24 Insulin Aspart (*Bkc) 100 Units/Ml SUB-Q Not Given Q6HR [facility] Protocol Ipratropium [place] 0.5 mg 01/26/25 20:00 02/04/25 14:32 Ipratropium Br 0.02% Inh Soln 0.5 Mg/2.5 Ml Vial INHALATION 0.5 mg Q6HRT NELLIE Administration Levalbuterol HCl 1.25 mg 01/26/25 20:00 02/04/25 14:32 Levalbuterol Neb 1.25 Mg/3 Ml INHALATION 1.25 mg Q6HRT NELLIE Administration Memantine 10 mg 01/25/25 17:00 01/25/25 17:29 Memantine 10 Mg Tablet PO Not Given BID NELLIE Metoprolol Tartrate 5 mg 01/26/25 15:20 01/26/25 21:15 Metoprolol Tartrate Inj 5 Mg/5 Ml Vial IV PUSH 5 mg Q6H PRN Administration Tachycardia Multi-Ingred Cream/Lotion/Oil/Oint 1 applic 01/26/25 21:00 02/04/25 08:37 Mineral Oil/White Petrolatum Ointment EACH EYE 1 applic Q12HR NELLIE Administration Pantoprazole Sodium 40 mg 02/02/25 09:00 02/04/25 08:38 Pantoprazole Sodium Iv 40 Mg Vial IV PUSH 40 mg Q12HR NELLIE Administration Sodium Chloride 10 ml 01/27/25 14:00 02/04/25 13:59 Central Line Flush IV PUSH 10 ml Q8HR NELLIE Administration Sodium Chloride 10 ml 01/27/25 11:45 Central Line Flush IV PUSH PRN PRN with TPN bag changes Sodium Chloride 20 ml 01/27/25 11:45 Central Line Flush IV PUSH PRN PRN after blood draws Radiology Results: ITS Impressions Abdomen X-Ray 01/26/25 20:53 IMPRESSION: Bibasilar airspace disease. Small bilateral pleural effusions, likely with a subpulmonic component on the right. NG tube in good position. Renal Ultrasound 01/28/25 12:53 Impression: No hydronephrosis. Trace right perinephric fluid. Chest X-Ray 02/04/25 05:30 Impression: Moderate pulmonary edema pattern with minimal pleural effusions. Correlate for pneumonia. Probable associated left lower lobe atelectasis. Right-sided PICC line. Labs Labs: Laboratory Tests 02/04/25 06:45 02/04/25 06:45 Calcium 9.9 Phosphorus 5.4 H Magnesium 2.9 H Total Bilirubin 1.8 H AST 124 H ALT 133 H Alkaline Phosphatase 57 Total Protein 6.0 L Albumin 4.4
[2025-02-04] MEDS: KCL 20 MEQ/D5W 1,000 ML 1,000 ML 100 ML IV CONT (13:58)
[2025-02-04] MEDS: FUROSEMIDE INJ 40 MG/4 ML VIAL IV PUSH (17:22)
[2025-02-04 17:45] LABS: Glucose Point of Care 127 mg/dl (65-105)
[2025-02-04 18:06] LABS: Anion Gap 10 mmol/L (4-12); Blood Urea Nitrogen 116 mg/dL (9-20); Calcium 8.7 mg/dL (8.4-10.2); Carbon Dioxide 28 mmol/L (22-30); Chloride 99 mmol/L (98-107); Estimated CRCL calculation 20 ml/min; Estimated Glomerular Filt Rate 28; Glucose 434 mg/dL (65-110); Potassium 5.9 mmol/L (3.4-5.0); Sodium 137 mmol/L (137-145)
[2025-02-04 19:10] LABS: Anion Gap 12 mmol/L (4-12); Calcium 9.6 mg/dL (8.4-10.2); Carbon Dioxide 32 mmol/L (22-30); Chloride 104 mmol/L (98-107); Estimated CRCL calculation 18 ml/min; Estimated Glomerular Filt Rate 24; Glucose 137 mg/dL (65-110); Potassium 4.3 mmol/L (3.4-5.0); Sodium 148 mmol/L (137-145)
[2025-02-04 19:21] LABS: Blood Urea Nitrogen 126 mg/dL (9-20)
[2025-02-04] MEDS: DEXTROSE 5% 1,000 ML 1,000 ML 30 ML IV CONT (21:29)
[2025-02-04 23:39] LABS: Glucose Point of Care 125 mg/dl (65-105)
[2025-02-05] VITALS (24 sets, daily range): BP systolic 126–133; BP diastolic 73–81; PULSE 99–117; RESP 17–22; TEMP 36.4–36.8; O2SAT 92–100
[2025-02-05] MEDS: LEVALBUTEROL NEB 1.25 MG/3 ML INHALATION ×4 (02:13→20:50)
[2025-02-05] MEDS: IPRATROPIUM BR 0.02% INH SOLN 0.5 MG/2.5 ML VIAL INHALATION ×4 (02:13→20:50)
--- NOTE | 2025-02-05 03:29 | PC.NURSE ---
0056- Update given to daughter, Anila, OTP 031- Update given to , Randi, OTP
[2025-02-05] MEDS: CENTRAL LINE FLUSH 10 ML IV PUSH ×3 (05:31→20:56)
[2025-02-05 05:35] LABS: Glucose Point of Care 148 mg/dl (65-105)
[2025-02-05 05:41] LABS: Hematocrit 33.6 % (42.0-52.0); Hemoglobin 10.4 g/dL (14.0-18.0); Mean Corpuscular Hemoglobin 30.2 pg (26-34); Mean Corpuscular Volume 97.7 fl (80-100); Mean Platelet Volume 12.5 fl (7.4-10.4); Platelet Count Result 151 k/mm3 (150-375); Red Blood Count 3.44 M/mm3 (4.6-6.20); Red Cell Distribution Width 14.1 % (11.5-14.5); White Blood Count 15.6 K/mm3 (4.5-10.0)
[2025-02-05 05:58] LABS: Alanine Aminotransferase 104 U/L (6-50); Albumin Level 4.1 g/dL (3.5-5.1); Alkaline Phosphatase 59 U/L (38-126); Anion Gap 13 mmol/L (4-12); Aspartate Amino Transferase 124 U/L (17-59); Blood Urea Nitrogen 120 mg/dL (9-20); Carbon Dioxide 29 mmol/L (22-30); Chloride 101 mmol/L (98-107); Estimated CRCL calculation 18 ml/min; Estimated Glomerular Filt Rate 25; Glucose 307 mg/dL (65-110); Magnesium 2.9 mg/dL (1.6-2.3); Phosphorus 5.6 mg/dL (2.5-4.5); Potassium 3.8 mmol/L (3.4-5.0); Sodium 143 mmol/L (137-145)
[2025-02-05] MEDS: ENOXAPARIN 30 MG/0.3 ML SYRINGE SUB-Q (07:50)
[2025-02-05] MEDS: PANTOPRAZOLE SODIUM IV 40 MG VIAL IV PUSH ×2 (07:50→20:35)
[2025-02-05] MEDS: CEFEPIME 1 GM/NS 50 ML 1 GM/50 ML BAG IVPB ×2 (07:51→20:40)
[2025-02-05 08:00] LABS: Glucose Point of Care 149 mg/dl (65-105)
--- NOTE | 2025-02-05 09:01 | P.PNNP_ITS ---
Progress Note: A&P Assessment and Plan (1) Acute kidney injury: Code(s): N17.9 - Acute kidney failure, unspecified Status: Acute Assessment and Plan: * fluctuating at this time * as noted on admission * transient improvement to 1.61mg/d on 01/26 * worsening creatinine starting on 01/27 * baseline creatinine runs around 1.1 - 1.3mg/dl * suspect ATN with multifactorial etiology: * hemodynamic instability/shock * infection/sepsis (pneumonia + COVID) * hypoxia * possible prerenal factors * other(?) * evaluation to date noted: * renal ultrasound without hydronephrosis * urine electrolytes prerenal * urine eosinophils negative * CPK mildly elevated (but enough to affect kidney function) * moderate proteinuria * remains at risk for [employer]IST/dialysis given his rising BUN * no critical electrolytes and good urine output (albeit with diuretics) * volume status remain an issue * HOWEVER, family does not think patient would want dialysis as a treatment option * follow trend of repeat labs and UOP * continue supportive therapy (2) Septic shock: Code(s): A41.9 - Sepsis, unspecified organism; R65.21 - Severe sepsis with septic shock Status: Acute Assessment and Plan: * resolved * as noted by presentation of tachycardia, tachypnea, hypoxia, lactic acidosis, MICHAEL, and hypotension * s/p volume resuscitation along with IV albumin for intravascular volume expansion * lactic acidosis resolved * was on vasopressor therapy (levophed) to maintain MAP/blood pressure * weaned off * follow culture data * completed course of antibiotics * not opposed to IV diuretics as needed * follow trend of hemodynamics (3) Acute respiratory failure: Code(s): J96.00 - Acute respiratory failure, unspecified whether with hypoxia or hypercapnia Status: Acute Assessment and Plan: * felt to be secondary to pneumonia, COVID-19, and CHF * off ventilator support * continue supplemental oxygen support * IV diuretics asn needed/as tolerated * follow respiratory status (4) Congestive heart failure: Code(s): I50.9 - Heart failure, unspecified Status: Acute Assessment and Plan: * as noted by recent Echo (01/26): * left ventricular systolic function is moderately globally reduced, estimated at 35-40% * left ventricular diastolic function is abnormal. * mild aortic valve sclerosis * mild aortic valve regurgitation * moderate tricuspid valve regurgitation * mild pulmonary hypertension, estimated pulmonary arterial systolic pressure is 40 mmHg * IV diuretics PRN (5) Pneumonia: Code(s): J18.9 - Pneumonia, unspecified organism Status: Acute Assessment and Plan: * as suggested by admission imaging * follow culture data - negative to date * completed antibiotic therapy * continue supportive therapy (6) COVID: Code(s): U07.1 - COVID-19 Status: Acute Assessment and Plan: * positive testing noted on 01/22 * imaging with worsening infiltrates as well * s/p treatment with remdesivir and dexamethasone * on baricitinib (till 02/08) * remains on droplet and contact isolation/precautions (7) Anemia: Code(s): D64.9 - Anemia, unspecified Status: Acute Assessment and Plan: * presumably due to MICHAEL and acute illness * follow trend of H/H (8) Elevated LFTs: Code(s): R79.89 - Other specified abnormal findings of blood chemistry Status: Acute Assessment and Plan: * presumably due to septic shock and hypoxia * statin on hold * appear to be improving * follow trend (9) Dementia: Qualifiers: Dementia behavioral or psychological symptom: unspecified whether behavioral, psychotic, or mood disturbance or anxiety Dementia severity: u nspecified severity Dementia type: unspecified type Qualified Code(s): F03.90 - Unspecified dementia, unspecified severity, without behavioral disturbance, psychotic disturbance, mood disturbance, and anxiety Code(s): F03.90 - Unspecified dementia, unspecified severity, without behavioral disturbance, psychotic disturbance, mood disturbance, and anxiety Status: Acute Assessment and Plan: * known baseline cognitive impairment * on Namenda at home (10) Pre-diabetes: Code(s): R73.03 - Prediabetes Status: Acute Assessment and Plan: * follow accu-cheks * possibly exacerbated by previous steroid use and acute illness * glycemic control per info print press operator/hospitalist Will continue to follow. L Subjective Date/time seen: 02/05/25 09:01 Interval history: Follow-up for acute kidney injury/acute renal failure. Issues with hypoxia noted since extubation requiring supplemental oxygen and now Venturi mask -- continues to make good urine output in response to IV diuretics although this is at the expense his renal function/creatinine/BUN; no other acute complaints voiced within the limits of current status; currently NPO and awaiting swallow evaluation today; remains hemodynamically stable at the time of my visit; noted code status update (DNR/DNI) per family wishes. Exam 2 Narrative: General: elderly male in NAD; on Venturi-mask Heart: normal S1 and S2; no rub Lungs: coarse breath sounds Abdomen: soft, nontender, nondistended, diminished bowel sounds Extremities: no cyanosis or clubbing; no edema Skin: warm and dry Objective Data Vital Signs Vital Signs: Vital Signs Temp Pulse Resp BP Pulse Ox O2 Del Method O2 Flow Rate 02/05/25 09:01 99 17 95 Venturi Mask 15 02/05/25 08:00 101 H 02/05/25 08:00 97 Venturi Mask 15 02/05/25 08:00 97.5 F L 102 H 20 126/74 97 02/05/25 06:00 101 H 02/05/25 04:00 97.7 F 103 H 22 H 130/73 97 02/05/25 04:00 117 H 02/05/25 04:00 92 Venturi Mask 15 02/05/25 02:24 105 H 22 H 02/05/25 02:13 105 H 20 02/05/25 02:00 116 H 02/05/25 00:00 98 Non-Rebreather Mask 12 02/05/25 00:00 98.3 F 108 H 22 H 133/74 100 02/05/25 00:00 110 H 02/04/25 22:00 112 H 02/04/25 21:13 103 H 20 02/04/25 20:58 104 H 20 96 Non-Rebreather Mask 15 02/04/25 20:57 104 H 21 H 02/04/25 20:00 98.2 F 108 H 21 H 139/80 94 02/04/25 20:00 106 H 02/04/25 20:00 94 Non-Rebreather Mask 15 02/04/25 18:44 92 Non-Rebreather Mask 15 02/04/25 18:00 108 H 02/04/25 16:00 98.2 F 02/04/25 16:00 109 H 02/04/25 16:00 94 Venturi Mask 15 02/04/25 14:53 105 H 24 H 02/04/25 14:35 103 H 20 02/04/25 14:35 103 H 20 93 Venturi Mask 15 02/04/25 14:00 98.3 F 101 H 21 H 115/83 92 02/04/25 14:00 101 H Intake/Output Intake/Output: Intake & Output 02/02/25 02/03/25 02/04/25 02/05/25 23:59 23:59 23:59 23:59 Intake Total 1654.4 1842.9 200 50 Output Total 2850 5500 850 1300 [facility] -1195.6 -3657.1 -650 -1250 Meds/Results Medications: Active Medications Generic Name Dose Route Start Last Admin Trade Name Freq PRN Reason Stop Dose Admin Acetaminophen 650 mg 01/25/25 11:14 01/25/25 18:58 Acetaminophen 325 Mg Tablet PO 650 mg Q4H PRN Administration Mild Pain (1-3) or Fever Baricitinib 2 mg 01/31/25 11:00 02/05/25 13:18 Baricitinib 2 Mg Tablet PO 02/08/25 11:01 Not Given DAILY@1100 NELLIE Dextrose 12.5 gm 01/26/25 07:40 02/03/25 23:12 Dextrose 50% 25 Gm/50 Ml Syringe IV PUSH 12.5 gm PRN PRN Administration Hypoglycemia Protocol Enoxaparin Sodium 30 mg 02/04/25 09:00 02/05/25 07:50 Enoxaparin 30 Mg/0.3 Ml Syringe SUB-Q 30 mg DAILY NELLIE Administration Glucagon 1 mg 01/26/25 07:40 Glucagon For Inj 1 Mg Vial IM PRN PRN Hypoglycemia Protocol Glucose 15 gm 01/26/25 07:40 Glucose Oral Gel 15 Gm Of Glucse In 37.5 Gm Tube PO PRN PRN Hypoglycemia Protocol Dextrose 1,000 mls @ 100 mls/hr 01/26/25 07:40 Dextrose 5% 1,000 Ml IVPB PRN PRN Hypoglycemia Protocol Cefepime HCl 1 gm in 50 mls @ 100 mls/hr 01/27/25 10:15 02/05/25 08:21 Maxipime 1 Gm/Ns 50 Ml IVPB 02/05/25 21:29 Infused Q12HR NELLIE Infusion Insulin Aspart 3 - 6 units 02/05/25 08:00 02/05/25 13:19 Insulin Aspart (*Bkc) 100 Units/Ml SUB-Q Not Given Q4H [facility] Protocol Insulin Glargine 15 units 02/05/25 09:00 02/05/25 08:00 Insulin Glargine (*Bkc) 100 Units/Ml SUB-Q Not Given QAM NELLIE Ipratropium [place] 0.5 mg 01/26/25 20:00 02/05/25 09:01 Ipratropium Br 0.02% Inh Soln 0.5 Mg/2.5 Ml Vial INHALATION 0.5 mg Q6HRT NELLIE Administration Levalbuterol HCl 1.25 mg 01/26/25 20:00 02/05/25 09:01 Levalbuterol Neb 1.25 Mg/3 Ml INHALATION 1.25 mg Q6HRT NELLIE Administration Memantine 10 mg 01/25/25 17:00 01/25/25 17:29 Memantine 10 Mg Tablet PO Not Given BID NELLIE Metoprolol Tartrate 5 mg 01/26/25 15:20 01/26/25 21:15 Metoprolol Tartrate Inj 5 Mg/5 Ml Vial IV PUSH 5 mg Q6H PRN Administration Tachycardia Pantoprazole Sodium 40 mg 02/02/25 09:00 02/05/25 07:50 Pantoprazole Sodium Iv 40 Mg Vial IV PUSH 40 mg Q12HR NELLIE Administration Sodium Chloride 10 ml 01/27/25 14:00 02/05/25 05:31 Central Line Flush IV PUSH 10 ml Q8HR NELLIE Administration Sodium Chloride 10 ml 01/27/25 11:45 Central Line Flush IV PUSH PRN PRN with TPN bag changes Sodium Chloride 20 ml 01/27/25 11:45 Central Line Flush IV PUSH PRN PRN after blood draws Radiology Results: ITS Impressions Abdomen X-Ray 01/26/25 20:53 IMPRESSION: Bibasilar airspace disease. Small bilateral pleural effusions, likely with a subpulmonic component on the right. NG tube in good position. Renal Ultrasound 01/28/25 12:53 Impression: No hydronephrosis. Trace right perinephric fluid. Chest X-Ray 02/05/25 06:28 Impression: Advanced pulmonary edema pattern with small pleural effusions and left lower lobe atelectasis. Correlate clinically for pneumonia. Right-sided PICC line in place. Modified Barium Swallow 02/05/25 13:00 IMPRESSION: Pharyngeal dysphagia with laryngeal penetration and aspiration. Please correlate with speech pathologist findings and specific feeding recommendations. Labs Labs: Laboratory Tests 02/05/25 05:30 02/05/25 05:31 Calcium 9.0 Phosphorus 5.6 H Magnesium 2.9 H Total Bilirubin 2.0 H AST 124 H ALT 104 H Alkaline Phosphatase 59 Total Protein 6.0 L Albumin 4.1
--- NOTE | 2025-02-05 09:17 | WPDINTPN ---
Progress Note: A&P Assessment and Plan (1) Acute respiratory failure: Code(s): J96.00 - Acute respiratory failure, unspecified whether with hypoxia or hypercapnia Status: Acute Assessment and Plan: Acute respiratory failure likely related to pneumonia, COVID-19, and pulmonary edema -chest x-ray and ABG reviewed -02/03 patient was extubated -continue supplemental oxygen with nasal cannula. Add incentive spirometry. Up in chair. -will use NIPPV p.r.n. -patient has been getting diuretics for last few days with good response -Continue course of cefepime. He has completed course of azithromycin Completed course of Dexamethasone Off pressor 01/27-the negative cultures shows no growth x2 01/31- Sputum culture final: No organism seen (2) Pneumonia: Code(s): J18.9 - Pneumonia, unspecified organism Status: Acute Assessment and Plan: Continue as above (3) COVID: Code(s): U07.1 - COVID-19 Status: Acute Assessment and Plan: Patient has been positive for COVID 19. Chest x-ray shows worsening infiltrates -off remdesivir -completed course of dexamethasone (01/25) for total of 10 days -continue baricitinib (01/26) for total of 14 days or until discharge, renally dosed by pharmacy -continue droplet and contact isolation/precautions 01/27- rising LFT's likely transient related to rapid response, will continue to monitor. No change to Remdesivir at this time. 01/31- LFT's trending down. Remdesivir course completed (4) Sepsis: Code(s): A41.9 - Sepsis, unspecified organism Status: Acute Assessment and Plan: Patient presented with tachycardia, tachypnea, hypoxia, and acute kidney injury Adequately fluid-resuscitated, s/p albumin for intravascular volume expansion Off Levophed now (5) MICHAEL (acute kidney injury): Code(s): N17.9 - Acute kidney failure, unspecified Status: Acute Assessment and Plan: Acute kidney injury likely related to sepsis, -adequately fluid-resuscitated -continue to monitor urine output, renal function and electrolytes -nephrology has been consulted -urine lytes do not reflect pre renal, CK level 317, negative urine eosinophils -01/28: Renal ultrasound ordered and demonstrated no hydronephrosis, but trace right perinephric fluid present Creatinine stable, urine output has improved, continue diuretics as patient is overall volume overloaded. Elevated BUN likely secondary to steroids and catabolic state Discussed with daughter in detail she does not think patient would want hemodialysis even if his kidney function deteriorated (6) Dementia: Qualifiers: Dementia type: unspecified type Dementia severity: unspecified severity Dementia behavioral or psychological symptom: unspecified whether behavioral, psychotic, or mood disturbance or anxiety Qualified Code(s): F03.90 - Unspecified dementia, unspecified severity, without behavioral disturbance, psychotic disturbance, mood disturbance, and anxiety Code(s): F03.90 - Unspecified dementia, unspecified severity, without behavioral disturbance, psychotic disturbance, mood disturbance, and anxiety Status: Acute Assessment and Plan: Baseline cognitive impairment, on Namenda at home, (7) Hyperlipidemia: Qualifiers: Hyperlipidemia type: unspecified Qualified Code(s): E78.5 - Hyperlipidemia, unspecified Code(s): E78.5 - Hyperlipidemia, unspecified Status: Acute Assessment and Plan: continue pravastatin (8) GI bleeding: Code(s): K92.2 - Gastrointestinal hemorrhage, unspecified Status: Acute Assessment and Plan: Overnight patient had a bowel movement and stool was reported to be dark by the nursing staff. Although stool Hemoccult was positive his hemoglobin has been stable Monitor hemoglobin IV PPI q.12 hours Continue DVT prophylaxis Lovenox (9) Congestive heart failure: Code(s): I50.9 - Heart failure, unspecified Status: Acute Assessment and Plan: Echo 01/26 Summary 1. Definity contrast administered improved wall motion interpretation. 2. Left ventricular chamber dimension is moderately enlarged. 3. Left ventricular systolic function is moderately globally reduced, estimated at 35-40%. 4. The left ventricular diastolic function is abnormal. 5. E/e' 13 is mildly elevated. 6. Left atrial chamber dimension is moderately enlarged. 7. Right atrial chamber dimension is mildly enlarged. 8. There is mild aortic valve sclerosis. 9. There is mild aortic valve regurgitation. 10. There is moderate to severe mitral valve regurgitation. 11. There is moderate tricuspid valve regurgitation. 12. Mild pulmonary hypertension, estimated pulmonary arterial systolic pressure is 40 mmHg. Lasix IV (10) Electrolyte abnormality: Code(s): E87.8 - Other disorders of electrolyte and fluid balance, not elsewhere classified Status: Acute Assessment and Plan: Replace low potassium (11) Hyperglycemia: Code(s): R73.9 - Hyperglycemia, unspecified Status: Acute Assessment and Plan: Off IV fluids with dextrose. SSI Plan DVT prophylaxis: Lovenox Stress ulcer prophylaxis: Protonix Nutrition: Consult speech for swallow evaluation which is pending Code Status: Patient is DNR DNI at this point. Incentive spirometry, up in chair Subjective Date/time seen: 02/05/25 Overnight events reviewed. Increased oxygen requirement overnight. Patient was placed on Venturi mask. Overnight physician spoke to patient's family and they confirmed the patient is DNR DNI and do not want re-intubation. He is afebrile. Has good urine output. Otherwise Sinus stable. He is still NPO as he did not had a swallow evaluation done yesterday. Limited review of systems obtainable and patient denies any new complaints. He does feel weak. He also has cough which is dry. Patient denies fever, chest pain, shortness of breath,, nausea vomiting, abdominal pain,, diarrhea, headache or constipation. Interval history: 01/26/25- Intubated 02/03 -extubated Review of Systems Review of Systems: All systems reviewed & are unremarkable except as noted in HPI and below (HPI) Exam Narrative: General: Pt is alert awake and in NAD. He is confused Lungs/Chest: Trachea central Clear BS B/L, No crackles or wheezing. Breath sounds are decreased at bases Cardiac: RRR. Normal S1 S2. No murmurs Circulation: Pedal pulses are intact and symmetrical. Abdomen: Normal bowel sounds.. Soft. NT. ND. Extremities: No clubbing, cyanosis or edema. Warm : Scales in place Neurologic: Follows commands. Moves all 4 extremities PERRL AO x0. He knows he is in the hospital in [place] but could not tell me the year or president 0. Generalized weakness Skin: No Rash Objective Data Vital Signs Vital Signs: Vital Signs - 24 hr 02/04/25 10:00 02/04/25 10:02/04/25 12:00 Temperature 36.7 C Pulse Rate 102 H 102 H Respiratory Rate 19 Blood Pressure 121/65 Pulse Oximetry 95 96 Oxygen Delivery Venturi Mask Oxygen Flow Rate 3 Fraction of Inspired Oxygen 02/04/25 12:00 02/04/25 12:00 02/04/25 14:00 Temperature 36.8 C Pulse Rate 102 H 107 H 101 H Respiratory Rate 19 Blood Pressure 128/70 Pulse Oximetry 93 Oxygen Delivery Oxygen Flow Rate Fraction of Inspired Oxygen 02/04/25 14:00 02/04/25 14:35 02/04/25 14:35 Temperature 36.8 C Pulse Rate 101 H 103 H 103 H Respiratory Rate 21 H 20 20 Blood Pressure 115/83 Pulse Oximetry 92 93 Oxygen Delivery Venturi Mask Oxygen Flow Rate 15 Fraction of Inspired Oxygen 50 02/04/25 14:53 02/04/25 16:00 02/04/25 16:00 Temperature Pulse Rate 105 H 109 H Respiratory Rate 24 H Blood Pressure Pulse Oximetry 94 Oxygen Delivery Venturi Mask Oxygen Flow Rate 15 Fraction of Inspired Oxygen 50 02/04/25 16:00 02/04/25 18:00 02/04/25 18:44 Temperature 36.8 C Pulse Rate 108 H Respiratory Rate Blood Pressure Pulse Oximetry 92 Oxygen Delivery Non-Rebreather Mask Oxygen Flow Rate 15 Fraction of Inspired Oxygen 02/04/25 20:00 02/04/25 20:00 02/04/25 20:00 Temperature 36.8 C Pulse Rate 106 H 108 H Respiratory Rate 21 H Blood Pressure 139/80 Pulse Oximetry 94 94 Oxygen Delivery Non-Rebreather Mask Oxygen Flow Rate 15 Fraction of Inspired Oxygen 02/04/25 20:57 02/04/25 20:58 02/04/25 21:13 Temperature Pulse Rate 104 H 104 H 103 H Respiratory Rate 21 H 20 20 Blood Pressure Pulse Oximetry 96 Oxygen Delivery Non-Rebreather Mask Oxygen Flow Rate 15 Fraction of Inspired Oxygen 02/04/25 22:00 02/05/25 00:00 02/05/25 00:00 Temperature 36.8 C Pulse Rate 112 H 110 H 108 H Respiratory Rate 22 H Blood Pressure 133/74 Pulse Oximetry 100 Oxygen Delivery Oxygen Flow Rate Fraction of Inspired Oxygen 02/05/25 00:00 02/05/25 02:00 02/05/25 02:13 Temperature Pulse Rate 116 H 105 H Respiratory Rate 20 Blood Pressure Pulse Oximetry 98 Oxygen Delivery Non-Rebreather Mask Oxygen Flow Rate 12 Fraction of Inspired Oxygen 02/05/25 02:24 02/05/25 04:00 02/05/25 04:00 Temperature Pulse Rate 105 H 117 H Respiratory Rate 22 H Blood Pressure Pulse Oximetry 92 Oxygen Delivery Venturi Mask Oxygen Flow Rate 15 Fraction of Inspired Oxygen 50 02/05/25 04:00 02/05/25 06:00 02/05/25 08:00 Temperature 36.5 C 36.4 C L Pulse Rate 103 H 101 H 102 H Respiratory Rate 22 H 20 Blood Pressure 130/73 126/74 Pulse Oximetry 97 97 Oxygen Delivery Oxygen Flow Rate Fraction of Inspired Oxygen 02/05/25 08:00 02/05/25 09:01 02/05/25 09:01 Temperature Pulse Rate 99 Respiratory Rate 17 Blood Pressure Pulse Oximetry 97 95 Oxygen Delivery Venturi Mask Venturi Mask Oxygen Flow Rate 15 15 Fraction of Inspired Oxygen 50 50 Intake/Output Intake/Output: Intake & Output 02/02/25 02/03/25 02/04/25 02/05/25 23:59 23:59 23:59 23:59 Intake Total 1654.4 1842.9 200 Output Total 2850 5500 850 1300 [facility] -1195.6 -3657.1 -650 -1300 Meds/Results Medications: Active Medications Generic Name Dose Route Start Last Admin Trade Name Freq PRN Reason Stop Dose Admin Acetaminophen 650 mg 01/25/25 11:14 01/25/25 18:58 Acetaminophen 325 Mg Tablet PO 650 mg Q4H PRN Administration Mild Pain (1-3) or Fever Baricitinib 2 mg 01/31/25 11:00 02/04/25 11:45 Baricitinib 2 Mg Tablet PO 02/08/25 11:01 Not Given DAILY@1100 NELLIE Dextrose 12.5 gm 01/26/25 07:40 02/03/25 23:12 Dextrose 50% 25 Gm/50 Ml Syringe IV PUSH 12.5 gm PRN PRN Administration Hypoglycemia Protocol Enoxaparin Sodium 30 mg 02/04/25 09:00 02/05/25 07:50 Enoxaparin 30 Mg/0.3 Ml Syringe SUB-Q 30 mg DAILY NELLIE Administration Glucagon 1 mg 01/26/25 07:40 Glucagon For Inj 1 Mg Vial IM PRN PRN Hypoglycemia Protocol Glucose 15 gm 01/26/25 07:40 Glucose Oral Gel 15 Gm Of Glucse In 37.5 Gm Tube PO PRN PRN Hypoglycemia Protocol Dextrose 1,000 mls @ 100 mls/hr 01/26/25 07:40 Dextrose 5% 1,000 Ml IVPB PRN PRN Hypoglycemia Protocol Cefepime HCl 1 gm in 50 mls @ 100 mls/hr 01/27/25 10:15 05/09/25 07:51 Maxipime 1 Gm/Ns 50 Ml IVPB 02/05/25 21:29 100 mls/hr Q12HR NELLIE Administration Insulin Aspart 3 - 6 units 02/05/25 08:00 02/05/25 07:59 Insulin Aspart (*Bkc) 100 Units/Ml SUB-Q Not Given Q4H [facility] Protocol Insulin Glargine 15 units 02/05/25 09:00 02/05/25 08:00 Insulin Glargine (*Bkc) 100 Units/Ml SUB-Q Not Given QAM NELLIE Ipratropium [place] 0.5 mg 01/26/25 20:00 02/05/25 09:01 Ipratropium Br 0.02% Inh Soln 0.5 Mg/2.5 Ml Vial INHALATION 0.5 mg Q6HRT NELLIE Administration Levalbuterol HCl 1.25 mg 01/26/25 20:00 02/05/25 09:01 Levalbuterol Neb 1.25 Mg/3 Ml INHALATION 1.25 mg Q6HRT NELLIE Administration Memantine 10 mg 01/25/25 17:00 01/25/25 17:29 Memantine 10 Mg Tablet PO Not Given BID NELLIE Metoprolol Tartrate 5 mg 01/26/25 15:20 01/26/25 21:15 Metoprolol Tartrate Inj 5 Mg/5 Ml Vial IV PUSH 5 mg Q6H PRN Administration Tachycardia Pantoprazole Sodium 40 mg 02/02/25 09:00 02/05/25 07:50 Pantoprazole Sodium Iv 40 Mg Vial IV PUSH 40 mg Q12HR NELLIE Administration Sodium Chloride 10 ml 01/27/25 14:00 02/05/25 05:31 Central Line Flush IV PUSH 10 ml Q8HR NELLIE Administration Sodium Chloride 10 ml 01/27/25 11:45 Central Line Flush IV PUSH PRN PRN with TPN bag changes Sodium Chloride 20 ml 01/27/25 11:45 Central Line Flush IV PUSH PRN PRN after blood draws Radiology Results: ITS Impressions Abdomen X-Ray 01/26/25 20:53 IMPRESSION: Bibasilar airspace disease. Small bilateral pleural effusions, likely with a subpulmonic component on the right. NG tube in good position. Renal Ultrasound 05/01/25 12:53 Impression: No hydronephrosis. Trace right perinephric fluid. Chest X-Ray 02/05/25 06:28 Impression: Advanced pulmonary edema pattern with small pleural effusions and left lower lobe atelectasis. Correlate clinically for pneumonia. Right-sided PICC line in place. Labs Labs: Laboratory Results - last 24 hr 02/04/25 02/04/25 02/04/25 11:57 17:23 17:34 WBC RBC Hgb Hct MCV MCH MCHC RDW Plt Count MPV Sodium 137 Potassium 5.9 H Chloride 99 Carbon Dioxide 28 Anion Gap 10 BUN 116 H Creatinine 2.25 H Estim Creat Clear Calc 20 Estimated GFR 28 L Glucose 434 H POC Capillary Glucose 76 127 H Calcium 8.7 Phosphorus Magnesium Total Bilirubin AST ALT Alkaline Phosphatase Total Protein Albumin 02/04/25 02/04/25 02/05/25 18:50 23:34 05:29 WBC RBC Hgb Hct MCV MCH MCHC RDW Plt Count MPV Sodium 148 H Potassium 4.3 Chloride 104 Carbon Dioxide 32 H Anion Gap 12 BUN 126 H D Creatinine 2.54 H Estim Creat Clear Calc 18 Estimated GFR 24 L Glucose 137 H POC Capillary Glucose 125 H 148 H Calcium 9.6 Phosphorus Magnesium Total Bilirubin AST ALT Alkaline Phosphatase Total Protein Albumin 02/05/25 02/05/25 02/05/25 05:30 05:31 07:58 WBC 15.6 H RBC 3.44 L Hgb 10.4 L Hct 33.6 L MCV 97.7 MCH 30.2 MCHC 31.0 L RDW 14.1 Plt Count 151 MPV 12.5 H Sodium 143 Potassium 3.8 Chloride 101 Carbon Dioxide 29 Anion Gap 13 H BUN 120 H Creatinine 2.50 H Estim Creat Clear Calc 18 Estimated GFR 25 L Glucose 307 H POC Capillary Glucose 149 H Calcium 9.0 Phosphorus 5.6 H Magnesium 2.9 H Total Bilirubin 2.0 H AST 124 H ALT 104 H Alkaline Phosphatase 59 Total Protein 6.0 L Albumin 4.1 Quality VTE Prophylaxis VTE prophylaxis: mechanical ordered and pharmacologic ordered
--- NOTE | 2025-02-05 09:48 | PCNFU ---
Nutrition Follow-Up Complete: Suboptimal Nutrition as related to Pneumonia/COVID as evidenced by NPO Goal: Meet estimated nutritional needs Patient will continue current goal. Pt current nutrition is NPO. Last recorded weight is 65.1 kg, up from 61 kg on admit. Bowel Motility: +BM reported 5/6 Labs Reviewed: PO4 5.6, BUN 120, Cr 2.5, Glu 307, Hct 33.6, Hgb 10.4 Meds Noted:Protonix, Lovenox, Lantus Skin:Friction-bottom Additional Notes: Patient remains NPO. Plans for speech eval today. If it is recommend for patient to eat solids, would recommend [facility] diet and diet supplements of Glucerna shakes BID. Will monitor weight, labs, skin, diet orders, meds every 3 days.
[2025-02-05 11:49] LABS: Glucose Point of Care 174 mg/dl (65-105)
--- NOTE | 2025-02-05 13:43 | PCSTNOTE ---
Please refer to the Modified Barium Swallow Evaluation in the EMR. ST was ordered for swallow evaluation; noted order was for a bedside evaluation but given the length of intubation, pt's age and the breathy vocal quality, ST sought to change order to an MBS in order to more definitively rule out aspiration as silent aspiration cannot be ruled out at bedside. The pt was lethargic but followed simple commands; oral mucosa was dry; vocal quality was breathy. Labial and lingual ROM was slightly reduced. The pt was seated for a lateral view and was presented with 5 ml thin liquids via a spoon, pudding consistency barium via a spoon, and mild and moderately thick liquids via a spoon. During the oral stage, excessive lingual pumping & slow oral transit was exhibited with nearly all consistencies. During the pharyngeal stage, the following was exhibited: reduced tongue base retraction as evidenced by severe vallecular residue (mild to mod with thin liquids), reduced laryngeal elevation as evidenced by laryngeal penetration during the swallow (with pudding and mildly thick liquids) and pyriform sinus residue; reduced pharyngeal squeeze as evidenced by mild pharyngeal wall residual; transglottic aspiration occurred after the swallow with the thin liquids. Risk for aspiration was present with all consistencies due to the severity of the pharyngeal residue. Pt exhibited a cough reflex but was unable to clear all aspirate; pt also dry swallowed to clear residual but was not able to clear all residual and is at risk for aspiration. Impression: Severe dysphagia due to pharyngeal weakness causing residue. Recommendation: NPO with Non oral feeding ([place]); start dysphagia therapy, and repeat MBS in 3-4 days. Thank you for this referral
[2025-02-05 17:04] LABS: Glucose Point of Care 205 mg/dl (65-105)
[2025-02-05 18:20] LABS: Glucose Point of Care 213 mg/dl (65-105)
[2025-02-05 20:12] LABS: Glucose Point of Care 178 mg/dl (65-105)
[2025-02-06] VITALS (23 sets, daily range): BP systolic 114–150; BP diastolic 73–94; PULSE 97–116; RESP 13–23; TEMP 36.3–36.7; O2SAT 99–100
[2025-02-06 00:08] LABS: Glucose Point of Care 194 mg/dl (65-105)
[2025-02-06] MEDS: IPRATROPIUM BR 0.02% INH SOLN 0.5 MG/2.5 ML VIAL INHALATION ×4 (02:21→21:30)
[2025-02-06] MEDS: LEVALBUTEROL NEB 1.25 MG/3 ML INHALATION ×4 (02:21→21:30)
[2025-02-06] MEDS: INSULIN ASPART (*BKC) 100 UNITS/ML SUB-Q ×2 (04:11→08:47)
[2025-02-06 04:19] LABS: Glucose Point of Care 252 mg/dl (65-105)
[2025-02-06 06:00] LABS: Hematocrit 36.3 % (42.0-52.0); Hemoglobin 11.3 g/dL (14.0-18.0); Mean Corpuscular HGB Conc 31.1 g/dl (32-36); Mean Corpuscular Hemoglobin 30.4 pg (26-34); Mean Corpuscular Volume 97.6 fl (80-100); Mean Platelet Volume 12.5 fl (7.4-10.4); Platelet Count Result 161 k/mm3 (150-375); Red Blood Count 3.72 M/mm3 (4.6-6.20); Red Cell Distribution Width 14.1 % (11.5-14.5); White Blood Count 15.7 K/mm3 (4.5-10.0)
[2025-02-06 06:15] LABS: Alanine Aminotransferase 162 U/L (6-50); Albumin Level 4.1 g/dL (3.5-5.1); Alkaline Phosphatase 79 U/L (38-126); Anion Gap 13 mmol/L (4-12); Aspartate Amino Transferase 138 U/L (17-59); Bilirubin,Total 1.6 mg/dL (0.2-1.3); Calcium 9.7 mg/dL (8.4-10.2); Carbon Dioxide 28 mmol/L (22-30); Chloride 110 mmol/L (98-107); Estimated CRCL calculation 18 ml/min; Estimated Glomerular Filt Rate 25; Glucose 237 mg/dL (65-110); Magnesium 3.3 mg/dL (1.6-2.3); Potassium 3.9 mmol/L (3.4-5.0); Sodium 151 mmol/L (137-145)
[2025-02-06 06:36] LABS: Blood Urea Nitrogen 135 mg/dL (9-20)
[2025-02-06] MEDS: CENTRAL LINE FLUSH 10 ML IV PUSH ×3 (06:47→22:03)
[2025-02-06] MEDS: PANTOPRAZOLE SODIUM IV 40 MG VIAL IV PUSH ×2 (08:42→22:05)
[2025-02-06] MEDS: ENOXAPARIN 30 MG/0.3 ML SYRINGE SUB-Q (08:42)
[2025-02-06] MEDS: INSULIN GLARGINE (*BKC) 100 UNITS/ML 15 UNITS SUB-Q (08:43)
[2025-02-06 08:49] LABS: Glucose Point of Care 237 mg/dl (65-105)
--- NOTE | 2025-02-06 09:30 | P.PNNP_ITS ---
Progress Note: A&P Assessment and Plan (1) Acute kidney injury: Code(s): N17.9 - Acute kidney failure, unspecified Status: Acute Assessment and Plan: * slow worsening * transient improvement to 1.61mg/d on 01/26 * relative stability of creatinine to 2ish range afterwards * however, now progressive decline noted since 02/02 * baseline creatinine runs around 1.1 - 1.3mg/dl * suspect ATN with multifactorial etiology: * hemodynamic instability/shock * infection/sepsis (pneumonia + COVID) * hypoxia * possible prerenal factors * other(?) * evaluation to date noted: * renal ultrasound without hydronephrosis * urine electrolytes prerenal * urine eosinophils negative * CPK mildly elevated (but enough to affect kidney function) * moderate proteinuria * 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/dialysis given his rising BUN * no critical electrolytes and good urine output (albeit with diuretics) * volume status remain an issue * HOWEVER, family does not think patient would want dialysis as a treatment option - will need to clarify again * follow trend of repeat labs and UOP * continue supportive therapy (2) Septic shock: Code(s): A41.9 - Sepsis, unspecified organism; R65.21 - Severe sepsis with septic shock Status: Acute Assessment and Plan: * resolved * as noted by presentation of tachycardia, tachypnea, hypoxia, lactic acidosis, MICHAEL, and hypotension * s/p volume resuscitation along with IV albumin for intravascular volume expansion * lactic acidosis resolved * was on vasopressor therapy (levophed) to maintain MAP/blood pressure * weaned off * follow culture data * completed course of antibiotics * not opposed to IV diuretics as needed * follow trend of hemodynamics (3) Acute respiratory failure: Code(s): J96.00 - Acute respiratory failure, unspecified whether with hypoxia or hypercapnia Status: Acute Assessment and Plan: * felt to be secondary to pneumonia, COVID-19, and CHF * off ventilator support * continue supplemental oxygen support * IV diuretics asn needed/as tolerated * follow respiratory status (4) Congestive heart failure: Code(s): I50.9 - Heart failure, unspecified Status: Acute Assessment and Plan: * as noted by recent Echo (01/26): * left ventricular systolic function is moderately globally reduced, estimated at 35-40% * left ventricular diastolic function is abnormal. * mild aortic valve sclerosis * mild aortic valve regurgitation * moderate tricuspid valve regurgitation * mild pulmonary hypertension, estimated pulmonary arterial systolic pressure is 40 mmHg * IV diuretics PRN (5) Pneumonia: Code(s): J18.9 - Pneumonia, unspecified organism Status: Acute Assessment and Plan: * as suggested by admission imaging * follow culture data - negative to date * completed antibiotic therapy * continue supportive therapy (6) COVID: Code(s): U07.1 - COVID-19 Status: Acute Assessment and Plan: * positive testing noted on 01/22 * imaging with worsening infiltrates as well * s/p treatment with remdesivir and dexamethasone * on baricitinib (till 02/08) * remains on droplet and contact isolation/precautions (7) Anemia: Code(s): D64.9 - Anemia, unspecified Status: Acute Assessment and Plan: * presumably due to MICHAEL and acute illness * follow trend of H/H (8) Elevated LFTs: Code(s): R79.89 - Other specified abnormal findings of blood chemistry Status: Acute Assessment and Plan: * presumably due to septic shock and hypoxia * statin on hold * appear to be improving * follow trend (9) Dementia: Qualifiers: Dementia behavioral or psychological symptom: unspecified whether behavioral, psychotic, or mood disturbance or anxiety Dementia severity: u nspecified severity Dementia type: unspecified type Qualified Code(s): F03.90 - Unspecified dementia, unspecified severity, without behavioral disturbance, psychotic disturbance, mood disturbance, and anxiety Code(s): F03.90 - Unspecified dementia, unspecified severity, without behavioral disturbance, psychotic disturbance, mood disturbance, and anxiety Status: Acute Assessment and Plan: * known baseline cognitive impairment * on Namenda at home (10) Pre-diabetes: Code(s): R73.03 - Prediabetes Status: Acute Assessment and Plan: * follow accu-cheks * possibly exacerbated by previous steroid use and acute illness * glycemic control per block paver/hospitalist Given worsening creatining as well as BUN in the context of fluctuating respiratory and volume status, he remains at risk for renal replacement therapy/dialysis; however, given code status and family mentioning patient would not want dialysis, may need to clarify goals/plan of care with family -- discussed case with Dr. Harris. Will continue to follow. L Subjective Date/time seen: 02/06/25 09:30 Interval history: Follow-up for acute kidney injury/acute renal failure. Failed modified barium swallow study -- doboff placed by interventional radiology for administration of medications/feedings; respiratory status remains tenuous with ongoing need for Venturi mask during the day and BiPAP therapy at night; renal function/creatinine/BUN worse but still making reasonable urine output (IV diuretics held yesterday); sodium rising but just started on free water tube flushes yesterday after doboff placement Exam 2 Narrative: General: elderly male in NAD; on Venturi-mask Heart: normal S1 and S2; no rub Lungs: coarse breath sounds Abdomen: soft, nontender, nondistended, + bowel sounds Extremities: no cyanosis or clubbing; no edema Skin: warm and intact Objective Data Vital Signs Vital Signs: Vital Signs Temp Pulse Resp BP Pulse Ox O2 Del Method O2 Flow Rate 02/06/25 08:19 105 H 20 02/06/25 08:02 104 H 17 02/06/25 08:02 100 Venturi Mask 9 02/06/25 08:00 97.5 F L 99 16 139/80 99 02/06/25 08:00 100 Venturi Mask 12 02/06/25 08:00 99 02/06/25 06:00 97 02/06/25 04:15 100 BiPAP 02/06/25 04:00 97.5 F L 101 H 23 H 127/88 100 02/06/25 04:00 101 H 02/06/25 02:28 99 19 02/06/25 02:23 99 21 H 100 BiPAP 02/06/25 02:21 100 22 H 02/06/25 02:00 102 H 02/06/25 00:00 100 BiPAP 02/06/25 00:00 104 H 02/06/25 00:00 98.0 F 103 H 16 137/84 100 02/05/25 22:45 107 H 21 H 98 BiPAP 02/05/25 22:00 115 H 02/05/25 21:01 97 Venturi Mask 02/05/25 20:59 98 Venturi Mask 02/05/25 20:59 112 H 18 02/05/25 20:50 110 H 18 02/05/25 20:00 97 Venturi Mask 12 02/05/25 20:00 107 H 02/05/25 20:00 97.9 F 107 H 19 131/81 97 02/05/25 18:06 97.8 F 105 H 21 H 94 02/05/25 18:00 110 H 02/05/25 16:00 107 H 02/05/25 16:00 97 Venturi Mask 12 02/05/25 14:09 107 H 18 02/05/25 14:00 109 H 02/05/25 13:57 109 H 20 02/05/25 13:41 Nasal Cannula 5 02/05/25 13:25 Nasal Cannula 5 Intake/Output Intake/Output: Intake & Output 02/03/25 02/04/25 02/05/25 02/06/25 23:59 23:59 23:59 23:59 Intake Total 1842.9 200 100 224 Output Total 5500 850 1950 600 Balance -3657.1 -650 -1850 -376 Meds/Results Medications: Active Medications Generic Name Dose Route Start Last Admin Trade Name Freq PRN Reason Stop Dose Admin Acetaminophen 650 mg 01/25/25 11:14 01/25/25 18:58 Acetaminophen 325 Mg Tablet PO 650 mg Q4H PRN Administration Mild Pain (1-3) or Fever Baricitinib 2 mg 01/31/25 11:00 02/05/25 13:18 Baricitinib 2 Mg Tablet PO 02/08/25 11:01 Not Given DAILY@1100 [facility] Dextrose 12.5 gm 01/26/25 07:40 02/03/25 23:12 Dextrose 50% 25 Gm/50 Ml Syringe IV PUSH 12.5 gm PRN PRN Administration Hypoglycemia Protocol Enoxaparin Sodium 30 mg 02/04/25 09:00 02/06/25 08:42 Enoxaparin 30 Mg/0.3 Ml Syringe SUB-Q 30 mg DAILY NELLIE Administration Glucagon 1 mg 01/26/25 07:40 Glucagon For Inj 1 Mg Vial IM PRN PRN Hypoglycemia Protocol Glucose 15 gm 01/26/25 07:40 Glucose Oral Gel 15 Gm Of Glucse In 37.5 Gm Tube PO PRN PRN Hypoglycemia Protocol Dextrose 1,000 mls @ 100 mls/hr 01/26/25 07:40 Dextrose 5% 1,000 Ml IVPB PRN PRN Hypoglycemia Protocol Insulin Aspart 3 - 6 units 02/05/25 08:00 02/06/25 08:47 Insulin Aspart (*Bkc) 100 Units/Ml SUB-Q 3 units Q4H NELLIE Administration Protocol Insulin Glargine 15 units 02/05/25 09:00 02/06/25 08:43 Insulin Glargine (*Bkc) 100 Units/Ml SUB-Q 15 units QAM NELLIE Administration Ipratropium [place] 0.5 mg 01/26/25 20:00 02/06/25 07:58 Ipratropium Br 0.02% Inh Soln 0.5 Mg/2.5 Ml Vial INHALATION 0.5 mg Q6HRT NELLIE Administration Levalbuterol HCl 1.25 mg 01/26/25 20:00 02/06/25 07:58 Levalbuterol Neb 1.25 Mg/3 Ml INHALATION 1.25 mg Q6HRT NLELIE Administration Memantine 10 mg 01/25/25 17:00 01/25/25 17:29 Memantine 10 Mg Tablet PO Not Given BID NELLIE Metoprolol Tartrate 5 mg 01/26/25 15:20 01/26/25 21:15 Metoprolol Tartrate Inj 5 Mg/5 Ml Vial IV PUSH 5 mg Q6H PRN Administration Tachycardia Pantoprazole Sodium 40 mg 02/02/25 09:00 02/06/25 08:42 Pantoprazole Sodium Iv 40 Mg Vial IV PUSH 40 mg Q12HR NELLIE Administration Sodium Chloride 10 ml 01/27/25 14:00 02/06/25 06:47 Central Line Flush IV PUSH 10 ml Q8HR NELLIE Administration Sodium Chloride 10 ml 01/27/25 11:45 Central Line Flush IV PUSH PRN PRN with TPN bag changes Sodium Chloride 20 ml 01/27/25 11:45 Central Line Flush IV PUSH PRN PRN after blood draws Radiology Results: ITS Impressions Abdomen X-Ray 01/26/25 20:53 IMPRESSION: Bibasilar airspace disease. Small bilateral pleural effusions, likely with a subpulmonic component on the right. NG tube in good position. Renal Ultrasound 01/28/25 12:53 Impression: No hydronephrosis. Trace right perinephric fluid. Modified Barium Swallow 02/05/25 13:00 IMPRESSION: Pharyngeal dysphagia with laryngeal penetration and aspiration. Please correlate with speech pathologist findings and specific feeding recommendations. Chest X-Ray 02/06/25 06:33 IMPRESSION: 1. Decreasing opacities in the bilateral mid and lower lung zones which could represent pulmonary edema or pneumonia. 2. Small left pleural effusion. Labs Labs: Laboratory Tests 02/06/25 05:49 02/06/25 05:49 Calcium 9.7 Phosphorus 5.0 H Magnesium 3.3 H Total Bilirubin 1.6 H AST 138 H ALT 162 H Alkaline Phosphatase 79 Total Protein 6.0 L Albumin 4.1
[2025-02-06 13:57] LABS: Glucose Point of Care 153 mg/dl (65-105)
[2025-02-06 14:28] LABS: Anion Gap 9 mmol/L (4-12); Calcium 9.6 mg/dL (8.4-10.2); Carbon Dioxide 32 mmol/L (22-30); Chloride 113 mmol/L (98-107); Estimated CRCL calculation 18 ml/min; Estimated Glomerular Filt Rate 24; Glucose 134 mg/dL (65-110); Potassium 3.6 mmol/L (3.4-5.0); Sodium 154 mmol/L (137-145)
[2025-02-06 14:38] LABS: Blood Urea Nitrogen 135 mg/dL (9-20)
--- NOTE | 2025-02-06 16:48 | PM.IMPN ---
Progress Note: A&P Assessment and Plan (1) Acute respiratory failure: Code(s): J96.00 - Acute respiratory failure, unspecified whether with hypoxia or hypercapnia Status: Acute Assessment and Plan: Acute respiratory failure likely related to pneumonia, COVID-19, and pulmonary edema -chest x-ray and ABG reviewed -02/03 patient was extubated -continue supplemental oxygen with nasal cannula. Add incentive spirometry. Up in chair. -will use NIPPV p.r.n. -patient has been getting diuretics for last few days with good response -Continue course of cefepime. He has completed course of azithromycin Completed course of Dexamethasone Off pressor 01/27-the negative cultures shows no growth x2 01/31- Sputum culture final: No organism seen (2) Pneumonia: Code(s): J18.9 - Pneumonia, unspecified organism Status: Acute Assessment and Plan: Continue as above (3) COVID: Code(s): U07.1 - COVID-19 Status: Acute Assessment and Plan: Patient has been positive for COVID 19. Chest x-ray shows worsening infiltrates -off remdesivir -completed course of dexamethasone (01/25) for total of 10 days -continue baricitinib (01/26) for total of 14 days or until discharge, renally dosed by pharmacy -continue droplet and contact isolation/precautions 01/27- rising LFT's likely transient related to rapid response, will continue to monitor. No change to Remdesivir at this time. 01/31- LFT's trending down. Remdesivir course completed (4) Sepsis: Code(s): A41.9 - Sepsis, unspecified organism Status: Acute Assessment and Plan: Patient presented with tachycardia, tachypnea, hypoxia, and acute kidney injury Adequately fluid-resuscitated, s/p albumin for intravascular volume expansion Off Levophed now (5) MICHAEL (acute kidney injury): Code(s): N17.9 - Acute kidney failure, unspecified Status: Acute Assessment and Plan: Acute kidney injury likely related to sepsis, -adequately fluid-resuscitated -continue to monitor urine output, renal function and electrolytes -nephrology has been consulted -urine lytes do not reflect pre renal, CK level 317, negative urine eosinophils -01/28: Renal ultrasound ordered and demonstrated no hydronephrosis, but trace right perinephric fluid present Creatinine stable, urine output has improved, continue diuretics as patient is overall volume overloaded. Elevated BUN likely secondary to steroids and catabolic state Discussed with daughter in detail she does not think patient would want hemodialysis even if his kidney function deteriorated (6) Dementia: Qualifiers: Dementia type: unspecified type Dementia severity: unspecified severity Dementia behavioral or psychological symptom: unspecified whether behavioral, psychotic, or mood disturbance or anxiety Qualified Code(s): F03.90 - Unspecified dementia, unspecified severity, without behavioral disturbance, psychotic disturbance, mood disturbance, and anxiety Code(s): F03.90 - Unspecified dementia, unspecified severity, without behavioral disturbance, psychotic disturbance, mood disturbance, and anxiety Status: Acute Assessment and Plan: Baseline cognitive impairment, on Namenda at home, (7) Hyperlipidemia: Qualifiers: Hyperlipidemia type: unspecified Qualified Code(s): E78.5 - Hyperlipidemia, unspecified Code(s): E78.5 - Hyperlipidemia, unspecified Status: Acute Assessment and Plan: continue pravastatin (8) GI bleeding: Code(s): K92.2 - Gastrointestinal hemorrhage, unspecified Status: Acute Assessment and Plan: Overnight patient had a bowel movement and stool was reported to be dark by the nursing staff. Although stool Hemoccult was positive his hemoglobin has been stable Monitor hemoglobin IV PPI q.12 hours Continue DVT prophylaxis Lovenox (9) Congestive heart failure: Code(s): I50.9 - Heart failure, unspecified Status: Acute Assessment and Plan: Echo 01/26 Summary 1. Definity contrast administered improved wall motion interpretation. 2. Left ventricular chamber dimension is moderately enlarged. 3. Left ventricular systolic function is moderately globally reduced, estimated at 35-40%. 4. The left ventricular diastolic function is abnormal. 5. E/e' 13 is mildly elevated. 6. Left atrial chamber dimension is moderately enlarged. 7. Right atrial chamber dimension is mildly enlarged. 8. There is mild aortic valve sclerosis. 9. There is mild aortic valve regurgitation. 10. There is moderate to severe mitral valve regurgitation. 11. There is moderate tricuspid valve regurgitation. 12. Mild pulmonary hypertension, estimated pulmonary arterial systolic pressure is 40 mmHg. Lasix IV (10) Electrolyte abnormality: Code(s): E87.8 - Other disorders of electrolyte and fluid balance, not elsewhere classified Status: Acute Assessment and Plan: Replace low potassium (11) Hyperglycemia: Code(s): R73.9 - Hyperglycemia, unspecified Status: Acute Assessment and Plan: Off IV fluids with dextrose. SSI Plan DVT prophylaxis: Lovenox Stress ulcer prophylaxis: Protonix Nutrition: Consult speech for swallow evaluation which is pending Code Status: Patient is DNR DNI at this point. Incentive spirometry, up in chair Subjective Date/time seen: 02/06/25 16:48 Interval history: Had a long conversation with his and daughter. Patient family will decide on hospice. Discussed with the Nephrology as well. Will continue the current treatment Review of Systems Review of Systems: All systems reviewed & are unremarkable except as noted in HPI and below (HPI) ROS unobtainable: Yes unobtainable due to endotracheal tube, unobtainable due to medical condition and unobtainable due to mental status Exam Narrative: General: Pt is alert awake and in NAD. He is confused Lungs/Chest: Trachea central Clear BS B/L, No crackles or wheezing. Breath sounds are decreased at bases Cardiac: RRR. Normal S1 S2. No murmurs Circulation: Pedal pulses are intact and symmetrical. Abdomen: Normal bowel sounds.. Soft. NT. ND. Extremities: No clubbing, cyanosis or edema. Warm : Scales in place Neurologic: Follows commands. Moves all 4 extremities PERRL AO x0. He knows he is in the hospital in [place] but could not tell me the year or president 0. Generalized weakness Skin: No Rash Objective Data Vital Signs Vital Signs: Vital Signs - 24 hr 02/05/25 18:00 02/05/25 18:06 02/05/25 20:00 Temperature 97.8 F 97.9 F Pulse Rate 110 H 105 H 107 H Respiratory Rate 21 H 19 Blood Pressure 131/81 Pulse Oximetry 94 97 Oxygen Delivery Oxygen Flow Rate Fraction of Inspired Oxygen 02/05/25 20:00 02/05/25 20:00 02/05/25 20:50 Temperature Pulse Rate 107 H 110 H Respiratory Rate 18 Blood Pressure Pulse Oximetry 97 Oxygen Delivery Venturi Mask Oxygen Flow Rate 12 Fraction of Inspired Oxygen 40 02/05/25 20:59 02/05/25 20:59 02/05/25 21:01 Temperature Pulse Rate 112 H Respiratory Rate 18 Blood Pressure Pulse Oximetry 98 97 Oxygen Delivery Venturi Mask Venturi Mask Oxygen Flow Rate 12 9 Fraction of Inspired Oxygen 40 35 02/05/25 22:00 02/05/25 22:45 02/06/25 00:00 Temperature 98.0 F Pulse Rate 115 H 107 H 103 H Respiratory Rate 21 H 16 Blood Pressure 137/84 Pulse Oximetry 98 100 Oxygen Delivery BiPAP Oxygen Flow Rate Fraction of Inspired Oxygen 02/06/25 00:00 02/06/25 00:00 02/06/25 02:00 Temperature Pulse Rate 104 H 102 H Respiratory Rate Blood Pressure Pulse Oximetry 100 Oxygen Delivery BiPAP Oxygen Flow Rate Fraction of Inspired Oxygen 40 02/06/25 02:21 02/06/25 02:23 02/06/25 02:28 Temperature Pulse Rate 100 99 99 Respiratory Rate 22 H 21 H 19 Blood Pressure Pulse Oximetry 100 Oxygen Delivery BiPAP Oxygen Flow Rate Fraction of Inspired Oxygen 02/06/25 04:00 02/06/25 04:00 02/06/25 04:15 Temperature 97.5 F L Pulse Rate 101 H 101 H Respiratory Rate 23 H Blood Pressure 127/88 Pulse Oximetry 100 100 Oxygen Delivery BiPAP Oxygen Flow Rate Fraction of Inspired Oxygen 40 02/06/25 06:00 02/06/25 08:00 02/06/25 08:00 Temperature Pulse Rate 97 99 Respiratory Rate Blood Pressure Pulse Oximetry 100 Oxygen Delivery Venturi Mask Oxygen Flow Rate 12 Fraction of Inspired Oxygen 35 02/06/25 08:00 02/06/25 08:02 02/06/25 08:02 Temperature 97.5 F L Pulse Rate 99 104 H Respiratory Rate 16 17 Blood Pressure 139/80 Pulse Oximetry 99 100 Oxygen Delivery Venturi Mask Oxygen Flow Rate 9 Fraction of Inspired Oxygen 35 02/06/25 08:19 02/06/25 10:00 02/06/25 12:00 Temperature Pulse Rate 105 H 103 H Respiratory Rate 20 Blood Pressure Pulse Oximetry 100 Oxygen Delivery Nasal Cannula Oxygen Flow Rate 5 Fraction of Inspired Oxygen 02/06/25 12:00 02/06/25 12:00 02/06/25 13:21 Temperature 97.8 F Pulse Rate 103 H 104 H 104 H Respiratory Rate 13 22 H Blood Pressure 135/73 Pulse Oximetry 100 Oxygen Delivery Oxygen Flow Rate Fraction of Inspired Oxygen 02/06/25 13:33 Temperature Pulse Rate 102 H Respiratory Rate 16 Blood Pressure Pulse Oximetry Oxygen Delivery Oxygen Flow Rate Fraction of Inspired Oxygen Intake/Output Intake/Output: Intake & Output 05/0702/04/25 02/05/25 02/06/25 23:59 23:59 23:59 23:59 Intake Total 1842.9 200 100 224 Output Total 5500 850 1950 600 [facility] -3657.1 -650 -1850 -376 Meds/Results Medications: Active Medications Generic Name Dose Route Start Last Admin Trade Name Freq PRN Reason Stop Dose Admin Acetaminophen 650 mg 01/25/25 11:14 01/25/25 18:58 Acetaminophen 325 Mg Tablet PO 650 mg Q4H PRN Administration Mild Pain (1-3) or Fever Baricitinib 2 mg 01/31/25 11:00 02/06/25 11:49 Baricitinib 2 Mg Tablet PO 02/08/25 11:01 Not Given DAILY@1100 NELLIE Dextrose 12.5 gm 01/26/25 07:40 02/03/25 23:12 Dextrose 50% 25 Gm/50 Ml Syringe IV PUSH 12.5 gm PRN PRN Administration Hypoglycemia Protocol Enoxaparin Sodium 30 mg 02/04/25 09:00 02/06/25 08:42 Enoxaparin 30 Mg/0.3 Ml Syringe SUB-Q 30 mg DAILY NELLIE Administration Glucagon 1 mg 01/26/25 07:40 Glucagon For Inj 1 Mg Vial IM PRN PRN Hypoglycemia Protocol Glucose 15 gm 01/26/25 07:40 Glucose Oral Gel 15 Gm Of Glucse In 37.5 Gm Tube PO PRN PRN Hypoglycemia Protocol Dextrose 1,000 mls @ 100 mls/hr 01/26/25 07:40 Dextrose 5% 1,000 Ml IVPB PRN PRN Hypoglycemia Protocol Insulin Aspart 3 - 6 units 02/05/25 08:00 02/06/25 13:49 Insulin Aspart (*Bkc) 100 Units/Ml SUB-Q Not Given Q4H [facility] Protocol Insulin Glargine 15 units 02/05/25 09:00 02/06/25 08:43 Insulin Glargine (*Bkc) 100 Units/Ml SUB-Q 15 units QAM NELLIE Administration Ipratropium [place] 0.5 mg 01/26/25 20:00 02/06/25 13:16 Ipratropium Br 0.02% Inh Soln 0.5 Mg/2.5 Ml Vial INHALATION 0.5 mg Q6HRT NELLIE Administration Levalbuterol HCl 1.25 mg 01/26/25 20:00 02/06/25 13:16 Levalbuterol Neb 1.25 Mg/3 Ml INHALATION 1.25 mg Q6HRT NELLIE Administration Memantine 10 mg 01/25/25 17:00 01/25/25 17:29 Memantine 10 Mg Tablet PO Not Given BID NELLIE Metoprolol Tartrate 5 mg 01/26/25 15:20 01/26/25 21:15 Metoprolol Tartrate Inj 5 Mg/5 Ml Vial IV PUSH 5 mg Q6H PRN Administration Tachycardia Pantoprazole Sodium 40 mg 02/02/25 09:00 02/06/25 08:42 Pantoprazole Sodium Iv 40 Mg Vial IV PUSH 40 mg Q12HR NELLIE Administration Sodium Chloride 10 ml 01/27/25 14:00 02/06/25 13:50 Central Line Flush IV PUSH 10 ml Q8HR NELLIE Administration Sodium Chloride 10 ml 01/27/25 11:45 Central Line Flush IV PUSH PRN PRN with TPN bag changes Sodium Chloride 20 ml 01/27/25 11:45 Central Line Flush IV PUSH PRN PRN after blood draws Radiology Results: ITS Impressions Abdomen X-Ray 01/26/25 20:53 IMPRESSION: Bibasilar airspace disease. Small bilateral pleural effusions, likely with a subpulmonic component on the right. NG tube in good position. Renal Ultrasound 01/28/25 12:53 Impression: No hydronephrosis. Trace right perinephric fluid. Modified Barium Swallow 02/05/25 13:00 IMPRESSION: Pharyngeal dysphagia with laryngeal penetration and aspiration. Please correlate with speech pathologist findings and specific feeding recommendations. Chest X-Ray 02/06/25 06:33 IMPRESSION: 1. Decreasing opacities in the bilateral mid and lower lung zones which could represent pulmonary edema or pneumonia. 2. Small left pleural effusion. Labs Labs: Laboratory Results - last 24 hr 02/05/25 02/05/25 02/05/25 17:01 18:17 20:10 WBC RBC Hgb Hct MCV MCH MCHC RDW Plt Count MPV Sodium Potassium Chloride Carbon Dioxide Anion Gap BUN Creatinine Estim Creat Clear Calc Estimated GFR Glucose POC Capillary Glucose 205 H 213 H 178 H Calcium Phosphorus Magnesium Total Bilirubin AST ALT Alkaline Phosphatase Total Protein Albumin 02/06/25 02/06/25 02/06/25 00:02 04:09 05:49 WBC 15.7 H RBC 3.72 L Hgb 11.3 L Hct 36.3 L MCV 97.6 MCH 30.4 MCHC 31.1 L RDW 14.1 Plt Count 161 MPV 12.5 H Sodium 151 H Potassium 3.9 Chloride 110 H Carbon Dioxide 28 Anion Gap 13 H BUN 135 H D Creatinine 2.48 H Estim Creat Clear Calc 18 Estimated GFR 25 L Glucose 237 H POC Capillary Glucose 194 H 252 H Calcium 9.7 Phosphorus 5.0 H Magnesium 3.3 H Total Bilirubin 1.6 H AST 138 H ALT 162 H Alkaline Phosphatase 79 Total Protein 6.0 L Albumin 4.1 02/06/25 02/06/25 02/06/25 08:47 13:48 14:06 WBC RBC Hgb Hct MCV MCH MCHC RDW Plt Count MPV Sodium 154 H Potassium 3.6 Chloride 113 H Carbon Dioxide 32 H Anion Gap 9 BUN 135 H Creatinine 2.56 H Estim Creat Clear Calc 18 Estimated GFR 24 L Glucose 134 H POC Capillary Glucose 237 H 153 H Calcium 9.6 Phosphorus Magnesium Total Bilirubin AST ALT Alkaline Phosphatase Total Protein Albumin Quality VTE Prophylaxis VTE prophylaxis: mechanical ordered and pharmacologic ordered Hospitalist MIPS Advance Care Plan I have confirmed that the patient's Advanced Care Plan is present, code status is documented, or surrogate decision maker is listed in patient medical record.: Yes Medication Reconciliation I have utilized all available resources to obtain, update and review the patients current medications (includes all prescriptions, OTC, herbals, cannabis, and nutritional supplements).: Yes
[2025-02-06] MEDS: DEXTROSE 50% 25 GM/50 ML SYRINGE IV PUSH (20:07)
[2025-02-06 20:08] LABS: Glucose Point of Care 41 mg/dl (65-105)
[2025-02-06 20:32] LABS: Glucose Point of Care 110 mg/dl (65-105)
[2025-02-07] VITALS (13 sets, daily range): BP systolic 117–135; BP diastolic 69–83; PULSE 99–113; RESP 12–24; TEMP 36.1–37.2; O2SAT 93–99
[2025-02-07 00:19] LABS: Glucose Point of Care 35 mg/dl (65-105); Glucose Point of Care 62 mg/dl (65-105)
[2025-02-07 00:19] LABS: Glucose Point of Care 74 mg/dl (65-105)
[2025-02-07] MEDS: DEXTROSE 5% IN WATER 500 ML 30 ML IV CONT (00:39)
[2025-02-07] MEDS: LEVALBUTEROL NEB 1.25 MG/3 ML INHALATION ×2 (02:14→07:24)
[2025-02-07] MEDS: IPRATROPIUM BR 0.02% INH SOLN 0.5 MG/2.5 ML VIAL INHALATION ×2 (02:14→07:24)
[2025-02-07 04:09] LABS: Glucose Point of Care 95 mg/dl (65-105)
--- NOTE | 2025-02-07 10:37 | PM.IMPN ---
Progress Note: A&P Assessment and Plan (1) Acute respiratory failure: Code(s): J96.00 - Acute respiratory failure, unspecified whether with hypoxia or hypercapnia Status: Acute Assessment and Plan: Patient is currently on comfort care. Pending hospice Acute respiratory failure likely related to pneumonia, COVID-19, and pulmonary edema -chest x-ray and ABG reviewed -02/03 patient was extubated -continue supplemental oxygen with nasal cannula. Add incentive spirometry. Up in chair. -will use NIPPV p.r.n. -patient has been getting diuretics for last few days with good response -Continue course of cefepime. He has completed course of azithromycin Completed course of Dexamethasone Off pressor 01/27-the negative cultures shows no growth x2 01/31- Sputum culture final: No organism seen (2) Pneumonia: Code(s): J18.9 - Pneumonia, unspecified organism Status: Acute Assessment and Plan: Continue as above (3) COVID: Code(s): U07.1 - COVID-19 Status: Acute Assessment and Plan: Patient has been positive for COVID 19. Chest x-ray shows worsening infiltrates -off remdesivir -completed course of dexamethasone (01/25) for total of 10 days -continue baricitinib (01/26) for total of 14 days or until discharge, renally dosed by pharmacy -continue droplet and contact isolation/precautions 01/27- rising LFT's likely transient related to rapid response, will continue to monitor. No change to Remdesivir at this time. 01/31- LFT's trending down. Remdesivir course completed (4) Sepsis: Code(s): A41.9 - Sepsis, unspecified organism Status: Acute Assessment and Plan: Patient presented with tachycardia, tachypnea, hypoxia, and acute kidney injury Adequately fluid-resuscitated, s/p albumin for intravascular volume expansion Off Levophed now (5) MICHAEL (acute kidney injury): Code(s): N17.9 - Acute kidney failure, unspecified Status: Acute Assessment and Plan: Acute kidney injury likely related to sepsis, -adequately fluid-resuscitated -continue to monitor urine output, renal function and electrolytes -nephrology has been consulted -urine lytes do not reflect pre renal, CK level 317, negative urine eosinophils -01/28: Renal ultrasound ordered and demonstrated no hydronephrosis, but trace right perinephric fluid present Creatinine stable, urine output has improved, continue diuretics as patient is overall volume overloaded. Elevated BUN likely secondary to steroids and catabolic state Discussed with daughter in detail she does not think patient would want hemodialysis even if his kidney function deteriorated (6) Dementia: Qualifiers: Dementia behavioral or psychological symptom: unspecified whether behavioral, psychotic, or mood disturbance or anxiety Dementia severity: unspecified severity Dementia type: unspecified type Qualified Code(s): F03.90 - Unspecified dementia, unspecified severity, without behavioral disturbance, psychotic disturbance, mood disturbance, and anxiety Code(s): F03.90 - Unspecified dementia, unspecified severity, without behavioral disturbance, psychotic disturbance, mood disturbance, and anxiety Status: Acute Assessment and Plan: Baseline cognitive impairment, on Namenda at home, (7) Hyperlipidemia: Qualifiers: Hyperlipidemia type: unspecified Qualified Code(s): E78.5 - Hyperlipidemia, unspecified Code(s): E78.5 - Hyperlipidemia, unspecified Status: Acute Assessment and Plan: continue pravastatin (8) GI bleeding: Code(s): K92.2 - Gastrointestinal hemorrhage, unspecified Status: Acute Assessment and Plan: Overnight patient had a bowel movement and stool was reported to be dark by the nursing staff. Although stool Hemoccult was positive his hemoglobin has been stable Monitor hemoglobin IV PPI q.12 hours Continue DVT prophylaxis Lovenox (9) Congestive heart failure: Code(s): I50.9 - Heart failure, unspecified Status: Acute Assessment and Plan: Echo 01/26 Summary 1. Definity contrast administered improved wall motion interpretation. 2. Left ventricular chamber dimension is moderately enlarged. 3. Left ventricular systolic function is moderately globally reduced, estimated at 35-40%. 4. The left ventricular diastolic function is abnormal. 5. E/e' 13 is mildly elevated. 6. Left atrial chamber dimension is moderately enlarged. 7. Right atrial chamber dimension is mildly enlarged. 8. There is mild aortic valve sclerosis. 9. There is mild aortic valve regurgitation. 10. There is moderate to severe mitral valve regurgitation. 11. There is moderate tricuspid valve regurgitation. 12. Mild pulmonary hypertension, estimated pulmonary arterial systolic pressure is 40 mmHg. Lasix IV (10) Electrolyte abnormality: Code(s): E87.8 - Other disorders of electrolyte and fluid balance, not elsewhere classified Status: Acute Assessment and Plan: Replace low potassium (11) Hyperglycemia: Code(s): R73.9 - Hyperglycemia, unspecified Status: Acute Assessment and Plan: Off IV fluids with dextrose. SSI Plan DVT prophylaxis: Lovenox Stress ulcer prophylaxis: Protonix Nutrition: Consult speech for swallow evaluation which is pending Code Status: Patient is DNR DNI at this point. Incentive spirometry, up in chair Subjective Date/time seen: 02/07/25 10:37 Interval history: Patient is currently on comfort care. Started on morphine and Ativan. Pending hospice evaluation Review of Systems Review of Systems: All systems reviewed & are unremarkable except as noted in HPI and below (HPI) ROS unobtainable: Yes unobtainable due to endotracheal tube, unobtainable due to medical condition and unobtainable due to mental status Exam Narrative: General: Pt is alert awake and in NAD. He is confused Lungs/Chest: Trachea central Clear BS B/L, No crackles or wheezing. Breath sounds are decreased at bases Cardiac: RRR. Normal S1 S2. No murmurs Circulation: Pedal pulses are intact and symmetrical. Abdomen: Normal bowel sounds.. Soft. NT. ND. Extremities: No clubbing, cyanosis or edema. Warm : Scales in place Neurologic: Follows commands. Moves all 4 extremities PERRL AO x0. He knows he is in the hospital in [place] but could not tell me the year or president 0. Generalized weakness Skin: No Rash Objective Data Vital Signs Vital Signs: Vital Signs - 24 hr 02/06/25 12:00 02/06/25 12:00 02/06/25 12:00 Temperature 97.8 F Pulse Rate 103 H 104 H Respiratory Rate 13 Blood Pressure 135/73 Pulse Oximetry 100 100 Oxygen Delivery Nasal Cannula Oxygen Flow Rate 5 Fraction of Inspired Oxygen 02/06/25 13:21 02/06/25 13:33 02/06/25 14:00 Temperature Pulse Rate 104 H 102 H 104 H Respiratory Rate 22 H 16 Blood Pressure Pulse Oximetry Oxygen Delivery Oxygen Flow Rate Fraction of Inspired Oxygen 02/06/25 16:00 02/06/25 16:00 02/06/25 16:00 Temperature 97.8 F Pulse Rate 116 H 110 H Respiratory Rate 23 H Blood Pressure 114/94 H Pulse Oximetry 100 99 Oxygen Delivery Nasal Cannula Oxygen Flow Rate 5 Fraction of Inspired Oxygen 02/06/25 18:00 02/06/25 20:00 02/06/25 20:00 Temperature Pulse Rate 103 H 105 H Respiratory Rate Blood Pressure Pulse Oximetry 100 Oxygen Delivery Venturi Mask Oxygen Flow Rate 9 Fraction of Inspired Oxygen 35 02/06/25 20:00 02/06/25 21:30 02/06/25 21:30 Temperature 97.3 F L Pulse Rate 105 H 105 H Respiratory Rate 22 H 16 Blood Pressure 150/82 H 138/78 Pulse Oximetry 100 Oxygen Delivery Oxygen Flow Rate Fraction of Inspired Oxygen 02/06/25 21:45 02/06/25 22:00 02/06/25 22:35 Temperature Pulse Rate 105 H 104 H Respiratory Rate 16 Blood Pressure Pulse Oximetry 100 Oxygen Delivery Venturi Mask Oxygen Flow Rate 9 Fraction of Inspired Oxygen 35 02/07/25 00:00 02/07/25 00:00 02/07/25 00:00 Temperature 97.1 F L Pulse Rate 100 100 Respiratory Rate 17 Blood Pressure 131/77 Pulse Oximetry 93 93 Oxygen Delivery Room Air Oxygen Flow Rate Fraction of Inspired Oxygen 02/07/25 02:00 02/07/25 02:17 02/07/25 02:30 Temperature Pulse Rate 99 101 H 101 H Respiratory Rate 18 18 Blood Pressure Pulse Oximetry Oxygen Delivery Oxygen Flow Rate Fraction of Inspired Oxygen 02/07/25 03:45 02/07/25 04:00 02/07/25 04:00 Temperature 97.3 F L Pulse Rate 102 H 102 H Respiratory Rate 22 H Blood Pressure 135/79 Pulse Oximetry 96 96 Oxygen Delivery Venturi Mask Oxygen Flow Rate 9 Fraction of Inspired Oxygen 35 02/07/25 06:00 02/07/25 07:24 02/07/25 07:24 Temperature Pulse Rate 105 H 101 H Respiratory Rate 14 Blood Pressure Pulse Oximetry 94 Oxygen Delivery Room Air Oxygen Flow Rate Fraction of Inspired Oxygen 02/07/25 07:49 Temperature Pulse Rate 105 H Respiratory Rate 24 H Blood Pressure Pulse Oximetry Oxygen Delivery Oxygen Flow Rate Fraction of Inspired Oxygen Intake/Output Intake/Output: Intake & Output 02/04/25 02/05/25 02/06/25 02/07/25 23:59 23:59 23:59 23:59 Intake Total 200 100 224 0 Output Total 850 1950 600 700 Dlnmder -650 -1850 -376 -700 Meds/Results Medications: Active Medications Generic Name Dose Route Start Last Admin Trade Name Freq PRN Reason Stop Dose Admin Acetaminophen 650 mg 01/25/25 11:14 01/25/25 18:58 Acetaminophen 325 Mg Tablet PO 650 mg Q4H PRN Administration Mild Pain (1-3) or Fever Sodium Chloride 10 ml 01/27/25 14:00 02/07/25 09:55 Central Line Flush IV PUSH Not Given Q8HR NELLIE Sodium Chloride 10 ml 01/27/25 11:45 Central Line Flush IV PUSH PRN PRN with TPN bag changes Sodium Chloride 20 ml 01/27/25 11:45 Central Line Flush IV PUSH PRN PRN after blood draws Radiology Results: ITS Impressions Abdomen X-Ray 01/26/25 20:53 IMPRESSION: Bibasilar airspace disease. Small bilateral pleural effusions, likely with a subpulmonic component on the right. NG tube in good position. Renal Ultrasound 01/28/25 12:53 Impression: No hydronephrosis. Trace right perinephric fluid. Modified Barium Swallow 02/05/25 13:00 IMPRESSION: Pharyngeal dysphagia with laryngeal penetration and aspiration. Please correlate with speech pathologist findings and specific feeding recommendations. Chest X-Ray 02/06/25 06:33 IMPRESSION: 1. Decreasing opacities in the bilateral mid and lower lung zones which could represent pulmonary edema or pneumonia. 2. Small left pleural effusion. Labs Labs: Laboratory Results - last 24 hr 02/06/25 02/06/25 02/06/25 13:48 14:06 20:05 Sodium 154 H Potassium 3.6 Chloride 113 H Carbon Dioxide 32 H Anion Gap 9 BUN 135 H Creatinine 2.56 H Estim Creat Clear Calc 18 Estimated GFR 24 L Glucose 134 H POC Capillary Glucose 153 H 41 L* Calcium 9.6 02/06/25 02/07/25 02/07/25 20:29 00:14 00:14 Sodium Potassium Chloride Carbon Dioxide Anion Gap BUN Creatinine Estim Creat Clear Calc Estimated GFR Glucose POC Capillary Glucose 110 H 35 L* 62 L Calcium 02/07/25 02/07/25 00:17 04:05 Sodium Potassium Chloride Carbon Dioxide Anion Gap BUN Creatinine Estim Creat Clear Calc Estimated GFR Glucose POC Capillary Glucose 74 95 Calcium Quality VTE Prophylaxis VTE prophylaxis: mechanical ordered and pharmacologic ordered Hospitalist MIPS Advance Care Plan I have confirmed that the patient's Advanced Care Plan is present, code status is documented, or surrogate decision maker is listed in patient medical record.: Yes Medication Reconciliation I have utilized all available resources to obtain, update and review the patients current medications (includes all prescriptions, OTC, herbals, cannabis, and nutritional supplements).: Yes
--- NOTE | 2025-02-07 12:06 | PC.NURSE ---
Patient received from ICU at 12:00 into room 303. Patient's family oriented to unit policies and procedures.
--- NOTE | 2025-02-07 12:12 | PC.NURSE ---
This RN gave report to Amina POLANCO and transferred patient [place] [facility] [place] 303 @1212
[2025-02-07] MEDS: CENTRAL LINE FLUSH 10 ML IV PUSH ×2 (15:58→20:52)
[2025-02-07] MEDS: LORazepam INJ (*CRX) 2 MG/ML VIAL 0.5 MG IV PUSH ×2 (18:46→22:00)
[2025-02-07] MEDS: MORPHINE SULFATE (*CRX) 2 MG/ML INJ IV PUSH ×2 (19:05→22:00)
[2025-02-08] MEDS: MORPHINE SULFATE (*CRX) 2 MG/ML INJ IV PUSH ×4 (00:22→10:40)
[2025-02-08] MEDS: CENTRAL LINE FLUSH 10 ML IV PUSH (06:53)
[2025-02-08 08:00] VITALS: BP 113/66; PULSE 112; RESP 22; TEMP 36.7; O2SAT 96
[2025-02-08 08:34] VITALS: PULSE 111; RESP 20; O2SAT 96
[2025-02-08] MEDS: NEOMYCIN/POLYMYXIN/BACITRACIN OINTMENT PACKET 1 PACKET (11:42)
--- NOTE | 2025-02-08 11:53 | PM.DS ---
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 Patient presents to the emergency department from home for evaluation shortness of breath and lethargy/generalized weakness. He is accompanied daughter who provided much of the past medical history and HPI information. Patient was recently seen in the emergency department on 01/22/2025 for shaking in his extremities and was diagnosed with COVID and discharged home. Over the weekend he became progressively lethargic and not eating as much as mealtimes. No shortness of breath but a non-productive cough. This worsened until Saturday night when he developed a fever and had a restless night of sleep and on the a.m. of 01/25, called an ambulance due to further increase in the lethargy. Continues to endorse generalized weakness. He denies any chest pain or shortness breath, however upon arrival to the Emergency Department, respiratory rate of 32/min. Patient has an altered baseline mentation status of A&Ox2 due to dementia. No abdominal pain, vomiting, LOC, urinary/bowel changes, sputum production, Denies any known sick contacts, recent travel. Coming from assisted living facility. Allergy to contrast dye. Transferred to ICU due to increased O2 demand, increased lethargy and tachypnea. In ED Vitals at Presentation: 99.1F, 139 HR, 32 RR, 88% RA, 126/66 ED Workup showed: WBC 10.9, RBC 4.1, Hgb 12.4,Na 138, K 4.7, CO2 19, Anion Gap 19, BUN 58, Cr 2.01, eGFR 32, Glucose 238, Lactic Acid 4.3, Ca 9.1, BNP 25,700, COVID + Chest x-ray in ED showed bilateral basal and upper lobes pneumonia. Blood cultures were obtained. Blood cultures pending. Patient was managed for Pneumonia and COvid and pulm edema. Was initially intubated and managed in ICU with Abx,, Dexamethasone, Remdesivir and Baricitinib. Also managed for Sepsis, MICHAEL and Congestive heart failure. Hosted Services Analyst, nephrology and GI were involved in his care. Eventually family decided to transtion to comfort care. Patient was transitioned to comfort care and discharge home with hospice to continue comfort care. F/u with PCP in 3-5 days and comfort care Time Spent with Patient Time attestation: Total time spent providing and/or coordinating discharge services: Discharge Plan Discharge Attending physician on discharge: Amita Sanford Discharging Clinician: Amita Sanford Anticipated Discharge Date/Time: 02/08/25 11:09 Patient Disposition: Hospice - Home Activity: as tolerated Diet: as tolerated Patient Language: [place] Stand Alone Forms: General Discharge Information Follow-up/Referrals: Clark Rodriguez MD [Primary Care Provider] - (F/u with PCP in 3-5 days ) Discharge Medications: New glycopyrrolate 1 mg/5 mL (0.2 mg/mL) solution 1 mg PO TID PRN (Reason: secretions) 14 Days Qty: 473 0RF Continued [place]on Fiber Gummies gum 1 gummy BYMOUTH BID Discontinued cholecalciferol (vitamin D3) 50 mcg (2,000 unit) capsule 50 mcg PO DAILY vitamin 200 mg BYMOUTH DAILY mecobalamin (vitamin B12) 1,000 mcg tablet,disintegrating 1,000 mcg sublingual DAILY Rx Instructions: place tablet under tongue and allow to dissolve for at least30 secs before swallowing amlodipine [Norvasc] 5 mg tablet 5 mg PO DAILY Qty: 90 0RF memantine 10 mg tablet 10 mg PO BID Qty: 180 0RF metformin 500 mg tablet 500 mg PO BID Qty: 180 0RF pravastatin 40 mg tablet 40 mg PO DAILY Qty: 90 1RF Date of admission: 01/25/25 17:06 Primary Care Provider: Clark Rodriguez Admitting Provider: Chris Harris Attending physician on admission: Amita Sanford Condition: Stable
== END 2025-02-08 12:10 | disposition hospice, home (50) | DRG 870 ==
LOC: ANHED 11:11 → ANH3MED 11:34 → ANHICU 15:58 → ANH3MEDSUR 02-07 11:33
PROVIDERS: Internal Medicine; Internal Medicine Nephrology; Nurse Practitioner Acute Care; Physician Assistant; Student in an Organized Health Care Education/Training Program; Admitting Provider General Practice; Emergency Provider Emergency Medicine; PCP Internal Medicine; Visit Provider Internal Medicine
DX: A41.89 Other specified sepsis (principal); U07.1 COVID-19; J12.82 Pneumonia due to coronavirus disease 2019; J96.01 Acute respiratory failure with hypoxia; R65.21 Severe sepsis with septic shock; N17.0 Acute kidney failure with tubular necrosis; I50.41 Acute combined systolic (congestive) and diastolic (congestive) heart failure; K92.2 Gastrointestinal hemorrhage, unspecified; F03.90 Unspecified dementia, unspecified severity, without behavioral disturbance, psychotic disturbance, mood disturbance, and anxiety; I10 Essential (primary) hypertension; E78.5 Hyperlipidemia, unspecified; R73.9 Hyperglycemia, unspecified; G47.33 Obstructive sleep apnea (adult) (pediatric); R73.03 Prediabetes; D64.9 Anemia, unspecified; Z90.49 Acquired absence of other specified parts of digestive tract; Z85.89 Personal history of malignant neoplasm of other organs and systems
CPT/HCPCS: 31500; 36415; 36569; 36600; 43752; 71045; 71046; 76775; 80048; 80053; 80202; 81001; 81050; 82274; 82375; 82436; 82550; 82570; 82728; 82805; 82948; 83050; 83605; 83735; 83880; 84100; 84145; 84156; 84300; 84540; 85018; 85025; 85027; 85610; 85730; 85999; 86140; 86704; 86706; 87040; 87070; 87205; 87340; 87641; 92526; 92611; 93005; 94002; 94003; 94640; 96365; 96368; 97162; 97166; 99285; A9270; C1751; C8929; G0378; J0248; J0282; J0456; J0692; J0696; J1100; J1650; J1815; J1938; J2003; J2060; J2250; J2270; J2470; J3010; J3370; J3480; J7030; J7060; J7070; J7120; J8540; P9045; P9047; Q9957